=== PATIENT | female | born 1940 | race African-American/Black ===

== ENCOUNTER 2016-08-18 19:36 | Inpatient (IN) | payer OTHER ==
[2016-08-18 19:48] VITALS: BMI 20.2
[2016-08-18] MEDS ORDERED: ASPIRIN 81 MG CHEWABLE TABLETS PO ONE (19:55)
--- NOTE | 2016-08-18 19:57 | PDOC ---
History of Present Illness - General Chief Complaint: Chest Pain Stated Complaint: CHEST PAIN Time Seen by Provider: 08/18/16 19:55 - History of Present Illness Initial Comments: 08/18/16 20:15 CHIEF COMPLAINT: chest pain HISTORY OF PRESENT ILLNESS: 76 yo F with history of CAD (s/p 2 stents), [place] afib , HTN, HLD, presents to ED with left sided chest pain radiating to L shoulder and arm with accompanying shortness of breath. Patient states that is she is unsure of the timeframe but sometime this evening she was walking from her kitchen to her room when she started feeling the chest pain. She denies fever, chills, nausea, vomiting, diarrhea, headache. No recent travel or sick contacts. PAST MEDICAL HISTORY: Denies past medical history FAMILY HISTORY: Mother -Alzheimer's, Grandfather - diabetes SOCIAL HISTORY: Lives at home with boyfriend. 30 pack year smoking history. alcohol, illicit drug use. SURGICAL HISTORY: stent placement, last cath 2012 ALLERGIES: Penicillin REVIEW OF SYSTEMS General/Constitutional: Denies fever or chills. Denies weakness, weight change. HEENT: Denies change in vision. Denies ear pain or discharge. Denies sore throat. Cardiovascular: Chest pain, shortness of breath Respiratory: Denies cough, wheezing, or hemoptysis. Gastrointestinal: Denies nausea, vomiting, diarrhea or constipation. Denies rectal bleeding. Genitourinary: Denies dysuria, frequency, or change in urination. Musculoskeletal: Denies joint or muscle swelling or pain. Denies neck or back pain. Skin and breasts: Denies rash or easy bruising. Neurologic: Denies headache, vertigo, loss of consciousness, or loss of sensation. PHYSICAL EXAM General Appearance: Well-appearing, appropriately dressed. No apparent distress , no intoxication. HEENT: EOMI, PERRLA, normal ENT inspection, normal voice, TMs normal, pharynx normal. No conjunctival pallor. No photophobia, scleral icterus. Neck: Supple. Trachea midline. No tenderness, rigidity, carotid bruit, stridor , lymphadenopathy, or thyromegaly. Respiratory/Chest: Mild SOB, patient is able to speak in complete sentences. Lungs CTAB. No chest tenderness, respiratory distress, accessory muscle use. No crackles, rales, rhonchi, stridor, wheezing, dullness Cardiovascular: RRR. S1, S2. No JVD, murmur, bradycardia, tachycardia. Vascular Pulses: Dorsalis-Pedis (R): 2+, Dorsalis-Pedis (L): 2+ Gastrointestinal/Abdominal: Normal bowel sounds. Abdomen soft, non-distended. No tenderness or rebound tenderness. No organomegaly, pulsatile mass, guarding , hernia, hepatomegaly, splenomegaly. Lymphatic: No adenopathy, tenderness. Musculoskeletal/Extremities: Normal inspection. FROM of all extremities, normal capillary refill. Pelvis Stable. No CVA tenderness. No tenderness to extremities, pedal edema, swelling, erythema or deformity. Integumentary: Appropriate color, dry, warm. 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 Fully oriented, alert. Appropriate mood/affect. Motor strength 5/5. No appreciable EOM palsy, facial droop or sensory deficit. Beta Michelle given by EMS (Core Measure): No Beta Michelle taken at Home (Core Measure): No Past History - Past Medical History Allergies/Adverse Reactions: Allergies Allergy/AdvReac Type Severity Reaction Status Date / Time Penicillins Allergy Mild Swelling Verified 08/18/16 19:41 Home Medications: Ambulatory Orders Aspirin/Dipyridamole [Aggrenox -] 1 combo PO BID 06/23/16 Atorvastatin Calcium 40 mg PO DAILY 06/23/16 Trazodone HCl 100 mg PO DAILY 06/23/16 Enalapril Maleate [Vasotec -] 10 mg PO DAILY #30 tablet 06/28/16 Levofloxacin [Levaquin -] 250 mg PO DAILY@0600 #10 tablet 06/28/16 Metronidazole [Flagyl -] 250 mg PO TID #30 tablet 06/28/16 Mirtazapine [Remeron -] 7.5 mg PO HS tablet 06/28/16 Nicotine Patch [Nicoderm Patch -] 14 mg TD DAILY #40 patch 06/28/16 Nifedipine ER [Procardia XL -] 30 mg PO DAILY #30 tab.er.24 06/28/16 Anemia: No Asthma: No Cancer: No Cardiac Disorders: Yes (NV,AFIB,stents,angio) CVA: No COPD: Yes CHF: No Dementia: No Diabetes: No GI Disorders: Yes Disorders: No HTN: Yes Hypercholesterolemia: No Kidney Stones: Yes Liver Disease: No Suicide Attempt (Hx): No Seizures: No Thyroid Disease: No - Surgical History Abdominal Surgery: Yes (COLON) Appendectomy: Yes Cardiac Surgery: Yes (STENT, BALLOON) Cholecystectomy: Yes Lung Surgery: No Neurologic Surgery: No Orthopedic Surgery: No - Immunization History Td Vaccination: Yes Immunization Up to Date: Yes - Psycho/Social/Smoking Cessation Hx Anxiety: Yes Suicidal Ideation: No Smoking Status: No Smoking History: Current every day smoker Years of Tobacco Use: 40 Have you smoked in the past 12 months: Yes Number of Cigarettes Smoked Daily: 10 Cigars Per Day: 0 Information on smoking cessation initiated: Yes 'Breaking Loose' booklet given: 08/18/16 Hx Alcohol Use: No Drug/Substance Use Hx: No Substance Use Type: None Hx Substance Use Treatment: No Cardiac Specific PMH - Complaint Specific PMHX Cardiac Stent: Yes Pacemaker: No *Physical Exam - Vital Signs Last Vital Signs Temp Pulse Resp BP Pulse Ox 91 H 18 173/61 99 08/18/16 19:41 08/18/16 19:41 08/18/16 19:41 08/18/16 19:41 Heart Score/ECG Review - History History: Moderately suspicious - Electrocardiogram EKG: Non specific repolarization disturbance - Age Age: >/= 65 - Risk Factors Risk Factors Heart Score: Yes Hx Hypercholesterolemia, Yes Hx Hypertension, Yes Smoking History Based on the list above the patient has:: >/=3 risk factors or Hx atherosclerotic disease - Troponin Troponin: </= normal limit - Score Heart Score - Total: 6 - ECG Intrepretation Rhythm: PAC(s) - [place]: Normal - P and MS Atrial Enlargement: Left ED Treatment Course - LABORATORY CBC & Chemistry Diagram: 08/18/16 20:23 08/18/16 20:23 - ADDITIONAL ORDERS Additional order review: Laboratory Results 08/18/16 08/18/16 08/18/16 20:23 20:23 20:23 INR 1.07 Sodium 137 Potassium 4.5 Chloride 103 Carbon Dioxide 27 Anion Gap 7 L BUN 23 H D Creatinine 1.5 H D Creat Clearance w eGFR 33.67 Random Glucose 100 Calcium 9.1 Magnesium 2.4 Total Bilirubin 0.2 D AST 12 L ALT 17 Alkaline Phosphatase 84 Creatine Kinase 34 34 Troponin I < 0.02 < 0.02 Total Protein 7.6 Albumin 3.9 08/18/16 20:23 RBC 4.32 MCV 80.2 MCHC 33.0 RDW 15.1 MPV 8.6 Neutrophils % 65.9 Lymphocytes % 23.3 Monocytes % 7.5 Eosinophils % 2.5 Basophils % 0.8 - RADIOLOGY Radiology Studies Ordered: Category Date Time Status CHEST PA & LAT [RAD] Stat Radiology 08/18/16 19:56 Taken - Medications Given in the ED: ED Medications Discontinued Medications Generic Name Dose Route Start Last Admin Trade Name Blanca PRN Reason Stop Dose Admin Aspirin 162 mg 08/18/16 19:55 08/18/16 20:38 Asa - PO 08/18/16 19:56 162 mg ONCE ONE Administration Morphine Sulfate 4 mg 08/18/16 20:13 08/18/16 20:38 Morphine Injection - IVPUSH 08/18/16 20:14 4 mg ONCE ONE Administration Medical Decision Making - Medical Decision Making 08/18/16 20:31 76 yo F with significant PMH of NV (s/p stent placement), afib, HTN, HLD presents to ED with left sided chest pain radiating to left shoulder and arm. -CBC, CMP, Mg, PT/INR, troponin -CXR, EKG -4 mg morphine, 162 mg ASA -2 L O2 via NC BP: R side 173/61, L side 175/66 HR: 91 EKG: T-wave inversion in leads V1, V2, V3. Compared to EKG from 06/23/16, T- wave inversion in V2, V3 are new. Patient reassessed; is talking agitatedly on cell phone. On interview, states she is feeling a little better. Labs: 1st Troponin negative. Creatinine 1.5, elevated from baseline of 1.0- 1.2. Discussed case with ER attending Keerthi, given patient's history of CAD/NV, will admit to inpatient service for acute chest pain, possible NSTEMI. *DC/Admit/Observation/Transfer Diagnosis at time of Disposition: Chest pain, rule out acute myocardial infarction - Discharge Dispostion Admit: Yes Decision to Admit order Date/Time: Decision to Admit Order Category Date Time Status Decision to Admit to Hospital Routine Phy Order 08/18/16 22:26 Ordered - Referrals Referrals: Pedro Rose MD [Primary Care Provider] -
[2016-08-18] MEDS ORDERED: ASPIRIN 81 MG CHEWABLE TABLETS ONE (20:13)
[2016-08-18] MEDS ORDERED: morphine CARPU-JECT 4 MG/1 ML DISP.SYRIN IVPUSH ONE (20:13)
[2016-08-18] MEDS ORDERED: morphine CARPU-JECT 4 MG/1 ML DISP.SYRIN ONE (20:15)
[2016-08-18 20:45] LABS: BASOPHIL 0.8 % (0-2.0); EOSINOPHIL 2.5 % (0-4.5); MCH 26.5 pg (25.7-33.7); MEAN CELL VOLUME 80.2 fl (80-96); MEAN PLT VOLUME 8.6 fl (7.5-11.1); NEUTROPHILS 65.9 % (42.8-82.8); PLATELET COUNT 253 K/MM3 (134-434); RDW 15.1 % (11.6-15.6); WHITE BLOOD COUNT 9.7 K/mm3 (4.0-10.0)
[2016-08-18 21:21] LABS: ALBUMIN 3.9 g/dl (3.4-5.0); ANION GAP 7 (8-16); CALCIUM 9.1 mg/dL (8.5-10.1); CO2 27 mmol/L (21-32); CREATININE 1.5 mg/dL (0.55-1.02); GLUCOSE,RANDOM 100 mg/dL (74-106); MAGNESIUM 2.4 mg/dL (1.8-2.4); SGOT/AST 12 U/L (15-37); SGPT/ALT 17 U/L (12-78)
[2016-08-18 21:23] LABS: TROPONIN I < 0.02 ng/ml (0.00-0.05)
[2016-08-18 21:25] LABS: ALK PHOS 84 U/L (45-117); BILIRUBIN,TOTAL 0.2 mg/dL (0.2-1.0); TOT PROT 7.6 g/dl (6.4-8.2); TROPONIN I < 0.02 ng/ml (0.00-0.05)
[2016-08-18 21:57] LABS: INR 1.07 (0.82-1.09); PROTHROMBIN TIME (PATIENT) 11.8 SEC (9.98-11.88)
[2016-08-19] MEDS ORDERED: ZOLPIDEM TARTRATE 5 MG TABLET ONE (02:13)
[2016-08-19] MEDS: ZOLPIDEM TARTRATE 5 MG TABLET PO PRN ×2 (02:15→02:32)
[2016-08-19] MEDS ORDERED: ACETAMINOPHEN 325 MG TABLET (FP) PO PRN (02:38)
[2016-08-19 07:59] LABS: TROPONIN I < 0.02 ng/ml (0.00-0.05)
--- NOTE | 2016-08-19 09:40 | CONSULT ---
Consult Consult Specialty:: Cadiology Referred by:: Joellen Damon MD Reason for Consultation:: Chest pain - History of Present Illness Chief Complaint: Chest pain History of Present Illness: 74 y/o female with h/o CAD [place] s/p pci, tob abuse, htn, HLD, COPD, paroxysmal afib, diverticulitis 6 yo F with history of CAD (s/p 2 stents), [place] afib, HTN, HLD, presents to ED with left sided chest pain radiating to L shoulder and arm with accompanying shortness of breath. Patient states that is she is unsure of the timeframe but sometime this evening she was walking from her kitchen to her room when she started feeling the chest pain. She denies fever, chills, nausea, vomiting, diarrhea, headache. No recent travel or sick contacts. PAST MEDICAL HISTORY: Denies past medical history FAMILY HISTORY: Mother -Alzheimer's, Grandfather - diabetes SOCIAL HISTORY: Lives at home with boyfriend. 30 pack year smoking history. alcohol, illicit drug use. SURGICAL HISTORY: stent placement, last cath 2012 ALLERGIES: Penicillin - Past Medical History Cardio/Vascular: Yes: AFIB (paroxysmal), CAD, HTN, [place]. No: Aneurysm Pulmonary: Yes: COPD. No: Asthma - Past Surgical History Past Surgical History: Yes: Stent - Alcohol/Substance Use Hx Alcohol Use: No History of Substance Use: reports: None - Smoking History Smoking history: Current every day smoker Have you smoked in the past 12 months: Yes Aproximately how many cigarettes per day: 10 - Social History ADL: Independent History of Recent Travel: Yes (from [place] to [place] 2 days ago) Home Medications - Allergies Allergies/Adverse Reactions: Allergies Allergy/AdvReac Type Severity Reaction Status Date / Time Penicillins Allergy Mild Swelling Verified 08/18/16 19:41 - Home Medications Home Medications: Ambulatory Orders Trazodone HCl 50 mg PO HS 06/23/16 Aspirin [ASA -] 81 mg PO DAILY 08/19/16 Valsartan [Diovan] 320 mg PO DAILY 08/19/16 Zolpidem Tartrate [Ambien] 10 mg PO HS 08/19/16 Family Disease History - Family Disease History Family Disease History: Diabetes: Grandparent, Other: Mother (Alzheimer's disease) Vital Signs: Vital Signs Temperature 98.0 F 08/19/16 01:00 Pulse Rate 67 08/19/16 06:35 Respiratory Rate 20 08/19/16 06:35 Blood Pressure 123/49 08/19/16 06:35 O2 Sat by Pulse Oximetry (%) 92 L 08/19/16 01:00 - Other Data Labs, Other Data: INR, PTT INR 1.07 (0.82-1.09) 08/18/16 20:23 Troponin, BNP 08/19/16 08/19/16 00:36 05:35 Troponin I < 0.02 < 0.02 Troponin, BNP 08/19/16 08/19/16 00:36 05:35 Troponin I < 0.02 < 0.02 Assessment/Plan 74 y/o female with COPD, htn, hl, CAD s/p PCI presents with abdominal pain. Patient has a normal CT scan of the abd/pelvis with no fevers, WBC, or lactate. Will observe overnight. Will reorder a tranvaginal US as the pain is similar to her prior presentation. 1.) Abdominal Pain -no lactate -CT abd/pelv normal -no fevers -no leukocytosis -no organic evidence thus far of the patient to have bilateral abdominal tenderness -will repeat transvag US 2.) HTN -restart home meds 3.) COPD -Albuterol Q6 -restart home meds 4.) CAD -c/w plavix -consider statin 5.) DVT -lovenox 40U (1) Ischemic colitis Code(s): K55.9 - VASCULAR DISORDER OF INTESTINE, UNSPECIFIED (2) HTN (hypertension) Code(s): I10 - ESSENTIAL (PRIMARY) HYPERTENSION (3) CAD (coronary artery disease) Code(s): I25.10 - ATHSCL HEART DISEASE OF [place] CORONARY ARTERY W/O ANG PCTRS (4) Paroxysmal a-fib Code(s): I48.0 - PAROXYSMAL ATRIAL FIBRILLATION
[2016-08-19] MEDS ORDERED: ASPIRIN 81 MG CHEWABLE TABLETS PO SCH (10:00)
[2016-08-19] MEDS ORDERED: CARVEDILOL 3.125 MG TABLET (FP) PO SCH (10:00)
[2016-08-19] MEDS ORDERED: VALSARTAN 160 MG TABLET (UD) PO SCH (10:00)
--- NOTE | 2016-08-19 10:15 | HP ---
Admitting History and Physical - Primary Care Physician PCP: andres - Admission Chief Complaint: chest pain History of Present Illness: ER HISTORY CHIEF COMPLAINT: chest pain HISTORY OF PRESENT ILLNESS: 76 yo F with history of CAD (s/p 2 stents), [place] afib , HTN, HLD, presents to ED with left sided chest pain radiating to L shoulder and arm with accompanying shortness of breath. Patient states that is she is unsure of the timeframe but sometime this evening she was walking from her kitchen to her room when she started feeling the chest pain. She denies fever, chills, nausea, vomiting, diarrhea, headache. No recent travel or sick contacts. Pt seen by me on Telemetry Known to me from previous admissions- She currently has chest pain ,denies SOB . Chest pain x 2 days now Continuous, feels weak Has new changes in EKG as per Dr Dempsey and will be transferred to [facility] History Source: Patient Limitations to Obtaining History: No Limitations - Past Medical History Cardiovascular: Yes: AFIB (paroxysmal), CAD, HTN, [place]. No: Aneurysm Pulmonary: Yes: COPD. No: Asthma - Past Surgical History Past Surgical History: Yes: Stent - Smoking History Smoking history: Current every day smoker Have you smoked in the past 12 months: Yes Aproximately how many cigarettes per day: 10 - Alcohol/Substance Use Hx Alcohol Use: No History of Substance Use: reports: None - Social History ADL: Independent History of Recent Travel: Yes (from [place] to [place] 2 days ago) Home Medications - Allergies Allergies/Adverse Reactions: Allergies Allergy/AdvReac Type Severity Reaction Status Date / Time Penicillins Allergy Mild Swelling Verified 08/18/16 19:41 - Home Medications Home Medications: Ambulatory Orders Trazodone HCl 50 mg PO HS 06/23/16 Aspirin [ASA -] 81 mg PO DAILY 08/19/16 Valsartan [Diovan] 320 mg PO DAILY 08/19/16 Zolpidem Tartrate [Ambien] 10 mg PO HS 08/19/16 Family Disease History - Family Disease History Family Disease History: Diabetes: Grandparent, Other: Mother (Alzheimer's disease) Review of Systems - Review of Systems Constitutional: denies: Chills, Fever, Weakness Cardiovascular: reports: Chest Pain. denies: Edema, Palpitations, Shortness of Breath Physical Examination Vital Signs: Vital Signs Temperature 98.0 F 08/19/16 01:00 Pulse Rate 67 08/19/16 06:35 Respiratory Rate 20 08/19/16 06:35 Blood Pressure 123/49 08/19/16 06:35 O2 Sat by Pulse Oximetry (%) 92 L 08/19/16 01:00 Constitutional: Yes: No Distress, Calm Cardiovascular: Yes: Regular Rate and Rhythm Respiratory: Yes: Cough Gastrointestinal: Yes: Normal Bowel Sounds, Soft. No: Distention, Tenderness Edema: No Neurological: Yes: Alert, Oriented Psychiatric: Yes: Alert, Oriented Labs: Laboratory Results - last 24 hr 08/18/16 08/18/16 08/18/16 20:23 20:23 20:23 WBC 9.7 RBC 4.32 Hgb 11.4 D Hct 34.6 MCV 80.2 MCHC 33.0 RDW 15.1 Plt Count 253 MPV 8.6 Neutrophils % 65.9 Lymphocytes % 23.3 Monocytes % 7.5 Eosinophils % 2.5 Basophils % 0.8 INR 1.07 Sodium Potassium Chloride Carbon Dioxide Anion Gap BUN Creatinine Creat Clearance w eGFR Random Glucose Calcium Magnesium Total Bilirubin AST ALT Alkaline Phosphatase Creatine Kinase 34 Troponin I < 0.02 Total Protein Albumin 08/18/16 08/19/16 08/19/16 20:23 00:36 05:35 WBC RBC Hgb Hct MCV MCHC RDW Plt Count MPV Neutrophils % Lymphocytes % Monocytes % Eosinophils % Basophils % INR Sodium 137 Potassium 4.5 Chloride 103 Carbon Dioxide 27 Anion Gap 7 L BUN 23 H D Creatinine 1.5 H D Creat Clearance w eGFR 33.67 Random Glucose 100 Calcium 9.1 Magnesium 2.4 Total Bilirubin 0.2 D AST 12 L ALT 17 Alkaline Phosphatase 84 Creatine Kinase 34 29 Troponin I < 0.02 < 0.02 < 0.02 Total Protein 7.6 Albumin 3.9 Imaging - Results Chest X-ray: Image Reviewed (no infiltrate) EKG: Image Reviewed (EKG- Sinus, T wave inverted V 2 and V3) Problem List - Problems (1) Chest pain, rule out acute myocardial infarction Code(s): R07.9 - CHEST PAIN, UNSPECIFIED (2) CAD (coronary artery disease) Code(s): I25.10 - ATHSCL HEART DISEASE OF [place] CORONARY ARTERY W/O ANG PCTRS Qualifiers: Coronary Disease-Associated Artery/Lesion type: [place] artery Associated angina: with unstable angina (3) HTN (hypertension) Code(s): I10 - ESSENTIAL (PRIMARY) HYPERTENSION Qualifiers: Hypertension type: essential hypertension Qualified Code(s): I10 - Essential (primary) hypertension (4) Nonspecific ST-T wave electrocardiographic changes Code(s): R94.31 - ABNORMAL ELECTROCARDIOGRAM [ECG] [EKG] (5) Paroxysmal a-fib Code(s): I48.0 - PAROXYSMAL ATRIAL FIBRILLATION Assessment/Plan PLAN -- cardiac enzymes negative -- EKG shows new changes -- continue with meds -- On Heparin drip and Plavix -- being transferred to [facility] for cath -- spoke to Cardiology
[2016-08-19] MEDS ORDERED: HEPARIN NA (PORCINE) 5,000 UNITS/ML 1ML VIAL IVPUSH PRN ×2 (10:30)
[2016-08-19] MEDS ORDERED: HEPARIN - 25,000 UNIT in SODIUM CHLORIDE 495 ML IV SCH (10:30)
[2016-08-19] MEDS ORDERED: CLOPIDOGREL BISULFATE 300 MG TABLET PO ONE (10:35)
[2016-08-19] MEDS ORDERED: HEPARIN INFUSION - 500 ML IVPB ONE (10:43)
[2016-08-19] MEDS ORDERED: NITROGLYCERIN SUBLINGUAL 1/150 0.4 MG TAB ONE (10:43)
[2016-08-19] MEDS ORDERED: NITROGLYCERIN SUBLINGUAL 1/150 0.4 MG TAB SL PRN (10:45)
--- NOTE | 2016-08-19 10:45 | PN ---
Progress Note (short form) - Note Progress Note: Cardiology Consult Dictated 76F w/ CAD s/p PCI x 2 2008, and again in '13 after ID, CVAs (last 5 months ago ) COPD, HTN presents to ER with worsening substernal chest pressure reminding her of her previous anginal sx, relieved with SLNTG and found to have new anterior TWI compared to previous office echo 08/06/16. IMP: Unstable angina Known CAD s/p previous PCIs HTN Known moderate to severe AR REC: 1. Will start IV heparin gtts and give Plavix 300mg PO x1 2. Continue ASA 3. In light of established CAD with current sx and new ECG changes, will arrange for transfer for cath. Discussed with patient and who agree w plan.
--- NOTE | 2016-08-19 11:52 | EKG ---
Test Reason : Blood Pressure : / mmHG Vent. Rate : 067 BPM Atrial Rate : 067 BPM P-R Int : 136 ms QRS Dur : 080 ms QT Int : 450 ms P-R-T Axes : 072 059 060 degrees QTc Int : 475 ms SINUS RHYTHM WITH MARKED SINUS ARRHYTHMIA WITH REPOLARIZATION ABNORMALITY r/o anterior wall ischemia. OTHERWISE NORMAL ECG WHEN COMPARED WITH ECG OF 18-AUG-2016 19:44, PREMATURE ATRIAL COMPLEXES ARE NO LONGER PRESENT Confirmed by RUSLAN MAYORGA MD ([id number]) on 08/19/2016 11:52:23 AM Referred By: Jennie DALE Confirmed By:RUSLAN MAYORGA MD
--- NOTE | 2016-08-19 11:54 | EKG ---
Test Reason : Blood Pressure : / mmHG Vent. Rate : 086 BPM Atrial Rate : 086 BPM P-R Int : 134 ms QRS Dur : 080 ms QT Int : 390 ms P-R-T Axes : 067 055 055 degrees QTc Int : 466 ms SINUS RHYTHM WITH PREMATURE ATRIAL COMPLEXES POSSIBLE LEFT ATRIAL ENLARGEMENT T WAVE ABNORMALITY, CONSIDER ANTERIOR ISCHEMIA ABNORMAL ECG WHEN COMPARED WITH ECG OF 23-JUN-2016 21:23, PREMATURE ATRIAL COMPLEXES ARE NOW PRESENT T WAVE INVERSION NOW EVIDENT IN ANTERIOR LEADS Confirmed by MUKESH ALCAZAR, RUSLAN ([id number]) on 08/19/2016 11:53:52 AM Referred By: Confirmed By:RUSLAN MAYORGA MD
--- NOTE | 2016-08-19 13:02 | CONS ---
DATE OF CONSULTATION: DATE OF DICTATION: 08/19/2016 REQUESTING PHYSICIAN: Joellen Damon MD REASON FOR CONSULTATION: Chest pain. HISTORY OF PRESENT ILLNESS: The patient is a 76-year-old female who I had evaluated in the office in early August for dyspnea on exertion and substernal chest pressure. She has a past medical history of coronary artery disease status post PCI x2 in 2007 and again in 2012 after a myocardial infarction. She has a history of smoking and COPD, nephrolithiasis, history of CVAs with the last one approximately 5 months ago at [facility], non-hemorrhagic. She now presents to the ER with substernal chest pressure, worsening in nature, reminding her of her previous angina symptoms - relieved with sublingual nitroglycerin. On EKG, she has new T-wave inversions in the anterior precordial leads compared with EKG in my office on August 06. She denies nausea, vomiting, or diaphoresis. She does have shortness of breath associated with the chest pressure. The pain is not pleuritic in nature, non-positional in nature, and not related to food intake. PAST MEDICAL HISTORY: Is as above and includes coronary artery disease with PCI in 2007 and again in 2012, CVA non-hemorrhagic approximately 4-5 months ago treated at [facility], COPD, hypertension, nephrolithiasis, status post cholecystectomy, status post appendectomy, status post colon surgery for diverticulosis. ALLERGIES: She is allergic to PENICILLIN. HOME MEDICATIONS: Include Ambien 10 mg at bedtime, Diovan 320 daily, aspirin 81 daily, and trazadone 50 at bedtime. FAMILY HISTORY: Noncontributory. SOCIAL HISTORY: Patient is an active smoker. PHYSICAL EXAMINATION: Vital signs: Temperature of 98 Fahrenheit, pulse 67 and regular, blood pressure on presentation was 170/61, now 144/76, O2 saturation has vacillated between 93 and 99 on room air. Neck: 2+ pulses. No bruits. Heart: S1, 2. There is a 2/6 diastolic murmur at the right sternal border. Chest: Clear bilaterally with decreased breath sounds consistent with COPD. Abdomen: Soft, nontender. Extremities: No significant pitting edema. Negative Homans sign bilaterally. Pulses 2+ carotid and radial pulses bilaterally. DIAGNOSTIC DATA: EKG showed normal sinus rhythm at 86 beats per minute with T-wave inversions in V2 and V3, which were new compared to the previous EKG in August of 2016. Chest x-ray with no active cardiopulmonary disease. LABORATORIES: White count 9.7, hematocrit 34.6, platelets 253. INR 1.07. Sodium 137, potassium 4.5, BUN 23, creatinine 1.5. CK is negative x3. Sets troponin is negative x4 sets. ASSESSMENT: 1. This is a 76-year-old female with known coronary artery disease status post percutaneous coronary intervention 2007 and 2012. 2. History of cerebrovascular accident 5 months ago, non-hemorrhagic. 3. Hypertension. 4. Known smoker with chronic obstructive pulmonary disease. 5. Moderate to severe aortic regurgitation. She is now presenting with substernal chest pressure and new electrocardiogram changes, pressure with characteristics of her previous anginal symptoms. Concern for unstable angina. PLAN: 1. Continue aspirin. 2. Will give Plavix 300 mg p.o. x1. 3. Will begin IV heparin. 4. Given her established CAD, current symptoms, and new EKG changes, will arrange for transfer for urgent cardiac catheterization to rule out restenosis or progression of coronary artery disease. Case was discussed with patient and with her , who agreed with the plan. Patient has been accepted for transfer for catheterization at [facility] today. GALLO ESTRADA M.D. [id number]
[2016-08-19 14:34] VITALS: BP 135/48; PULSE 65; TEMP 98.2
[2016-08-19] MEDS ORDERED: traZODone HCL 50 MG TABLET (FP) PO SCH (22:00)
== END 2016-08-19 15:51 | disposition short-term general hospital (02) | DRG 303 ==
LOC: JER 19:36 → JERBED 22:45 → J4W 08-19 01:19
PROVIDERS: ADMIT Internal Medicine; ATTEND Internal Medicine
DX: I25.10 Atherosclerotic heart disease of native coronary artery without angina pectoris (principal); I20.0 Unstable angina; Z98.61 Coronary angioplasty status; I25.2 Old myocardial infarction; R07.9 Chest pain, unspecified; Z86.73 Personal history of transient ischemic attack (TIA), and cerebral infarction without residual deficits; I35.1 Nonrheumatic aortic (valve) insufficiency; I48.0 Paroxysmal atrial fibrillation; I10 Essential (primary) hypertension; F17.210 Nicotine dependence, cigarettes, uncomplicated
CPT/HCPCS: 36415; 71020-TC; 80053; 82550; 83735; 84484; 85025; 85610; 93005; 93010; 93306-TC; 99283-25; J1644

== ENCOUNTER 2016-09-09 16:49 | Inpatient (IN) | payer OTHER ==
[2016-09-09 17:16] VITALS: BMI 19.5
[2016-09-09] MEDS ORDERED: KETOROLAC TROMETHAMINE 30 MG/1 ML VIAL IVPUSH ONE (17:38)
--- NOTE | 2016-09-09 17:40 | PDOC ---
History of Present Illness - General Chief Complaint: Chest Pain Stated Complaint: CHEST PAIN Time Seen by Provider: 09/09/16 17:21 History Source: Patient Exam Limitations: No Limitations - History of Present Illness Initial Comments: 09/09/16 17:42 Patient is a 76 year old female with significant PMH of CAD (s/p PCIx3: 2008, 2012, August 2016), CVA, COPD, HTN, CKD IV who presents to ED with chest pain. Patient states she has felt mild chest pain over last week that became much more severe this afternoon. It is substernal, 8/10 (was worse before sublingual nitro given), constant, radiates to left arm and exacerbated by movement but not exertion. She states the pain is worse when palpated. She also reports chronic back pain that has been severe lately as well. Denies shortness of breath, abdominal pain, change in vision, diarrhea, constipation, nausea or vomiting. Given Aspirin and sublingual nitro in EMS. Timing/Duration: unsure Past History - Travel Traveled outside of the country in the last 30 days: No Close contact w/someone who was outside of country & ill: No - Past Medical History Allergies/Adverse Reactions: Allergies Allergy/AdvReac Type Severity Reaction Status Date / Time Penicillins Allergy Mild Swelling Verified 09/09/16 16:59 Home Medications: Ambulatory Orders Aspirin [ASA -] 81 mg PO DAILY 09/09/16 Atorvastatin Ca [Lipitor] 40 mg PO HS 09/09/16 Carvedilol 3.125 mg PO DAILY 09/09/16 Clopidogrel Bisulfate [Plavix -] 75 mg PO DAILY 09/09/16 Omeprazole 20 mg PO DAILY 09/09/16 Sertraline HCl [Zoloft] 25 mg PO DAILY 09/09/16 Trazodone HCl 100 mg PO DAILY 09/09/16 Valsartan 320 mg PO DAILY 09/09/16 Zolpidem Tartrate [Ambien] 5 mg PO HS 09/09/16 Anemia: No Asthma: No Cancer: No Cardiac Disorders: Yes (SD,AFIB,stents,angio) CVA: No COPD: Yes CHF: No Dementia: No Diabetes: No GI Disorders: Yes Disorders: No HTN: Yes Hypercholesterolemia: Yes Kidney Stones: Yes Liver Disease: No Suicide Attempt (Hx): No Seizures: No Thyroid Disease: No - Surgical History Abdominal Surgery: Yes (COLON) Appendectomy: Yes Cardiac Surgery: Yes (STENT, BALLOON) Cholecystectomy: Yes Lung Surgery: No Neurologic Surgery: No Orthopedic Surgery: No - Immunization History Td Vaccination: Yes Immunization Up to Date: Yes - Psycho/Social/Smoking Cessation Hx Anxiety: No Suicidal Ideation: No Smoking Status: No Smoking History: Current every day smoker Years of Tobacco Use: 40 Have you smoked in the past 12 months: Yes Number of Cigarettes Smoked Daily: 10 Cigars Per Day: 0 Information on smoking cessation initiated: No 'Breaking Loose' booklet given: 06/24/16 Hx Alcohol Use: No Drug/Substance Use Hx: No Substance Use Type: None Hx Substance Use Treatment: No Review of Systems - Review of Systems Able to Perform ROS?: Yes Is the patient limited Moroccan proficient: No Constitutional: No: Chills, Fever HEENTM: No: Eye Pain, Double Vision, Tinnitus, Throat Pain, Difficulty Swallowing Respiratory: Yes: SOB with Exertion. No: Cough, Shortness of Breath, Wheezing, Productive cough Cardiac (ROS): Yes: Chest Pain. No: Edema, Irregular Heart Rate, Lightheadedness ABD/GI: No: Constipated, Diarrhea, Nausea, Vomiting : No: Burning, Dysuria Musculoskeletal: Yes: Back Pain Integumentary: No: Bruising, Change in Color, Erythema Neurological: No: Headache, Numbness, Tingling, Tremors All Other Systems: Reviewed and Negative *Physical Exam - Vital Signs Last Vital Signs Temp Pulse Resp BP Pulse Ox 97.8 F 63 18 191/53 98 09/09/16 16:59 09/09/16 17:20 09/09/16 16:59 09/09/16 16:59 09/09/16 17:20 - Physical Exam General Appearance: Yes: Appropriately Dressed, Apparent Distress, Thin HEENT: positive: EOMI, ARLETTE, Pharynx Normal Neck: positive: Trachea midline, Normal Thyroid, Supple Respiratory/Chest: positive: Lungs Clear, Other (diminished breath sounds but no wheezing, rales or crackles noted) Cardiovascular: positive: Regular Rhythm, Regular Rate, S1, S2 Gastrointestinal/Abdominal: positive: Normal Bowel Sounds, Flat, Soft Musculoskeletal: positive: Normal Inspection, Other (lower back pain (chronic)) Extremity: positive: Normal Inspection, Normal Range of Motion Integumentary: positive: Normal Color, Dry, Warm Neurologic: positive: contemporary or modern dancer II-XII NML intact, Fully Oriented, Alert, Normal Mood/ Affect, Motor Strength 5/5 Heart Score/ECG Review - History History: Slightly suspicious - Electrocardiogram EKG: Normal - Age Age: >/= 65 - Risk Factors Risk Factors Heart Score: Yes Hx Hypercholesterolemia, Yes Hx Hypertension, Yes Smoking History Based on the list above the patient has:: >/=3 risk factors or Hx atherosclerotic disease - Troponin Troponin: </= normal limit - Score Heart Score - Total: 4 - ECG Impressions Comment:: 09/09/16 17:50 IMPRESSION: NORMAL SINUS RHYTHM 63BPM ED Treatment Course - LABORATORY CBC & Chemistry Diagram: 09/09/16 17:42 09/09/16 17:42 - RADIOLOGY Radiology Studies Ordered: Category Date Time Status CHEST X-RAY PORTABLE* [RAD] Stat Radiology 09/09/16 17:22 Ordered Medical Decision Making - Medical Decision Making 09/09/16 17:51 Unlikely cardiac pain due to musculoskeletal nature of physical exam and reproduction of pain with palpation to sternum, but need to r/o ACS given patient cardiac history. Ordered CBC, CMP, Troponins, CXR, Lipase, lactic, magnesium, UA. Given tramadol for pain management. 09/09/16 18:47 Troponin (-) x1. Patient states chest pain has resolved but given HEART score of 4, will keep overnight for observation in telemetry monitoring. Paged Dr Damon. 09/09/16 19:[address] Damon. Agrees to admit patient to observation telemetry. *DC/Admit/Observation/Transfer Diagnosis at time of Disposition: Chest pain, pleuritic - Discharge Dispostion Admit: Yes
[2016-09-09] MEDS ORDERED: KETOROLAC TROMETHAMINE 30 MG/1 ML VIAL ONE (17:44)
[2016-09-09 17:49] LABS: BASOPHIL 1.2 % (0-2.0); EOSINOPHIL 3.9 % (0-4.5); MCH 26.4 pg (25.7-33.7); MCHC 33.3 g/dl (32.0-36.0); MEAN CELL VOLUME 79.3 fl (80-96); MEAN PLT VOLUME 8.3 fl (7.5-11.1); NEUTROPHILS 53.8 % (42.8-82.8); PLATELET COUNT 278 K/MM3 (134-434); RDW 15.3 % (11.6-15.6); WHITE BLOOD COUNT 8.9 K/mm3 (4.0-10.0)
[2016-09-09 18:27] LABS: ALBUMIN 3.5 g/dl (3.4-5.0); ALK PHOS 88 U/L (45-117); ANION GAP 8 (8-16); BILIRUBIN,TOTAL 0.2 mg/dL (0.2-1.0); CALCIUM 9.1 mg/dL (8.5-10.1); CO2 27 mmol/L (21-32); GLUCOSE,RANDOM 81 mg/dL (74-106); MAGNESIUM 2.1 mg/dL (1.8-2.4); SGOT/AST 7 U/L (15-37); SGPT/ALT 15 U/L (12-78); TOT PROT 7.3 g/dl (6.4-8.2)
[2016-09-09 18:29] LABS: TROPONIN I < 0.02 ng/ml (0.00-0.05)
--- NOTE | 2016-09-09 21:52 | PN ---
Progress Note (short form) - Note Progress Note: CATH RESULTS FROM [facility] LAST ADMISSION IN AUGUST Left Main, mild disease LAD- large vessel, previous stent widely patent, mild disease distally LCX- large vessel, mild disease RCA- dominant, RPDA 90% lesion s/p Resolute CORONA. EDP > 30mmHg, c/w elevated filling pressure.
[2016-09-10 00:47] LABS: TROPONIN I < 0.02 ng/ml (0.00-0.05)
[2016-09-10] MEDS: ZOLPIDEM TARTRATE 5 MG TABLET PO PRN ×2 (01:22→21:52)
[2016-09-10] MEDS ORDERED: ENOXAPARIN NA (PORCINE) 40 MG/0.4 ML DISP.SYRIN SQ SCH (10:00)
--- NOTE | 2016-09-10 10:36 | EKG ---
Test Reason : Blood Pressure : / mmHG Vent. Rate : 063 BPM Atrial Rate : 063 BPM P-R Int : 142 ms QRS Dur : 078 ms QT Int : 450 ms P-R-T Axes : 068 055 057 degrees QTc Int : 460 ms NORMAL SINUS RHYTHM NORMAL ECG WHEN COMPARED WITH ECG OF 19-AUG-2016 10:57, NO SIGNIFICANT CHANGE WAS FOUND Confirmed by KEI WILBURN MD ([id number]) on 09/10/2016 10:36:16 AM Referred By: Confirmed By:KEI WILBURN MD
--- NOTE | 2016-09-10 10:44 | PN ---
Progress Note, Physician History of Present Illness: 76 year old woman with a history of HTN, CVAS last 2015, CAD h/o UT's with PCI' s 2008, 2012, and again 08/2016 at which time she underwent PCI RCA, moderate to severe AR now admitted with chest pain. Pt. seen and examined this am in nad. She states she is still having chest pain. she states the pain is stimulated by movements of her upper body or palpation of her chest. denies other symptoms. - Current Medication List Current Medications: Active Medications Aspirin (Asa -) 81 mg PO DAILY [facility] Atorvastatin Calcium (Lipitor -) 40 mg PO HS [facility] Clopidogrel Bisulfate (Plavix -) 75 mg PO DAILY [facility] Enoxaparin Sodium (Lovenox -) 40 mg SQ DAILY [facility] Pantoprazole Sodium (Protonix -) 20 mg PO DAILY [facility] Sertraline HCl (Zoloft -) 25 mg PO DAILY [facility] Trazodone HCl (Desyrel -) 100 mg PO DAILY [facility] Valsartan (Diovan -) 320 mg PO DAILY [facility] Zolpidem Tartrate (Ambien -) 5 mg PO HS PRN PRN Reason: INSOMNIA Last Admin: 09/10/16 01:22 Dose: 5 mg - Objective Vital Signs: Vital Signs Temperature 97 F L 09/10/16 06:13 Pulse Rate 54 L 09/10/16 09:30 Respiratory Rate 20 09/10/16 09:30 Blood Pressure 151/67 09/10/16 09:30 O2 Sat by Pulse Oximetry (%) 98 09/10/16 09:30 Constitutional: Yes: Well Nourished, No Distress, Calm Eyes: Yes: WNL, Conjunctiva Clear, EOM Intact, PERRL HENT: Yes: WNL, Atraumatic, Normocephalic Neck: Yes: WNL, Supple, Trachea Midline Cardiovascular: Yes: Regular Rate and Rhythm, Gallop, Murmur, S1, S2. No: Bradycardia, Tachycardia, Pulse Irregular, Bruit, JVD, S3, S4, Varicosities Respiratory: Yes: Regular, CTA Bilaterally. No: Rales, Rhonchi, Wheezes Gastrointestinal: Yes: WNL, Normal Bowel Sounds, Soft. No: Distention, Tenderness Musculoskeletal: Yes: Other (Chest pain completely reproducible on palpation and upper body movements) Extremities: Yes: WNL Edema: No Peripheral Pulses WNL: Yes Peripheral Pulses: Left Doralis Pedis: 2+, Right Dorsalis Pedis: 2+ Integumentary: Yes: WNL Neurological: Yes: Alert, Oriented Psychiatric: Yes: Alert, Oriented - ....Imaging Chest X-ray: Report Reviewed, Image Reviewed EKG: Report Reviewed, Image Reviewed Other: Report Reviewed, Image Reviewed (tele-nsr, apcs, pvcs, no sig arrhythmia) Assessment/Plan 76 year old woman with a history of HTN, CVAS last 2015, CAD h/o UT's with PCI' s 2008, 2012, and again 08/2016 at which time she underwent PCI RCA, moderate to severe AR now admitted with chest pain. Chest pain-does not appear cardiac in origin, not acs -cardiac enzymes wnl -echo showed normal LV systolic function, with known valvular abnormalities -would treat for musculoskeletal pain -if pain continues will consider anti-anginals such as imdur, ranexa this can be done as outpatient -ok to dc tele and ok to discharge home from a cardiac standpoint with close outpatient follow up -cont current cardiac meds for now CAD-prior stents as above including recent rca stent -current pain appears non-cardiac -cont home meds -outpatient follow up
[2016-09-10 10:46] LABS: TROPONIN I < 0.02 ng/ml (0.00-0.05)
[2016-09-10] MEDS: SERTRALINE HCL 25 MG TABLET (FP) PO SCH (10:56)
[2016-09-10] MEDS: traZODone HCL 50 MG TABLET (FP) PO SCH (10:56)
[2016-09-10] MEDS: PANTOPRAZOLE 20 MG TABLET (FP) PO SCH (10:56)
[2016-09-10] MEDS: VALSARTAN 160 MG TABLET (UD) PO SCH (10:56)
[2016-09-10] MEDS: CLOPIDOGREL BISULFATE 75 MG TABLET (FP) PO SCH (10:56)
[2016-09-10] MEDS: ASPIRIN 81 MG CHEWABLE TABLETS PO SCH (10:56)
--- NOTE | 2016-09-10 18:16 | HP ---
Admitting History and Physical - Primary Care Physician PCP: Pedro Rose - Admission Chief Complaint: chest pain History of Present Illness: ER HISTORY - History of Present Illness Initial Comments: 09/09/16 17:42 Patient is a 76 year old female with significant PMH of CAD (s/p PCIx3: 2008, 2012, August 2016), CVA, COPD, HTN, CKD IV who presents to ED with chest pain. Patient states she has felt mild chest pain over last week that became much more severe this afternoon. It is substernal, 8/10 (was worse before sublingual nitro given), constant, radiates to left arm and exacerbated by movement but not exertion. She states the pain is worse when palpated. She also reports chronic back pain that has been severe lately as well. Denies shortness of breath, abdominal pain, change in vision, diarrhea, constipation, nausea or vomiting. Given Aspirin and sublingual nitro in EMS. Pt seen by me in Telemetry Has some mild chest pain currently. No SOB, palpitations, diaphoresis She is sitting up in bed History Source: Patient Limitations to Obtaining History: No Limitations - Past Medical History Cardiovascular: Yes: AFIB (paroxysmal), CAD, HTN, [place]. No: Aneurysm Pulmonary: Yes: COPD. No: Asthma - Past Surgical History Past Surgical History: Yes: Stent - Smoking History Smoking history: Current every day smoker Have you smoked in the past 12 months: Yes Aproximately how many cigarettes per day: 10 - Alcohol/Substance Use Hx Alcohol Use: No History of Substance Use: reports: None - Social History ADL: Independent History of Recent Travel: Yes (from [place] to [place] 2 days ago) Home Medications - Allergies Allergies/Adverse Reactions: Allergies Allergy/AdvReac Type Severity Reaction Status Date / Time Penicillins Allergy Mild Swelling Verified 09/09/16 16:59 - Home Medications Home Medications: Ambulatory Orders Aspirin [ASA -] 81 mg PO DAILY 09/09/16 Atorvastatin Ca [Lipitor] 40 mg PO HS 09/09/16 Carvedilol 3.125 mg PO DAILY 09/09/16 Clopidogrel Bisulfate [Plavix -] 75 mg PO DAILY 09/09/16 Omeprazole 20 mg PO DAILY 09/09/16 Sertraline HCl [Zoloft] 25 mg PO DAILY 09/09/16 Trazodone HCl 100 mg PO DAILY 02/08/17 Valsartan 320 mg PO DAILY 09/09/16 Zolpidem Tartrate [Ambien] 5 mg PO HS 09/09/16 Family Disease History - Family Disease History Family Disease History: Diabetes: Grandparent, Other: Mother (Alzheimer's disease) Review of Systems - Review of Systems Constitutional: denies: Chills Cardiovascular: reports: Chest Pain. denies: Palpitations, Shortness of Breath Respiratory: denies: Cough, SOB Physical Examination Vital Signs: Vital Signs Temperature 97.7 F 09/10/16 15:25 Pulse Rate 64 09/10/16 15:25 Respiratory Rate 20 09/10/16 15:25 Blood Pressure 172/63 09/10/16 15:25 O2 Sat by Pulse Oximetry (%) 98 09/10/16 09:30 Constitutional: Yes: No Distress, Calm Cardiovascular: Yes: Regular Rate and Rhythm, Murmur Respiratory: Yes: CTA Bilaterally Gastrointestinal: Yes: Normal Bowel Sounds, Soft. No: Distention, Tenderness Edema: No Psychiatric: Yes: Alert, Oriented Labs: Laboratory Last Values WBC 8.9 K/mm3 (4.0-10.0) 09/09/16 17:42 RBC 4.30 M/mm3 (3.60-5.2) 09/09/16 17:42 Hgb 11.3 GM/dL (10.7-15.3) 09/09/16 17:42 Hct 34.1 % (32.4-45.2) 09/09/16 17:42 MCV 79.3 fl (80-96) L 09/09/16 17:42 MCHC 33.3 g/dl (32.0-36.0) 09/09/16 17:42 RDW 15.3 % (11.6-15.6) 09/09/16 17:42 Plt Count 278 K/MM3 (134-434) 09/09/16 17:42 MPV 8.3 fl (7.5-11.1) 09/09/16 17:42 Neutrophils % 53.8 % (42.8-82.8) 09/09/16 17:42 Lymphocytes % 32.8 % (8-40) D 09/09/16 17:42 Monocytes % 8.3 % (3.8-10.2) 09/09/16 17:42 Eosinophils % 3.9 % (0-4.5) 09/09/16 17:42 Basophils % 1.2 % (0-2.0) 09/09/16 17:42 Sodium 142 mmol/L (136-145) 09/09/16 17:42 Potassium 3.7 mmol/L (3.5-5.1) 09/09/16 17:42 Chloride 107 mmol/L (98-107) 09/09/16 17:42 Carbon Dioxide 27 mmol/L (21-32) 09/09/16 17:42 Anion Gap 8 (8-16) 09/09/16 17:42 BUN 13 mg/dL (7-18) D 09/09/16 17:42 Creatinine 1.0 mg/dL (0.55-1.02) D 09/09/16 17:42 Creat Clearance w eGFR 53.76 (>60) 09/09/16 17:42 Random Glucose 81 mg/dL (74-106) 09/09/16 17:42 Lactic Acid 0.688 mmol/L (0.4-2.0) 09/09/16 17:25 Calcium 9.1 mg/dL (8.5-10.1) 09/09/16 17:42 Magnesium 2.1 mg/dL (1.8-2.4) 09/09/16 17:42 Total Bilirubin 0.2 mg/dL (0.2-1.0) 09/09/16 17:42 AST 7 U/L (15-37) L D 09/09/16 17:42 ALT 15 U/L (12-78) 09/09/16 17:42 Alkaline Phosphatase 88 U/L (45-117) 09/09/16 17:42 Creatine Kinase 25 IU/L (26-192) L 09/10/16 09:44 Troponin I < 0.02 ng/ml (0.00-0.05) 09/10/16 09:44 Total Protein 7.3 g/dl (6.4-8.2) 09/09/16 17:42 Albumin 3.5 g/dl (3.4-5.0) 09/09/16 17:42 Lipase 88 U/L (73-393) 09/09/16 17:50 Imaging - Results Chest X-ray: Image Reviewed (no infiltrate) EKG: Image Reviewed (NSR) Problem List - Problems (1) Chest pain, pleuritic Code(s): R07.81 - PLEURODYNIA (2) CAD (coronary artery disease) Code(s): I25.10 - ATHSCL HEART DISEASE OF [place] CORONARY ARTERY W/O ANG PCTRS Qualifiers: Coronary Disease-Associated Artery/Lesion type: [place] artery Associated angina: with unstable angina (3) HTN (hypertension) Code(s): I10 - ESSENTIAL (PRIMARY) HYPERTENSION Qualifiers: Hypertension type: essential hypertension Qualified Code(s): I10 - Essential (primary) hypertension Assessment/Plan PLAN -- Noted echo results -- cardiac enzymes negative -- Cardiology eval appreciated -- cardiac cath results noted -- may dc in AM
[2016-09-10] MEDS: ATORVASTATIN CA 40 MG TABLET (FP) PO SCH (21:52)
[2016-09-11] MEDS: ASPIRIN 81 MG CHEWABLE TABLETS PO SCH (09:36)
[2016-09-11] MEDS: traZODone HCL 50 MG TABLET (FP) PO SCH (09:36)
[2016-09-11] MEDS: VALSARTAN 160 MG TABLET (UD) PO SCH (09:36)
[2016-09-11] MEDS: APIXABAN 5 MG TABLET PO SCH ×2 (09:37→21:25)
[2016-09-11] MEDS: SERTRALINE HCL 25 MG TABLET (FP) PO SCH (09:37)
[2016-09-11] MEDS: CLOPIDOGREL BISULFATE 75 MG TABLET (FP) PO SCH (09:37)
[2016-09-11] MEDS: PANTOPRAZOLE 20 MG TABLET (FP) PO SCH (09:37)
--- NOTE | 2016-09-11 09:45 | PN ---
Progress Note, Physician History of Present Illness: seen and examined today in [facility]. no overnight events. no new complaints. states her chest pain is improving. - Current Medication List Current Medications: Active Medications Apixaban (Eliquis -) 5 mg PO BID [facility] Last Admin: 09/11/16 09:37 Dose: 5 mg Aspirin (Asa -) 81 mg PO DAILY [facility] Last Admin: 09/11/16 09:36 Dose: 81 mg Atorvastatin Calcium (Lipitor -) 40 mg PO HS [facility] Last Admin: 09/10/16 21:52 Dose: Not Given Clopidogrel Bisulfate (Plavix -) 75 mg PO DAILY [facility] Last Admin: 09/11/16 09:37 Dose: 75 mg Pantoprazole Sodium (Protonix -) 20 mg PO DAILY [facility] Last Admin: 09/11/16 09:37 Dose: 20 mg Sertraline HCl (Zoloft -) 25 mg PO DAILY [facility] Last Admin: 09/11/16 09:37 Dose: 25 mg Trazodone HCl (Desyrel -) 100 mg PO DAILY [facility] Last Admin: 09/11/16 09:36 Dose: 100 mg Valsartan (Diovan -) 320 mg PO DAILY [facility] Last Admin: 09/11/16 09:36 Dose: 320 mg Zolpidem Tartrate (Ambien -) 5 mg PO HS PRN PRN Reason: INSOMNIA Last Admin: 09/10/16 21:52 Dose: 5 mg - Objective Vital Signs: Vital Signs Temperature 98.1 F 09/11/16 06:00 Pulse Rate 79 09/11/16 06:00 Respiratory Rate 18 09/11/16 06:00 Blood Pressure 132/59 09/11/16 06:00 O2 Sat by Pulse Oximetry (%) 99 09/10/16 21:00 Constitutional: Yes: Well Nourished, No Distress, Calm Eyes: Yes: WNL, Conjunctiva Clear, EOM Intact, PERRL HENT: Yes: WNL, Atraumatic, Normocephalic Neck: Yes: WNL, Supple, Trachea Midline Cardiovascular: Yes: Regular Rate and Rhythm, Murmur, S1, S2. No: Bradycardia, Tachycardia, Pulse Irregular, Bruit, JVD, Gallop, Rub, S3, S4, Varicosities Respiratory: Yes: WNL, Regular, CTA Bilaterally. No: Rales, Rhonchi, Wheezes Gastrointestinal: Yes: WNL, Normal Bowel Sounds, Soft. No: Distention, Tenderness Musculoskeletal: Yes: WNL Extremities: Yes: WNL Edema: No Peripheral Pulses WNL: Yes Peripheral Pulses: Left Doralis Pedis: 2+, Right Dorsalis Pedis: 2+ Integumentary: Yes: WNL Neurological: Yes: Alert, Oriented Psychiatric: Yes: Alert, Oriented - ....Imaging Chest X-ray: Report Reviewed, Image Reviewed EKG: Report Reviewed, Image Reviewed Other: Report Reviewed, Image Reviewed (tele-nsr, sinus maria elena, apcs, pvcs, appears to be brief episode of pafib on 09/09, 2 pauses 09/10 2.52s and 3.65s) Problem List - Problems (1) Chest pain, pleuritic Code(s): R07.81 - PLEURODYNIA (2) CAD (coronary artery disease) Code(s): I25.10 - ATHSCL HEART DISEASE OF [place] CORONARY ARTERY W/O ANG PCTRS Qualifiers: Coronary Disease-Associated Artery/Lesion type: [place] artery Associated angina: with unstable angina (3) HTN (hypertension) Code(s): I10 - ESSENTIAL (PRIMARY) HYPERTENSION Qualifiers: Hypertension type: essential hypertension Qualified Code(s): I10 - Essential (primary) hypertension (4) Nonspecific ST-T wave electrocardiographic changes Code(s): R94.31 - ABNORMAL ELECTROCARDIOGRAM [ECG] [EKG] (5) Paroxysmal a-fib Code(s): I48.0 - PAROXYSMAL ATRIAL FIBRILLATION Assessment/Plan 76 year old woman with a history of HTN, CVAS last 2015, CAD h/o NM's with PCI' s 2008, 2012, and again 08/2016 at which time she underwent PCI RCA, moderate to severe AR now admitted with chest pain. Paroxysmal afib-brief episode on tele here, on review of prior admissions this was mentioned in her problem list but i dont see documentation of it being addressed -will need to clarify history of pafib and the decisions made in regards to AC in the past, this information is not available to me currently -for now I discussed at length with her and her giovani in regards to pafib and in light of her multiple CVA's including within the past year. I discussed the benefit of full AC in regards to reducing the risk of recurrent CVA. we discussed the risks, benefits, alternatives particularly risk of bleeding given she will be on ASA, Plavix, and full AC. she has not had bleeding before but she does have an unsteady gait and has fallen twice before. Pt and her understand the risks and benefits and wish to proceed with full AC for now in addition to ASA and Plavix. -will start eliquis 5mg po bid -avoid AV donna blockers as her HR even while in AFib was controlled and she did have 2 pauses on telemetry 2.52s and 3.65s -she is acceptable for discharge from a cardiac standpoint -advised them of need for close outpatient follow up for further discussion of AC and review of prior work up and considerations, and also plan to do an extended outpatient event monitor to assess further for afib as well as pauses and bradycardia Chest pain-does not appear cardiac in origin, not acs, known CAD with recent stent RCA -cardiac enzymes wnl -echo showed normal LV systolic function, with known stable valvular abnormalities -cont current cardiac meds for now -ok for discharge from a cardiac standpoint
--- NOTE | 2016-09-11 11:47 | DS ---
Physical Examination Vital Signs: Vital Signs Temperature 98.1 F 09/11/16 06:00 Pulse Rate 79 09/11/16 06:00 Respiratory Rate 18 09/11/16 06:00 Blood Pressure 132/59 09/11/16 06:00 O2 Sat by Pulse Oximetry (%) 99 09/10/16 21:00 <Joellen Damon - Last Filed: 09/11/16 11:47> Vital Signs: Vital Signs Temperature 98.1 F 09/11/16 06:00 Pulse Rate 79 09/11/16 06:00 Respiratory Rate 18 09/11/16 06:00 Blood Pressure 132/59 09/11/16 06:00 O2 Sat by Pulse Oximetry (%) 99 09/10/16 21:00 <Beth Coon - Last Filed: 09/11/16 12:07> Discharge Summary Reason For Visit: CHEST PAIN Current Active Problems Chest pain, pleuritic (Acute) - Home Medications Comprehensive Discharge Medication List: Ambulatory Orders Aspirin [ASA -] 81 mg PO DAILY 09/09/16 Atorvastatin Ca [Lipitor] 40 mg PO HS 09/09/16 Carvedilol 3.125 mg PO DAILY 09/09/16 Clopidogrel Bisulfate [Plavix -] 75 mg PO DAILY 09/09/16 Omeprazole 20 mg PO DAILY 09/09/16 Sertraline HCl [Zoloft] 25 mg PO DAILY 09/09/16 Trazodone HCl 100 mg PO DAILY 09/09/16 Valsartan 320 mg PO DAILY 09/09/16 Zolpidem Tartrate [Ambien] 5 mg PO HS 09/09/16 Apixaban [Eliquis -] 5 mg PO BID tablet 09/11/16 <Joellen Damon - Last Filed: 09/11/16 11:47> Current Active Problems Chest pain, pleuritic (Acute) - Home Medications Comprehensive Discharge Medication List: Ambulatory Orders Aspirin [ASA -] 81 mg PO DAILY 09/09/16 Atorvastatin Ca [Lipitor] 40 mg PO HS 09/09/16 Carvedilol 3.125 mg PO DAILY 09/09/16 Clopidogrel Bisulfate [Plavix -] 75 mg PO DAILY 09/09/16 Omeprazole 20 mg PO DAILY 09/09/16 Sertraline HCl [Zoloft] 25 mg PO DAILY 09/09/16 Trazodone HCl 100 mg PO DAILY 09/09/16 Valsartan 320 mg PO DAILY 09/09/16 Zolpidem Tartrate [Ambien] 5 mg PO HS 09/09/16 Apixaban [Eliquis -] 5 mg PO BID tablet 09/11/16 <Beth Coon - Last Filed: 09/11/16 12:07> - Instructions Referrals: Fahad Smith MD [Primary Care Provider] -
--- NOTE | 2016-09-11 12:10 | PN ---
Progress Note (short form) - Note Progress Note: Subjective Patient seen and examined. Chart reviewed. Comfortable. Denies any chest pain or SOB. BP reported by nurse to be 190/96. Objective Last Vital Signs Temp Pulse Resp BP Pulse Ox 98.7 F 59 L 18 192/100 99 09/11/16 08:00 09/11/16 08:05 09/11/16 08:05 09/11/16 08:05 09/10/16 21:00 Labs: CBC, BMP 09/09/16 17:42 09/09/16 17:42 Problem List - Problems (1) Chest pain, pleuritic Code(s): R07.81 - PLEURODYNIA (2) CAD (coronary artery disease) Code(s): I25.10 - ATHSCL HEART DISEASE OF [place] CORONARY ARTERY W/O ANG PCTRS Qualifiers: Coronary Disease-Associated Artery/Lesion type: [place] artery Associated angina: with unstable angina (3) HTN (hypertension) Code(s): I10 - ESSENTIAL (PRIMARY) HYPERTENSION Qualifiers: Hypertension type: essential hypertension Qualified Code(s): I10 - Essential (primary) hypertension Physical Exam Constitutional: Yes: No Distress, Calm Cardiovascular: Yes: Regular Rate and Rhythm, Murmur Respiratory: Yes: CTA Bilaterally Gastrointestinal: Yes: Normal Bowel Sounds, Soft. No: Distention, Tenderness Edema: No Psychiatric: Yes: Alert, Oriented Assessment and Plan Clinically stable but BP very high Discussed with Dr. Nicole Will hold discharge today Will start on Nifladipine Will monitor Discussed with nursing staff as well as case specialistclinical admissions manager prepared by Beth Coon, acting as a medical records assistant for Joellen Damon MD.
[2016-09-11] MEDS ORDERED: dilTIAZem HCL 60 MG TABLET (FP) PO SCH (12:30)
[2016-09-11] MEDS: NIFEdipine E.R. 30 MG TABLET (FP) PO SCH (13:46)
[2016-09-11] MEDS: ZOLPIDEM TARTRATE 5 MG TABLET PO PRN (21:25)
[2016-09-11] MEDS: ATORVASTATIN CA 40 MG TABLET (FP) PO SCH (21:25)
[2016-09-12] MEDS: NIFEdipine E.R. 30 MG TABLET (FP) PO SCH (09:56)
[2016-09-12] MEDS: VALSARTAN 160 MG TABLET (UD) PO SCH (09:56)
[2016-09-12] MEDS: traZODone HCL 50 MG TABLET (FP) PO SCH (09:56)
[2016-09-12] MEDS: PANTOPRAZOLE 20 MG TABLET (FP) PO SCH (09:56)
[2016-09-12] MEDS: SERTRALINE HCL 25 MG TABLET (FP) PO SCH (09:58)
[2016-09-12] MEDS: CLOPIDOGREL BISULFATE 75 MG TABLET (FP) PO SCH (09:58)
[2016-09-12] MEDS: ASPIRIN 81 MG CHEWABLE TABLETS PO SCH (09:58)
[2016-09-12] MEDS: APIXABAN 5 MG TABLET PO SCH (09:58)
--- NOTE | 2016-09-12 10:17 | PN ---
Progress Note, Physician Chief Complaint: no complaints History of Present Illness: TELE: Sinus maria elena in 50s. - Current Medication List Current Medications: Active Medications Apixaban (Eliquis -) 5 mg PO BID [facility] Last Admin: 09/12/16 09:58 Dose: 5 mg Aspirin (Asa -) 81 mg PO DAILY [facility] Last Admin: 09/12/16 09:58 Dose: 81 mg Atorvastatin Calcium (Lipitor -) 40 mg PO HS [facility] Last Admin: 09/11/16 21:25 Dose: 40 mg Clopidogrel Bisulfate (Plavix -) 75 mg PO DAILY [facility] Last Admin: 09/12/16 09:58 Dose: 75 mg Nifedipine (Procardia Xl -) 30 mg PO DAILY [facility] Last Admin: 09/12/16 09:56 Dose: 30 mg Pantoprazole Sodium (Protonix -) 20 mg PO DAILY [facility] Last Admin: 09/12/16 09:56 Dose: 20 mg Sertraline HCl (Zoloft -) 25 mg PO DAILY [facility] Last Admin: 09/12/16 09:58 Dose: 25 mg Trazodone HCl (Desyrel -) 100 mg PO DAILY [facility] Last Admin: 09/12/16 09:56 Dose: 100 mg Valsartan (Diovan -) 320 mg PO DAILY [facility] Last Admin: 09/12/16 09:56 Dose: 320 mg Zolpidem Tartrate (Ambien -) 5 mg PO HS PRN PRN Reason: INSOMNIA Last Admin: 09/11/16 21:25 Dose: 5 mg - Objective Vital Signs: Vital Signs Temperature 98.4 F 09/12/16 05:43 Pulse Rate 67 09/12/16 05:43 Respiratory Rate 20 09/12/16 05:43 Blood Pressure 136/52 09/12/16 05:43 O2 Sat by Pulse Oximetry (%) 96 09/11/16 21:00 Constitutional: Yes: No Distress Cardiovascular: Yes: Regular Rate and Rhythm Respiratory: Yes: CTA Bilaterally Gastrointestinal: Yes: Soft Edema: No Neurological: Yes: Alert, Oriented - ....Imaging EKG: Image Reviewed Assessment/Plan PAF CAD s/p recent PCI HTN REC: BP now controlled with addition of Procardia. Started on AC for PAF and h/o CVA. To continue DAPT, although will discuss with Interventional Cardiology duration as she is now on triple therapy. We may be able to stop ASA in few weeks and maintain Eliquis + Plavix although this is to be determined as outpatient.
[2016-09-12 10:36] VITALS: BP 147/54; PULSE 61; TEMP 98.3
--- NOTE | 2016-09-12 13:04 | DS ---
Physical Examination Vital Signs: Vital Signs Temperature 98.3 F 09/12/16 10:00 Pulse Rate 61 09/12/16 10:00 Respiratory Rate 18 09/12/16 10:00 Blood Pressure 147/54 09/12/16 10:00 O2 Sat by Pulse Oximetry (%) 96 09/12/16 09:00 Findings/Remarks: doing well no complains feels ok. cardiology f/u noted bp better Constitutional: Yes: No Distress, Calm Eyes: Yes: Conjunctiva Clear Neck: Yes: Supple Cardiovascular: Yes: Regular Rate and Rhythm Respiratory: Yes: CTA Bilaterally Gastrointestinal: Yes: Soft Edema: No Neurological: Yes: Alert Discharge Summary Reason For Visit: CHEST PAIN Current Active Problems Chest pain, pleuritic (Acute) Hospital Course: 76 year old woman with a history of HTN, CVAS last 2015, CAD h/o [place]'s with PCI' s 2008, 2012, and again 08/2016 at which time she underwent PCI RCA, moderate to severe AR now admitted with chest pain. mi ruled out cardiology followed echo - ok started on a/c for par. afib stable for d/c meds reconciled e prescribed as needed f/u with pmd in one week advised Condition: Improved - Instructions Disposition: HOME - Home Medications Comprehensive Discharge Medication List: Ambulatory Orders Aspirin [ASA -] 81 mg PO DAILY 09/09/16 Atorvastatin Ca [Lipitor] 40 mg PO HS 09/09/16 Carvedilol 3.125 mg PO DAILY 09/09/16 Clopidogrel Bisulfate [Plavix -] 75 mg PO DAILY 09/09/16 Omeprazole 20 mg PO DAILY 09/09/16 Sertraline HCl [Zoloft] 25 mg PO DAILY 09/09/16 Trazodone HCl 100 mg PO DAILY 09/09/16 Valsartan 320 mg PO DAILY 09/09/16 Zolpidem Tartrate [Ambien] 5 mg PO HS 09/09/16 Apixaban [Eliquis -] 5 mg PO BID tablet 09/11/16 Nifedipine ER [Procardia XL -] 30 mg PO DAILY #30 tab.er.24 09/12/16
== END 2016-09-12 14:40 | disposition home or self-care (01) | DRG 204 ==
LOC: JER 16:49 → JERBED 19:16 → OBSVTOIN 22:22 → J4W 09-10 00:28
PROVIDERS: ADMIT Internal Medicine; ATTEND Internal Medicine
DX: R07.81 Pleurodynia (principal); N18.4 Chronic kidney disease, stage 4 (severe); I25.10 Atherosclerotic heart disease of native coronary artery without angina pectoris; Z98.61 Coronary angioplasty status; J44.9 Chronic obstructive pulmonary disease, unspecified; I12.9 Hypertensive chronic kidney disease with stage 1 through stage 4 chronic kidney disease, or unspecified chronic kidney disease; Z86.73 Personal history of transient ischemic attack (TIA), and cerebral infarction without residual deficits; I25.2 Old myocardial infarction; I48.0 Paroxysmal atrial fibrillation; F17.210 Nicotine dependence, cigarettes, uncomplicated
CPT/HCPCS: 36415; 71010-TC; 80053; 82550; 83605; 83690; 83735; 84484; 85025; 93005; 93010; 93306-TC; 99285-25; G0378

== ENCOUNTER 2016-12-31 17:50 | Emergency (ER) | payer OTHER ==
[2016-12-31 18:10] VITALS: BP 165/58; PULSE 66; TEMP 98.4; BMI 19.5
[2016-12-31] MEDS ORDERED: SODIUM CHLORIDE 1,000 ML IV STA (18:20)
--- NOTE | 2016-12-31 19:04 | PDOC ---
History of Present Illness - General Chief Complaint: Pain, Acute Stated Complaint: ABDOMINAL PAIN Time Seen by Provider: 12/31/16 18:16 History Source: Patient Exam Limitations: No Limitations - History of Present Illness Travel History: No Initial Comments: 12/31/16 18:36 76-year-old female with history of diverticulitis and colon resection presents the ED with complaints of lower abdominal pain associated with brown watery stool for the past 2 days. Patient states has been able to eat and drink without nausea, fever, upper abdominal pain, or distention. Patient has no complaints of dysuria, recent change in medications, recent travel, recent illness. Timing/Duration: reports: constant Quality: reports: moderate, cramping Abdominal Pain Onset Location: reports: RLQ, LLQ Pain Radiation: reports: no radiation Activities at Onset: reports: none Aggravating Factors: improves with: None Alleviating Factors: improves with: None Past History - Travel Traveled outside of the country in the last 30 days: No Close contact w/someone who was outside of country & ill: No - Past Medical History Allergies/Adverse Reactions: Allergies Allergy/AdvReac Type Severity Reaction Status Date / Time Penicillins Allergy Mild Swelling Verified 09/09/16 16:59 Home Medications: Ambulatory Orders Carvedilol 3.125 mg PO DAILY 09/09/16 Clopidogrel Bisulfate [Plavix -] 75 mg PO DAILY 09/09/16 Sertraline HCl [Zoloft] 25 mg PO DAILY 09/09/16 Valsartan 320 mg PO DAILY 09/09/16 Nifedipine ER [Procardia XL -] 30 mg PO DAILY #30 tab.er.24 09/12/16 Apixaban [Eliquis -] 5 mg PO DAILY 12/31/16 Anemia: No Asthma: No Cancer: No Cardiac Disorders: Yes (LA,AFIB,stents,angio) CVA: Yes (x3) COPD: Yes CHF: No Dementia: No Diabetes: No GI Disorders: Yes Disorders: No HTN: Yes Hypercholesterolemia: Yes Kidney Stones: Yes Liver Disease: No Suicide Attempt (Hx): No Seizures: No Thyroid Disease: No - Surgical History Abdominal Surgery: Yes (COLON) Appendectomy: Yes Cardiac Surgery: Yes (STENT, BALLOON) Cholecystectomy: Yes Lung Surgery: No Neurologic Surgery: No Orthopedic Surgery: No - Immunization History Td Vaccination: Yes Immunization Up to Date: Yes - Psycho/Social/Smoking Cessation Hx Anxiety: No Suicidal Ideation: No Smoking Status: No Smoking History: Current every day smoker Years of Tobacco Use: 40 Have you smoked in the past 12 months: Yes Number of Cigarettes Smoked Daily: 10 Cigars Per Day: 0 Information on smoking cessation initiated: No 'Breaking Loose' booklet given: 09/10/16 Hx Alcohol Use: No Drug/Substance Use Hx: No Substance Use Type: None Hx Substance Use Treatment: No Patient Lives Alone: No Lives with/in: spouse/SO Abd/GI Specific PMHX - Complaint Specific PMHX Diverticulitis: Yes Review of Systems - Review of Systems Able to Perform ROS?: Yes Constitutional: No: Symptoms Reported HEENTM: No: Symptoms Reported Respiratory: No: Symptoms reported Cardiac (ROS): No: Symptoms Reported ABD/GI: Yes: Diarrhea, Abdominal cramping. No: Nausea, Vomiting : No: Symptoms Reported Musculoskeletal: No: Symptoms Reported Integumentary: No: Symptoms Reported Neurological: No: Symptoms reported Endocrine: No: Symptoms Reported Hematologic/Lymphatic: No: Symptoms Reported *Physical Exam - Vital Signs Last Vital Signs Temp Pulse Resp BP Pulse Ox 98.4 F 66 18 165/58 99 12/31/16 18:07 12/31/16 18:07 12/31/16 18:07 12/31/16 18:07 12/31/16 18:07 - Physical Exam General Appearance: Yes: Nourished, Appropriately Dressed. No: Apparent Distress HEENT: negative: Pale Conjunctivae Neck: positive: Normal Thyroid, Supple Respiratory/Chest: positive: Lungs Clear, Normal Breath Sounds. negative: Respiratory Distress, Accessory Muscle Use Cardiovascular: positive: Regular Rhythm, Regular Rate. negative: Murmur Gastrointestinal/Abdominal: positive: Soft, Tenderness (lower abd quadrants) Musculoskeletal: negative: CVA Tenderness Extremity: positive: Normal Capillary Refill. negative: Pedal Edema Integumentary: positive: Normal Color, Warm, Moist Neurologic: positive: Motor Strength 5/5 (ambulatory) ED Treatment Course - RADIOLOGY Radiology Studies Ordered: Category Date Time Status ABDOMEN & PELVIS CT W/O CONTR [CT] Stat CT Scan 12/31/16 18:20 Ordered Medical Decision Making - Medical Decision Making 12/31/16 19:08 Patient with history of diverticulitis along with colon resection presenting with lower abdominal pain associated with diarrhea. Patient was tender to the right and left lower quadrant. Patient concerning for diverticulitis dehydration , UTI. Patient for labs, IV fluids, and abdominal CT with by mouth contrast.
--- NOTE | 2016-12-31 19:13 | PDOC ---
*Physical Exam - Vital Signs Last Vital Signs Temp Pulse Resp BP Pulse Ox 98.4 F 66 18 165/58 99 12/31/16 18:07 12/31/16 18:07 12/31/16 18:07 12/31/16 18:07 12/31/16 18:07 ED Treatment Course - LABORATORY CBC & Chemistry Diagram: 12/31/16 18:20 12/31/16 18:20 Medical Decision Making - Medical Decision Making 12/31/16 20:51 patient seen eating a sandwich. yelling " i want to go home now." pending CTAP. all risk factors reviewed with patient. patient signed out AMA *DC/Admit/Observation/Transfer Diagnosis at time of Disposition: Abdominal pain Qualifiers: Abdominal location: lower abdomen, unspecified Qualified Code(s): R10.30 - Lower abdominal pain, unspecified - Discharge Dispostion Disposition: AGAINST MEDICAL ADVICE
[2016-12-31 19:16] LABS: BASOPHIL 0.8 % (0-2.0); EOSINOPHIL 3.6 % (0-4.5); MCH 25.3 pg (25.7-33.7); MCHC 32.6 g/dl (32.0-36.0); MEAN CELL VOLUME 77.8 fl (80-96); MEAN PLT VOLUME 8.9 fl (7.5-11.1); NEUTROPHILS 57.2 % (42.8-82.8); PLATELET COUNT 224 K/MM3 (134-434); RDW 16.6 % (11.6-15.6); WHITE BLOOD COUNT 9.3 K/mm3 (4.0-10.0)
[2016-12-31 19:42] LABS: ALBUMIN 3.8 g/dl (3.4-5.0); BILIRUBIN,TOTAL 0.4 mg/dL (0.2-1.0); CALCIUM 8.9 mg/dL (8.5-10.1); COCKROFT - GAULT 38.42; TOT PROT 7.5 g/dl (6.4-8.2)
[2016-12-31 19:54] LABS: URINE APPEARANCE CLEAR; URINE BILIRUBIN NEGATIVE (NEGATIVE); URINE COLOR STRAW; URINE GLUCOSE (UA) NEGATIVE (NEGATIVE); URINE KETONE NEGATIVE (NEGATIVE); URINE LEUK ESTERASE NEGATIVE (NEGATIVE); URINE NITRITE NEGATIVE (NEGATIVE); URINE PROTEIN NEGATIVE (NEGATIVE); URINE UROBILINOGEN NEGATIVE E.U./dl (0.2-1.0)
[2016-12-31 19:57] LABS: URINE BLOOD 1+ (NEGATIVE)
[2016-12-31 20:16] LABS: URINE WBC <1 /hpf (3-5)
--- NOTE | 2016-12-31 20:27 | PDOC ---
*Physical Exam - Vital Signs Last Vital Signs Temp Pulse Resp BP Pulse Ox 98.4 F 66 18 165/58 99 12/31/16 18:07 12/31/16 18:07 12/31/16 18:07 12/31/16 18:07 12/31/16 18:07 ED Treatment Course - LABORATORY CBC & Chemistry Diagram: 12/31/16 18:20 12/31/16 18:20 - ADDITIONAL ORDERS Additional order review: Laboratory Results 12/31/16 12/31/16 18:55 18:20 Sodium 141 Potassium 3.7 Chloride 107 Carbon Dioxide 25 Anion Gap 9 BUN 15 D Creatinine 1.0 Creat Clearance w eGFR 53.76 Random Glucose 109 H Calcium 8.9 Total Bilirubin 0.4 AST 20 D ALT 18 Alkaline Phosphatase 114 D Total Protein 7.5 Albumin 3.8 Lipase 122 Urine Color Straw Urine Appearance Clear Urine pH 5.0 Urine Protein Negative Urine Glucose (UA) Negative Urine Ketones Negative Urine Blood 1+ H Urine Nitrite Negative Urine Bilirubin Negative Urine Urobilinogen Negative Ur Leukocyte Esterase Negative Urine RBC None Urine WBC <1 12/31/16 18:20 RBC 4.61 MCV 77.8 L MCHC 32.6 RDW 16.6 H MPV 8.9 Neutrophils % 57.2 Lymphocytes % 29.5 Monocytes % 8.9 Eosinophils % 3.6 Basophils % 0.8 Medical Decision Making - Medical Decision Making 12/31/16 20:26 agree with care from GURINDER Valentine *DC/Admit/Observation/Transfer Diagnosis at time of Disposition: Abdominal pain - Discharge Dispostion Disposition: AGAINST MEDICAL ADVICE - Referrals Referrals: Valentino Browne PA [Primary Care Provider] -
== END 2016-12-31 20:47 | disposition left against medical advice (07) ==
LOC: JER 17:50
DX: R10.30 Lower abdominal pain, unspecified (principal); I25.2 Old myocardial infarction; I25.10 Atherosclerotic heart disease of native coronary artery without angina pectoris; I10 Essential (primary) hypertension; Z95.5 Presence of coronary angioplasty implant and graft; E78.00 Pure hypercholesterolemia, unspecified; Z86.73 Personal history of transient ischemic attack (TIA), and cerebral infarction without residual deficits
CPT/HCPCS: 36415; 80053; 81003; 81015; 83690; 85025; 87086; 87186; 99283-25

== ENCOUNTER 2017-06-08 23:31 | Observation (INO) | payer OTHER ==
--- NOTE | 2017-06-08 23:40 | PDOC ---
History of Present Illness <Benjaimn Yap - Last Filed: 06/09/17 01:52> - General History Source: Patient Exam Limitations: No Limitations - History of Present Illness Initial Comments: 06/09/17 00:30 The patient is a 76 year old female, with a significant past medical history of COPD, diverticulitis and colon resection, CAD (s/p PCIx3: 2008, 2012, August 2016), CVA, COPD, HTN, CKD IV who presents to the emergency department with persistent SOB for the past day. Patient was admitted at [facility] for COPD exacerbation. Patient reports worsening SOB, productive cough since discharge and presents to the ED for further evaluation. She denies chest pain, headache or dizziness. She denies fever, chills, abdominal pain, nausea, vomit, diarrhea or constipation. She denies dysuria, frequency, urgency or hematuria. Patient denies recent travel. Allergies: Penicillins Past surgical history: Colon resection, Appendectomy, Cholecystectomy, Stent placement Social history: Tobacco use (half pack per day) PCP: Dr. Rose <Hoa Lay - Last Filed: 06/09/17 02:33> - General Stated Complaint: COPD Past History - Past Medical History Anemia: No Asthma: No Cancer: No Cardiac Disorders: Yes (ME,AFIB,stents,angio) CVA: Yes (x3) COPD: Yes CHF: No Dementia: No Diabetes: No GI Disorders: Yes Disorders: No HTN: Yes Hypercholesterolemia: Yes Kidney Stones: Yes Liver Disease: No Seizures: No Thyroid Disease: No - Surgical History Abdominal Surgery: Yes (COLON) Appendectomy: Yes Cardiac Surgery: Yes (STENT, BALLOON) Cholecystectomy: Yes Lung Surgery: No Neurologic Surgery: No Orthopedic Surgery: No - Immunization History Td Vaccination: Yes Immunization Up to Date: Yes - Suicide/Smoking/Psychosocial Hx Smoking Status: No Smoking History: Current every day smoker Years of Tobacco Use: 40 Have you smoked in the past 12 months: Yes Number of Cigarettes Smoked Daily: 10 Cigars Per Day: 0 'Breaking Loose' booklet given: 09/10/16 Hx Alcohol Use: No Drug/Substance Use Hx: No Substance Use Type: None Hx Substance Use Treatment: No <Benjamin Yap - Last Filed: 06/09/17 01:52> <Hoa Lay - Last Filed: 06/09/17 02:33> - Past Medical History Allergies/Adverse Reactions: Allergies Allergy/AdvReac Type Severity Reaction Status Date / Time Penicillins Allergy Mild Swelling Verified 06/09/17 02:29 Home Medications: Ambulatory Orders Carvedilol 3.125 mg PO DAILY 09/09/16 Clopidogrel Bisulfate [Plavix -] 75 mg PO DAILY 09/09/16 Sertraline HCl [Zoloft] 25 mg PO DAILY 09/09/16 Valsartan 320 mg PO DAILY 09/09/16 Nifedipine ER [Procardia XL -] 30 mg PO DAILY #30 tab.er.24 09/12/16 Apixaban [Eliquis -] 5 mg PO DAILY 12/31/16 Review of Systems - Review of Systems Able to Perform ROS?: Yes Comments:: 06/09/17 00:30 GENERAL/CONSTITUTIONAL: No fever or chills. No weakness. HEAD, EYES, EARS, NOSE AND THROAT: No change in vision. No ear pain or discharge. No sore throat. CARDIOVASCULAR: No chest pain. +shortness of breath. RESPIRATORY: + cough. No wheezing, or hemoptysis. GASTROINTESTINAL: No nausea, vomiting, diarrhea or constipation. GENITOURINARY: No dysuria, frequency, or change in urination. MUSCULOSKELETAL: No joint or muscle swelling or pain. No neck or back pain. SKIN: No rash NEUROLOGIC: No headache, vertigo, loss of consciousness, or change in strength/ sensation. ENDOCRINE: No increased thirst. No abnormal weight change. HEMATOLOGIC/LYMPHATIC: No anemia, easy bleeding, or history of blood clots. ALLERGIC/IMMUNOLOGIC: No hives or skin allergy. <Hoa Lay - Last Filed: 06/09/17 02:33> *Physical Exam - Physical Exam Comments: 06/09/17 00:31 GENERAL: Awake, alert, and fully oriented, in no acute distress HEAD: No signs of trauma EYES: PERRLA, EOMI, sclera anicteric, conjunctiva clear ENT: Auricles normal inspection, hearing grossly normal, nares patent, oropharynx clear without exudates. Moist mucosa NECK: Normal ROM, supple, no lymphadenopathy, JVD, or masses LUNGS: +Decreased air entry. Bilateral rhonchi. No wheezes, and no crackles HEART: Regular rate and rhythm, normal S1 and S2, no murmurs, rubs or gallops ABDOMEN: Soft, nontender, normoactive bowel sounds. No guarding, no rebound. No masses EXTREMITIES: Normal range of motion, no edema. No clubbing or cyanosis. No cords, erythema, or tenderness NEUROLOGICAL: Cranial nerves II through XII grossly intact. Normal speech, normal gait SKIN: Warm, Dry, normal turgor, no rashes or lesions noted. <Hoa Lay - Last Filed: 06/09/17 02:33> ED Treatment Course - LABORATORY CBC & Chemistry Diagram: 06/09/17 01:05 06/09/17 01:05 <Benjamin Yap - Last Filed: 06/09/17 01:52> - LABORATORY CBC & Chemistry Diagram: 06/09/17 01:05 06/09/17 01:05 <Hoa Lay - Last Filed: 06/09/17 02:33> Medical Decision Making - Medical Decision Making 06/09/17 02:31 ECG Reviewed by me 2:30 Vent rate 86 bpm Sinus rhythm with premature atrial complexes Moderate voltage criteria for LVH Prolonged QT Abnormal EKG <Hoa Lay - Last Filed: 06/09/17 02:33> *DC/Admit/Observation/Transfer - Discharge Dispostion Admit: Yes - Attestations Physician Attestion: 06/08/17 23:40 I, Dr. Benjamin Yap, attest that this document has been prepared under my direction and personally reviewed by me in its entirety. I further attest, that it accurately reflects all work, treatment, procedures and medical decision -making performed by me. <Benjamin Yap - Last Filed: 06/09/17 01:52> - Attestations Scribe Attestion: 06/09/17 00:31 Documentation prepared by Hoa Lay, acting as phlebotomist medical lab assistant for Benjamin Yap MD/. <Hoa Lay - Last Filed: 06/09/17 02:33> Diagnosis at time of Disposition: Acute exacerbation of COPD with asthma - Discharge Dispostion Condition at time of disposition: Improved
[2017-06-09] MEDS ORDERED: MAGNESIUM SULF 50% (8.12 MEQ/2 ML-1 GM VIAL) IVPB ONE (00:09)
[2017-06-09] MEDS ORDERED: SODIUM CHLORIDE 1,000 ML IV STA (00:09)
[2017-06-09] MEDS ORDERED: ALBUTEROL SO4 0.083% IH SOL 2.5 MG/3 ML VIAL.NEB. NEB ONE ×3 (00:09→01:31)
[2017-06-09] MEDS ORDERED: methylPREDNISolone NA SUCC 125 MG/2 ML VIAL IVPUSH ONE (00:09)
[2017-06-09] MEDS ORDERED: ALBUTEROL SO4 2.5/IPRATROPIUM 0.5 INH SOL 3 ML VIAL.NEB. NEB ONE ×2 (00:09→00:45)
[2017-06-09] MEDS ORDERED: MAGNESIUM SULF 50% (8.12 MEQ/2 ML-1 GM VIAL) ONE (00:45)
[2017-06-09] MEDS ORDERED: methylPREDNISolone NA SUCC 125 MG/2 ML VIAL ONE (00:45)
[2017-06-09 01:18] LABS: BASOPHIL 1.2 % (0-2.0); MCH 25.1 pg (25.7-33.7); MCHC 33.5 g/dl (32.0-36.0); PLATELET COUNT 221 K/MM3 (134-434); RDW 16.4 % (11.6-15.6); WHITE BLOOD COUNT 6.1 K/mm3 (4.0-10.0)
[2017-06-09 01:19] LABS: VENOUS BLOOD GAS HCO3 26.2 meq/L (19-25); VENOUS PH 7.38 (7.32-7.42)
[2017-06-09 01:33] LABS: INR 1.08 (0.82-1.09); PROTHROMBIN TIME (PATIENT) 12.2 SEC (9.98-11.88)
[2017-06-09 01:42] LABS: ALBUMIN 3.7 g/dl (3.4-5.0); ALK PHOS 96 U/L (45-117); ANION GAP 11 (8-16); BILIRUBIN,TOTAL 0.3 mg/dL (0.2-1.0); CO2 24 mmol/L (21-32); CREATININE 1.2 mg/dL (0.55-1.02); GLUCOSE,RANDOM 133 mg/dL (74-106); SGPT/ALT 20 U/L (12-78); TOT PROT 7.9 g/dl (6.4-8.2)
[2017-06-09 01:43] LABS: SGOT/AST 19 U/L (15-37)
[2017-06-09] MEDS ORDERED: LEVOFLOXACIN 750 MG IVPB 150 ML IVPB ONE (01:52)
[2017-06-09 02:12] VITALS: BMI 28.3
[2017-06-09] MEDS ORDERED: LEVOFLOXACIN 750 MG IVPB 750 MG/150 ML BAG IVPB ONE ×2 (02:22→02:27)
--- NOTE | 2017-06-09 02:56 | HP ---
CHIEF COMPLAINT: PCP: HISTORY OF PRESENT ILLNESS: ER course was notable for: (1) (2) (3) Recent Travel: PAST MEDICAL HISTORY: PAST SURGICAL HISTORY: Social History: Smoking: Alcohol: Drugs: Family History: Allergies Penicillins Allergy (Mild, Verified 06/09/17 02:29) Swelling HOME MEDICATIONS: Home Medications Medication Instructions Recorded Carvedilol 3.125 mg PO DAILY 09/09/16 Clopidogrel Bisulfate [Plavix -] 75 mg PO DAILY 09/09/16 Sertraline HCl [Zoloft] 25 mg PO DAILY 09/09/16 Valsartan 320 mg PO DAILY 09/09/16 Nifedipine ER [Procardia XL -] 30 mg PO DAILY #30 tab.er.24 09/12/16 Apixaban [Eliquis -] 5 mg PO DAILY 12/31/16 REVIEW OF SYSTEMS CONSTITUTIONAL: Absent: fever, chills, diaphoresis, generalized weakness, malaise, loss of appetite, weight change HEENT: Absent: rhinorrhea, nasal congestion, throat pain, throat swelling, difficulty swallowing, mouth swelling, ear pain, eye pain, visual changes CARDIOVASCULAR: Absent: chest pain, syncope, palpitations, irregular heart rate, lightheadedness , peripheral edema RESPIRATORY: Absent: cough, shortness of breath, dyspnea with exertion, orthopnea, wheezing, stridor, hemoptysis GASTROINTESTINAL: Absent: abdominal pain, abdominal distension, nausea, vomiting, diarrhea, constipation, melena, hematochezia GENITOURINARY: Absent: dysuria, frequency, urgency, hesitancy, hematuria, flank pain, genital pain MUSCULOSKELETAL: Absent: myalgia, arthralgia, joint swelling, back pain, neck pain SKIN: Absent: rash, itching, pallor HEMATOLOGIC/IMMUNOLOGIC: Absent: easy bleeding, easy bruising, lymphadenopathy, frequent infections ENDOCRINE: Absent: unexplained weight gain, unexplained weight loss, heat intolerance, cold intolerance NEUROLOGIC: Absent: headache, focal weakness or paresthesias, dizziness, unsteady gait, seizure, mental status changes, bladder or bowel incontinence PSYCHIATRIC: Absent: anxiety, depression, suicidal or homicidal ideation, hallucinations. PHYSICAL EXAMINATION Vital Signs - 24 hr 06/09/17 02:10 Temperature 98.6 F Pulse Rate 89 Respiratory 18 Rate Blood Pressure 117/86 O2 Sat by Pulse 97 Oximetry (%) GENERAL: Awake, alert, and fully oriented, in no acute distress. HEAD: Normal with no signs of trauma. EYES: Pupils equal, round and reactive to light, extraocular movements intact, sclera anicteric, conjunctiva clear. No lid lag. EARS, NOSE, THROAT: Ears normal, nares patent, oropharynx clear without exudates. Moist mucous membranes. NECK: Normal range of motion, supple without lymphadenopathy, JVD, or masses. LUNGS: Breath sounds equal, clear to auscultation bilaterally. No wheezes, and no crackles. No accessory muscle use. HEART: Regular rate and rhythm, normal S1 and S2 without murmur, rub or gallop. ABDOMEN: Soft, nontender, not distended, normoactive bowel sounds, no guarding, no rebound, no masses. No hepatomegaly or splenomegaly. MUSCULOSKELETAL: Normal range of motion at all joints. No bony deformities or tenderness. No CVA tenderness. UPPER EXTREMITIES: 2+ pulses, warm, well-perfused. No cyanosis. No clubbing. No peripheral edema. LOWER EXTREMITIES: 2+ pulses, warm, well-perfused. No calf tenderness. No peripheral edema. NEUROLOGICAL: Cranial nerves II-XII intact. Normal speech. Normal gait. PSYCHIATRIC: Cooperative. Good eye contact. Appropriate mood and affect. SKIN: Warm, dry, normal turgor, no rashes or lesions noted, normal capillary refill. ASSESSMENT/PLAN:
--- NOTE | 2017-06-09 03:28 | HP ---
CHIEF COMPLAINT: cough, SOB PCP: Milton HISTORY OF PRESENT ILLNESS: This is a 76 year old female with a past medical history of CAD, NV, afib, COPD who presented to the ED with c/o cough and SOB. Pt was recently discharged from [facility] on 05/28 where she was hospitalized for similar complaints. She states that since discharge she has been getting worse and not better. Her cough has increased with increased yellow sputum production. She also reports KELLER and orthopnea. Pt denies chest pain, palpitations, abdominal pain, nausea, vomiting. ER course was notable for: (1) CXR without infiltrates or effusions (2) WBC 6.1 (3) Recent Travel: pt denies PAST MEDICAL HISTORY: NV, CAD, HTN, HLD, Afib, CVA, CKD, COPD, diverticulitis PAST SURGICAL HISTORY: colon resection secondary to diverticulitis appendectomy cholecystectomy PCI x 3, 2008, 2012, 2016 Social History: Smokin/2 PPD Alcohol: pt denies Drugs: pt denies Family History: mother age 93, alzheimers brother , oral CA sister age 80s, alzheimers Allergies Penicillins Allergy (Mild, Verified 06/09/17 02:29) Swelling HOME MEDICATIONS: 3 Medication Instructions Recorded Clopidogrel Bisulfate [Plavix -] 75 mg PO DAILY 09/09/16 Valsartan 320 mg PO DAILY 09/09/16 Aspirin [ASA -] 81 mg PO DAILY 06/09/17 Oxycodone HCl/Acetaminophen 1 each PO TID PRN 06/09/17 [Endocet 5-325 Tablet] Trazodone HCl 50 mg PO HS PRN 06/09/17 Zolpidem Tartrate 10 mg PO HS PRN 06/09/17 REVIEW OF SYSTEMS CONSTITUTIONAL: Present: malaise Absent: fever, chills, diaphoresis, generalized weakness, loss of appetite, weight change HEENT: Absent: rhinorrhea, nasal congestion, throat pain, throat swelling, difficulty swallowing, mouth swelling, ear pain, eye pain, visual changes CARDIOVASCULAR: Absent: chest pain, syncope, palpitations, irregular heart rate, lightheadedness , peripheral edema RESPIRATORY: Present: cough, shortness of breath, dyspnea with exertion, orthopnea Absent: wheezing, stridor, hemoptysis GASTROINTESTINAL: Absent: abdominal pain, abdominal distension, nausea, vomiting, diarrhea, constipation, melena, hematochezia GENITOURINARY: Absent: dysuria, frequency, urgency, hesitancy, hematuria, flank pain, genital pain MUSCULOSKELETAL: Absent: myalgia, arthralgia, joint swelling, back pain, neck pain SKIN: Absent: rash, itching, pallor HEMATOLOGIC/IMMUNOLOGIC: Absent: easy bleeding, easy bruising, lymphadenopathy, frequent infections ENDOCRINE: Absent: unexplained weight gain, unexplained weight loss, heat intolerance, cold intolerance NEUROLOGIC: Absent: headache, focal weakness or paresthesias, dizziness, unsteady gait, seizure, mental status changes, bladder or bowel incontinence PSYCHIATRIC: Absent: anxiety, depression, suicidal or homicidal ideation, hallucinations. PHYSICAL EXAMINATION Vital Signs - 24 hr 3 06/09/17 06/09/17 01:53 02:10 Temperature 98.4 F 98.6 F Pulse Rate 81 89 Respiratory 23 18 Rate Blood Pressure 156/64 117/86 O2 Sat by Pulse 97 Oximetry (%) GENERAL: Awake, alert, and fully oriented, in no acute distress. HEAD: Normal with no signs of trauma. EYES: Pupils equal, round and reactive to light, extraocular movements intact, sclera anicteric, conjunctiva clear. No lid lag. EARS, NOSE, THROAT: Ears normal, nares patent, oropharynx clear without exudates. Moist mucous membranes. NECK: Normal range of motion, supple without lymphadenopathy, JVD, or masses. LUNGS: Breath sounds equal, clear to auscultation bilaterally. No wheezes, and no crackles. No accessory muscle use. HEART: Regular rate and rhythm, normal S1 and S2 without murmur, rub or gallop. ABDOMEN: Soft, nontender, not distended, normoactive bowel sounds, no guarding, no rebound, no masses. No hepatomegaly or splenomegaly. MUSCULOSKELETAL: Normal range of motion at all joints. No bony deformities or tenderness. No CVA tenderness. UPPER EXTREMITIES: 2+ pulses, warm, well-perfused. No cyanosis. No clubbing. No peripheral edema. LOWER EXTREMITIES: 2+ pulses, warm, well-perfused. No calf tenderness. No peripheral edema. NEUROLOGICAL: Cranial nerves II-XII intact. Normal speech. Normal gait. PSYCHIATRIC: Cooperative. Good eye contact. Appropriate mood and affect. SKIN: Warm, dry, normal turgor, no rashes or lesions noted, normal capillary refill. Laboratory Results - last 24 hr 3 06/09/17 06/09/17 06/09/17 01:05 01:05 01:05 WBC 6.1 D RBC 4.81 Hgb 12.1 Hct 36.1 MCV 75.0 L MCH 25.1 L MCHC 33.5 RDW 16.4 H Plt Count 221 MPV 9.0 Neutrophils % 72.0 D Lymphocytes % 22.1 D Monocytes % 4.7 Eosinophils % 0.0 D Basophils % 1.2 PT with INR 12.20 H INR 1.08 VBG pH 7.38 POC VBG pCO2 45.8 POC VBG pO2 44.6 Mixed VBG HCO3 26.2 H Sodium Potassium Chloride Carbon Dioxide Anion Gap BUN Creatinine Creat Clearance w eGFR Random Glucose Lactic Acid Calcium Total Bilirubin AST ALT Alkaline Phosphatase Total Protein Albumin 3 06/09/17 06/09/17 01:05 01:05 WBC RBC Hgb Hct MCV MCH MCHC RDW Plt Count MPV Neutrophils % Lymphocytes % Monocytes % Eosinophils % Basophils % PT with INR INR VBG pH POC VBG pCO2 POC VBG pO2 Mixed VBG HCO3 Sodium 138 Potassium 4.8 D Chloride 103 Carbon Dioxide 24 Anion Gap 11 BUN 26 H D Creatinine 1.2 H Creat Clearance w eGFR 43.56 Random Glucose 133 H D Lactic Acid 1.9 Calcium 9.0 Total Bilirubin 0.3 D AST 19 ALT 20 Alkaline Phosphatase 96 Total Protein 7.9 Albumin 3.7 CXR: no obvious infiltrates or effusions, right diaphramatic hernia noted ASSESSMENT/PLAN: 76yF with PMH NV, CAD s/p PCI x 3, HTN, HLD, Afib, CVA, CKD, COPD, diverticulitis presented to the ED with increasing SOB and productive cough. COPD exacerbation - given levaquin in ED, would change to azithromycin tomorrow - given solumedrol, but no wheezing or current indication for continued steroid, would defer for now - cont duoneb qid - consider pulmonary consult CAD/HTN - no troponin done in ED, given KELLER and orthopnea will order trop x 1 to r/o ACS - cont home plavix and ASA - pt old med list in computer states she was on coreg, procardia and valsartan, pt states she is only taking valsartan - she ran out of carvedilol and was unable to obtain an appointment for her chiropractic doctor, would restart coreg given cardiac history depression/ insomnia - cont trazodone, hold ambien prn unless absolutely necessary CKD - cr 1.2 near baseline, cont to monitor DVT PPX - no indication for chemoprophylaxis in LOS <48h, reassess if stay extends 48h FEN - pt tolerating po fluids - BMP in am wiht mag and phos - low sodium diet as tolerated Dispo: Pt currenty requires inpatient management of her emergent condition, but expected LOS is <2 midnights. 330PM Addendum: Computer system went down prior to finishing full assessment. ECG sinus rhythm with PAC vent rate 86 QTC 511 moderate voltage criteria for LVH no acute ST/T changes ECG with prolonged QT. Would not recommend continuing levaquin or azithromycin, would recommend doxycycline. DW Dr. Leary, will change to same. Visit type - Emergency Visit Emergency Visit: Yes ED Registration Date: 06/09/17 Care time: The patient presented to the Emergency Department on the above date and was hospitalized for further evaluation of their emergent condition. - New Patient This patient is new to me today: Yes Date on this admission: 06/09/17 - Critical Care Critical Care patient: No
[2017-06-09 03:46] LABS: CPK 77 IU/L (26-192); TROPONIN I < 0.02 ng/ml (0.00-0.05)
[2017-06-09] MEDS ORDERED: ALBUTEROL SO4 2.5/IPRATROPIUM 0.5 INH SOL 3 ML VIAL.NEB. NEB SCH (06:00)
[2017-06-09 09:08] LABS: BASOPHIL 0.3 % (0-2.0); MCH 24.8 pg (25.7-33.7); MCHC 32.5 g/dl (32.0-36.0); MEAN CELL VOLUME 76.4 fl (80-96); MEAN PLT VOLUME 9.1 fl (7.5-11.1); NEUTROPHILS 87.5 % (42.8-82.8); PLATELET COUNT 213 K/MM3 (134-434); RDW 16.5 % (11.6-15.6); WHITE BLOOD COUNT 5.9 K/mm3 (4.0-10.0)
[2017-06-09 09:30] LABS: ANION GAP 10 (8-16); CALCIUM 8.9 mg/dL (8.5-10.1); CO2 22 mmol/L (21-32); CREATININE 1.2 mg/dL (0.55-1.02); GLUCOSE,RANDOM 156 mg/dL (74-106); MAGNESIUM 2.7 mg/dL (1.8-2.4); PHOSPHOROUS 2.5 mg/dL (2.5-4.9)
[2017-06-09] MEDS: ASPIRIN 81 MG CHEWABLE TABLETS PO SCH (10:09)
[2017-06-09] MEDS: VALSARTAN 160 MG TABLET (UD) PO SCH (10:09)
[2017-06-09] MEDS: CLOPIDOGREL BISULFATE 75 MG TABLET (FP) PO SCH (10:09)
--- NOTE | 2017-06-09 10:30 | CONSULT ---
Consultation: REQUESTING PROVIDER:Dr. Irish Sood CONSULT REQUEST: We have been asked to medically evaluate this patient for worsening cough and shortness of breath. HISTORY OF PRESENT ILLNESS: This is a 76 year old female with a past medical history of CAD, VT, afib, COPD who presented to the ED with c/o cough and SOB. Pt was recently discharged from [facility] on 05/28 where she was hospitalized for similar complaints. She states that since discharge she has been getting worse and not better. Her cough has increased with increased yellow sputum production. She also reports KELLER and orthopnea. Pt denies chest pain, palpitations, abdominal pain, nausea, vomiting, D/C, She denies any urinary symptoms. Past surgical history: Colon resection, Appendectomy, Cholecystectomy, Stent placement Social history: Tobacco use (half pack per day) PCP: Dr. Rose Allergies: Penicillins Allergy (Mild, Verified 06/09/17 02:29) Swelling REVIEW OF SYSTEMS: CONSTITUTIONAL: Absent: fever, chills, diaphoresis, generalized weakness, malaise, loss of appetite, weight change HEENT: Absent: rhinorrhea, nasal congestion, throat pain, throat swelling, difficulty swallowing, mouth swelling, ear pain, eye pain, visual changes CARDIOVASCULAR: Absent: chest pain, syncope, palpitations, irregular heart rate, lightheadedness , peripheral edema RESPIRATORY: Absent: cough, shortness of breath, +dyspnea with exertion, +orthopnea, wheezing , stridor, hemoptysis GASTROINTESTINAL: Absent: abdominal pain, abdominal distension, nausea, vomiting, diarrhea, constipation, melena, hematochezia GENITOURINARY: Absent: dysuria, frequency, urgency, hesitancy, hematuria, flank pain, genital pain MUSCULOSKELETAL: Absent: myalgia, arthralgia, joint swelling, back pain, neck pain SKIN: Absent: rash, itching, pallor HEMATOLOGIC/IMMUNOLOGIC: Absent: easy bleeding, easy bruising, lymphadenopathy, frequent infections ENDOCRINE: Absent: unexplained weight gain, unexplained weight loss, heat intolerance, cold intolerance NEUROLOGIC: Absent: headache, focal weakness or paresthesias, dizziness, unsteady gait, seizure, mental status changes, bladder or bowel incontinence PSYCHIATRIC: Absent: anxiety, depression, suicidal or homicidal ideation, hallucinations. PHYSICAL EXAMINATION Vital Signs - 24 hr 06/09/17 06/09/17 06/09/17 01:53 02:10 02:11 Temperature 98.4 F 98.6 F Pulse Rate 81 89 Respiratory 23 18 Rate Blood Pressure 156/64 117/86 O2 Sat by Pulse 93 L 97 93 L Oximetry (%) 06/09/17 07:34 Temperature 98.1 F Pulse Rate 81 Respiratory 20 Rate Blood Pressure 164/73 O2 Sat by Pulse Oximetry (%) GENERAL: Awake, alert, and fully oriented, in no acute distress. HEAD: Normal with no signs of trauma. LUNGS: Breath sounds equal, clear to auscultation bilaterally. No wheezes, and no crackles. No accessory muscle use. HEART: Regular rate and rhythm, normal S1 and S2 without murmur, rub or gallop. ABDOMEN: Soft, nontender, not distended, normoactive bowel sounds, no guarding, no rebound, LOWER EXTREMITIES: warm, well-perfused. No calf tenderness. No peripheral edema. NEUROLOGICAL: No focal deficit , Normal speech. PSYCHIATRIC: Cooperative. Good eye contact. Appropriate mood and affect. SKIN: Warm, dry, no rashes or lesions noted. Laboratory Results - last 24 hr 06/09/17 06/09/17 06/09/17 01:05 01:05 01:05 WBC 6.1 D RBC 4.81 Hgb 12.1 Hct 36.1 MCV 75.0 L MCH 25.1 L MCHC 33.5 RDW 16.4 H Plt Count 221 MPV 9.0 Neutrophils % 72.0 D Lymphocytes % 22.1 D Monocytes % 4.7 Eosinophils % 0.0 D Basophils % 1.2 PT with INR 12.20 H INR 1.08 VBG pH 7.38 POC VBG pCO2 45.8 POC VBG pO2 44.6 Mixed VBG HCO3 26.2 H Sodium Potassium Chloride Carbon Dioxide Anion Gap BUN Creatinine Creat Clearance w eGFR Random Glucose Lactic Acid Calcium Phosphorus Magnesium Total Bilirubin AST ALT Alkaline Phosphatase Creatine Kinase Troponin I Total Protein Albumin 06/09/17 06/09/17 06/09/17 01:05 01:05 01:05 WBC RBC Hgb Hct MCV MCH MCHC RDW Plt Count MPV Neutrophils % Lymphocytes % Monocytes % Eosinophils % Basophils % PT with INR INR VBG pH POC VBG pCO2 POC VBG pO2 Mixed VBG HCO3 Sodium 138 Potassium 4.8 D Chloride 103 Carbon Dioxide 24 Anion Gap 11 BUN 26 H D Creatinine 1.2 H Creat Clearance w eGFR 43.56 Random Glucose 133 H D Lactic Acid 1.9 Calcium 9.0 Phosphorus Magnesium Total Bilirubin 0.3 D AST 19 ALT 20 Alkaline Phosphatase 96 Creatine Kinase 77 Troponin I < 0.02 Total Protein 7.9 Albumin 3.7 06/09/17 06/09/17 08:35 08:35 WBC 5.9 RBC 4.68 Hgb 11.6 Hct 35.7 MCV 76.4 L MCH 24.8 L MCHC 32.5 RDW 16.5 H Plt Count 213 MPV 9.1 Neutrophils % 87.5 H D Lymphocytes % 10.9 D Monocytes % 1.3 L Eosinophils % 0.0 Basophils % 0.3 PT with INR INR VBG pH POC VBG pCO2 POC VBG pO2 Mixed VBG HCO3 Sodium 139 Potassium 4.3 Chloride 107 Carbon Dioxide 22 Anion Gap 10 BUN 23 H Creatinine 1.2 H Creat Clearance w eGFR Random Glucose 156 H Lactic Acid Calcium 8.9 Phosphorus 2.5 D Magnesium 2.7 H D Total Bilirubin AST ALT Alkaline Phosphatase Creatine Kinase Troponin I Total Protein Albumin Active Medications Generic Name Dose Route Start Last Admin Trade Name Freq PRN Reason Stop Dose Admin Acetaminophen 325 mg 06/09/17 09:59 Tylenol - PO TID PRN PAIN Albuterol/Ipratropium 1 amp 06/09/17 06:00 Duoneb - NEB QIDR [facility] Aspirin 81 mg 06/09/17 10:00 06/09/17 10:09 Asa - PO 81 mg DAILY [facility] Administration Clopidogrel Bisulfate 75 mg 06/09/17 10:00 06/09/17 10:09 Plavix - PO 75 mg DAILY [facility] Administration Levofloxacin 500 mg in 100 mls @ 100 mls/hr 06/10/17 10:00 Levaquin 500 Mg Premixed Ivpb - IVPB DAILY [facility] Oxycodone HCl 5 mg 06/09/17 09:59 Roxicodone - PO TID PRN PAIN Trazodone HCl 50 mg 06/09/17 09:50 Desyrel - PO HS PRN ANXIETY Valsartan 320 mg 06/09/17 10:00 06/09/17 10:09 Diovan - PO 320 mg DAILY [facility] Administration Zolpidem Tartrate 5 mg 06/09/17 22:00 Ambien - PO HS PRN INSOMNIA CBC, BMP 06/09/17 08:35 06/09/17 08:35 ASSESSMENT/PLAN: 76yF with PMH VT, CAD s/p PCI x 3, HTN, HLD, Afib, CVA, CKD, COPD, diverticulitis presented to the ED with increasing SOB and productive cough. #COPD exacerbation stable , couph is better Dc duoneb start IB steroids Start inhaler steroids symbicort, spiriva O2 as needed abx Levaquin 750 mg ivbp was given in ED , continue with 500 mg ivbp daily sleep apnea screening PFts as out patient # R/o OSAP # Tobacco abuse #CAD/HTN #depression/ insomnia #CKD #DVT PPX Dispo: We will continue to follow the patient. Thank you for this consultative opportunity. Visit type - Emergency Visit Emergency Visit: Yes ED Registration Date: 06/09/17 Care time: The patient presented to the Emergency Department on the above date and was hospitalized for further evaluation of their emergent condition. - New Patient This patient is new to me today: Yes Date on this admission: 06/10/17 - Critical Care Critical Care patient: No
--- NOTE | 2017-06-09 10:48 | EKG ---
Test Reason : Blood Pressure : / mmHG Vent. Rate : 086 BPM Atrial Rate : 086 BPM P-R Int : 138 ms QRS Dur : 084 ms QT Int : 436 ms P-R-T Axes : 076 065 059 degrees QTc Int : 521 ms SINUS RHYTHM WITH PREMATURE ATRIAL COMPLEXES MODERATE VOLTAGE CRITERIA FOR LVH, MAY BE NORMAL VARIANT PROLONGED QT ABNORMAL ECG WHEN COMPARED WITH ECG OF 09-SEP-2016 17:00, PREMATURE ATRIAL COMPLEXES ARE NOW PRESENT QT HAS LENGTHENED Confirmed by MUKESH ALCAZAR, RUSLAN ([id number]) on 06/09/2017 10:48:21 AM Referred By: Confirmed By:RUSLAN MAYORGA MD
--- NOTE | 2017-06-09 14:35 | PN ---
Teaching Attending Note Name of Resident: Kurtis Salter ATTENDING PHYSICIAN STATEMENT I saw and evaluated the patient. I reviewed the resident's note and discussed the case with the resident. I agree with the resident's findings and plan as documented. PULMONARY IMP COPD EXACERBATION ASHD S/P STENTS PULMONARY HTN HTN R/O OSAS TOBACCO ABUSE PLAN IV STEROIDS INHALED BRONCHODILATORS INHALED STEROIDS O2 SLEEP SCREEN PFTS OUTPATIENT SMOKING CESSATION COUNSELED DR BOUCHER Problem List - Problems (1) Acute exacerbation of COPD with asthma Code(s): J44.1 - CHRONIC OBSTRUCTIVE PULMONARY DISEASE W (ACUTE) EXACERBATION; J45.901 - UNSPECIFIED ASTHMA WITH (ACUTE) EXACERBATION (2) CAD (coronary artery disease) Code(s): I25.10 - ATHSCL HEART DISEASE OF [place] CORONARY ARTERY W/O ANG PCTRS Qualifiers: Coronary Disease-Associated Artery/Lesion type: [place] artery Associated angina: with unstable angina (3) HTN (hypertension) Code(s): I10 - ESSENTIAL (PRIMARY) HYPERTENSION Qualifiers: Hypertension type: essential hypertension Qualified Code(s): I10 - Essential (primary) hypertension (4) Tobacco abuse Code(s): Z72.0 - TOBACCO USE (5) Tobacco abuse counseling Code(s): Z71.6 - TOBACCO ABUSE COUNSELING
[2017-06-09] MEDS ORDERED: ALBUTEROL SO4 0.083% IH SOL 2.5 MG/3 ML VIAL.NEB. NEB PRN (14:38)
[2017-06-09] MEDS: methylPREDNISolone NA SUCC 40 MG/1 ML VIAL IVPUSH SCH (14:49)
[2017-06-09] MEDS: NICOTINE 14 MG/24 HOURS TOPICAL PATCH TD SCH (14:49)
[2017-06-09] MEDS: ACETAMINOPHEN 325 MG TABLET (FP) PO PRN (14:52)
[2017-06-09] MEDS: oxyCODONE HCL 5 MG TABLET PO PRN (14:52)
[2017-06-09 16:29] LABS: URINE APPEARANCE CLEAR; URINE BILIRUBIN NEGATIVE (NEGATIVE); URINE BLOOD NEGATIVE (NEGATIVE); URINE COLOR LTYELLOW; URINE GLUCOSE (UA) NEGATIVE (NEGATIVE); URINE KETONE NEGATIVE (NEGATIVE); URINE NITRITE NEGATIVE (NEGATIVE); URINE UROBILINOGEN NEGATIVE mg/dL (0.2-1.0)
[2017-06-09 16:59] LABS: URINE PROTEIN 1+ (NEGATIVE)
[2017-06-09] MEDS: DOXYCYCLINE HYCLATE 100 MG CAPSULE PO SCH (17:15)
[2017-06-09 17:17] LABS: URINE HYALINE CAST 1 /lpf; URINE RBC <1 /hpf (0-3); URINE WBC 0-2 /hpf (3-5)
[2017-06-09] MEDS: ALBUTEROL SO4 2.5/IPRATROPIUM 0.5 INH SOL 3 ML VIAL.NEB. NEB SCH (17:17)
[2017-06-09] MEDS: TIOTROPIUM BROMIDE 18 MCG/INH (DEVICE W/ 5 CAPSULES) IH SCH (18:56)
[2017-06-09] MEDS ORDERED: PT OWN MED DRAWER 7, Y5N ONE (19:00)
[2017-06-09 20:50] LABS: URINE LEUK ESTERASE Negative (NEGATIVE)
--- NOTE | 2017-06-09 22:49 | HOSP ---
Subjective - Review of Symptoms Events since last encounter: Nurse called, pt with no IV access. Refuses further attempts at an IV. Physical Examination Vital Signs: Vital Signs Temperature 98.3 F 06/09/17 16:15 Pulse Rate 84 06/09/17 16:15 Respiratory Rate 20 06/09/17 16:15 Blood Pressure 153/58 06/09/17 16:15 O2 Sat by Pulse Oximetry (%) 95 06/09/17 11:34 Labs: CBC, BMP 06/09/17 08:35 06/09/17 08:35 Hospitalist Encounter Assessment: COPD exac - change solumedrol to IM as no IV access and pt refusing further attempts.
[2017-06-09] MEDS: ZOLPIDEM TARTRATE 5 MG TABLET PO PRN (23:00)
[2017-06-09] MEDS: traZODone HCL 50 MG TABLET (FP) PO PRN (23:00)
[2017-06-09] MEDS: methylPREDNISolone NA SUCC 40 MG/1 ML VIAL IM SCH (23:00)
[2017-06-10] MEDS: ALBUTEROL SO4 2.5/IPRATROPIUM 0.5 INH SOL 3 ML VIAL.NEB. NEB SCH ×3 (00:37→11:00)
[2017-06-10] MEDS: methylPREDNISolone NA SUCC 40 MG/1 ML VIAL IVPUSH SCH (01:34)
[2017-06-10] MEDS: methylPREDNISolone NA SUCC 40 MG/1 ML VIAL IM SCH ×2 (04:09→10:43)
[2017-06-10] MEDS ORDERED: LEVOFLOXACIN 500 MG IVPB 500 MG/100 ML BAG IVPB SCH (10:00)
[2017-06-10] MEDS ORDERED: PT OWN MED DRAWER 7, Y5N ONE (10:23)
[2017-06-10] MEDS: ACETAMINOPHEN 325 MG TABLET (FP) PO PRN ×2 (10:41→21:24)
[2017-06-10] MEDS: CLOPIDOGREL BISULFATE 75 MG TABLET (FP) PO SCH (10:42)
[2017-06-10] MEDS: DOXYCYCLINE HYCLATE 100 MG CAPSULE PO SCH ×2 (10:42→17:17)
[2017-06-10] MEDS: ASPIRIN 81 MG CHEWABLE TABLETS PO SCH (10:42)
[2017-06-10] MEDS: oxyCODONE HCL 5 MG TABLET PO PRN ×2 (10:42→21:24)
[2017-06-10] MEDS: TIOTROPIUM BROMIDE 18 MCG/INH (DEVICE W/ 5 CAPSULES) IH SCH (10:43)
[2017-06-10] MEDS: VALSARTAN 160 MG TABLET (UD) PO SCH (10:43)
[2017-06-10] MEDS: NICOTINE 14 MG/24 HOURS TOPICAL PATCH TD SCH (10:43)
--- NOTE | 2017-06-10 11:34 | PN ---
Progress Note (short form) - Note Progress Note: Ambulating in her room without O2. Congested cough with some anterior chest wall discomfort. No acute events overnight. Noted that she has no IV access and refused for a new access to be inserted. Intake & Output 06/07/17 06/08/17 06/09/17 06/10/17 23:59 23:59 23:59 23:59 Intake Total 11 200 Balance 11 200 Weight 150 lb Last Vital Signs Temp Pulse Resp BP Pulse Ox 97.6 F 79 18 158/74 93 L 06/10/17 10:49 06/10/17 10:49 06/10/17 10:49 06/10/17 10:49 06/10/17 03:00 Active Medications Acetaminophen (Tylenol -) 325 mg PO TID PRN PRN Reason: PAIN Last Admin: 06/10/17 10:41 Dose: 325 mg Albuterol Sulfate (Ventolin 0.083% Nebulizer Soln -) 1 amp NEB Q4H PRN PRN Reason: SHORT OF BREATH/WHEEZING Last Admin: 06/09/17 20:39 Dose: 1 amp Albuterol Sulfate (Ventolin 0.083% Nebulizer Soln -) 1 amp NEB QIDR REPLACED BY [facility] Aspirin (Asa -) 81 mg PO DAILY REPLACED BY [facility] Last Admin: 06/10/17 10:42 Dose: 81 mg Clopidogrel Bisulfate (Plavix -) 75 mg PO DAILY REPLACED BY [facility] Last Admin: 06/10/17 10:42 Dose: 75 mg Doxycycline Hyclate (Vibramycin -) 100 mg PO BID@0800,1800 REPLACED BY [facility] Last Admin: 06/10/17 10:42 Dose: 100 mg Nicotine (Nicoderm Patch -) 14 mg TD DAILY REPLACED BY [facility] Last Admin: 06/10/17 10:43 Dose: 14 mg Oxycodone HCl (Roxicodone -) 5 mg PO TID PRN PRN Reason: PAIN Last Admin: 06/10/17 10:42 Dose: 5 mg Prednisone (Deltasone -) 40 mg PO DAILY REPLACED BY [facility] Tiotropium [place] (Spiriva -) 1 puff IH DAILY REPLACED BY [facility] Last Admin: 06/10/17 10:43 Dose: 1 puff Trazodone HCl (Desyrel -) 50 mg PO HS PRN PRN Reason: ANXIETY Last Admin: 06/09/17 23:00 Dose: 50 mg Valsartan (Diovan -) 320 mg PO DAILY [facility] Last Admin: 06/10/17 10:43 Dose: 320 mg Zolpidem Tartrate (Ambien -) 5 mg PO HS PRN PRN Reason: INSOMNIA Last Admin: 06/09/17 23:00 Dose: 5 mg GENERAL: Awake, alert, no acute distress. HEAD: Normal with no signs of trauma. LUNGS: Bilateral scattered coarse Rhonchi, minimal expiratory wheeze HEART: Regular rate and rhythm, normal S1 and S2 without murmur, rub or gallop. ABDOMEN: Soft, nontender, not distended, normoactive bowel sounds, no guarding, no rebound, LOWER EXTREMITIES: warm, well-perfused. No calf tenderness. No peripheral edema. NEUROLOGICAL: No focal deficit , Normal speech. PSYCHIATRIC: Appropriate mood and affect. SKIN: Warm, dry, no rashes or lesions noted. Laboratory Results - last 24 hr 06/09/17 06/09/17 01:05 14:40 VBG pH 7.38 POC VBG pCO2 45.8 POC VBG pO2 44.6 Mixed VBG HCO3 26.2 H Urine Color Ltyellow Urine Appearance Clear Urine pH 5.0 Ur Specific [place] 1.015 Urine Protein 1+ H Urine Glucose (UA) Negative Urine Ketones Negative Urine Blood Negative Urine Nitrite Negative Urine Bilirubin Negative Urine Urobilinogen Negative Ur Leukocyte Esterase Negative Urine RBC <1 Urine WBC 0-2 Hyaline Casts 1 Problem List - Problems (1) Acute exacerbation of COPD with asthma Code(s): J44.1 - CHRONIC OBSTRUCTIVE PULMONARY DISEASE W (ACUTE) EXACERBATION; J45.901 - UNSPECIFIED ASTHMA WITH (ACUTE) EXACERBATION (2) CAD (coronary artery disease) Code(s): I25.10 - ATHSCL HEART DISEASE OF [place] CORONARY ARTERY W/O ANG PCTRS Qualifiers: Coronary Disease-Associated Artery/Lesion type: [place] artery Associated angina: with unstable angina (3) HTN (hypertension) Code(s): I10 - ESSENTIAL (PRIMARY) HYPERTENSION Qualifiers: Hypertension type: essential hypertension Qualified Code(s): I10 - Essential (primary) hypertension (4) Tobacco abuse Code(s): Z72.0 - TOBACCO USE (5) Tobacco abuse counseling Code(s): Z71.6 - TOBACCO ABUSE COUNSELING IMP COPD EXACERBATION ASHD S/P STENTS PULMONARY HTN HTN R/O OSAS TOBACCO ABUSE PLAN PREDNISONE 40MG OD INHALED BRONCHODILATORS INHALED STEROIDS O2 PFTS OUTPATIENT ONCE STABLE SMOKING CESSATION COUNSELED TRY TO AVOID [place] AND [place] NO PULMONARY CONTRAINDICATION FOR D/C PLANNING DR [place]
--- NOTE | 2017-06-10 12:19 | PN ---
Progress Note, Physician Chief Complaint: events noted has a productive cough wheezes more at night per pt She has sleep apnea screening here refusing IV placement - Current Medication List Current Medications: Active Medications Acetaminophen (Tylenol -) 325 mg PO TID PRN PRN Reason: PAIN Last Admin: 06/10/17 10:41 Dose: 325 mg Albuterol Sulfate (Ventolin 0.083% Nebulizer Soln -) 1 amp NEB Q4H PRN PRN Reason: SHORT OF BREATH/WHEEZING Last Admin: 06/09/17 20:39 Dose: 1 amp Albuterol Sulfate (Ventolin 0.083% Nebulizer Soln -) 1 amp NEB QIDR [facility] Aspirin (Asa -) 81 mg PO DAILY [facility] Last Admin: 06/10/17 10:42 Dose: 81 mg Clopidogrel Bisulfate (Plavix -) 75 mg PO DAILY [facility] Last Admin: 06/10/17 10:42 Dose: 75 mg Doxycycline Hyclate (Vibramycin -) 100 mg PO BID@0800,1800 [facility] Last Admin: 06/10/17 10:42 Dose: 100 mg Nicotine (Nicoderm Patch -) 14 mg TD DAILY [facility] Last Admin: 06/10/17 10:43 Dose: 14 mg Oxycodone HCl (Roxicodone -) 5 mg PO TID PRN PRN Reason: PAIN Last Admin: 06/10/17 10:42 Dose: 5 mg Prednisone (Deltasone -) 40 mg PO DAILY [facility] Tiotropium [place] (Spiriva -) 1 puff IH DAILY [facility] Last Admin: 06/10/17 10:43 Dose: 1 puff Trazodone HCl (Desyrel -) 50 mg PO HS PRN PRN Reason: ANXIETY Last Admin: 06/09/17 23:00 Dose: 50 mg Valsartan (Diovan -) 320 mg PO DAILY [facility] Last Admin: 06/10/17 10:43 Dose: 320 mg Zolpidem Tartrate (Ambien -) 5 mg PO HS PRN PRN Reason: INSOMNIA Last Admin: 06/09/17 23:00 Dose: 5 mg - Objective Vital Signs: Vital Signs Temperature 97.6 F 06/10/17 10:49 Pulse Rate 79 06/10/17 10:49 Respiratory Rate 18 06/10/17 10:49 Blood Pressure 158/74 06/10/17 10:49 O2 Sat by Pulse Oximetry (%) 93 L 06/10/17 03:00 Constitutional: Yes: No Distress Cardiovascular: Yes: Regular Rate and Rhythm Respiratory: Yes: Diminished, Rhonchi Gastrointestinal: Yes: Normal Bowel Sounds, Soft. No: Distention, Tenderness Edema: No Labs: CBC, BMP 06/09/17 08:35 06/09/17 08:35 INR, PTT INR 1.08 (0.82-1.09) 06/09/17 01:05 Problem List - Problems (1) Acute exacerbation of COPD with asthma Code(s): J44.1 - CHRONIC OBSTRUCTIVE PULMONARY DISEASE W (ACUTE) EXACERBATION; J45.901 - UNSPECIFIED ASTHMA WITH (ACUTE) EXACERBATION (2) Tobacco abuse Code(s): Z72.0 - TOBACCO USE (3) CAD (coronary artery disease) Code(s): I25.10 - ATHSCL HEART DISEASE OF [place] CORONARY ARTERY W/O ANG PCTRS Qualifiers: Coronary Disease-Associated Artery/Lesion type: [place] artery Associated angina: with unstable angina (4) HTN (hypertension) Code(s): I10 - ESSENTIAL (PRIMARY) HYPERTENSION Qualifiers: Hypertension type: essential hypertension Qualified Code(s): I10 - Essential (primary) hypertension (5) QT prolongation Code(s): R94.31 - ABNORMAL ELECTROCARDIOGRAM [ECG] [EKG] Assessment/Plan PLAN received IM solumedrol PO prednisone ordered ON PO Doxycycline Noted prolonged QT interval on EKG-- check EKG today nebs as needed add robitussin continue with meds will need more detailed sleep apnea study as outpt-- d/w Dr Waters-- sleep screening -- - 18.36 -- moderate sleep apnea. PFT as outpt possible dc tomorrow if better
[2017-06-10] MEDS ORDERED: INSULIN DETEMIR 100 UNITS/ML MDV SQ ONE (14:01)
--- NOTE | 2017-06-10 16:30 | EKG ---
Test Reason : Blood Pressure : / mmHG Vent. Rate : 068 BPM Atrial Rate : 068 BPM P-R Int : 120 ms QRS Dur : 084 ms QT Int : 432 ms P-R-T Axes : 067 054 056 degrees QTc Int : 459 ms NORMAL SINUS RHYTHM MODERATE VOLTAGE CRITERIA FOR LVH, MAY BE NORMAL VARIANT BORDERLINE ECG WHEN COMPARED WITH ECG OF 09-JUN-2017 02:30, PREMATURE ATRIAL COMPLEXES ARE NO LONGER PRESENT T WAVE INVERSION NO LONGER EVIDENT IN ANTERIOR LEADS QT HAS SHORTENED Confirmed by KEI WILBURN MD ([id number]) on 06/10/2017 4:30:16 PM Referred By: Confirmed By:KEI WILBURN MD
[2017-06-10] MEDS: predniSONE 20 MG TABLET (UD) PO SCH (17:17)
[2017-06-10] MEDS: ALBUTEROL SO4 0.083% IH SOL 2.5 MG/3 ML VIAL.NEB. NEB SCH ×2 (17:30→23:05)
[2017-06-10] MEDS: guaiFENesin 200 MG/10 ML 10 ML UNIT-DOSE CUPS PO PRN ×2 (18:02→23:58)
--- NOTE | 2017-06-10 18:43 | PN ---
Physical Exam: SUBJECTIVE: Patient seen and examined at bed side, still coughing but better than yesterday OBJECTIVE: Vital Signs Period Temp Pulse Resp BP Sys/Saucedo Pulse Ox Last 24 Hr 97.6 F-98.3 F 75-86 18-20 140-158/55-77 93-100 GENERAL: Awake, alert, and fully oriented, in no acute distress. HEAD: Normal with no signs of trauma. LUNGS: Breath sounds equal, clear to auscultation bilaterally. No wheezes, and no crackles. No accessory muscle use. HEART: Regular rate and rhythm, normal S1 and S2 without murmur, rub or gallop. ABDOMEN: Soft, nontender, not distended, normoactive bowel sounds, no guarding, no rebound, LOWER EXTREMITIES: warm, well-perfused. No calf tenderness. No peripheral edema. NEUROLOGICAL: No focal deficit , Normal speech. PSYCHIATRIC: Cooperative. Good eye contact. Appropriate mood and affect. SKIN: Warm, dry, no rashes or lesions noted. Laboratory Results - last 24 hr 06/09/17 14:40 Ur Leukocyte Esterase Negative Active Medications Generic Name Dose Route Start Last Admin Trade Name Freq PRN Reason Stop Dose Admin Acetaminophen 325 mg 06/09/17 09:59 06/10/17 10:41 Tylenol - PO 325 mg TID PRN Administration PAIN Albuterol Sulfate 1 amp 06/09/17 14:38 06/09/17 20:39 Ventolin 0.083% Nebulizer Soln - NEB 1 amp Q4H PRN Administration SHORT OF BREATH/WHEEZING Albuterol Sulfate 1 amp 06/10/17 11:30 06/10/17 17:30 Ventolin 0.083% Nebulizer Soln - NEB 1 amp QIDR GUSTABO Administration Aspirin 81 mg 06/09/17 10:00 06/10/17 10:42 Asa - PO 81 mg DAILY GUSTABO Administration Clopidogrel Bisulfate 75 mg 06/09/17 10:00 06/10/17 10:42 Plavix - PO 75 mg DAILY GUST[facility]O Administration Doxycycline Hyclate 100 mg 06/09/17 18:00 06/10/17 17:17 Vibramycin - PO 100 mg BID@0800,1800 G[facility]O Administration Guaifenesin 10 ml 06/10/17 12:45 06/10/17 18:02 Robitussin - PO 10 ml Q4H PRN Administration COUGH Nicotine 14 mg 06/09/17 14:45 06/10/17 10:43 Nicoderm Patch - TD 14 mg DAILY GUSTABO Administration Oxycodone HCl 5 mg 06/09/17 09:59 06/10/17 10:42 Roxicodone - PO 5 mg TID PRN Administration PAIN Prednisone 40 mg 06/10/17 11:45 06/10/17 17:17 Deltasone - PO 40 mg DAILY GUSTABO Administration Tiotropium [place] 1 puff 06/09/17 14:45 06/10/17 10:43 Spiriva - IH 1 puff DAILY GUSTABO Administration Trazodone HCl 50 mg 06/09/17 09:50 06/09/17 23:00 Desyrel - PO 50 mg HS PRN Administration ANXIETY Valsartan 320 mg 06/09/17 10:00 06/10/17 10:43 Diovan - PO 320 mg DAILY G[facility]O Administration Zolpidem Tartrate 5 mg 06/09/17 22:00 06/09/17 23:00 Ambien - PO 5 mg HS PRN Administration INSOMNIA CBC, BMP 06/09/17 08:35 06/09/17 08:35 ASSESSMENT/PLAN: 76yF with PMH [place], CAD s/p PCI x 3, HTN, HLD, Afib, CVA, CKD, COPD, diverticulitis presented to the ED with increasing SOB and productive cough. #COPD exacerbation stable , couph is better Dc duoneb start Iv steroids Start inhaler steroids symbicort, spiriva O2 as needed abx Levaquin 750 mg ivbp was given in ED , continue with 500 mg ivbp daily sleep screening PFTs as out patient # Tobacco abuse , educated about cessation #CAD/HTN #depression/ insomnia #CKD #DVT PPX Visit type - Emergency Visit Emergency Visit: No - New Patient This patient is new to me today: No - Critical Care Critical Care patient: No
[2017-06-10] MEDS: traZODone HCL 50 MG TABLET (FP) PO PRN (23:11)
[2017-06-10] MEDS: ZOLPIDEM TARTRATE 5 MG TABLET PO PRN (23:11)
[2017-06-11] MEDS: ALBUTEROL SO4 0.083% IH SOL 2.5 MG/3 ML VIAL.NEB. NEB SCH ×2 (06:11→10:40)
[2017-06-11 08:31] VITALS: BP 146/56; PULSE 72; TEMP 97.9
[2017-06-11] MEDS: oxyCODONE HCL 5 MG TABLET PO PRN (08:34)
[2017-06-11] MEDS: DOXYCYCLINE HYCLATE 100 MG CAPSULE PO SCH (08:35)
[2017-06-11] MEDS: ACETAMINOPHEN 325 MG TABLET (FP) PO PRN (08:35)
--- NOTE | 2017-06-11 09:03 | PN ---
Physical Exam: SUBJECTIVE: Patient seen and examined at bedside. She is feeling much better, less coughing, and clearing up pipe sputum. Denies any sob, cp, N/V/D/C, complains of chronic back pain. asking to go home. OBJECTIVE: Vital Signs Period Temp Pulse Resp BP Sys/Saucedo Pulse Ox Last 24 Hr 97.5 F-98.4 F 64-79 18-20 139-158/55-74 98-100 GENERAL: Awake, alert, and fully oriented, in no acute distress. HEAD: Normal with no signs of trauma. LUNGS: Breath sounds equal, clear to auscultation bilaterally. No wheezes, and no crackles. No accessory muscle use. HEART: Regular rate and rhythm, normal S1 and S2 without murmur, rub or gallop. ABDOMEN: Soft, nontender, not distended, normoactive bowel sounds, no guarding, no rebound, LOWER EXTREMITIES: warm, well-perfused. No calf tenderness. No peripheral edema. NEUROLOGICAL: No focal deficit , Normal speech. PSYCHIATRIC: Cooperative. Good eye contact. Appropriate mood and affect. SKIN: Warm, dry, no rashes or lesions noted. Active Medications Generic Name Dose Route Start Last Admin Trade Name Freq PRN Reason Stop Dose Admin Acetaminophen 325 mg 06/09/17 09:59 06/11/17 08:35 Tylenol - PO 325 mg TID PRN Administration PAIN Albuterol Sulfate 1 amp 06/09/17 14:38 06/09/17 20:39 Ventolin 0.083% Nebulizer Soln - NEB 1 amp Q4H PRN Administration SHORT OF BREATH/WHEEZING Albuterol Sulfate 1 amp 06/10/17 11:30 06/11/17 06:11 Ventolin 0.083% Nebulizer Soln - NEB 1 amp QIDR G[facility]O Administration Aspirin 81 mg 06/09/17 10:00 06/10/17 10:42 Asa - PO 81 mg DAILY [facility] Administration Clopidogrel Bisulfate 75 mg 06/09/17 10:00 06/10/17 10:42 Plavix - PO 75 mg DAILY [facility] Administration Doxycycline Hyclate 100 mg 06/09/17 18:00 06/11/17 08:35 Vibramycin - PO 100 mg BID@0800,1800 [facility] Administration Guaifenesin 10 ml 06/10/17 12:45 06/10/17 23:58 Robitussin - PO 10 ml Q4H PRN Administration COUGH Nicotine 14 mg 06/09/17 14:45 06/10/17 10:43 Nicoderm Patch - TD 14 mg DAILY [facility] Administration Oxycodone HCl 5 mg 06/09/17 09:59 06/11/17 08:34 Roxicodone - PO 5 mg TID PRN Administration PAIN Prednisone 40 mg 06/10/17 11:45 06/10/17 17:17 Deltasone - PO 40 mg DAILY [facility] Administration Tiotropium [place] 1 puff 06/09/17 14:45 06/10/17 10:43 Spiriva - IH 1 puff DAILY [facility] Administration Trazodone HCl 50 mg 06/09/17 09:50 06/10/17 23:11 Desyrel - PO 50 mg HS PRN Administration ANXIETY Valsartan 320 mg 06/09/17 10:00 06/10/17 10:43 Diovan - PO 320 mg DAILY [facility] Administration Zolpidem Tartrate 5 mg 06/09/17 22:00 06/10/17 23:11 Ambien - PO 5 mg HS PRN Administration INSOMNIA CT chest : chronic copd with no acute pathology ASSESSMENT/PLAN: 76yF with PMH [place], CAD s/p PCI x 3, HTN, HLD, Afib, CVA, CKD, COPD, diverticulitis presented to the ED with increasing SOB and productive cough. #COPD exacerbation stable , couph is better Dc duoneb start Iv steroids Start inhaler steroids symbicort, spiriva O2 as needed abx Levaquin 750 mg ivbp was given in ED , continue with 500 mg ivbp daily sleep screening PFTs as out patient # Tobacco abuse , educated about cessation #CAD/HTN #depression/ insomnia #CKD #DVT PPX
--- NOTE | 2017-06-11 10:13 | DS ---
Physical Examination Vital Signs: Vital Signs Temperature 97.9 F 06/11/17 08:30 Pulse Rate 72 06/11/17 08:30 Respiratory Rate 20 06/11/17 08:30 Blood Pressure 146/56 06/11/17 08:30 O2 Sat by Pulse Oximetry (%) 98 06/11/17 03:00 Findings/Remarks: feels better wants to go home ambulatory in room. decreased sob. denies cp. Constitutional: Yes: No Distress, Calm Eyes: Yes: Conjunctiva Clear Neck: Yes: Supple Cardiovascular: Yes: Regular Rate and Rhythm Respiratory: Yes: Rhonchi (few scattered) Gastrointestinal: Yes: Normal Bowel Sounds, Soft Edema: No Neurological: Yes: Alert Psychiatric: Yes: Alert Labs: CBC, BMP 06/09/17 08:35 06/09/17 08:35 Discharge Summary Reason For Visit: OBSTRUCTIVE CHRONIC BRONCHITIS WITH EXACERBATION Current Active Problems Acute exacerbation of COPD with asthma (Acute) QT prolongation (Acute) Tobacco abuse (Acute) Tobacco abuse counseling (Acute) Hospital Course: This is a 76 year old female with a past medical history of CAD, [place], afib, COPD who presented to the ED with c/o cough and SOB. Pt was recently discharged from [facility] on 05/28 where she was hospitalized for similar complaints. pt found in copd exac. treated with steroids pt is active smoker pt got better pulmonary followed stable for d/c on po steroids pt strongly counselled to quit smoking- not ready yet says will follow with her pmd. meds reconcilled. pt to follow with her pmd in one week. Pt in agreement. Condition: Improved - Instructions Referrals: Pedro Rose MD [Primary Care Provider] - Disposition: HOME - Home Medications Comprehensive Discharge Medication List: Ambulatory Orders Oxycodone HCl/Acetaminophen [Endocet 5-325 Tablet] 1 each PO TID PRN 06/09/17 Zolpidem Tartrate 10 mg PO HS PRN 06/09/17 Acetaminophen [Tylenol .Regular Strength -] 325 mg PO TID PRN tablet 06/11/17 Albuterol 0.083% Nebulizer [place] [Ventolin 0.083% Nebulizer Soln -] 1 amp NEB Q4H PRN amp 06/11/17 Aspirin [ASA -] 81 mg PO DAILY tab.chew 06/11/17 Clopidogrel Bisulfate [Plavix -] 75 mg PO DAILY tablet 06/11/17 Guaifenesin [Robitussin -] 10 ml PO Q4H PRN cup 06/11/17 Prednisone [Deltasone -] 10 mg PO ASDIR #30 tab 06/11/17 Tiotropium [place] [Spiriva] 1 puff IH DAILY inh 06/11/17 Valsartan [Diovan] 320 mg PO DAILY tablet 06/11/17
[2017-06-11] MEDS ORDERED: PT OWN MED DRAWER 7, Y5N ONE (10:22)
[2017-06-11] MEDS: predniSONE 20 MG TABLET (UD) PO SCH (10:23)
[2017-06-11] MEDS: NICOTINE 14 MG/24 HOURS TOPICAL PATCH TD SCH (10:23)
[2017-06-11] MEDS: ASPIRIN 81 MG CHEWABLE TABLETS PO SCH (10:23)
[2017-06-11] MEDS: CLOPIDOGREL BISULFATE 75 MG TABLET (FP) PO SCH (10:23)
[2017-06-11] MEDS: TIOTROPIUM BROMIDE 18 MCG/INH (DEVICE W/ 5 CAPSULES) IH SCH (10:24)
[2017-06-11] MEDS: VALSARTAN 160 MG TABLET (UD) PO SCH (10:29)
== END 2017-06-11 11:09 | disposition home or self-care (01) ==
LOC: JER 23:31 → INTOOBSV 06-09 01:53 → UNDOADMOB 06-09 01:53 → JERBED 06-09 01:53 → J7W 06-09 07:19
PROVIDERS: ADMIT Internal Medicine; ATTEND Internal Medicine
PROC: 3E03329 Introduction of Other Anti-infective into Peripheral Vein, Percutaneous Approach (ICD-10-PCS; principal; 2017-06-09)
PROC: 3E033GC Introduction of Other Therapeutic Substance into Peripheral Vein, Percutaneous Approach (ICD-10-PCS; 2017-06-09)
PROC: 3E0233Z Introduction of Anti-inflammatory into Muscle, Percutaneous Approach (ICD-10-PCS; 2017-06-09)
PROC: 3E0F7GC Introduction of Other Therapeutic Substance into Respiratory Tract, Via Natural or Artificial Opening (ICD-10-PCS; 2017-06-09)
DX: J44.1 Chronic obstructive pulmonary disease with (acute) exacerbation (principal); I12.9 Hypertensive chronic kidney disease with stage 1 through stage 4 chronic kidney disease, or unspecified chronic kidney disease; N18.4 Chronic kidney disease, stage 4 (severe); I25.10 Atherosclerotic heart disease of native coronary artery without angina pectoris; I48.91 Unspecified atrial fibrillation; I25.2 Old myocardial infarction; I45.81 Long QT syndrome; E78.5 Hyperlipidemia, unspecified; F17.210 Nicotine dependence, cigarettes, uncomplicated; Z86.73 Personal history of transient ischemic attack (TIA), and cerebral infarction without residual deficits; Z95.5 Presence of coronary angioplasty implant and graft; Z87.442 Personal history of urinary calculi; Z79.01 Long term (current) use of anticoagulants; Z71.6 Tobacco abuse counseling
CPT/HCPCS: 36415; 71010-TC; 71250-TC; 80048; 80053; 81003; 81015; 82550; 82803; 83605; 83735; 84100; 84484; 85025; 85610; 87040; 87086; 93005; 93010; 94640; 96365; 96372; 96375; 99284-25; G0378

== ENCOUNTER 2017-12-24 00:06 | Emergency (ER) | payer OTHER ==
[2017-12-24 00:34] VITALS: BMI 20.5
--- NOTE | 2017-12-24 01:03 | PDOC ---
History of Present Illness - General Chief Complaint: Edema Stated Complaint: SWELLING,FEET Time Seen by Provider: 12/24/17 00:23 History Source: Patient - History of Present Illness Initial Comments: 12/24/17 03:43 77 year old female with lower abdominal pain/ suprapubic pain nausea vomiting x1 day with b/l lower extremity edema. denies fever/ chills, chest pain, diaphoresis Past History - Past Medical History Allergies/Adverse Reactions: Allergies Allergy/AdvReac Type Severity Reaction Status Date / Time Penicillins Allergy Mild Swelling Verified 06/09/17 02:29 Home Medications: Ambulatory Orders Oxycodone HCl/Acetaminophen [Endocet 5-325 Tablet] 1 each PO TID PRN 06/09/17 Zolpidem Tartrate 10 mg PO HS PRN 06/09/17 Acetaminophen [Tylenol .Regular Strength -] 325 mg PO TID PRN tablet 06/11/17 Albuterol 0.083% Nebulizer [place] [Ventolin 0.083% Nebulizer Soln -] 1 amp NEB Q4H PRN amp 06/11/17 Aspirin [ASA -] 81 mg PO DAILY tab.chew 06/11/17 Clopidogrel Bisulfate [Plavix -] 75 mg PO DAILY tablet 06/11/17 Guaifenesin [Robitussin -] 10 ml PO Q4H PRN cup 06/11/17 Tiotropium [place] [Spiriva] 1 puff IH DAILY inh 06/11/17 Valsartan [Diovan] 320 mg PO DAILY tablet 06/11/17 predniSONE [Deltasone -] 10 mg PO ASDIR #30 tab 06/11/17 Anemia: No Asthma: No Cancer: No Cardiac Disorders: Yes ([place],AFIB,stents,angio) CVA: Yes (x3) COPD: Yes CHF: No DVT: No Dementia: No Diabetes: No Dialysis: No GI Disorders: Yes Disorders: No HTN: Yes Hypercholesterolemia: Yes Kidney Stones: Yes Liver Disease: No Psychiatric Problems: No Seizures: No Thyroid Disease: No Lung CA: No - Surgical History Abdominal Surgery: Yes (COLON) Appendectomy: Yes Cardiac Surgery: Yes (STENT, BALLOON) Cholecystectomy: Yes Lung Surgery: No Neurologic Surgery: No Orthopedic Surgery: No - Immunization History Td Vaccination: Yes Immunization Up to Date: Yes - Suicide/Smoking/Psychosocial Hx Smoking Status: No Smoking History: Never smoked Years of Tobacco Use: 40 Have you smoked in the past 12 months: No Number of Cigarettes Smoked Daily: 6 Cigars Per Day: 0 Information on smoking cessation initiated: No 'Breaking Loose' booklet given: 09/10/16 Hx Alcohol Use: No Drug/Substance Use Hx: No Substance Use Type: None Hx Substance Use Treatment: No *Physical Exam - Vital Signs Last Vital Signs Temp Pulse Resp BP Pulse Ox 97.8 F 82 18 147/57 98 12/24/17 00:28 12/24/17 00:28 12/24/17 00:28 12/24/17 00:28 12/24/17 00:28 - Physical Exam General Appearance: Yes: Appropriately Dressed Respiratory/Chest: positive: Lungs Clear, Normal Breath Sounds Cardiovascular: positive: Regular Rhythm, Regular Rate Gastrointestinal/Abdominal: positive: Normal Bowel Sounds, Tender, Soft Extremity: positive: Pedal Edema (mild b/l lower extremity pitting edema) Integumentary: positive: Normal Color, Dry, Warm Neurologic: positive: Fully Oriented, Alert, Normal Mood/Affect Heart Score/ECG Review - History History: Slightly suspicious - ECG Intrepretation Rhythm: Regular Rhythm Comment:: 12/24/17 03:28 82 bpm : NSR ED Treatment Course - LABORATORY CBC & Chemistry Diagram: 12/24/17 00:43 12/24/17 00:43 Medical Decision Making - Medical Decision Making 12/24/17 03:47 patient refuse to stay for CTAP . labs wnl . work not complete. patient signed out AMA all risk factors reviewed. *DC/Admit/Observation/Transfer Diagnosis at time of Disposition: Abdominal pain Qualifiers: Abdominal location: lower abdomen, unspecified Qualified Code(s): R10.30 - Lower abdominal pain, unspecified - Discharge Dispostion Disposition: AGAINST MEDICAL ADVICE - Referrals Referrals: Pedro Rose MD [Primary Care Provider] - Call tomorrow - Patient Instructions Printed Discharge Instructions: DI for Abdominal Pain-Adult - Post Discharge Activity
--- NOTE | 2017-12-24 01:28 | PDOC ---
*Physical Exam - Vital Signs Last Vital Signs Temp Pulse Resp BP Pulse Ox 97.8 F 82 18 147/57 98 12/24/17 00:28 12/24/17 00:28 12/24/17 00:28 12/24/17 00:28 12/24/17 00:28 ED Treatment Course - LABORATORY CBC & Chemistry Diagram: 12/24/17 00:43 12/24/17 00:43 Medical Decision Making - Medical Decision Making 12/24/17 01:28 agree with care from GURINDER Valentine *DC/Admit/Observation/Transfer Diagnosis at time of Disposition: Abdominal pain - Discharge Dispostion Disposition: AGAINST MEDICAL ADVICE - Referrals Referrals: Pedro Rose MD [Primary Care Provider] - Call tomorrow - Patient Instructions Printed Discharge Instructions: DI for Abdominal Pain-Adult - Post Discharge Activity
[2017-12-24] MEDS ORDERED: ONDANSETRON 4 MG/2 ML VIAL IVPUSH ONE (01:29)
[2017-12-24 01:47] LABS: BASO % 0.8 % (0-2.0); EOS % 4.9 % (0-4.5); HEMATOCRIT 36.2 % (32.4-45.2); HEMOGLOBIN 12.2 GM/dL (10.7-15.3); MCH 26.6 pg (25.7-33.7); MCHC 33.5 g/dl (32.0-36.0); MEAN CELL VOLUME 79.5 fl (80-96); MEAN PLT VOLUME 8.3 fl (7.5-11.1); MONO % 7.1 % (3.8-10.2); NEUT % 58.2 % (42.8-82.8); PLATELET COUNT 267 K/MM3 (134-434); RBC 4.56 M/mm3 (3.60-5.2); WHITE BLOOD COUNT 8.5 K/mm3 (4.0-10.0)
[2017-12-24 01:56] LABS: URINE APPEARANCE CLEAR; URINE BILIRUBIN NEGATIVE (<2.0 mg/dL); URINE COLOR STRAW; URINE GLUCOSE (UA) NEGATIVE (NEGATIVE); URINE KETONE NEGATIVE (NEGATIVE); URINE LEUK ESTERASE NEGATIVE (NEGATIVE); URINE NITRITE NEGATIVE (NEGATIVE); URINE PROTEIN NEGATIVE (NEGATIVE); URINE UROBILINOGEN NEGATIVE mg/dL (0.2-1.0)
[2017-12-24 02:09] LABS: ALK PHOS 116 U/L (45-117); ANION GAP 8 (8-16); BILIRUBIN,TOTAL 0.2 mg/dL (0.2-1.0); BLOOD UREA NITROGEN 26 mg/dL (7-18); CHLORIDE 107 mmol/L (98-107); CO2 27 mmol/L (21-32); CREATININE 1.5 mg/dL (0.55-1.02); GLUCOSE,RANDOM 93 mg/dL (74-106); LIPASE 123 U/L (73-393); POTASSIUM 4.1 mmol/L (3.5-5.1); SGOT/AST 12 U/L (15-37); SGPT/ALT 18 U/L (12-78); SODIUM 142 mmol/L (136-145)
[2017-12-24] MEDS ORDERED: ONDANSETRON 4 MG/2 ML VIAL ONE (02:12)
[2017-12-24 02:33] LABS: TOT PROT 7.9 g/dl (6.4-8.2)
[2017-12-24 03:26] VITALS: BP 116/44; PULSE 76; TEMP 97.6
--- NOTE | 2017-12-24 10:42 | EKG ---
Test Reason : Blood Pressure : / mmHG Vent. Rate : 084 BPM Atrial Rate : 084 BPM P-R Int : 154 ms QRS Dur : 084 ms QT Int : 392 ms P-R-T Axes : 071 066 066 degrees QTc Int : 463 ms NORMAL SINUS RHYTHM NORMAL ECG WHEN COMPARED WITH ECG OF 10-JUN-2017 13:11, T WAVE INVERSION NOW EVIDENT IN ANTERIOR LEADS Confirmed by GALLO ESTRADA MD ([id number]) on 12/24/2017 10:42:27 AM Referred By: Confirmed By:GALLO ESTRADA MD
== END 2017-12-24 03:50 | disposition left against medical advice (07) ==
LOC: JER 00:06
PROC: 3E033GC Introduction of Other Therapeutic Substance into Peripheral Vein, Percutaneous Approach (ICD-10-PCS; principal; 2017-12-24)
DX: R10.30 Lower abdominal pain, unspecified (principal); I10 Essential (primary) hypertension; E78.00 Pure hypercholesterolemia, unspecified; Z87.442 Personal history of urinary calculi; I25.2 Old myocardial infarction; I48.91 Unspecified atrial fibrillation; Z95.5 Presence of coronary angioplasty implant and graft; Z87.891 Personal history of nicotine dependence
CPT/HCPCS: 36415; 80053; 81003; 83690; 83880; 84484; 85025; 87086; 93005; 93010; 96374; 99282-25

== ENCOUNTER 2018-09-07 16:15 | Emergency (ER) | payer OTHER ==
[2018-09-07 16:43] VITALS: BP 138/54; PULSE 94; TEMP 98.2; BMI 21.6
--- NOTE | 2018-09-07 16:44 | PDOC ---
Rapid Medical Evaluation Chief Complaint: Weakness Time Seen by Provider: 09/07/18 16:41 Medical Evaluation: Allergies Allergy/AdvReac Type Severity Reaction Status Date / Time Penicillins Allergy Mild Swelling Verified 09/07/18 16:40 09/07/18 16:41 I have performed a brief in-person evaluation of this patient. The patient presents with a chief complaint of:Body aches x 3 days. Recurrent per pt and . States pain is from her osteoporosis. Unclear reason for ED visit today as pt on percocet which helps. H/o osteoporosis, COPD, HTN, CAD Pertinent physical exam findings:stable and in NAD I have ordered the following:nothing The patient will proceed to the ED for further evaluation. Discharge Disposition - Diagnosis Body aches - Referrals - Patient Instructions - Post Discharge Activity
== END 2018-09-07 17:31 | disposition left against medical advice (07) ==
LOC: JER 16:15
DX: Z53.21 Procedure and treatment not carried out due to patient leaving prior to being seen by health care provider (principal)
CPT/HCPCS: 99281-25

== ENCOUNTER 2018-10-05 12:41 | Emergency (ER) | payer OTHER ==
[2018-10-05 13:14] VITALS: BMI 22.3
--- NOTE | 2018-10-05 15:19 | PDOC ---
History of Present Illness - General Chief Complaint: Cold Symptoms Stated Complaint: BODY ACHES Time Seen by Provider: 10/05/18 14:37 - History of Present Illness Initial Comments: 10/05/18 15:20 78F with a past medical history of CAD, [place], afib, COPD, HTN, who presented to the ED with c/o severe headache for the past 4 days, radiating to her left arm, also complaining of total body pain chronically from osteoarthritis. Patient is a heavy smoker Denies any vision changes, dizziness, vertigo. Patient also have been complaining of itchiness recently. who lives with her has no complaints. Past History - Past Medical History Allergies/Adverse Reactions: Allergies Allergy/AdvReac Type Severity Reaction Status Date / Time Penicillins Allergy Mild Swelling Verified 09/07/18 16:40 Home Medications: Ambulatory Orders Oxycodone HCl/Acetaminophen [Endocet 5-325 Tablet] 1 each PO TID PRN 06/09/17 Zolpidem Tartrate 10 mg PO HS PRN 06/09/17 Acetaminophen [Tylenol .Regular Strength -] 325 mg PO TID PRN tablet 06/11/17 Albuterol 0.083% Nebulizer [place] [Ventolin 0.083% Nebulizer Soln -] 1 amp NEB Q4H PRN amp 06/11/17 Aspirin [ASA -] 81 mg PO DAILY tab.chew 06/11/17 Clopidogrel Bisulfate [Plavix -] 75 mg PO DAILY tablet 06/11/17 Guaifenesin [Robitussin -] 10 ml PO Q4H PRN cup 06/11/17 Tiotropium [place] [Spiriva] 1 puff IH DAILY inh 06/11/17 Valsartan [Diovan] 320 mg PO DAILY tablet 06/11/17 predniSONE [Deltasone -] 10 mg PO ASDIR #30 tab 06/11/17 Anemia: No Asthma: No Cancer: No Cardiac Disorders: Yes ([place],AFIB,stents,angio) CVA: Yes (x3) COPD: Yes CHF: No DVT: No Dementia: No Diabetes: No Dialysis: No GI Disorders: Yes Disorders: No HTN: Yes Hypercholesterolemia: Yes Kidney Stones: Yes Liver Disease: No Psychiatric Problems: No Seizures: No Thyroid Disease: No Lung CA: No - Surgical History Abdominal Surgery: Yes (COLON) Appendectomy: Yes Cardiac Surgery: Yes (STENT, BALLOON) Cholecystectomy: Yes Lung Surgery: No Neurologic Surgery: No Orthopedic Surgery: No - Immunization History Td Vaccination: Yes Immunization Up to Date: Yes - Suicide/Smoking/Psychosocial Hx Smoking Status: No Smoking History: Current every day smoker Years of Tobacco Use: 40 Have you smoked in the past 12 months: No Number of Cigarettes Smoked Daily: 10 Cigars Per Day: 0 Information on smoking cessation initiated: No 'Breaking Loose' booklet given: 09/10/16 Hx Alcohol Use: No Drug/Substance Use Hx: No Substance Use Type: None Hx Substance Use Treatment: No Review of Systems - Review of Systems Able to Perform ROS?: Yes Is the patient limited Upper Sor[place] proficient: No Constitutional: No: Symptoms Reported HEENTM: No: Symptoms Reported Respiratory: No: Symptoms reported Cardiac (ROS): No: Symptoms Reported ABD/GI: No: Symptoms Reported : No: Symptoms Reported Musculoskeletal: Yes: See HPI Integumentary: No: Symptoms Reported *Physical Exam - Vital Signs Last Vital Signs Temp Pulse Resp BP Pulse Ox 98.3 F 86 18 157/52 L 95 10/05/18 13:10 10/05/18 13:10 10/05/18 13:10 10/05/18 13:10 10/05/18 13:10 - Physical Exam General Appearance: Yes: Moderate Distress HEENT: positive: Other (pain upon range of motion of the eyes. ) Neck: negative: Other Respiratory/Chest: positive: Decreased Breath Sounds. negative: Chest Tender, Respiratory Distress Cardiovascular: positive: Regular Rhythm, Regular Rate, S1, S2 Gastrointestinal/Abdominal: positive: Normal Bowel Sounds, Flat, Soft. negative : Tender Musculoskeletal: positive: Other (tender over scalp, neck, shoulder and left arm. ) Neurologic: positive: Fully Oriented, Alert, Normal Mood/Affect Moderate Sedation - Procedure Monitoring Vital Signs: Procedure Monitoring Vital Signs Temperature 98.3 F 10/05/18 13:10 Pulse Rate 86 10/05/18 13:10 Respiratory Rate 18 10/05/18 13:10 Blood Pressure 157/52 L 10/05/18 13:10 O2 Sat by Pulse Oximetry (%) 95 10/05/18 13:10 ED Treatment Course - LABORATORY CBC & Chemistry Diagram: 10/05/18 15:55 10/05/18 15:55 - RADIOLOGY Radiology Studies Ordered: Category Date Time Status HEAD CT WITHOUT CONTRAST [CT] Stat CT Scan 10/05/18 14:46 Ordered CHEST X-RAY PORTABLE* [RAD] Stat Radiology 10/05/18 14:47 Ordered Medical Decision Making - Medical Decision Making 10/05/18 15:42 SAH, migrane, carotid artery vasculopathy. 10/05/18 19:[address]: normal. CXR unchanged with some addition mild infiltrates Some worsening of renal function. Starting patient on LR 1 L bolus. Patient refusing tylenol (I mneed something stronger) Gave patient tramadol ( this doesnt work) asking for IV opiates. Giving the patient low dose ketamine 0.3mg/kg slow push. Patient now pain free with some side effects: Tingling in the hands and dizziness. Ok to discharge upon back to baseline. *DC/Admit/Observation/Transfer Diagnosis at time of Disposition: Headache, Diffuse pain - Discharge Dispostion Disposition: HOME Condition at time of disposition: Improved Decision to Admit order: No - Referrals Referrals: Pedro Rose MD [Primary Care Provider] - Cy Weinberg MD [Staff Physician] - - Patient Instructions Printed Discharge Instructions: Non-Medication Pain Relief for Chronic Pain, Managing Chronic Low Back Pain Additional Instructions: Follow up with Dr. Weinberg for your chronic pain. Come back to the emergency department for any new, worsening or concerning symptoms. - Post Discharge Activity
[2018-10-05] MEDS ORDERED: ACETAMINOPHEN 500 MG TABLET (FP) PO ONE (15:57)
[2018-10-05] MEDS ORDERED: ACETAMINOPHEN 325 MG TABLET (FP) ONE (15:58)
[2018-10-05 16:03] LABS: BASO % 0.8 % (0-2.0); EOS % 3.1 % (0-4.5); HEMATOCRIT 38.7 % (32.4-45.2); HEMOGLOBIN 13.1 GM/dL (10.7-15.3); LYMPH % 30.6 % (8-40); MCH 27.4 pg (25.7-33.7); MCHC 33.8 g/dl (32.0-36.0); MEAN CELL VOLUME 81.1 fl (80-96); MEAN PLT VOLUME 8.4 fl (7.5-11.1); MONO % 6.4 % (3.8-10.2); NEUT % 59.1 % (42.8-82.8); PLATELET COUNT 280 K/MM3 (134-434); RBC 4.78 M/mm3 (3.60-5.2); RDW 15.7 % (11.6-15.6); WHITE BLOOD COUNT 10.1 K/mm3 (4.0-10.0)
--- NOTE | 2018-10-05 16:03 | PDOC ---
Attending Attestation - HPI HPI: 10/05/18 16:06 The patient is a 78 year old female with a past medical history of CAD, CT, afib , COPD, and HTN here today for evaluation of headache. The patient reports that her headache started 4 days ago, radiates to her left arm, and states that it is severe. She also reports total body pain which she attributes to her osteoarthritis. Patient denies headache, lightheadedness. Denies fever, chills. Denies chest pain, shortness of breath. Denies nausea, vomiting, diarrhea, abdominal pain. Allergies: penicillins Social history: Patient confirms tobacco use. PCP: Pedro Rose - Physicial Exam PE: 10/05/18 16:29 Limited exam GENERAL: The patient is in no acute distress. HEAD: Normal with no signs of trauma. LUNGS: Breath sounds equal, clear to auscultation bilaterally. No wheezes, and no crackles. HEART:Regular rate and rhythm, normal S1 and S2 without murmur, rub or gallop. SKIN: Warm, Dry, normal turgor, no rashes or lesions noted. - Medical Decision Making 10/05/18 16:32 Documentation prepared by ALANA Magana, acting as medical technologist clinical for Deidre Todd MD. <Alireza Stahl - Last Filed: 10/05/18 16:29> - Resident Resident Name: Simone Alvarez - ED Attending Attestation I have performed the following: I have examined & evaluated the patient, The case was reviewed & discussed with the resident, I agree w/resident's findings & plan, Exceptions are as noted - Medical Decision Making 10/05/18 16:03 EKG - NSR rate of 84 bpm, axis nml, no st elevation or depression, t wave inversion V2, v3 10/05/18 16:20 Laboratory Tests 10/05/18 15:55 WBC 10.1 H Hgb 13.1 Hct 38.7 Plt Count 280 10/05/18 17:09 Will give Tramadol Will re asess 10/05/18 17:10 Laboratory Tests 12/24/17 12/24/17 10/05/18 00:43 00:43 15:55 BUN 26 H 34 H Creatinine 1.5 H 1.8 H Troponin I < 0.02 < 0.02 Urine Nitrite Ur Leukocyte Esterase 10/05/18 16:16 BUN Creatinine Troponin I Urine Nitrite Negative Ur Leukocyte Esterase Negative Pt signed out pending re assessment Clinical impression: chronic pain, initial presentation <Deidre Tdod - Last Filed: 10/06/18 14:36>
[2018-10-05 16:32] LABS: ALBUMIN 4.1 g/dl (3.4-5.0); ALK PHOS 128 U/L (45-117); ANION GAP 7 MMOL/L (8-16); BILIRUBIN,TOTAL 0.5 mg/dL (0.2-1); BLOOD UREA NITROGEN 34 mg/dL (7-18); CALCIUM 9.9 mg/dL (8.5-10.1); CHLORIDE 106 mmol/L (98-107); CO2 25 mmol/L (21-32); CREATININE 1.8 mg/dL (0.55-1.3); GLUCOSE,RANDOM 89 mg/dL (74-106); POTASSIUM 5.1 mmol/L (3.5-5.1); SGOT/AST 8 U/L (15-37); SGPT/ALT 16 U/L (13-61); SODIUM 138 mmol/L (136-145); TOT PROT 8.6 g/dl (6.4-8.2)
[2018-10-05 16:32] LABS: URINE APPEARANCE CLEAR; URINE BILIRUBIN NEGATIVE (<2.0 mg/dL); URINE COLOR LTYELLOW; URINE GLUCOSE (UA) NEGATIVE (NEGATIVE); URINE KETONE NEGATIVE (NEGATIVE); URINE LEUK ESTERASE NEGATIVE (NEGATIVE); URINE NITRITE NEGATIVE (NEGATIVE); URINE PROTEIN NEGATIVE (NEGATIVE); URINE UROBILINOGEN NEGATIVE mg/dL (0.2-1.0)
[2018-10-05] MEDS ORDERED: LACTATED RINGERS SOLUTION 1,000 ML/1,000 ML INFUS.BAG IV STA (16:35)
[2018-10-05] MEDS ORDERED: traMADol HCL 50 MG TABLET PO ONE (16:48)
[2018-10-05] MEDS ORDERED: traMADol HCL 50 MG TABLET ONE (17:09)
[2018-10-05] MEDS ORDERED: KETAMINE HCL 500 MG/10 ML VIAL IV ONE (17:41)
[2018-10-05] MEDS ORDERED: KETAMINE HCL 200 MG/20 ML VIAL ONE (18:59)
[2018-10-05 19:37] VITALS: BP 138/60; PULSE 81; TEMP 98.1
--- NOTE | 2018-10-06 14:02 | EKG ---
Test Reason : Blood Pressure : / mmHG Vent. Rate : 084 BPM Atrial Rate : 084 BPM P-R Int : 150 ms QRS Dur : 074 ms QT Int : 370 ms P-R-T Axes : 063 048 049 degrees QTc Int : 437 ms NORMAL SINUS RHYTHM T WAVE ABNORMALITY, CONSIDER ANTERIOR ISCHEMIA ABNORMAL ECG WHEN COMPARED WITH ECG OF 24-DEC-2017 01:25, NO SIGNIFICANT CHANGE WAS FOUND Confirmed by AKILA ALCAZAR, KEI ([id number]) on 10/06/2018 2:02:23 PM Referred By: Confirmed By:EKI WILBURN MD
== END 2018-10-05 20:39 | disposition home or self-care (01) ==
LOC: JER 12:41
PROC: 3E033NZ Introduction of Analgesics, Hypnotics, Sedatives into Peripheral Vein, Percutaneous Approach (ICD-10-PCS; principal; 2018-10-05)
PROC: 3E0337Z Introduction of Electrolytic and Water Balance Substance into Peripheral Vein, Percutaneous Approach (ICD-10-PCS; 2018-10-05)
DX: R52 Pain, unspecified (principal); R51 Headache; I25.2 Old myocardial infarction; I48.91 Unspecified atrial fibrillation; J44.9 Chronic obstructive pulmonary disease, unspecified; I10 Essential (primary) hypertension; I25.10 Atherosclerotic heart disease of native coronary artery without angina pectoris; Z87.891 Personal history of nicotine dependence; Z95.5 Presence of coronary angioplasty implant and graft
CPT/HCPCS: 36415; 70450-TC; 71045-TC-FY; 80053; 81003; 84484; 85025; 87086; 93005; 93010; 96361; 96374; 99283-25

== ENCOUNTER 2018-12-05 18:24 | Observation (INO) | payer OTHER ==
--- NOTE | 2018-12-05 18:35 | PDOC ---
History of Present Illness - General Chief Complaint: Shortness of Breath Stated Complaint: SHORTNESS OF BREATH Time Seen by Provider: 12/05/18 18:34 - History of Present Illness Initial Comments: 12/05/18 19:48 The patient is a 78 year old female with a history of HTN, HLD, [place], CAD s/p stenting, afib, CVA who presents for evaluation of chest pain, nausea, shortness of breath. The patient reports a 1-2 day history of diffuse body aches with subjective fevers. She noted nausea with poorly described chest pain and shortness of breath with associated productive cough prompting her presentation to the ED for further evaluation. She notes on arrival to the ED that her shortness of breath has resolved. She otherwise denies chills, vomiting, abdominal pain, or changes with urination or bowel movements. Past History - Past Medical History Allergies/Adverse Reactions: Allergies Allergy/AdvReac Type Severity Reaction Status Date / Time Penicillins Allergy Mild Swelling Verified 09/07/18 16:40 Home Medications: Ambulatory Orders Oxycodone HCl/Acetaminophen [Endocet 5-325 Tablet] 1 each PO TID PRN 06/09/17 Zolpidem Tartrate 10 mg PO HS PRN 06/09/17 Acetaminophen [Tylenol .Regular Strength -] 325 mg PO TID PRN tablet 06/11/17 Albuterol 0.083% Nebulizer Mile [Ventolin 0.083% Nebulizer Soln -] 1 amp NEB Q4H PRN amp 06/11/17 Aspirin [ASA -] 81 mg PO DAILY tab.chew 06/11/17 Clopidogrel Bisulfate [Plavix -] 75 mg PO DAILY tablet 06/11/17 Guaifenesin [Robitussin -] 10 ml PO Q4H PRN cup 06/11/17 Tiotropium [place] [Spiriva] 1 puff IH DAILY inh 06/11/17 Valsartan [Diovan] 320 mg PO DAILY tablet 06/11/17 predniSONE [Deltasone -] 10 mg PO ASDIR #30 tab 06/11/17 Anemia: No Asthma: No Cancer: No Cardiac Disorders: Yes ([place],AFIB,stents,angio) CVA: Yes (x3) COPD: Yes CHF: No DVT: No Dementia: No Diabetes: No Dialysis: No GI Disorders: Yes Disorders: No HTN: Yes Hypercholesterolemia: Yes Kidney Stones: Yes Liver Disease: No Psychiatric Problems: No Seizures: No Thyroid Disease: No Lung CA: No - Surgical History Abdominal Surgery: Yes (COLON) Appendectomy: Yes Cardiac Surgery: Yes (STENT, BALLOON) Cholecystectomy: Yes Lung Surgery: No Neurologic Surgery: No Orthopedic Surgery: No - Immunization History Td Vaccination: Yes Immunization Up to Date: Yes - Suicide/Smoking/Psychosocial Hx Smoking Status: No Smoking History: Current every day smoker Years of Tobacco Use: 40 Have you smoked in the past 12 months: No Number of Cigarettes Smoked Daily: 10 Cigars Per Day: 0 'Breaking Loose' booklet given: 09/10/16 Hx Alcohol Use: No Drug/Substance Use Hx: No Substance Use Type: None Hx Substance Use Treatment: No Review of Systems - Review of Systems Comments:: 12/05/18 19:50 Constitutional: Subjective fevers, malaise. No chills, fatigue, HEENT: No Rhinorrhea, nasal congestion, visual changes Cardiovascular: Chest pain. No syncope, palpitations, lightheadedness Respiratory: Cough, SOB, No Hemoptysis, Gastrointestinal: Nausea. No Abdominal pain, Vomiting, Constipation, Diarrhea, Melena Genitourinary: No Dysuria, Frequency, Urgency, Hesitancy, Hematuria, Flank pain Musculoskeletal: No Myalgia, arthralgia Skin: No rashes, itching, bruising, pallor Neurologic: No Headache, Dizziness, Numbness, Weakness, or Tingling Psychiatric: No Hallucinations. No SI or HI *Physical Exam - Physical Exam Comments: 12/05/18 19:51 General Appearance: Nourished. No Apparent Distress HEENT: No Pharyngeal Erythema, Tonsillar Exudate, Tonsillar Erythema Neck: No Cervical Lymphadenopathy Respiratory/Chest: Lungs Clear, Normal Breath Sounds. No Crackles, Rales, Rhonchi, Wheezing Cardiovascular: Regular Rhythm, Regular Rate. No Murmur, Gallops, Rubs Gastrointestinal/Abdominal: Normal Bowel Sounds, Soft. No Guarding, Rebound, Tenderness Musculoskeletal: No CVA Tenderness Extremity: Normal Capillary Refill Integumentary: Normal Color, Dry, Warm Neurologic: Fully Oriented, Alert, Normal Mood/Affect, Normal Response, Heart Score/ECG Review - History History: Slightly suspicious - Electrocardiogram EKG: Non specific repolarization disturbance - Age Age: >/= 65 - Risk Factors Risk Factors Heart Score: Yes Hx Hypercholesterolemia, Yes Hx Hypertension, Yes Positive family hx of cardiac disease Based on the list above the patient has:: >/=3 risk factors or Hx atherosclerotic disease - Troponin Troponin: </= normal limit - Score Heart Score - Total: 5 #1 ECG reviewed & interpreted by me at: 19:52 12/05/18 19:52 Normal sinus rhythm No Acute ST changes HR 90 QRS 80 QTc 433 ED Treatment Course - LABORATORY CBC & Chemistry Diagram: 12/05/18 19:00 12/05/18 19:00 Medical Decision Making - Medical Decision Making 12/05/18 19:53 The patient is a 78 year old female with a history of HTN, HLD, [place], CAD s/p stenting, afib, CVA who presents for evaluation of chest pain, nausea, shortness of breath. Given the patient's history and physical exam, we will obtain a cbc, cmp, troponin, bnp, ekg, chest plain film to evaluate further. Given the patient's significant cardiac co-morbidities, she will likely require observation admission. We will continue to monitor and reassess while here in the ED. 12/05/18 20:00 CBC is unremarkable. CMP demonstrates an elevated creatinine to 2.0. Troponin , bnp are unremarkable. Chest plain film is unremarkable. Given her cardiac co -morbidities we are recommending admission for further management. The patient is agreeable with the plan. We discussed the case with the admitting team who accepted the patient for admission. 12/05/18 20:39 The patient is now voicing that she wishes to leave AMA and is refusing admission. I believe this patient is of sound mind and competent to refuse medical care. The patient is responding and asking questions appropriately. The patient is oriented to person, place and time. The patient is not psychotic, delusional, suicidal, homicidal or hallucinating. The patient demonstrates a normal mental capacity to make decisions regarding their healthcare. The patient is clinically sober and does not appear to be under the influence of any illicit drugs at this time. The patient has been advised of the risks, in layman terms, of leaving AMA which include, but are not limited to cardiac arrest, severe infection, dehydration, myocardial infarction, arrhythmia, stroke , respiratory failure, , coma, permanent disability, loss of current lifestyle, delay in diagnosis. Alternatives have been offered - the patient remains steadfast in their wish to leave. The patient has been advised that should they change their mind they are welcome to return to this hospital, or any other, at any time. The patient understands that in no way does an AMA discharge mean that I do not want them to have the best medical care available. To this end, I have provided appropriate prescriptions, referrals, and discharge instructions. Pt will follow up with primary care doctor with reevaluation. Return precautions advised, call 911 immediately if severe life threatening symptoms or concerns.. Pt has verbalized understanding of information provided, questions answered. The patient did sign AMA paperwork. *DC/Admit/Observation/Transfer Diagnosis at time of Disposition: Chest pain Qualifiers: Chest pain type: unspecified Qualified Code(s): R07.9 - Chest pain, unspecified - Discharge Dispostion Disposition: AGAINST MEDICAL ADVICE Condition at time of disposition: Stable - Referrals - Patient Instructions - Post Discharge Activity
[2018-12-05 18:47] VITALS: BP 111/68; PULSE 88; TEMP 98.5; BMI 22.6
[2018-12-05 19:15] LABS: BASO % 1.2 % (0-2.0); EOS % 3.7 % (0-4.5); HEMATOCRIT 36.4 % (32.4-45.2); HEMOGLOBIN 12.1 GM/dL (10.7-15.3); LYMPH % 35.6 % (8-40); MCH 27.2 pg (25.7-33.7); MCHC 33.2 g/dl (32.0-36.0); MEAN PLT VOLUME 8.4 fl (7.5-11.1); MONO % 7.7 % (3.8-10.2); NEUT % 51.8 % (42.8-82.8); PLATELET COUNT 305 K/MM3 (134-434); RBC 4.44 M/mm3 (3.60-5.2); RDW 15.1 % (11.6-15.6); WHITE BLOOD COUNT 7.4 K/mm3 (4.0-10.0)
[2018-12-05 19:28] LABS: INR 1.08 (0.83-1.09); PROTHROMBIN TIME (PATIENT) 12.8 SEC (9.7-13.0)
[2018-12-05 19:31] LABS: ACTIVATED PTT 36.3 SECONDS (25.2-36.5)
[2018-12-05 19:35] LABS: ALBUMIN 3.6 g/dl (3.4-5.0); ALK PHOS 120 U/L (45-117); ANION GAP 9 MMOL/L (8-16); BILIRUBIN,TOTAL 0.3 mg/dL (0.2-1); BLOOD UREA NITROGEN 21 mg/dL (7-18); CALCIUM 8.8 mg/dL (8.5-10.1); CHLORIDE 104 mmol/L (98-107); CO2 25 mmol/L (21-32); GLUCOSE,RANDOM 124 mg/dL (74-106); N-TERMINAL BNP 184.6 pg/ml (5-450); POTASSIUM 4.2 mmol/L (3.5-5.1); SGOT/AST 11 U/L (15-37); SGPT/ALT 15 U/L (13-61); SODIUM 138 mmol/L (136-145); TOT PROT 7.8 g/dl (6.4-8.2)
[2018-12-05] MEDS ORDERED: ACETAMINOPHEN 1000 MG/100 ML VIAL (NON FORMULARY) IVPB ONE (20:07)
--- NOTE | 2018-12-05 20:14 | PDOC ---
Documentation entered by Gene Tom SCRIBE, acting as scribe for Ashley Valentine MD. Aslhey Valentine MD: This documentation has been prepared by the Negro plata Xhesika, SCRIBE, under my direction and personally reviewed by me in its entirety. I confirm that the documentation accurately reflects all work, treatment, procedures, and medical decision making performed by me. Attending Attestation - Resident Resident Name: Alireza Palmer - HPI HPI: 12/05/18 20:05 The patient is a 78 year old female, with a significant past medical history of HTN, HLD, [place], CAD s/p stenting, afib, CVA who presents to the emergency department with a couple days of chest pain. The patient states she is experiencing body aches, subjective fever, and nausea secondary to her chest pain. The patient states when she has episodes of coughing it is accompanied with yellow/green phlegm. The patient is a poor historian The patient denies headache or dizziness. The patient denies chills, vomit, diarrhea or constipation. The patient denies dysuria, frequency, urgency or hematuria. Allergies: Penicillins Past surgical history:Appendectomy, STENT, BALLOON, Cholecystectomy Social history: None reported PCP: Dr. Pedro Rose - Physicial Exam PE: 12/05/18 20:05 GENERAL: Awake, alert, and fully oriented, in no acute distress HEAD: No signs of trauma EYES: PERRLA, EOMI, sclera anicteric, conjunctiva clear ENT: Auricles normal inspection, hearing grossly normal, nares patent, oropharynx clear without exudates. Moist mucosa NECK: Normal ROM, supple, no lymphadenopathy, JVD, or masses LUNGS: Breath sounds equal, clear to auscultation bilaterally. No wheezes, and no crackles HEART: Regular rate and rhythm, normal S1 and S2, no murmurs, rubs or gallops ABDOMEN: Soft, nontender, normoactive bowel sounds. No guarding, no rebound. No masses EXTREMITIES: Normal range of motion, no edema. No clubbing or cyanosis. No cords, erythema, or tenderness NEUROLOGICAL: Cranial nerves II through XII grossly intact. Normal speech, normal gait - Medical Decision Making 12/05/18 20:09 labs chronic renal insuffuency first troponin is negaitve 78 yo female has c/o midsternal chest pain x 3 days ekg nsr@ 90 bpm, normal QTc 12/05/18 20:12 12/05/18 20:13 pt is admitted to telemetry
[2018-12-06] MEDS ORDERED: ACETAMINOPHEN 325 MG TABLET (FP) PO PRN (10:20)
[2018-12-06] MEDS ORDERED: ZOLPIDEM TARTRATE 5 MG TABLET PO PRN (10:20)
[2018-12-06] MEDS ORDERED: ALBUTEROL SO4 0.083% IH SOL 2.5 MG/3 ML VIAL.NEB. NEB PRN (10:20)
--- NOTE | 2018-12-06 11:38 | EKG ---
Test Reason : Blood Pressure : / mmHG Vent. Rate : 090 BPM Atrial Rate : 090 BPM P-R Int : 144 ms QRS Dur : 080 ms QT Int : 354 ms P-R-T Axes : 059 057 055 degrees QTc Int : 433 ms NORMAL SINUS RHYTHM NONSPECIFIC T WAVE ABNORMALITY ABNORMAL ECG WHEN COMPARED WITH ECG OF 05-OCT-2018 14:58, NO SIGNIFICANT CHANGE WAS FOUND Confirmed by Iker Benjamin MD ([id number]) on 12/06/2018 11:38:26 AM Referred By: Confirmed By:Iker Benjamin MD
--- NOTE | 2018-12-06 12:31 | DS ---
Physical Examination Vital Signs: Vital Signs Temperature 98.5 F 12/05/18 18:25 Pulse Rate 88 12/05/18 18:25 Respiratory Rate 16 12/05/18 18:25 Blood Pressure 111/68 12/05/18 18:25 O2 Sat by Pulse Oximetry (%) 100 12/05/18 18:25 Labs: CBC, BMP 12/05/18 19:00 12/05/18 19:00 Discharge Summary Reason For Visit: CHEST PAIN Current Active Problems Chest pain (Acute) Condition: Stable - Instructions Disposition: LEFT BEFORE EUGENE CONN[facility] - Home Medications Comprehensive Discharge Medication List: Ambulatory Orders Oxycodone HCl/Acetaminophen [Endocet 5-325 Tablet] 1 each PO TID PRN 06/09/17 Zolpidem Tartrate 10 mg PO HS PRN 06/09/17 Acetaminophen [Tylenol .Regular Strength -] 325 mg PO TID PRN tablet 06/11/17 Albuterol 0.083% Nebulizer [place] [Ventolin 0.083% Nebulizer Soln -] 1 amp NEB Q4H PRN amp 06/11/17 Aspirin [ASA -] 81 mg PO DAILY tab.chew 06/11/17 Clopidogrel Bisulfate [Plavix -] 75 mg PO DAILY tablet 06/11/17 Guaifenesin [Robitussin -] 10 ml PO Q4H PRN cup 06/11/17 Tiotropium [place] [Spiriva] 1 puff IH DAILY inh 06/11/17 Valsartan [Diovan] 320 mg PO DAILY tablet 06/11/17 predniSONE [Deltasone -] 10 mg PO ASDIR #30 tab 06/11/17
[2018-12-07] MEDS ORDERED: VALSARTAN 160 MG TABLET (UD) PO SCH (10:00)
[2018-12-07] MEDS ORDERED: ASPIRIN 81 MG CHEWABLE TABLETS PO SCH (10:00)
[2018-12-07] MEDS ORDERED: TIOTROPIUM BROMIDE 2.5 MCG (SPIRIVA) RESPIMAT INHALER IH SCH (10:00)
[2018-12-07] MEDS ORDERED: CLOPIDOGREL BISULFATE 75 MG TABLET (FP) PO SCH (10:00)
== END 2018-12-05 20:30 | disposition left against medical advice (07) ==
LOC: JER 18:24 → JERBED 20:09
PROVIDERS: ADMIT Internal Medicine; ATTEND Internal Medicine
DX: R07.9 Chest pain, unspecified (principal); I10 Essential (primary) hypertension; I25.10 Atherosclerotic heart disease of native coronary artery without angina pectoris; I25.2 Old myocardial infarction; E78.5 Hyperlipidemia, unspecified; I48.91 Unspecified atrial fibrillation; F17.210 Nicotine dependence, cigarettes, uncomplicated; Z86.73 Personal history of transient ischemic attack (TIA), and cerebral infarction without residual deficits; Z95.5 Presence of coronary angioplasty implant and graft; Z79.82 Long term (current) use of aspirin
CPT/HCPCS: 36415; 71045-TC-FY; 80053; 82550; 83880; 84484; 85025; 85610; 85730; 93005; 93010; 99284-25; G0378

== ENCOUNTER 2019-02-18 15:21 | Emergency (ER) | payer OTHER ==
[2019-02-18 16:08] VITALS: BP 160/58; PULSE 87; TEMP 98.2; BMI 22.4
[2019-02-18] MEDS ORDERED: ASPIRIN 81 MG CHEWABLE TABLETS PO ONE (16:16)
[2019-02-18] MEDS ORDERED: ASPIRIN 81 MG CHEWABLE TABLETS ONE (16:30)
--- NOTE | 2019-02-18 16:40 | PDOC ---
History of Present Illness - General Chief Complaint: Pain Stated Complaint: ABDOMINAL PAIN Time Seen by Provider: 02/18/19 16:13 - History of Present Illness Initial Comments: 02/18/19 16:34 CHIEF COMPLAINT: abdominal pain, nausea, weakness, headache, dizziness HISTORY OF PRESENT ILLNESS: 78 year old female, with a significant past medical history of HTN, HLD, [place], CAD s/p 2 stents, CVA. and afib, presents to ED with abdominal pain and nausea x 2 days. She complains that the pain is epigastric and feels like a "shooting" pain. Patient states she has been feeling weak and dizzy for the past week, started feeling nauseous yesterday, and threw up twice today. She denies any diarrhea, constipation, or rectal bleeding. Patient's PCP is Dr. Mcclendon. No recent travel or sick contacts. PAST MEDICAL HISTORY: [place], CAD s/p 2 stents, afib, CVA, HTN, HLD FAMILY HISTORY: Denies SOCIAL HISTORY: Denies tobacco, alcohol, illicit drug use. SURGICAL HISTORY: stent placement, cholecystectomy, , "kidney surgery" ALLERGIES: PCN REVIEW OF SYSTEMS General/Constitutional: Weakness. Denies fever or chills. Denies weight change. HEENT: Denies change in vision. Denies ear pain or discharge. Denies sore throat. Cardiovascular: Denies chest pain or shortness of breath. Respiratory: Denies cough, wheezing, or hemoptysis. Gastrointestinal: Nausea and vomiting. Denies diarrhea or constipation. Denies rectal bleeding. Genitourinary: Denies dysuria, frequency, or change in urination. Musculoskeletal: Denies joint or muscle swelling or pain. Denies neck or back pain. Skin and breasts: Denies rash or easy bruising. Neurologic: Headache and dizziness x 1 week. PHYSICAL EXAM General Appearance: Well-appearing, appropriately dressed. No apparent distress. HEENT: EOMI, PERRLA, normal ENT inspection, normal voice, TMs normal, pharynx normal. No conjunctival pallor. No photophobia, scleral icterus. Neck: Supple. Trachea midline. No tenderness, rigidity, carotid bruit, stridor , lymphadenopathy, or thyromegaly. Respiratory/Chest: Lungs CTAB. No shortness of breath, chest tenderness, respiratory distress, accessory muscle use. No crackles, rales, rhonchi, stridor , wheezing, dullness Cardiovascular: RRR. S1, S2. No JVD, murmur, bradycardia, tachycardia. Vascular Pulses: R radial pulse: 1+, L radial pulse: 2+, Dorsalis-Pedis (R): 1+, Dorsalis-Pedis (L): 2+ Gastrointestinal/Abdominal: Epigastric tenderness on palpation, moderate abdominal distention. Abdomen soft. Normal bowel sounds. No organomegaly, pulsatile mass, guarding, hernia, hepatomegaly, splenomegaly. Lymphatic: No adenopathy, tenderness. Musculoskeletal/Extremities: Normal inspection. FROM of all extremities, normal capillary refill. Pelvis Stable. No CVA tenderness. No tenderness to extremities, pedal edema, swelling, erythema or deformity. Integumentary: Appropriate color, dry, warm. No cyanosis, erythema, jaundice or rash Neurologic: caustic strength inspector II-XII intact. Fully oriented, alert. Appropriate mood/affect. Motor strength 5/5. No appreciable EOM palsy, facial droop or sensory deficit. 02/18/19 16:42 02/18/19 16:44 Past History - Past Medical History Allergies/Adverse Reactions: Allergies Allergy/AdvReac Type Severity Reaction Status Date / Time Penicillins Allergy Mild Swelling Verified 09/07/18 16:40 Home Medications: Ambulatory Orders Oxycodone HCl/Acetaminophen [Endocet 5-325 Tablet] 1 each PO TID PRN 06/09/17 Zolpidem Tartrate 10 mg PO HS PRN 06/09/17 Acetaminophen [Tylenol .Regular Strength -] 325 mg PO TID PRN tablet 06/11/17 Albuterol 0.083% Nebulizer [place] [Ventolin 0.083% Nebulizer Soln -] 1 amp NEB Q4H PRN amp 06/11/17 Aspirin [ASA -] 81 mg PO DAILY tab.chew 06/11/17 Clopidogrel Bisulfate [Plavix -] 75 mg PO DAILY tablet 06/11/17 Guaifenesin [Robitussin -] 10 ml PO Q4H PRN cup 06/11/17 Tiotropium [place] [Spiriva] 1 puff IH DAILY inh 06/11/17 Valsartan [Diovan] 320 mg PO DAILY tablet 06/11/17 predniSONE [Deltasone -] 10 mg PO ASDIR #30 tab 06/11/17 Anemia: No Asthma: No Cancer: No Cardiac Disorders: Yes (AK,AFIB,stents,angio) CVA: Yes (x3) COPD: Yes CHF: No DVT: No Dementia: No Diabetes: No Dialysis: No GI Disorders: Yes Disorders: No HTN: Yes Hypercholesterolemia: Yes Kidney Stones: Yes Liver Disease: No Psychiatric Problems: No Seizures: No Thyroid Disease: No Lung CA: No - Surgical History Abdominal Surgery: Yes (COLON) Appendectomy: Yes Cardiac Surgery: Yes (STENT, BALLOON) Cholecystectomy: Yes Lung Surgery: No Neurologic Surgery: No Orthopedic Surgery: No - Immunization History Td Vaccination: Yes Immunization Up to Date: Yes - Suicide/Smoking/Psychosocial Hx Smoking Status: No Smoking History: Unknown if ever smoked Years of Tobacco Use: 40 Have you smoked in the past 12 months: No Number of Cigarettes Smoked Daily: 10 Cigars Per Day: 0 Information on smoking cessation initiated: No 'Breaking Loose' booklet given: 09/10/16 Hx Alcohol Use: No Drug/Substance Use Hx: No Substance Use Type: None Hx Substance Use Treatment: No Abd/GI Specific PMHX - Complaint Specific PMHX Diverticulitis: Yes *Physical Exam - Vital Signs Last Vital Signs Temp Pulse Resp BP Pulse Ox 98.2 F 87 16 160/58 L 95 02/18/19 15:36 02/18/19 15:36 02/18/19 15:36 02/18/19 15:36 02/18/19 15:36 ED Treatment Course - LABORATORY CBC & Chemistry Diagram: 02/18/19 16:40 02/18/19 16:40 - RADIOLOGY Radiology Studies Ordered: Category Date Time Status CHEST PA & LAT [RAD] Stat Radiology 02/18/19 16:16 Ordered Medical Decision Making - Medical Decision Making 02/18/19 16:40 78 year old female, with a significant past medical history of HTN, HLD, [place], CAD s/p 2 stents, CVA. and afib, presents to ED with abdominal pain and nausea x 2 days. DDx: AK, dissection, SBO, pancreatitis, choledocholithiasis, gastroenteritis, dehydration -ekg -labs -urine 02/18/19 17:30 EKG - no significant change from prior 12/05/18 02/18/19 17:54 Patient became agitated and was witnessed verbally abusing RN, stating that she has been waiting too long and wants to leave. RN and myself both advised patient of risks of leaving prior to results of workup, patient continued to yell agitatedly saying she wants to leave. Discussed in depth with patient again risks of leaving, patient requests to sign out AMA. *DC/Admit/Observation/Transfer Diagnosis at time of Disposition: AMA - Signed out against medical advice - Referrals - Patient Instructions - Post Discharge Activity
[2019-02-18 16:52] LABS: BASO % 1.3 % (0-2.0); EOS % 1.9 % (0-4.5); HEMATOCRIT 37.6 % (32.4-45.2); HEMOGLOBIN 12.6 GM/dL (10.7-15.3); LYMPH % 23.7 % (8-40); MCH 27.1 pg (25.7-33.7); MCHC 33.4 g/dl (32.0-36.0); MEAN PLT VOLUME 8.8 fl (7.5-11.1); MONO % 7.8 % (3.8-10.2); NEUT % 65.3 % (42.8-82.8); PLATELET COUNT 358 K/MM3 (134-434); RBC 4.64 M/mm3 (3.60-5.2); RDW 14.1 % (11.6-15.6)
[2019-02-18 18:29] LABS: INR 1.08 (0.83-1.09); PROTHROMBIN TIME (PATIENT) 12.8 SEC (9.7-13.0)
--- NOTE | 2019-02-19 17:44 | EKG ---
Test Reason : Blood Pressure : / mmHG Vent. Rate : 074 BPM Atrial Rate : 074 BPM P-R Int : 144 ms QRS Dur : 080 ms QT Int : 418 ms P-R-T Axes : 069 060 063 degrees QTc Int : 463 ms SINUS RHYTHM WITH PREMATURE ATRIAL COMPLEXES OTHERWISE NORMAL ECG WHEN COMPARED WITH ECG OF 05-DEC-2018 18:41, PREMATURE ATRIAL COMPLEXES ARE NOW PRESENT Confirmed by JAYCEE ALCAZAR, EILEEN ([id number]) on 02/19/2019 5:44:12 PM Referred By: Confirmed By:EILEEN CHAMPION MD
== END 2019-02-18 18:01 | disposition left against medical advice (07) ==
LOC: JER 15:21
DX: R10.9 Unspecified abdominal pain (principal); I10 Essential (primary) hypertension; E78.5 Hyperlipidemia, unspecified; I25.2 Old myocardial infarction; I25.10 Atherosclerotic heart disease of native coronary artery without angina pectoris
CPT/HCPCS: 36415; 71046-TC-FY; 85025; 85610; 93005; 93010; 99282-25

== ENCOUNTER 2019-03-20 15:44 | Inpatient (IN) | payer OTHER ==
--- NOTE | 2019-03-20 17:09 | PDOC ---
History of Present Illness - General Chief Complaint: Eye Problem Stated Complaint: DIZZINESS,WEAKNESS,SPINAL PAIN Time Seen by Provider: 03/20/19 16:37 History Source: Patient, Family Exam Limitations: No Limitations - History of Present Illness Initial Comments: 03/20/19 17:10 78yo F with PMH of CAD s/p stent x2, CVA with R sided weakness, Afib, HTN, HLD presenting to ED with complaints of neck pain x1w and 3minutes of bilateral painless vision loss at 1400. She has not had symptoms like this before. She says she was watching TV when this happened. She says she had painless bilateral vision loss and after 3 minutes her vision was blurry. She has also been having neck pain for 1week. She is seeing a PM&R doctor who she is supposed to follow up with tomorrow. She denies headache, numbness/tingling, abdominal pain, n/v/d, chest pain, sob, weakness, back pain, dizziness, ataxia. PMD: [place] PMR: Javier Weinberg PMH: see hpi Meds: see med rec Allergies: PCN NIH Stroke Scale - Initial Evaluation Level of consciousness: Alert Ask patient the month and their age: Answers both correctly Ask patient to open & close eyes; make fist and let go: Obeys both correctly Best gaze (horizontal eye movement): Normal Visual field testing: No visual field loss Facial paresis (Show teeth/raise eyebrows/close eyes tight): Normal symmetrical movement Motor Function: Left Arm: Normal Motor Function: Right Arm: Normal (extends arm 90 (or 45) degrees for 10 seconds without drift Motor Function: Left Leg: Normal (extends leg 30 degrees for 5 seconds without drift) Motor Function: Right Leg: Drift Limb Ataxia: Present in one limb (due to R leg weakness) Sensory(Use pinprick test arms,legs,trunk,face/side to side): Normal Best language (Describe picture, name items, read sentences): No Aphasia Dysarthria (read several words): Normal articulation Extinction and Inattention: No abnormality - Total Score NIH Stroke Scale Score: 2 Past History - Past Medical History Allergies/Adverse Reactions: Allergies Allergy/AdvReac Type Severity Reaction Status Date / Time Penicillins Allergy Mild Swelling Verified 09/07/18 16:40 Home Medications: Ambulatory Orders Oxycodone HCl/Acetaminophen [Endocet 5-325 Tablet] 1 each PO TID PRN 06/09/17 Zolpidem Tartrate 10 mg PO HS PRN 06/09/17 Acetaminophen [Tylenol .Regular Strength -] 325 mg PO TID PRN tablet 06/11/17 Albuterol 0.083% Nebulizer Mile [Ventolin 0.083% Nebulizer Soln -] 1 amp NEB Q4H PRN amp 06/11/17 Aspirin [ASA -] 81 mg PO DAILY tab.chew 06/11/17 Clopidogrel Bisulfate [Plavix -] 75 mg PO DAILY tablet 06/11/17 Guaifenesin [Robitussin -] 10 ml PO Q4H PRN cup 06/11/17 Tiotropium [place] [Spiriva] 1 puff IH DAILY inh 06/11/17 Valsartan [Diovan] 320 mg PO DAILY tablet 06/11/17 predniSONE [Deltasone -] 10 mg PO ASDIR #30 tab 06/11/17 Anemia: No Asthma: No Cancer: No Cardiac Disorders: Yes (ID,AFIB,stents,angio) CVA: Yes (x3) COPD: Yes CHF: No DVT: No Dementia: No Diabetes: No Dialysis: No GI Disorders: Yes Disorders: No HTN: Yes Hypercholesterolemia: Yes Kidney Stones: Yes Liver Disease: No Psychiatric Problems: No Seizures: No Thyroid Disease: No Lung CA: No - Surgical History Abdominal Surgery: Yes (COLON) Appendectomy: Yes Cardiac Surgery: Yes (STENT, BALLOON) Cholecystectomy: Yes Lung Surgery: No Neurologic Surgery: No Orthopedic Surgery: No - Immunization History Td Vaccination: Yes Immunization Up to Date: Yes - Suicide/Smoking/Psychosocial Hx Smoking Status: No Smoking History: Current every day smoker Years of Tobacco Use: 40 Have you smoked in the past 12 months: Yes Number of Cigarettes Smoked Daily: 10 Cigars Per Day: 0 Information on smoking cessation initiated: Yes 'Breaking Loose' booklet given: 09/10/16 Hx Alcohol Use: No Drug/Substance Use Hx: No Substance Use Type: None Hx Substance Use Treatment: No Review of Systems - Review of Systems Constitutional: No: Symptoms Reported HEENTM: Yes: See HPI Respiratory: No: Symptoms reported Cardiac (ROS): No: Symptoms Reported ABD/GI: No: Symptoms Reported : No: Symptoms Reported Musculoskeletal: Yes: See HPI Integumentary: No: Symptoms Reported Neurological: Yes: See HPI *Physical Exam - Vital Signs Last Vital Signs Temp Pulse Resp BP Pulse Ox 98.5 F 100 H 20 120/62 03/20/19 16:00 03/20/19 16:00 03/20/19 16:00 03/20/19 16:00 - Physical Exam General Appearance: Yes: Nourished, Appropriately Dressed. No: Apparent Distress HEENT: positive: EOMI, ARLETTE, Normal ENT Inspection, Other (OD 20/50, OS 20/63.) Neck: positive: Trachea midline, Supple Respiratory/Chest: positive: Lungs Clear, Normal Breath Sounds. negative: Crackles, Rales, Rhonchi, Stridor Cardiovascular: positive: Regular Rhythm, Regular Rate, S1, S2. negative: Edema , JVD, Murmur Vascular Pulses: Dorsalis-Pedis (R): 2+, Doralis-Pedis (L): 2+ Gastrointestinal/Abdominal: positive: Normal Bowel Sounds, Soft. negative: Tender Musculoskeletal: positive: CVA Tenderness Extremity: positive: Normal Capillary Refill Integumentary: positive: Normal Color, Dry, Warm Neurologic: positive: varnisher apprentice II-XII NML intact, Fully Oriented, Alert, Normal Mood/ Affect, Normal Response. negative: Motor Strength 5/5 (R 4/5 upper and lower extremities), Facial Droop, Confused, Disoriented ED Treatment Course - LABORATORY CBC & Chemistry Diagram: 03/20/19 17:36 03/20/19 17:36 - RADIOLOGY Radiology Studies Ordered: Category Date Time Status HEAD CT WITHOUT CONTRAST [CT] Stat CT Scan 03/20/19 17:07 Ordered Medical Decision Making - Medical Decision Making 03/21/19 01:16 78yo F with PMH of CAD s/p stent x2, CVA with R sided weakness, Afib, HTN, HLD presenting to ED with complaints of neck pain x1w and 3minutes of bilateral painless vision loss at 1400. She has not had symptoms like this before. She says she was watching TV when this happened. She says she had painless bilateral vision loss and after 3 minutes her vision was blurry. She has also been having neck pain for 1week. She is seeing a PM&R doctor who she is supposed to follow up with tomorrow. She denies headache, numbness/tingling, abdominal pain, n/v/d, chest pain, sob, weakness, back pain, dizziness, ataxia. Vitals: hr 100 ddx includes but not limited to tia, amarosis fugax, tentorial infract, hemorrhage, ocular pathology, retinal detachement, CRAO will order labs, ct head, ekg ekg: sinus with pac. at 84bpm. pr 152, qtc 463. twi in v1-v3. no emelia or depressions. similar to ekg 02/18/19. labs wnl. trop negative. ct head: no acute pathology Consulted neurolgoy, recommended mri. will follow patient throughout admission. admitted to hospitalist. *DC/Admit/Observation/Transfer Diagnosis at time of Disposition: Vision loss, Neck pain, TIA (transient ischemic attack) - Discharge Dispostion Condition at time of disposition: Stable Decision to Admit order: Yes - Referrals Referrals: Pedro Rose MD [Primary Care Provider] - - Patient Instructions - Post Discharge Activity
[2019-03-20 17:50] LABS: EOS % 3.4 % (0-4.5); HEMATOCRIT 34.3 % (32.4-45.2); HEMOGLOBIN 11.5 GM/dL (10.7-15.3); LYMPH % 32.8 % (8-40); MCHC 33.6 g/dl (32.0-36.0); MEAN CELL VOLUME 80.5 fl (80-96); MEAN PLT VOLUME 8.4 fl (7.5-11.1); MONO % 7.4 % (3.8-10.2); NEUT % 55.4 % (42.8-82.8); PLATELET COUNT 300 K/MM3 (134-434); RBC 4.27 M/mm3 (3.60-5.2); RDW 14.4 % (11.6-15.6); WHITE BLOOD COUNT 7.7 K/mm3 (4.0-10.0)
[2019-03-20 18:08] LABS: ALBUMIN 3.8 g/dl (3.4-5.0); BILIRUBIN,TOTAL 0.2 mg/dL (0.2-1); BLOOD UREA NITROGEN 26.6 mg/dL (7-18); CALCIUM 9.5 mg/dL (8.5-10.1); CREATININE 1.8 mg/dL (0.55-1.3); POTASSIUM 4.6 mmol/L (3.5-5.1); TOT PROT 7.9 g/dl (6.4-8.2)
[2019-03-20 18:17] LABS: INR 1.05 (0.83-1.09); PROTHROMBIN TIME (PATIENT) 12.4 SEC (9.7-13.0)
[2019-03-20] MEDS ORDERED: SODIUM CHLORIDE 1,000 ML IV STA (18:17)
--- NOTE | 2019-03-20 19:30 | PDOC ---
Documentation entered by Rupal Kiser SCRIBE, acting as scribe for Kaylee Altamirano MD. Kaylee Altamirano MD: This documentation has been prepared by the Rashel plata Brenda, SCRIBE, under my direction and personally reviewed by me in its entirety. I confirm that the documentation accurately reflects all work, treatment, procedures, and medical decision making performed by me. Attending Attestation - Resident Resident Name: MaineKarena - ED Attending Attestation I have performed the following: I have examined & evaluated the patient, The case was reviewed & discussed with the resident, I agree w/resident's findings & plan, Exceptions are as noted - HPI HPI: 03/20/19 17:47 The patient is a 78 year old female, with a significant PMH of CAD s/p stent x2 , CVA with R sided weakness, Afib, HTN and HLD, who presents to the emergency department with complaints of vision loss, lasting 3 minutes in both eyes around 2:00pm. The patient reports that episode of vision loss was painless however she does endorse chronic 1 week hind neck pain, which particularly occurred prior to the episode. The patient denies no previous episodes. Denies chest pain, shortness of breath. Denies fever, chills, nausea, vomiting, diarrhea and constipation. Denies any urinary symptoms. Allergies: Penicillins Past surgical history: stent placement, cholecystectomy, , "kidney surgery" Social history: Denies tobacco, alcohol, illicit drug use. PCP: Dr. Jackson Garay - Physicial Exam PE: 03/20/19 17:48 GENERAL: Awake, alert, and fully oriented, in no acute distress HEAD: No signs of trauma EYES: PERRLA, EOMI, sclera anicteric, conjunctiva clear ENT: Auricles normal inspection, hearing grossly normal, nares patent, oropharynx clear without exudates. Moist mucosa NECK: Normal ROM, supple, no lymphadenopathy, JVD, or masses LUNGS: Breath sounds equal, clear to auscultation bilaterally. No wheezes, and no crackles HEART: Regular rate and rhythm, normal S1 and S2, no murmurs, rubs or gallops ABDOMEN: Soft, nontender, normoactive bowel sounds. No guarding, no rebound. No masses EXTREMITIES: Normal range of motion, no edema. No clubbing or cyanosis. No cords, erythema, or tenderness NEUROLOGICAL: Cranial nerves II through XII grossly intact. Normal speech, normal gait SKIN: Warm, Dry, normal turgor, no rashes or lesions noted. - Medical Decision Making 03/20/19 19:27 Pt presents to the ED complaining of acute decrease in her vision that lasted for three minutes and then resolved. Denies other complaints. Vision is now apparently at the baseline. Symptoms are not suggestive of amaneurosis fugax, given that they are bilateral. However, given her extensive CVA risk factors, will admit to medicine to r/o CVA.
[2019-03-20] MEDS ORDERED: ALBUTEROL SO4 0.083% IH SOL 2.5 MG/3 ML VIAL.NEB. NEB PRN (19:59)
[2019-03-20] MEDS ORDERED: predniSONE 10 MG TABLET (UD) PO SCH (20:00)
--- NOTE | 2019-03-20 20:08 | HP ---
CHIEF COMPLAINT: vision loss lasting about 6 minutes, numbness to left side of face and neck pain for 1 week PCP:Dr. Rose Ski Molder: Dr. Roy HISTORY OF PRESENT ILLNESS: 78 year old female, with a significant past medical history of CAD s/p stent x2 4 years ago (on plavix), CVA with R sided upper and lower extremity weakness 4- 5 years ago (ambulates with a cane/walker), atrial fibrillation (not on anticoagulation,?unclear reason, no history of bleeding or falls), hypertension , chronic renal insufficiency (baseline creatinine between 0.7-2.0) and hyperlipidemia who presents with complaints of vision loss, lasting about 6 minutes in both eyes which started around 2:00pm today. Vision loss has resolved but patient continues to report numbness to her left side of face and reports neck pain that has been going on for one week. Patient denies any headaches, chest pain, shortness of breath, fever, chills, nausea, vomiting, diarrhea or constipation. Upon workup in the ER EKG revealing a normal sinus rhythm, no acute ischemia. CT scan of head with no evidence of acute CVA or hemorrhage. Dr. Ugarte of Neurology was consulted and he recommended a MRA of brain. Labs notable for creatinine of 1.8(within baseline). Recent Travel: denies PAST MEDICAL HISTORY: CAD s/p stent x2 done 4 years ago (on plavix) CVA with R sided weakness 4-5years ago atrial fibrillation(not on anticoagulation) hypertension hyperlipidemia chronic renal insufficiency (baseline 0.7-2.0) PAST SURGICAL HISTORY: cardiac stent placementX2 cholecystectomy kidney surgery Social History: Smoking:no Alcohol:no Drugs: no Family History: noncontributory Allergies Penicillins Allergy (Mild, Verified 09/07/18 16:40) Swelling HOME MEDICATIONS: Home Medications Medication Instructions Recorded Oxycodone HCl/Acetaminophen 1 each PO TID PRN 06/09/17 [Endocet 5-325 Tablet] Zolpidem Tartrate 10 mg PO HS PRN 06/09/17 Acetaminophen [Tylenol .Regular 325 mg PO TID PRN tablet 06/11/17 Strength -] Albuterol 0.083% Nebulizer [place] 1 amp NEB Q4H PRN amp 06/11/17 [Ventolin 0.083% Nebulizer Soln -] Aspirin [ASA -] 81 mg PO DAILY tab.chew 06/11/17 Clopidogrel Bisulfate [Plavix -] 75 mg PO DAILY tablet 06/11/17 Guaifenesin [Robitussin -] 10 ml PO Q4H PRN cup 06/11/17 Tiotropium [place] [Spiriva] 1 puff IH DAILY inh 06/11/17 Valsartan [Diovan] 320 mg PO DAILY tablet 06/11/17 predniSONE [Deltasone -] 10 mg PO ASDIR #30 tab 06/11/17 REVIEW OF SYSTEMS CONSTITUTIONAL: Absent: fever, chills, diaphoresis, generalized weakness, malaise, loss of appetite, weight change HEENT: Absent: rhinorrhea, nasal congestion, throat pain, throat swelling, difficulty swallowing, mouth swelling, ear pain, eye pain, visual changes CARDIOVASCULAR: Absent: chest pain, syncope, palpitations, irregular heart rate, lightheadedness , peripheral edema RESPIRATORY: Absent: cough, shortness of breath, dyspnea with exertion, orthopnea, wheezing, stridor, hemoptysis GASTROINTESTINAL: Absent: abdominal pain, abdominal distension, nausea, vomiting, diarrhea, constipation, melena, hematochezia GENITOURINARY: Absent: dysuria, frequency, urgency, hesitancy, hematuria, flank pain, genital pain MUSCULOSKELETAL: Absent: myalgia, arthralgia, joint swelling, back pain, neck pain SKIN: Absent: rash, itching, pallor HEMATOLOGIC/IMMUNOLOGIC: Absent: easy bleeding, easy bruising, lymphadenopathy, frequent infections ENDOCRINE: Absent: unexplained weight gain, unexplained weight loss, heat intolerance, cold intolerance NEUROLOGIC: Absent: headache, numbness to left side of face, vision loss(now resolved) , neck pain, chronic right sided weakness, speech clear, no facial droop, tongue midline, dizziness, unsteady gait, seizure, mental status changes, bladder or bowel incontinence PSYCHIATRIC: Absent: anxiety, depression, suicidal or homicidal ideation, hallucinations. PHYSICAL EXAMINATION Vital Signs - 24 hr 03/20/19 03/20/19 16:00 19:12 Temperature 98.5 F 98.5 F Pulse Rate 100 H Pulse Rate [ 84 Radial] Respiratory 20 18 Rate Blood Pressure 120/62 Blood Pressure 157/81 [Left Arm] GENERAL: awake alert and fully oriented to person place and time ,no acute distress HEAD: normal EYES: pupils equal, round and reactive to light, extraocular movements intact EARS, NOSE, THROAT: ears normal, nares patent, oropharynx clear without exudates moist mucous membrane NECK: + neck pain LUNGS: breath sounds equal and clear to auscultation bilaterally no wheezes, and no crackles no accessory muscle use HEART: regular rate and rhythm normal S1 and S2 without murmur ABDOMEN: soft nontender not distended normoactive bowel sounds MUSCULOSKELETAL: limited range of motion due to right sided weakness UPPER EXTREMITIES: 2+ pulses warm well-perfused no cyanosis no peripheral edema LOWER EXTREMITIES: 2+ pulses warm well-perfused no calf tendernes no peripheral edema NEUROLOGICAL: speech clear, no facial grimace, tongue midline moving upper and lower extremities with right sided upper and lower weakness, decreased sensation to left side of face with numbness PSYCHIATRIC: cooperative good eye contact appropriate mood and affect SKIN: warm dry normal turgor no rashes or lesions noted Laboratory Results - last 24 hr 03/20/19 03/20/19 03/20/19 17:36 17:36 17:36 WBC 7.7 RBC 4.27 Hgb 11.5 Hct 34.3 MCV 80.5 MCH 27.0 MCHC 33.6 RDW 14.4 Plt Count 300 MPV 8.4 Absolute Neuts (auto) 4.3 Neutrophils % 55.4 Lymphocytes % 32.8 D Monocytes % 7.4 Eosinophils % 3.4 Basophils % 1.0 Nucleated RBC % 0 PT with INR INR Sodium 138 Potassium 4.6 Chloride 105 Carbon Dioxide 25 Anion Gap 7 L BUN 26.6 H Creatinine 1.8 H Est GFR (CKD-EPI)AfAm 30.49 Est GFR (CKD-EPI)NonAf 26.31 Random Glucose 93 Calcium 9.5 Total Bilirubin 0.2 AST 11 L ALT 15 Alkaline Phosphatase 135 H Troponin I < 0.02 Total Protein 7.9 Albumin 3.8 03/20/19 17:36 WBC RBC Hgb Hct MCV MCH MCHC RDW Plt Count MPV Absolute Neuts (auto) Neutrophils % Lymphocytes % Monocytes % Eosinophils % Basophils % Nucleated RBC % PT with INR 12.40 INR 1.05 Sodium Potassium Chloride Carbon Dioxide Anion Gap BUN Creatinine Est GFR (CKD-EPI)AfAm Est GFR (CKD-EPI)NonAf Random Glucose Calcium Total Bilirubin AST ALT Alkaline Phosphatase Troponin I Total Protein Albumin ASSESSMENT/PLAN: 78 year old female with past medical history of CAD s/p stent x2 4 years ago ( on plavix), CVA with R sided weakness 4-5years ago(ambulates with a cane/walker) , atrial fibrillation(not on anticoagulation,?unclear reason, no history of bleeding or falls), hypertension, chronic renal insufficiency (baseline creatinine between 0.7-2.0) and hyperlipidemia who presents with complaints of vision loss that has now resolved and neck pain symptoms ongoing for one week and left sided numbness. She denies any fever,headache, chest pain or shortness of breath. #1 R/O TIA versus Acute CVA Patient with prior history of CVA with right sided weakness. CT scan with no acute intracranial findings and no hemorrhage as per Radiology report. Pending MRA of brain to exclude acute CVA Check carotid doppler Neuro checks every 6 hours, monitor for fever, stiffness or rigidity of neck Neurology -Dr. Ugarte consulted Continue with aspirin and plavix Added atorvastatin 20 mg once daily therapy #2 Atrial Fibrillation EKG with a normal sinus rhythm, rate is controlled Not on oral anticoagulation for some unclear reason, no history of bleeding of multiple falls. MARGY VASc score is 6 Recommend adding therapeutic lovenox for stroke prophlaxsis once cleared by Neurology Continue to monitor on telemetry Echocardiogram ordered Cardiology- Dr. Roy consulted about recommendations for termite helper anticoagulation #3 Coronary Artery Disease Troponin normal, EKG with no acute ischemia Continue with plavix and aspirin Added statin therapy #4 Hypertension Controlled Continue with losartan #5 Hyperlipidemia Check fasting lipid in am add statin therapy #6 Chronic Renal Insufficiency Creatinine 1.8(baseline creatinine ranges between 0.7-2.0) Continue to monitor closely as patient is on arb for bp control DVT TEDS and SCDs FEN low sodium, low cholesterol diet Visit type - Emergency Visit Emergency Visit: Yes Care time: The patient presented to the Emergency Department on the above date and was hospitalized for further evaluation of their emergent condition. - New Patient This patient is new to me today: Yes Date on this admission: 03/20/19 - Critical Care Critical Care patient: No
[2019-03-20] MEDS ORDERED: predniSONE 20 MG TABLET (UD) PO SCH (20:30)
[2019-03-20] MEDS ORDERED: ATORVASTATIN CA 20 MG TABLET (FP) PO ONE (20:53)
[2019-03-20] MEDS ORDERED: ATORVASTATIN CA 20 MG TABLET (FP) ONE (22:14)
[2019-03-20] MEDS ORDERED: ACETAMINOPHEN 1000 MG/100 ML VIAL (NON FORMULARY) IVPB ONE (22:59)
[2019-03-20] MEDS ORDERED: ACETAMINOPHEN INJECTION 100 ML IVPB ONE (23:16)
[2019-03-20] MEDS ORDERED: MELATONIN 5 MG TABLETS PO ONE (23:41)
[2019-03-21] MEDS ORDERED: ASPIRIN 81 MG CHEWABLE TABLETS ONE (10:02)
[2019-03-21] MEDS ORDERED: VALSARTAN 80 MG TABLET (UD) ONE (10:02)
[2019-03-21] MEDS ORDERED: CLOPIDOGREL BISULFATE 75 MG TABLET (FP) ONE (10:02)
[2019-03-21] MEDS: ASPIRIN 81 MG CHEWABLE TABLETS PO SCH (10:12)
[2019-03-21] MEDS: CLOPIDOGREL BISULFATE 75 MG TABLET (FP) PO SCH (10:12)
[2019-03-21] MEDS: VALSARTAN 160 MG TABLET (UD) PO SCH (10:12)
[2019-03-21] MEDS: TIOTROPIUM BROMIDE 2.5 MCG (SPIRIVA) RESPIMAT INHALER IH SCH (11:45)
--- NOTE | 2019-03-21 16:09 | CON.CARD ---
Consult Consult Specialty:: cardio - History of Present Illness Chief Complaint: numbness to face History of Present Illness: 78 F with vision loss, lasting about 6 minutes in both eyes--resolved. also longer-lasting numbness to her left side of face and reports neck pain that has been going on for one week. CT head unrevealing. neuro (sheila) consulted--planning MRA seen by dr garvey and rita during 2017 admit here. at that time brief episodes AF on tele, similar to a prior admit. she had recently had stent. she was started on AC (eliquis 5 bid) and aspirin/plavix were continued pending discussion with interventional cardio pt states she has not seen any outpatient cardio since then and eliquis eventually lapsed. she has only seen dr obrien and has not been on any AC, just aspirin and plavix she says (offers these med names correctly). denies any h/o PUD or GIB. says she has dizziness and uses cane since her stroke but denies falls/injuries. currently says L face still waxing and waning numbness. has had R pectoral pain off and on for 5 yrs, nonexertional--stable pattern. not severe. sometimes sob with activity--poor historian in this regard. denies palpitations. 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 No: Aneurysm Pulmonary: Yes: COPD. No: Asthma - Past Surgical History Past Surgical History: Yes: Stent - Alcohol/Substance Use Hx Alcohol Use: No History of Substance Use: reports: None - Smoking History Smoking history: Current every day smoker Have you smoked in the past 12 months: Yes Aproximately how many cigarettes per day: 10 - Social History ADL: Independent History of Recent Travel: Yes (from [place] to [place] 2 days ago) Home Medications - Allergies Allergies/Adverse Reactions: Allergies Allergy/AdvReac Type Severity Reaction Status Date / Time Penicillins Allergy Mild Swelling Verified 09/07/18 16:40 - Home Medications Home Medications: Ambulatory Orders Oxycodone HCl/Acetaminophen [Endocet 5-325 Tablet] 1 each PO TID PRN 06/09/17 Zolpidem Tartrate 10 mg PO HS PRN 06/09/17 Acetaminophen [Tylenol .Regular Strength -] 325 mg PO TID PRN tablet 06/11/17 Albuterol 0.083% Nebulizer Mile [Ventolin 0.083% Nebulizer Soln -] 1 amp NEB Q4H PRN amp 06/11/17 Aspirin [ASA -] 81 mg PO DAILY tab.chew 06/11/17 Clopidogrel Bisulfate [Plavix -] 75 mg PO DAILY tablet 06/11/17 Guaifenesin [Robitussin -] 10 ml PO Q4H PRN cup 06/11/17 Tiotropium [place] [Spiriva] 1 puff IH DAILY inh 06/11/17 Valsartan [Diovan] 320 mg PO DAILY tablet 06/11/17 predniSONE [Deltasone -] 10 mg PO ASDIR #30 tab 06/11/17 Family Disease History - Family Disease History Family Disease History: Diabetes: Grandparent, Other: Mother (Alzheimer's disease) Review of Systems - Review of Systems Constitutional: denies: Chills, Fever Eyes: denies: Eye Pain HENT: denies: Nasal Congestion Neck: denies: Stiffness Cardiovascular: denies: Palpitations Respiratory: denies: Orthopnea, PND Gastrointestinal: denies: Diarrhea, Rectal Bleeding Genitourinary: denies: Burning, Hematuria Musculoskeletal: denies: Muscle Pain Integumentary: denies: Rash Neurological: reports: Numbness. denies: Confusion, Seizure, Syncope Endocrine: denies: Excessive Sweating Hematology/Lymphatic: denies: Excessive Bleeding Vital Signs: Vital Signs Temperature 98.2 F 03/21/19 08:43 Pulse Rate 79 03/21/19 08:43 Respiratory Rate 18 03/21/19 08:43 Blood Pressure 151/57 L 03/21/19 08:43 O2 Sat by Pulse Oximetry (%) 94 L 03/21/19 08:43 Constitutional: Yes: Well Nourished, No Distress Eyes: No: Sclera Icterus HENT: No: Nasal Congestion Neck: No: Decreased ROM Respiratory: Yes: CTA Bilaterally. No: Accessory Muscle Use, Rales, Wheezes Gastrointestinal: Yes: Normal Bowel Sounds. No: Distention, Hepatomegaly, Palpable Mass, Tenderness Cardiovascular: Yes: Regular Rate and Rhythm JVD: No Carotid Bruit: No PMI: Non-Displaced Heart Sounds: Yes: S1, S2. No: Gallop Murmur: Yes: Systolic Murmur (2/6 early JEFF rusb (no diast murmur)). No: Diastolic Murmur Musculoskeletal: Yes: Other (No kyphosis) Extremities: No: Cool, Cyanosis Edema: No Peripheral Pulses: 2+ Left Carotid, 2+ Right Carotid, 2+ Left Doralis Pedis, 2+ Right Dorsalis Pedis Integumentary: No: Jaundice Neurological: Yes: Alert, Oriented (x3) Psychiatric: No: Agitated - Other Data Labs, Other Data: CBC, BMP 03/20/19 17:36 03/20/19 17:36 INR, PTT INR 1.05 (0.83-1.09) 03/20/19 17:36 Troponin, BNP 03/20/19 17:36 Troponin I < 0.02 Troponin, BNP 03/20/19 17:36 Troponin I < 0.02 Assessment/Plan [facility] 2013: Xience CORONA to OM1 (for ISR). remainder nonobstructive. nl EF Echo 2017: nl LV. nl RV. mod-sevee AI mod TR. RVSP 30-40. ECG: NSR, normal axis. NSTWAs septal leads--no change vs prior CXR: clear lungs/pleura vision loss, L face numbness, h/o L b.g. CVA: -w/u per neuro -bp targets per neuro -given known h/o brief PAF on tele for which AC was felt indicated in 2017, and lack of intercurrent bleeding/falls risk (med simply lapsed, pt did not f/u with cardio), would be reasonable to resume this. will confer with dr sosa regarding timing of initiation of AC, and UFH (for reversibility) vs NOAC ( which will also achieve therapeutic levels of AC quickly). CT head no bleed. -carotids non-obstructive plaque -hi intensity statin Afib: -noted on tele during prior admits (2017)--started eliquis then -med lapsed, no cardio f/u since -in sinus here -AC as above -monitor tele CAD: -last stent 2016 (RCA), details of residual anatomy not available -remains on aspirin and plavix--will d/c plavix once AC is started (very hi bleeding risk in 78 yo on triple therapy, outweighs ischemia benefits if any over dual therapy) -statin hi intensity Ao insufficiency: -mod-severe on echo here 2017 -no diast murmur, soft/brief syst flow murmur. pulse pressure wide in ER. -rpt echo HTN: -on valsartan 320 at home per 02/17 ER note and 12/18 discharge summary -K, creat stable--continue same -bp targets per neuro CKD: -baseline reat 1.8-2.0 -renal fxn stable here
--- NOTE | 2019-03-21 16:13 | EKG ---
Test Reason : Blood Pressure : / mmHG Vent. Rate : 084 BPM Atrial Rate : 084 BPM P-R Int : 152 ms QRS Dur : 076 ms QT Int : 392 ms P-R-T Axes : 060 056 054 degrees QTc Int : 463 ms SINUS RHYTHM WITH PREMATURE ATRIAL COMPLEXES T WAVE ABNORMALITY, CONSIDER ANTERIOR ISCHEMIA ABNORMAL ECG WHEN COMPARED WITH ECG OF 18-FEB-2019 16:58, NO SIGNIFICANT CHANGE WAS FOUND Confirmed by MD NAI, BARRIE ([id number]) on 03/21/2019 4:12:57 PM Referred By: Confirmed By:BARRIE TRIMBLE MD
--- NOTE | 2019-03-21 17:48 | PN ---
Progress Note (short form) - Note Progress Note: Contacted by plan examiner regarding starting AC. Patient did not come up as admitted and not on my list and therefore not seen today. Recommended MRI brain to ER, ordered study just now. Will leave official consult in AM. No objection to AC, discussed that reversable agent such as heparin may be preferred in the event of bleed.
[2019-03-21] MEDS ORDERED: HEPARIN NA (PORCINE) 5,000 UNITS/ML 1ML VIAL IVPUSH PRN (17:51)
[2019-03-21] MEDS ORDERED: HEPARIN INFUSION - 25,000 UNITS/500 ML INFUS.BAG IVPB ONE (18:39)
[2019-03-21] MEDS: HEPARIN - 25,000 UNIT in SODIUM CHLORIDE 495 ML IV SCH (19:10)
[2019-03-21 22:47] VITALS: BMI 22.5
[2019-03-21] MEDS ORDERED: ZOLPIDEM TARTRATE 5 MG TABLET PO ONE (22:54)
[2019-03-22] MEDS ORDERED: PT OWN MED DRAWER 7, Y5N ONE (09:10)
[2019-03-22] MEDS: CLOPIDOGREL BISULFATE 75 MG TABLET (FP) PO SCH (09:19)
[2019-03-22] MEDS: ASPIRIN 81 MG CHEWABLE TABLETS PO SCH (09:19)
[2019-03-22] MEDS: VALSARTAN 160 MG TABLET (UD) PO SCH (09:19)
[2019-03-22] MEDS: TIOTROPIUM BROMIDE 2.5 MCG (SPIRIVA) RESPIMAT INHALER IH SCH (09:20)
--- NOTE | 2019-03-22 09:21 | CONSULT ---
Consult - text type - Consultation Consultation Note: Neurology CHIEF COMPLAINT: vision loss lasting about 6 minutes, numbness to left side of face and neck pain for 1 week HISTORY OF PRESENT ILLNESS: 78 year old female, with a significant past medical history of CAD s/p stent x2 4 years ago (on plavix), 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 Vision loss resolved but patient reported numbness to her left side of face and reports neck pain that had been going on for one week. Patient denies any headaches, chest pain, shortness of breath, fever, chills, nausea, vomiting, diarrhea or constipation. I was contacted by the information technology auditor due to concern for paroxysmal A. fib. CT scan of head with no evidence of acute CVA or hemorrhage. MRI of brain was completed and did not show any new infarcts, chronic left putamen and rightcorpus callosum infarcts noted. No objection to anticoagulation but suggested reversible anticoagulation for now. As outpatient can be on oral agents. Discussed MRI and carotid Doppler results with patient today which showed moderate plaques but no hemodynamically significant stenosis. Recent Travel: denies PAST MEDICAL HISTORY: CAD s/p stent x2 done 4 years ago (on plavix) CVA with R sided weakness 4-5years ago atrial fibrillation(not on anticoagulation) hypertension hyperlipidemia chronic renal insufficiency (baseline 0.7-2.0) PAST SURGICAL HISTORY: cardiac stent placementX2 cholecystectomy kidney surgery Social History: Smoking:no Alcohol:no Drugs: no Family History: noncontributory Allergies Penicillins Allergy (Mild, Verified 09/07/18 16:40) Swelling HOME MEDICATIONS: Home Medications Medication Instructions Recorded Oxycodone HCl/Acetaminophen 1 each PO TID PRN 06/09/17 [Endocet 5-325 Tablet] Zolpidem Tartrate 10 mg PO HS PRN 06/09/17 Acetaminophen [Tylenol .Regular 325 mg PO TID PRN tablet 06/11/17 Strength -] Albuterol 0.083% Nebulizer Mile 1 amp NEB Q4H PRN amp 06/11/17 [Ventolin 0.083% Nebulizer Soln -] Aspirin [ASA -] 81 mg PO DAILY tab.chew 06/11/17 Clopidogrel Bisulfate [Plavix -] 75 mg PO DAILY tablet 06/11/17 Guaifenesin [Robitussin -] 10 ml PO Q4H PRN cup 06/11/17 Tiotropium [place] [Spiriva] 1 puff IH DAILY inh 06/11/17 Valsartan [Diovan] 320 mg PO DAILY tablet 06/11/17 predniSONE [Deltasone -] 10 mg PO ASDIR #30 tab 06/11/17 REVIEW OF SYSTEMS CONSTITUTIONAL: Absent: fever, chills, diaphoresis, generalized weakness, malaise, loss of appetite, weight change HEENT: Absent: rhinorrhea, nasal congestion, throat pain, throat swelling, difficulty swallowing, mouth swelling, ear pain, eye pain, visual changes CARDIOVASCULAR: Absent: chest pain, syncope, palpitations, irregular heart rate, lightheadedness , peripheral edema RESPIRATORY: Absent: cough, shortness of breath, dyspnea with exertion, orthopnea, wheezing, stridor, hemoptysis GASTROINTESTINAL: Absent: abdominal pain, abdominal distension, nausea, vomiting, diarrhea, constipation, melena, hematochezia GENITOURINARY: Absent: dysuria, frequency, urgency, hesitancy, hematuria, flank pain, genital pain MUSCULOSKELETAL: Absent: myalgia, arthralgia, joint swelling, back pain, neck pain SKIN: Absent: rash, itching, pallor HEMATOLOGIC/IMMUNOLOGIC: Absent: easy bleeding, easy bruising, lymphadenopathy, frequent infections ENDOCRINE: Absent: unexplained weight gain, unexplained weight loss, heat intolerance, cold intolerance NEUROLOGIC: Absent: headache, numbness to left side of face, vision loss(now resolved) , neck pain, chronic right sided weakness, speech clear, no facial droop, tongue midline, dizziness, unsteady gait, seizure, mental status changes, bladder or bowel incontinence PSYCHIATRIC: Absent: anxiety, depression, suicidal or homicidal ideation, hallucinations. PHYSICAL EXAMINATION Vital Signs Period Temp Pulse Resp BP Sys/Saucedo Pulse Ox Last 24 Hr 97.9 F-98 F 64-82 15-19 145-168/57-85 97-97 GENERAL: awake alert and fully oriented to person place and time ,no acute distress HEAD: normal EYES: pupils equal, round and reactive to light, extraocular movements intact EARS, NOSE, THROAT: ears normal, nares patent, oropharynx clear without exudates moist mucous membrane NECK: + neck pain LUNGS: breath sounds equal and clear to auscultation bilaterally no wheezes, and no crackles no accessory muscle use HEART: regular rate and rhythm normal S1 and S2 without murmur ABDOMEN: soft nontender not distended normoactive bowel sounds MUSCULOSKELETAL: limited range of motion due to right sided weakness UPPER EXTREMITIES: 2+ pulses warm well-perfused no cyanosis no peripheral edema LOWER EXTREMITIES: 2+ pulses warm well-perfused no calf tendernes no peripheral edema NEUROLOGICAL: speech clear, no facial grimace, tongue midline moving upper and lower extremities with right sided upper and lower weakness, decreased sensation to left side of face with numbness PSYCHIATRIC: cooperative good eye contact appropriate mood and affect SKIN: warm dry normal turgor no rashes or lesions noted CBCD WBC 7.7 K/mm3 (4.0-10.0) 03/20/19 17:36 RBC 4.27 M/mm3 (3.60-5.2) 03/20/19 17:36 Hgb 11.5 GM/dL (10.7-15.3) 03/20/19 17:36 Hct 34.3 % (32.4-45.2) 03/20/19 17:36 MCV 80.5 fl (80-96) 03/20/19 17:36 MCHC 33.6 g/dl (32.0-36.0) 03/20/19 17:36 RDW 14.4 % (11.6-15.6) 03/20/19 17:36 Plt Count 300 K/MM3 (134-434) 03/20/19 17:36 MPV 8.4 fl (7.5-11.1) 03/20/19 17:36 CMP Sodium 138 mmol/L (136-145) 03/20/19 17:36 Potassium 4.6 mmol/L (3.5-5.1) 03/20/19 17:36 Chloride 105 mmol/L (98-107) 03/20/19 17:36 Carbon Dioxide 25 mmol/L (21-32) 03/20/19 17:36 Anion Gap 7 MMOL/L (8-16) L 03/20/19 17:36 BUN 26.6 mg/dL (7-18) H 03/20/19 17:36 Creatinine 1.8 mg/dL (0.55-1.3) H 03/20/19 17:36 Random Glucose 93 mg/dL (74-106) 03/20/19 17:36 Calcium 9.5 mg/dL (8.5-10.1) 03/20/19 17:36 Total Bilirubin 0.2 mg/dL (0.2-1) 03/20/19 17:36 AST 11 U/L (15-37) L 03/20/19 17:36 ALT 15 U/L (13-61) 03/20/19 17:36 Alkaline Phosphatase 135 U/L (45-117) H 03/20/19 17:36 Total Protein 7.9 g/dl (6.4-8.2) 03/20/19 17:36 Albumin 3.8 g/dl (3.4-5.0) 03/20/19 17:36 CARDIAC ENZYMES Troponin I < 0.02 ng/ml (0.00-0.05) 03/20/19 17:36 ASSESSMENT/PLAN: 78 year old female, with a significant past medical history of CAD s/p stent x2 4 years ago (on plavix), 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 Vision loss resolved but patient reported numbness to her left side of face and reports neck pain that had been going on for one week. Patient denies any headaches, chest pain, shortness of breath, fever, chills, nausea, vomiting, diarrhea or constipation. I was contacted by the information technology auditor due to concern for paroxysmal A. fib. CT scan of head with no evidence of acute CVA or hemorrhage. MRI of brain was completed and did not show any new infarcts, chronic left putamen and rightcorpus callosum infarcts noted. No objection to anticoagulation but suggested reversible anticoagulation for now. As outpatient can be on oral agents. Discussed MRI and carotid Doppler results with patient today which showed moderate plaques but no hemodynamically significant stenosis. No new CVA noted. Defer to cardiology regarding specific anticoagulation agent, mmaintain blood pressure less than 140/90. Monitor telemetry, continue statin therapy.
--- NOTE | 2019-03-22 10:57 | PN ---
Progress Note (short form) - Note Progress Note: events noted no distress vision is back feels tired no chest pain sometimes has palpitations Vital Signs - 24 hr 03/21/19 03/21/19 03/21/19 13:10 19:14 21:30 Temperature 98 F 97.9 F 97.9 F Pulse Rate 68 Pulse Rate [ 75 68 Radial] Respiratory 18 18 18 Rate Blood Pressure 168/62 Blood Pressure 147/57 L 161/64 [Left Arm] O2 Sat by Pulse 97 97 97 Oximetry (%) 03/22/19 03/22/19 03/22/19 01:30 05:00 08:00 Temperature 97.9 F 98 F Pulse Rate 82 77 64 Pulse Rate [ Radial] Respiratory 19 15 16 Rate Blood Pressure 145/75 166/59 L 162/85 Blood Pressure [Left Arm] O2 Sat by Pulse Oximetry (%) Current Medications Generic Name Dose Route Start Last Admin Trade Name Freq PRN Reason Stop Dose Admin Albuterol Sulfate 1 amp 03/20/19 19:59 Ventolin 0.083% Nebulizer Soln - NEB Q4H PRN SHORT OF BREATH/WHEEZING Aspirin 81 mg 03/21/19 10:00 03/22/19 09:19 Asa - PO 81 mg DAILY GUSTABO Administration Atorvastatin Calcium 80 mg 03/22/19 17:22 Lipitor - PO 03/22/19 17:23 DAILY ONE Heparin Sodium (Porcine) 1,000 unit 03/21/19 17:51 Heparin - IVPUSH PRN PRN Heparin Heparin Sodium (Porcine) 5,000 unit 03/21/19 17:51 Heparin - IVPUSH PRN PRN Heparin Heparin Sodium (Porcine) 25, 500 mls @ 16 mls/hr 03/21/19 18:00 03/22/19 03: 30 000 unit/ Sodium Chloride IV 500 unit/hr TITR GUSTABO 10 mls/hr Titration Protocol 800 UNIT/HR Tiotropium [place] 2 puff 03/21/19 10:00 03/22/19 09:20 Spiriva Respimat IH 2 puff DAILY GUSTABO Administration Valsartan 320 mg 03/21/19 10:00 03/22/19 09:19 Diovan - PO 320 mg DAILY GUSTABO Administration Laboratory Results - last 24 hr 03/21/19 03/22/19 18:52 01:00 PTT (Actin FS) 34.8 > 400.0 H S1 S2 RRR Lungs clear Abd- soft, NT No edema Moves all extremities PLAN meds noted Neurology and Cardiology eval noted On heparin gtt Will dc PLavix due to high bleeding risk MRI brain noted-- chronic lacunar infarcts carotid doppler-- no stenosis continue ASA check labs PT eval Problem List - Problems (1) TIA (transient ischemic attack) Code(s): G45.9 - TRANSIENT CEREBRAL ISCHEMIC ATTACK, UNSPECIFIED (2) Vision loss Code(s): H54.7 - UNSPECIFIED VISUAL LOSS (3) CAD (coronary artery disease) Code(s): I25.10 - ATHSCL HEART DISEASE OF [place] CORONARY ARTERY W/O ANG PCTRS Qualifiers: Coronary Disease-Associated Artery/Lesion type: [place] artery Associated angina: with unstable angina (4) Paroxysmal a-fib Code(s): I48.0 - PAROXYSMAL ATRIAL FIBRILLATION
--- NOTE | 2019-03-22 11:27 | PN ---
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 No: Aneurysm Pulmonary: Yes: COPD. No: Asthma - Past Surgical History Past Surgical History: Yes: Stent - Alcohol/Substance Use Hx Alcohol Use: No History of Substance Use: reports: None - Smoking History Smoking history: Current every day smoker Have you smoked in the past 12 months: Yes Aproximately how many cigarettes per day: 10 - Social History ADL: Independent History of Recent Travel: Yes (from [place] to [place] 2 days ago) Home Medications Allergies Allergy/AdvReac Type Severity Reaction Status Date / Time Penicillins Allergy Mild Swelling Verified 09/07/18 16:40 Home Medications Medication Instructions Recorded Oxycodone HCl/Acetaminophen 1 each PO TID PRN 06/09/17 [Endocet 5-325 Tablet] Zolpidem Tartrate 10 mg PO HS PRN 06/09/17 Acetaminophen [Tylenol .Regular 325 mg PO TID PRN tablet 06/11/17 Strength -] Albuterol 0.083% Nebulizer [place] 1 amp NEB Q4H PRN amp 06/11/17 [Ventolin 0.083% Nebulizer Soln -] Aspirin [ASA -] 81 mg PO DAILY tab.chew 06/11/17 Clopidogrel Bisulfate [Plavix -] 75 mg PO DAILY tablet 06/11/17 Guaifenesin [Robitussin -] 10 ml PO Q4H PRN cup 06/11/17 Tiotropium [place] [Spiriva] 1 puff IH DAILY inh 06/11/17 Valsartan [Diovan] 320 mg PO DAILY tablet 06/11/17 predniSONE [Deltasone -] 10 mg PO ASDIR #30 tab 06/11/17 Family Disease History - Family Disease History Family Disease History: Diabetes: Grandparent, Other: Mother (Alzheimer's disease) Review of Systems - Review of Systems Constitutional: denies: Chills, Fever Eyes: denies: Eye Pain HENT: denies: Nasal Congestion Neck: denies: Stiffness Cardiovascular: denies: Palpitations Respiratory: denies: Orthopnea, PND Gastrointestinal: denies: Diarrhea, Rectal Bleeding Genitourinary: denies: Burning, Hematuria Musculoskeletal: denies: Muscle Pain Integumentary: denies: Rash Neurological: reports: Numbness. denies: Confusion, Seizure, Syncope Endocrine: denies: Excessive Sweating Hematology/Lymphatic: denies: Excessive Bleeding Vital Signs Period Temp Pulse Resp BP Sys/Saucedo Pulse Ox Last 24 Hr 97.9 F-98 F 64-82 15-19 145-168/57-85 97-97 Constitutional: Yes: Well Nourished, No Distress Eyes: No: Sclera Icterus HENT: No: Nasal Congestion Neck: No: Decreased ROM Respiratory: Yes: CTA Bilaterally. No: Accessory Muscle Use, Rales, Wheezes Gastrointestinal: Yes: Normal Bowel Sounds. No: Distention, Hepatomegaly, Palpable Mass, Tenderness Cardiovascular: Yes: Regular Rate and Rhythm JVD: No Carotid Bruit: No PMI: Non-Displaced Heart Sounds: Yes: S1, S2. No: Gallop Murmur: Yes: Systolic Murmur (2/6 early JEFF rusb (no diast murmur)). No: Diastolic Murmur Musculoskeletal: Yes: Other (No kyphosis) Extremities: No: Cool, Cyanosis Edema: No Peripheral Pulses: 2+ Left Carotid, 2+ Right Carotid, 2+ Left Doralis Pedis, 2+ Right Dorsalis Pedis Integumentary: No: Jaundice Neurological: Yes: Alert, Oriented (x3) Psychiatric: No: Agitated Assessment/Plan [facility] 2013: Xience CORONA to OM1 (for ISR). remainder nonobstructive. nl EF Echo 2017: nl LV. nl RV. mod-sevee AI mod TR. RVSP 30-40. ECG: NSR, normal axis. NSTWAs septal leads--no change vs prior CXR: clear lungs/pleura vision loss, L face numbness, h/o L b.g. CVA: -w/u per neuro -bp targets per neuro - CT head no bleed -carotids non-obstructive plaque -hi intensity statin - h/o afib on prior admits - started on UFH given reversibility in case of unanticipated hemorrhagic transformation per neuro, continue Afib: -noted on tele during prior admits (2017)--started eliquis then -med lapsed, no cardio f/u since -in sinus here -AC as above, transition to NOAC when able per neuro -monitor tele CAD: -last stent 2016 (RCA), details of residual anatomy not available -was on aspirin and plavix-plavix dc'ed after starting AC -cont statin Ao insufficiency: -mod-severe on echo here 2017 -no diast murmur, soft/brief syst flow murmur. pulse pressure wide in ER. -rpt echo pending HTN: -on valsartan 320 at home per 02/17 ER note and 12/18 discharge summary -K, creat stable--continue same -bp targets per neuro CKD: -baseline reat 1.8-2.0 -renal fxn stable here
[2019-03-22 11:35] LABS: EOS % 4.7 % (0-4.5); HEMATOCRIT 34.5 % (32.4-45.2); HEMOGLOBIN 11.4 GM/dL (10.7-15.3); LYMPH % 32.6 % (8-40); MCH 26.5 pg (25.7-33.7); MCHC 33.2 g/dl (32.0-36.0); MEAN PLT VOLUME 8.6 fl (7.5-11.1); MONO % 6.8 % (3.8-10.2); NEUT % 54.9 % (42.8-82.8); PLATELET COUNT 277 K/MM3 (134-434); RBC 4.31 M/mm3 (3.60-5.2); RDW 14.4 % (11.6-15.6); WHITE BLOOD COUNT 6.3 K/mm3 (4.0-10.0)
[2019-03-22] MEDS: HEPARIN - 25,000 UNIT in SODIUM CHLORIDE 495 ML IV SCH ×2 (12:15→18:31)
[2019-03-22] MEDS: HEPARIN NA (PORCINE) 5,000 UNITS/ML 1ML VIAL IVPUSH PRN ×2 (12:15→21:18)
--- NOTE | 2019-03-22 13:31 | ECHO ---
Name: LUIS MANUEL CELESTE Exam:Adult Echocardiogram Study Date: 03/22/2019 10:31 AM Age: 78 yrs Reason For Study: AI Height: 64 in Weight: 130 lb BSA: 1.6 m2 MMode/2D Measurements & Calculations IVSd: 1.3 cm Ao root diam: 2.7 cm LVIDd: 3.7 cm LA dimension: 3.1 cm LVIDs: 2.7 cm LVPWd: 1.1 cm EDV(Teich): 57.2 ml LVOT diam: 2.0 cm ESV(Teich): 27.9 ml LAV (MOD-bp): 57.0 ml Doppler Measurements & Calculations MV E max fernando: 88.1 cm/sec Ao V2 max: 286.7 cm/sec MV A max fernando: 116.9 cm/sec Ao max P.9 mmHg MV E/A: 0.75 Ao V2 mean: 196.7 cm/sec MV dec time: 0.19 sec Ao mean P.8 mmHg Ao V2 VTI: 64.3 cm JULIAN(I,D): 1.6 cm2 AI P1/2t: 309.4 msec JULIAN(V,D): 1.8 cm2 AI max fernando: 498.2 cm/sec LV V1 max P.7 mmHg AI max P.3 mmHg LV V1 mean P.2 mmHg AI dec slope: 471.7 cm/sec2 LV V1 max: 155.5 cm/sec LV V1 mean: 93.2 cm/sec LV V1 VTI: 30.5 cm MR max fernando: 510.9 cm/sec SV(LVOT): 100.2 ml MR max P.7 mmHg TR max fernando: 259.1 cm/sec PA V2 max: 84.2 cm/sec TR max P.0 mmHg PA max P.8 mmHg Med Peak E' Fernando: 4.8 cm/sec Med E/e': 18.4 Lat Peak E' Fernando: 6.5 cm/sec Lat E/e': 13.5 Procedure A two-dimensional transthoracic echocardiogram with color flow and Doppler was performed. The study w as technically difficult with many images being suboptimal in quality. Left Ventricle The left ventricular size, thickness and function are normal. The left ventricular ejection fraction is normal. E/A reversal consistent with but not diagnostic of poor LV compliance. Regional wall motion abnormalities cannot be excluded due to limited visualization. Right Ventricle The right ventricle is not well visualized. Atria Normal left and right atrial size and function. Mitral Valve There is mild mitral valve thickening. There is no mitral valve stenosis. There is mild mitral regurg itation. Tricuspid Valve The tricuspid valve is not well visualized. There is no tricuspid stenosis. There is mild tricuspid regurgitation. Right ventricular systolic pressure is normal. Aortic Valve The aortic valve is not well visualized. No hemodynamically significant valvular aortic stenosis. Mod erate to severe aortic regurgitation. Pulmonic Valve The pulmonic valve is not well visualized. Great Vessels The aortic root is normal size. Pericardium/Pleura There is no pericardial effusion. Interpretation Summary The left ventricular size, thickness and function are normal The left ventricular ejection fraction is normal. Moderate to severe aortic regurgitation. Right ventricular systolic pressure is normal. There is mild tricuspid regurgitation. The study was technically difficult with many images being suboptimal in quality. Regional wall motion abnormalities cannot be excluded due to limited visualization. E/A reversal consistent with but not diagnostic of poor LV compliance There is mild mitral regurgitation. MD Saleem Araiza 03/22/2019 01:30 PM
[2019-03-22] MEDS ORDERED: ATORVASTATIN CA 80 MG TABLET (FP) PO ONE (17:22)
[2019-03-22] MEDS ORDERED: oxyCODONE HCL 5 MG TABLET PO PRN (18:36)
[2019-03-22] MEDS: ALPRAZolam 0.25 MG TABLET PO SCH (21:18)
[2019-03-23 06:34] LABS: HEMATOCRIT 34.9 % (32.4-45.2); HEMOGLOBIN 11.7 GM/dL (10.7-15.3); MCH 26.9 pg (25.7-33.7); MCHC 33.6 g/dl (32.0-36.0); MEAN PLT VOLUME 8.8 fl (7.5-11.1); PLATELET COUNT 264 K/MM3 (134-434); RBC 4.37 M/mm3 (3.60-5.2); RDW 14.6 % (11.6-15.6); WHITE BLOOD COUNT 6.8 K/mm3 (4.0-10.0)
[2019-03-23 07:36] LABS: ALBUMIN 3.6 g/dl (3.4-5.0); BILIRUBIN,TOTAL 0.4 mg/dL (0.2-1); BLOOD UREA NITROGEN 22.9 mg/dL (7-18); CALCIUM 9.2 mg/dL (8.5-10.1); CREATININE 1.3 mg/dL (0.55-1.3); POTASSIUM 4.5 mmol/L (3.5-5.1); TOT PROT 7.6 g/dl (6.4-8.2)
--- NOTE | 2019-03-23 07:52 | PN ---
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 Vision loss resolved but patient reported numbness to her left side of face and reports neck pain that had been going on for one week. Patient denied any headaches, chest pain, shortness of breath, fever, chills, nausea, vomiting, diarrhea or constipation. I was contacted by the wine consultant due to concern for paroxysmal A. fib. CT scan of head with no evidence of acute CVA or hemorrhage. MRI of brain was completed and did not show any new infarcts, chronic left putamen and rightcorpus callosum infarcts noted. No objection to anticoagulation but suggested reversible anticoagulation for now. As outpatient can be on oral agents. Discussed MRI and carotid Doppler results with patient which showed moderate plaques but no hemodynamically significant stenosis. Of note, LDL was 155 and patient is on atorvastatin 80 mg. No new events overnight and neurologically remained stable. Active Medications Albuterol Sulfate (Ventolin 0.083% Nebulizer Soln -) 1 amp NEB Q4H PRN PRN Reason: SHORT OF BREATH/WHEEZING Alprazolam (Xanax -) 0.25 mg PO BID [facility] Last Admin: 03/22/19 21:18 Dose: 0.25 mg Aspirin (Asa -) 81 mg PO DAILY GUSTABO Last Admin: 03/22/19 09:19 Dose: 81 mg Atorvastatin Calcium (Lipitor -) 80 mg PO HS [facility] Heparin Sodium (Porcine) (Heparin -) 1,000 unit IVPUSH PRN PRN PRN Reason: Heparin Last Admin: 03/22/19 21:18 Dose: 1,000 unit Heparin Sodium (Porcine) (Heparin -) 5,000 unit IVPUSH PRN PRN PRN Reason: Heparin Heparin Sodium (Porcine) 25, (000 unit/ Sodium Chloride) 500 mls @ 16 mls/hr IV TITR GUSTABO; Protocol Last Titration: 03/23/19 06:34 Dose: 700 unit/hr, 14 mls/hr Oxycodone HCl (Roxicodone -) 5 mg PO Q6H PRN PRN Reason: PAIN LEVEL 7 - 10 Last Admin: 03/22/19 18:47 Dose: 5 mg Tiotropium [place] (Spiriva Respimat) 2 puff IH DAILY [facility] Last Admin: 03/22/19 09:20 Dose: 2 puff Valsartan (Diovan -) 320 mg PO DAILY [facility] Last Admin: 03/22/19 09:19 Dose: 320 mg PHYSICAL EXAMINATION Vital Signs Period Temp Pulse Resp BP Sys/Saucedo Pulse Ox Last 24 Hr 97.5 F-98.6 F 64-79 12-18 104-162/52-85 97-97 GENERAL: awake alert and fully oriented to person place and time ,no acute distress HEAD: normal EYES: pupils equal, round and reactive to light, extraocular movements intact EARS, NOSE, THROAT: ears normal, nares patent, oropharynx clear without exudates moist mucous membrane NECK: + neck pain LUNGS: breath sounds equal and clear to auscultation bilaterally no wheezes, and no crackles no accessory muscle use HEART: regular rate and rhythm normal S1 and S2 without murmur ABDOMEN: soft nontender not distended normoactive bowel sounds MUSCULOSKELETAL: limited range of motion due to right sided weakness UPPER EXTREMITIES: 2+ pulses warm well-perfused no cyanosis no peripheral edema LOWER EXTREMITIES: 2+ pulses warm well-perfused no calf tendernes no peripheral edema NEUROLOGICAL: speech clear, no facial grimace, tongue midline moving upper and lower extremities with right sided upper and lower weakness, decreased sensation to left side of face with numbness PSYCHIATRIC: cooperative good eye contact appropriate mood and affect SKIN: warm dry normal turgor no rashes or lesions noted CBCD WBC 6.8 K/mm3 (4.0-10.0) 03/23/19 05:55 RBC 4.37 M/mm3 (3.60-5.2) 03/23/19 05:55 Hgb 11.7 GM/dL (10.7-15.3) 03/23/19 05:55 Hct 34.9 % (32.4-45.2) 03/23/19 05:55 MCV 80.0 fl (80-96) 03/23/19 05:55 MCHC 33.6 g/dl (32.0-36.0) 03/23/19 05:55 RDW 14.6 % (11.6-15.6) 03/23/19 05:55 Plt Count 264 K/MM3 (134-434) 03/23/19 05:55 MPV 8.8 fl (7.5-11.1) 03/23/19 05:55 CMP Sodium 138 mmol/L (136-145) 03/23/19 05:55 Potassium 4.5 mmol/L (3.5-5.1) 03/23/19 05:55 Chloride 105 mmol/L (98-107) 03/23/19 05:55 Carbon Dioxide 24 mmol/L (21-32) 03/23/19 05:55 Anion Gap 9 MMOL/L (8-16) 03/23/19 05:55 BUN 22.9 mg/dL (7-18) H 03/23/19 05:55 Creatinine 1.3 mg/dL (0.55-1.3) 03/23/19 05:55 Random Glucose 97 mg/dL (74-106) 03/23/19 05:55 Calcium 9.2 mg/dL (8.5-10.1) 03/23/19 05:55 Total Bilirubin 0.4 mg/dL (0.2-1) 03/23/19 05:55 AST 23 U/L (15-37) 03/23/19 05:55 ALT 16 U/L (13-61) 03/23/19 05:55 Alkaline Phosphatase 130 U/L (45-117) H 03/23/19 05:55 Total Protein 7.6 g/dl (6.4-8.2) 03/23/19 05:55 Albumin 3.6 g/dl (3.4-5.0) 03/23/19 05:55 CARDIAC ENZYMES Troponin I < 0.02 ng/ml (0.00-0.05) 03/20/19 17:36 ASSESSMENT/PLAN: 78 year old female, with a significant past medical history of CAD s/p stent x2 4 years ago (on plavix), 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 Vision loss resolved but patient reported numbness to her left side of face and reports neck pain that had been going on for one week. Patient denied any headaches, chest pain, shortness of breath, fever, chills, nausea, vomiting, diarrhea or constipation. I was contacted by the wine consultant due to concern for paroxysmal A. fib. CT scan of head with no evidence of acute CVA or hemorrhage. MRI of brain was completed and did not show any new infarcts, chronic left putamen and rightcorpus callosum infarcts noted. No objection to anticoagulation but suggested reversible anticoagulation for now. As outpatient can be on oral agents. Discussed MRI and carotid Doppler results with patient which showed moderate plaques but no hemodynamically significant stenosis. No new CVA noted. LDL 155, atorvastatin 80 mg, medication compliance recommended. Defer to cardiology regarding specific anticoagulation agent, maintain blood pressure less than 140/90. neurologically stable at this time.
[2019-03-23] MEDS: TIOTROPIUM BROMIDE 2.5 MCG (SPIRIVA) RESPIMAT INHALER IH SCH (09:32)
[2019-03-23] MEDS: ASPIRIN 81 MG CHEWABLE TABLETS PO SCH (09:33)
[2019-03-23] MEDS: VALSARTAN 160 MG TABLET (UD) PO SCH (09:33)
[2019-03-23] MEDS: ALPRAZolam 0.25 MG TABLET PO SCH (09:33)
[2019-03-23] MEDS ORDERED: predniSONE 20 MG, predniSONE 10 MG PO SCH (10:00)
--- NOTE | 2019-03-23 10:45 | PN ---
Progress Note (short form) - Note Progress Note: s: no chest pain, palps, dizziness, dyspnea o: Vital Signs Period Temp Pulse Resp BP Sys/Saucedo Pulse Ox Last 24 Hr 97.5 F-98.6 F 65-79 12-18 104-162/52-82 97 Constitutional: Yes: Well Nourished, No Distress Eyes: No: Sclera Icterus HENT: No: Nasal Congestion Neck: No: Decreased ROM Respiratory: Yes: CTA Bilaterally. No: Accessory Muscle Use, Rales, Wheezes Gastrointestinal: Yes: Normal Bowel Sounds. No: Distention, Hepatomegaly, Palpable Mass, Tenderness Cardiovascular: Yes: Regular Rate and Rhythm JVD: No Carotid Bruit: No PMI: Non-Displaced Heart Sounds: Yes: S1, S2. No: Gallop Murmur: Yes: Systolic Murmur (2/6 early JEFF rusb (no diast murmur)). No: Diastolic Murmur Musculoskeletal: Yes: Other (No kyphosis) Extremities: No: Cool, Cyanosis Edema: No Peripheral Pulses: 2+ Left Carotid, 2+ Right Carotid, 2+ Left Doralis Pedis, 2+ Right Dorsalis Pedis Integumentary: No: Jaundice Neurological: Yes: Alert, Oriented (x3) Psychiatric: No: Agitated Current Medications Generic Name Dose Route Start Last Admin Trade Name Freq PRN Reason Stop Dose Admin Albuterol Sulfate 1 amp 03/20/19 19:59 Ventolin 0.083% Nebulizer Soln - NEB Q4H PRN SHORT OF BREATH/WHEEZING Alprazolam 0.25 mg 03/22/19 22:00 03/23/19 09:33 Xanax - PO 0.25 mg BID GUSTABO Administration Aspirin 81 mg 03/21/19 10:00 03/23/19 09:33 Asa - PO 81 mg DAILY GUSTABO Administration Atorvastatin Calcium 80 mg 03/23/19 22:00 Lipitor - PO HS GUST[facility]O Heparin Sodium (Porcine) 1,000 unit 03/21/19 17:51 03/22/19 21:18 Heparin - IVPUSH 1,000 unit PRN PRN Administration Heparin Heparin Sodium (Porcine) 5,000 unit 03/21/19 17:51 Heparin - IVPUSH PRN PRN Heparin Heparin Sodium (Porcine) 25, 500 mls @ 16 mls/hr 03/21/19 18:00 08/22/19 06: 34 000 unit/ Sodium Chloride IV 700 unit/hr TITR GUSTABO 14 mls/hr Titration Protocol 800 UNIT/HR Oxycodone HCl 5 mg 03/22/19 18:36 03/22/19 18:47 Roxicodone - PO 5 mg Q6H PRN Administration PAIN LEVEL 7 - 10 Tiotropium [place] 2 puff 03/21/19 10:00 03/23/19 09:32 Spiriva Respimat IH 2 puff DAILY GUSTABO Administration Valsartan 320 mg 03/21/19 10:00 03/23/19 09:33 Diovan - PO 320 mg DAILY GUSTABO Administration CBC, BMP 03/23/19 05:55 03/23/19 05:55 Assessment/Plan [facility] 2012: Xience CORONA to OM1 (for ISR). remainder nonobstructive. nl EF Echo 2017: nl LV. nl RV. mod-severe AI mod TR. RVSP 30-40. echo 03/2019: nl lv, rv tds, mod-sev ar, mild tr, mild mr, nl rvsp ECG: NSR, normal axis. NSTWAs septal leads--no change vs prior tele: sr CXR: clear lungs/pleura vision loss, L face numbness, h/o L b.g. CVA: -w/u per neuro -bp targets per neuro - CT head no bleed -carotids non-obstructive plaque -hi intensity statin - h/o afib on prior admits - started on UFH given reversibility in case of unanticipated hemorrhagic transformation per neuro, continue Afib: -noted on tele during prior admits (2016)--started eliquis then -med lapsed, no cardio f/u since -in sinus here -AC as above, transition to NOAC when able per neuro -tele showing sr here CAD: -last stent 2016 (RCA), details of residual anatomy not available -was on aspirin and plavix-plavix dc'ed after starting AC -cont statin Ao insufficiency: -mod-severe on echo here 2017 -no diast murmur, soft/brief syst flow murmur. pulse pressure wide in ER. -repeat echo here with stable findings HTN: -on valsartan 320 at home per 02/17 ER note and 12/18 discharge summary -K, creat stable--continue same -bp targets per neuro CKD: -baseline reat 1.8-2.0 -renal fxn stable here dc tele
--- NOTE | 2019-03-23 11:16 | DS ---
Physical Examination Vital Signs: Vital Signs Temperature 98.2 F 03/23/19 06:00 Pulse Rate 75 03/23/19 06:00 Respiratory Rate 14 03/23/19 06:00 Blood Pressure 104/82 03/23/19 06:00 O2 Sat by Pulse Oximetry (%) 97 03/22/19 21:00 Constitutional: Yes: No Distress Cardiovascular: Yes: Regular Rate and Rhythm Respiratory: Yes: Diminished Gastrointestinal: Yes: Normal Bowel Sounds, Soft. No: Tenderness Edema: No Labs: CBC, BMP 03/23/19 05:55 03/23/19 05:55 Discharge Summary Reason For Visit: TRANSIENT ISCHEMIC ATTACK,NECK PAIN,SUDDEN VISUAL Current Active Problems Neck pain (Acute) TIA (transient ischemic attack) (Acute) Vision loss (Acute) Hospital Course: Admitted for sudden vision loss-- recovered within [address] head negative Seen by Cardiology and Neurology CT scan of head with no evidence of acute CVA or hemorrhage. MRI of brain was completed and did not show any new infarcts, chronic left putamen and rightcorpus callosum infarcts noted. carotid Doppler - showed moderate plaques but no hemodynamically significant stenosis. No new CVA noted. LDL 155, atorvastatin 80 mg, medication compliance recommended. maintain blood pressure less than 140/90. DC plavix Keep on ASA 81, Lipitor 80mg and Xarelto Follow up with PMD, Neurology and Cardiology stable for dc home Smoking cessation strongly advised Condition: Stable - Instructions Referrals: Ancelmo Ugarte MD [Staff Physician] - Josie Bolanos MD [Staff Physician] - Pedro Rose MD [Primary Care Provider] - Disposition: HOME - Home Medications Comprehensive Discharge Medication List: Ambulatory Orders Oxycodone HCl/Acetaminophen [Endocet 5-325 Tablet] 1 each PO TID PRN 06/09/17 Zolpidem Tartrate 10 mg PO HS PRN 06/09/17 Acetaminophen [Tylenol .Regular Strength -] 325 mg PO TID PRN tablet 06/11/17 Albuterol 0.083% Nebulizer [place] [Ventolin 0.083% Nebulizer Soln -] 1 amp NEB Q4H PRN amp 06/11/17 Aspirin [ASA -] 81 mg PO DAILY tab.chew 06/11/17 Guaifenesin [Robitussin -] 10 ml PO Q4H PRN cup 06/11/17 Tiotropium [place] [Spiriva] 1 puff IH DAILY inh 06/11/17 Valsartan [Diovan] 320 mg PO DAILY tablet 06/11/17 predniSONE [Deltasone -] 10 mg PO ASDIR #30 tab 06/11/17 Rivaroxaban [Xarelto] 15 mg PO DAILY@1800 #90 tablet 03/23/19
[2019-03-23 12:37] VITALS: BP 141/36; PULSE 66; TEMP 98
[2019-03-23] MEDS ORDERED: RIVAROXABAN 15 MG TABLET PO SCH (18:00)
[2019-03-23] MEDS ORDERED: ATORVASTATIN CA 80 MG TABLET (FP) PO SCH (22:00)
[2019-03-26] MEDS ORDERED: predniSONE 20 MG TABLET (UD) PO SCH (10:00)
[2019-03-29] MEDS ORDERED: predniSONE 10 MG TABLET (UD) PO SCH (10:00)
== END 2019-03-23 14:00 | disposition home or self-care (01) | DRG 69 ==
LOC: JER 15:44 → J2W 03-21 21:30
PROVIDERS: ADMIT Internal Medicine; ATTEND Internal Medicine
DX: G45.9 Transient cerebral ischemic attack, unspecified (principal); I69.351 Hemiplegia and hemiparesis following cerebral infarction affecting right dominant side; H54.3 Unqualified visual loss, both eyes; I48.0 Paroxysmal atrial fibrillation; I12.9 Hypertensive chronic kidney disease with stage 1 through stage 4 chronic kidney disease, or unspecified chronic kidney disease; N18.9 Chronic kidney disease, unspecified; I25.10 Atherosclerotic heart disease of native coronary artery without angina pectoris; Z95.5 Presence of coronary angioplasty implant and graft; F17.210 Nicotine dependence, cigarettes, uncomplicated; E78.5 Hyperlipidemia, unspecified; Z88.0 Allergy status to penicillin; I35.1 Nonrheumatic aortic (valve) insufficiency; I25.2 Old myocardial infarction; G30.9 Alzheimer's disease, unspecified; F02.80 Dementia in other diseases classified elsewhere, unspecified severity, without behavioral disturbance, psychotic disturbance, mood disturbance, and anxiety
CPT/HCPCS: 36415; 70450-TC; 70551-TC; 71045-TC-FY; 80053; 80061; 83721; 84443; 84484; 85025; 85027; 85610; 85730; 93005; 93010; 93306-TC; 93880-TC; 99285-25; J0131; J1644; J7030

== ENCOUNTER 2019-06-18 15:21 | Emergency (ER) | payer OTHER ==
--- NOTE | 2019-06-18 15:38 | PDOC ---
History of Present Illness - General Stated Complaint: CHEST PAIN Time Seen by Provider: 06/18/19 15:38 History Source: Patient, Spouse Exam Limitations: No Limitations - History of Present Illness Initial Comments: 06/18/19 16:19 Jade Suazo is a 78F with PMH CAD s/p 2x stents, CVA w/ residual R-side deficits, COPD, Afib, HTN, HLD, CKD, OA, and osteoporosis presenting with chest pain, abdominal pain, weakness, and nausea. Patient has been suffering from severe OA for the last week, has been taking Percocets for pain, says it hurts across her whole body below her neck and is reluctant to move or walk. Also having several days of nausea and dizziness. Today patient was lying in bed all day, tried to stand up to go to restroom and had a syncopal episode. Per /HCP at bedside, able to catch her, no head injury, out for <5 seconds and back to normal mental status immediately. 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 Denies worsening SOB, has COPD and inhalers at home but no home oxygen. Says pain is unlike prior AR, denies exercise or prior injury. Also with mild abdominal pain unrelated to meals, poor PO intake, last bowel movement today and was normal. Urinary frequency but no burning or blood. Denies fever/chills, vomiting, C/D. called EMS and patient brought to [facility] ED. Last admission in March 2019 for momentary vision loss, saw Dr. Melendrez, had ECHO done, two trops <0.02. Past History - Past Medical History Allergies/Adverse Reactions: Allergies Allergy/AdvReac Type Severity Reaction Status Date / Time Penicillins Allergy Mild Swelling Verified 06/18/19 15:49 Home Medications: Ambulatory Orders Oxycodone HCl/Acetaminophen [Endocet 5-325 Tablet] 1 each PO TID PRN 06/09/17 Zolpidem Tartrate 10 mg PO HS PRN 06/09/17 Albuterol 0.083% Nebulizer [place] [Ventolin 0.083% Nebulizer Soln -] 1 amp NEB Q4H PRN amp 06/11/17 Aspirin [ASA -] 81 mg PO DAILY tab.chew 06/11/17 Rivaroxaban [Xarelto] 15 mg PO DAILY@1800 #90 tablet 03/23/19 Irbesartan 0 mg PO DAILY 06/18/19 Nifedipine 0 mg PO DAILY 06/18/19 Tiotropium Br/Olodaterol HCl [Stiolto Respimat Inhal [place]] 1 puff IH ASDIR Anemia: No Asthma: No Cancer: No Cardiac Disorders: Yes (AR,AFIB,stents,angio) CVA: Yes (x3) COPD: Yes CHF: No DVT: No Dementia: No Diabetes: No Dialysis: No GI Disorders: Yes Disorders: No HTN: Yes Hypercholesterolemia: Yes Kidney Stones: Yes Liver Disease: No Psychiatric Problems: No Seizures: No Thyroid Disease: No Lung CA: No - Surgical History Abdominal Surgery: Yes (COLON) Appendectomy: Yes Cardiac Surgery: Yes (STENT, BALLOON) Cholecystectomy: Yes Lung Surgery: No Neurologic Surgery: No Orthopedic Surgery: No - Immunization History Td Vaccination: Yes Immunization Up to Date: Yes - Psycho Social/Smoking Cessation Hx Smoking Status: No Smoking History: Current every day smoker Years of Tobacco Use: 40 Have you smoked in the past 12 months: Yes Number of Cigarettes Smoked Daily: 10 Cigars Per Day: 0 'Breaking Loose' booklet given: 03/21/19 Hx Alcohol Use: No Drug/Substance Use Hx: No Substance Use Type: None Hx Substance Use Treatment: No Review of Systems - Review of Systems Able to Perform ROS?: Yes Constitutional: Yes: Night Sweats, Weakness. No: Chills, Fever HEENTM: No: Symptoms Reported Respiratory: Yes: Cough, Shortness of Breath. No: Wheezing, Productive cough Cardiac (ROS): Yes: Chest Pain, Lightheadedness, Syncope. No: Chest Tightness ABD/GI: Yes: Poor Appetite, Poor Fluid Intake. No: Constipated, Diarrhea, Difficulty Swallowing, Nausea, Vomiting : Yes: Frequency. No: Burning, Hematuria Musculoskeletal: Yes: Back Pain, Joint Pain, Muscle Pain Integumentary: No: Symptoms Reported Neurological: Yes: Unsteady Gait, Dizziness. No: Headache, Numbness, Paresthesia, Ataxia Endocrine: No: Symptoms Reported Hematologic/Lymphatic: No: Symptoms Reported All Other Systems: Reviewed and Negative *Physical Exam - Physical Exam General Appearance: Yes: Nourished, Appropriately Dressed, Mild Distress HEENT: positive: EOMI, ARLETTE, Normal Voice, Pharynx Normal. negative: Scleral Icterus (R), Scleral Icterus (L), Pharyngeal Erythema, Tonsillar Exudate, Tonsillar Erythema, Sinus Tenderness Neck: positive: Supple. negative: Tender, Rigid, Decreased range of motion, Lymphadenopathy (R), Lymphadenopathy (L) Respiratory/Chest: positive: Chest Tender (tender to palpation of ribs), Lungs Clear, Normal Breath Sounds. negative: Respiratory Distress, Accessory Muscle Use, Crackles, Rales, Rhonchi, Stridor, Wheezing Cardiovascular: positive: Regular Rhythm, Regular Rate. negative: Murmur Gastrointestinal/Abdominal: positive: Normal Bowel Sounds, Tender (all haider especially suprapubic, negative Doyle), Flat, Soft. negative: Distended, Guarding, Rebound, Hernia Musculoskeletal: positive: Normal Inspection. negative: CVA Tenderness, Decreased Range of Motion, Vertebral Tenderness Extremity: positive: Normal Capillary Refill, Normal Inspection, Normal Range of Motion, Pelvis Stable. negative: Tender Integumentary: positive: Normal Color, Dry, Warm Neurologic: positive: harbor pilot II-XII NML intact, Fully Oriented, Alert, Normal Mood/ Affect, Normal Response ED Treatment Course - LABORATORY CBC & Chemistry Diagram: 06/18/19 16:30 06/18/19 16:30 Medical Decision Making - Medical Decision Making 06/18/19 16:19 Jade Suazo is a 78F with PMH CAD s/p 2x stents, CVA w/ residual R-side deficits, COPD, Afib, HTN, HLD, CKD, OA, and osteoporosis presenting with chest pain, abdominal pain, weakness, and nausea. Presentation is concerning for cardiac chest pain given chest pain, syncope, and significant cardiac history including AFIB, HTN, HLD, CAD, CVA history, ddx includes AR vs. PE vs. aortic dissection vs. AFIB w/ RVR vs. COPD exacerbation vs. costochondritis. Abdominal pain is new onset with nausea, unrelated to PO intake, having BM, ddx includes biliary disease vs. pancreatitis vs. AAA vs. gastritis/gastroenteritis. CMP CBC CP UA/UC ECG CXR Mag/Phos Coags Rapid influenza Giving 1g Ofirmev and 10mg Zofran for pain/nausea ECG notable for NSR with TWI in V3, V3, III consistent with prior ECG in March , no ischemic changes, HR 90, QRS 70, QTc 467 06/18/19 16:58 Labs notable for: - influenza negative - Cr 1.8: up from 1.6 three months ago - trop <0.02 - CBC unremarkable - no notable electrolyte abnormalities 06/18/19 18:14 Patient refusing further testing, refuses CT scan, refuses to stay in hospital. Patient IV removed and is leaving AMA. Says she will take a taxi home. Initial labs generally unremarkable for further cardiac pathology. Ambulating with cane without ataxia, alert and oriented x 4, no evidence of dementia, AMS, or intoxication. Patient understands that she is at risk for or debilitating injury from cardiac or abdominal disease, but still wishes to return home. Patient left ED without signing AMA form. Discharge - Discharge Information Problems reviewed: Yes Clinical Impression/Diagnosis: Chest pain Qualifiers: Chest pain type: unspecified Qualified Code(s): R07.9 - Chest pain, unspecified Condition: Stable Disposition: AGAINST MEDICAL ADVICE - Follow up/Referral Referrals: Pedro Rose MD [Primary Care Provider] - - Patient Discharge Instructions - Post Discharge Activity
[2019-06-18 16:05] VITALS: TEMP 98; BMI 22.6
[2019-06-18] MEDS ORDERED: ACETAMINOPHEN 1000 MG/100 ML VIAL (NON FORMULARY) IVPB ONE (16:13)
[2019-06-18] MEDS ORDERED: ONDANSETRON 4 MG/2 ML VIAL IVPUSH ONE (16:39)
--- NOTE | 2019-06-18 16:40 | PDOC ---
Documentation entered by Joy Nash SCRIBE, acting as scribe for Thee Yen MD. Thee Yen MD: This documentation has been prepared by the Charity plata Joy, SCRIBE, under my direction and personally reviewed by me in its entirety. I confirm that the documentation accurately reflects all work, treatment, procedures, and medical decision making performed by me. Attending Attestation - Resident Resident Name: Joe Shanks - ED Attending Attestation I have performed the following: I have examined & evaluated the patient, The case was reviewed & discussed with the resident, I agree w/resident's findings & plan, Exceptions are as noted - HPI HPI: 06/18/19 16:31 The patient is a 78 year old female with significant past medical history of Afib, CAD (s/p stent x2), CVA (with right sided weakness), COPD, osteoarthritis , osteoporosis, HTN and HLD who presents to the ED with s/p episode of loss of consciousness and chest pain. She describes her chest pain as a constant, pleuritic, 8/10, midsternal, pinching. She notes her symptoms are different from prior MIs. As per patients at bedside she experienced an episode of loss of consciousness lasting a few seconds when walking to the bathroom. was able to catch her prior to her falling. Her chest pain onset immediately after at approximately 11am, prompting her arrival to the ED. As per patient, she has been experiencing weakness, nausea and lightheadedness for 3 days. She also endorses diffuse abdominal pain with associated nausea. She denies any head/neck trauma. She denies any focal changes in strength or sensation. She denies recent fevers, chills, or headache. She denies recent diarrhea or constipation. She denies recent dysuria or hematuria. She denies recent palpitations, diaphoresis, or shortness of breath. Allergies: Penicillin PCP: Dr. Rose - Physicial Exam PE: 06/18/19 16:25 GENERAL: Awake, alert, and fully oriented, in no acute distress HEAD: No signs of trauma EYES: PERRLA, EOMI, sclera anicteric, conjunctiva clear ENT: Auricles normal inspection, hearing grossly normal, nares patent, oropharynx clear without exudates. Moist mucosa NECK: Normal ROM, supple, no lymphadenopathy, JVD, or masses LUNGS: Breath sounds equal, clear to auscultation bilaterally. No wheezes, and no crackles HEART: Regular rate and rhythm, normal S1 and S2, no murmurs, rubs or gallops ABDOMEN: Soft, nontender, normoactive bowel sounds. No guarding, no rebound. No masses EXTREMITIES: Normal range of motion, no edema. No clubbing or cyanosis. No cords, erythema, or tenderness NEUROLOGICAL: Normal speech, cranial nerves intact, negative pronator drift, 5/ 5 strength in all 4 extremities, normal sensation to light touch in all 4 extremities, normal cerebellar exam, normal gait, normal reflexes and tone SKIN: Warm, Dry, normal turgor, no rashes or lesions noted. - Medical Decision Making 06/18/19 16:12 78-year-old female with multiple medical problems including CAD status post 2 stents, CVA presents emergency department with syncopal episode followed by chest pain as well as diffuse abdominal pain. Vitals within normal limits. Exam with diffuse abdominal tenderness to palpation, more so over the suprapubic area. With regards to syncope with lightheadedness preceding it, followed by chest pain, concern for cardiac syncope or cardiac arrhythmia. Will initiate cardiac work-up and place patient on telemetry. No concerns for traumatic injury as patient was caught by her prior to falling. With regards to diffuse abdominal pain, given age,m will obtain labs, a CT scan of her abdomen pelvis and urinalysis for further evaluation. Given elevated heart score, anticipate admission for JANE.
[2019-06-18] MEDS ORDERED: ONDANSETRON 4 MG/2 ML VIAL ONE (16:42)
[2019-06-18] MEDS ORDERED: ACETAMINOPHEN INJECTION 100 ML IVPB ONE (16:42)
[2019-06-18 16:44] LABS: BASO % 1.1 % (0-2.0); EOS % 2.6 % (0-4.5); HEMATOCRIT 36.3 % (32.4-45.2); HEMOGLOBIN 11.9 GM/dL (10.7-15.3); LYMPH % 30.7 % (8-40); MCH 26.2 pg (25.7-33.7); MCHC 32.9 g/dl (32.0-36.0); MEAN CELL VOLUME 79.7 fl (80-96); MEAN PLT VOLUME 8.8 fl (7.5-11.1); MONO % 7.4 % (3.8-10.2); NEUT % 58.2 % (42.8-82.8); PLATELET COUNT 317 K/MM3 (134-434); RBC 4.55 M/mm3 (3.60-5.2); RDW 15.1 % (11.6-15.6); WHITE BLOOD COUNT 9.3 K/mm3 (4.0-10.0)
--- NOTE | 2019-06-18 16:51 | EKG ---
Test Reason : Blood Pressure : / mmHG Vent. Rate : 090 BPM Atrial Rate : 090 BPM P-R Int : 140 ms QRS Dur : 070 ms QT Int : 382 ms P-R-T Axes : -02 008 003 degrees QTc Int : 467 ms NORMAL SINUS RHYTHM NONSPECIFIC T WAVE ABNORMALITY ABNORMAL ECG Confirmed by GALLO ESTRADA MD ([id number]) on 06/18/2019 4:50:56 PM Referred By: Confirmed By:GALLO ESTRADA MD
[2019-06-18 16:56] LABS: INR 1.06 (0.83-1.09); PROTHROMBIN TIME (PATIENT) 12.5 SEC (9.7-13.0)
[2019-06-18 16:59] LABS: ACTIVATED PTT 32.7 SECONDS (25.2-36.5)
[2019-06-18 17:28] LABS: BILIRUBIN,TOTAL 0.3 mg/dL (0.2-1); BLOOD UREA NITROGEN 26.8 mg/dL (7-18); CALCIUM 9.8 mg/dL (8.5-10.1); CREATININE 1.8 mg/dL (0.55-1.3); MAGNESIUM 2.6 mg/dL (1.8-2.4); PHOSPHOROUS 3.9 mg/dL (2.5-4.9); TOT PROT 8.1 g/dl (6.4-8.2)
[2019-06-18 18:09] VITALS: BP 117/89; PULSE 72
== END 2019-06-18 18:25 | disposition left against medical advice (07) ==
LOC: JER 15:21
PROC: 3E033GC Introduction of Other Therapeutic Substance into Peripheral Vein, Percutaneous Approach (ICD-10-PCS; principal; 2019-06-18)
PROC: 3E033NZ Introduction of Analgesics, Hypnotics, Sedatives into Peripheral Vein, Percutaneous Approach (ICD-10-PCS; 2019-06-18)
DX: R07.9 Chest pain, unspecified (principal); I25.10 Atherosclerotic heart disease of native coronary artery without angina pectoris; I13.10 Hypertensive heart and chronic kidney disease without heart failure, with stage 1 through stage 4 chronic kidney disease, or unspecified chronic kidney disease; N18.9 Chronic kidney disease, unspecified; F17.210 Nicotine dependence, cigarettes, uncomplicated; Z95.5 Presence of coronary angioplasty implant and graft; I48.91 Unspecified atrial fibrillation; Z79.01 Long term (current) use of anticoagulants; I25.2 Old myocardial infarction; J44.9 Chronic obstructive pulmonary disease, unspecified; E78.5 Hyperlipidemia, unspecified; M19.90 Unspecified osteoarthritis, unspecified site; M81.8 Other osteoporosis without current pathological fracture; I69.851 Hemiplegia and hemiparesis following other cerebrovascular disease affecting right dominant side; Z79.82 Long term (current) use of aspirin; Z88.0 Allergy status to penicillin
CPT/HCPCS: 36415; 71045-TC-FY; 80053; 82550; 83690; 83735; 84100; 84484; 85025; 85610; 85730; 87804; 93005; 93010; 96374; 96375; 99285-25; J0131

== ENCOUNTER 2020-02-04 20:08 | Inpatient (IN) | payer OTHER ==
--- NOTE | 2020-02-04 20:39 | PDOC ---
History of Present Illness - General Chief Complaint: Chest Pain Stated Complaint: CHEST PAIN/FEVER Time Seen by Provider: 02/04/20 20:11 - History of Present Illness Initial Comments: Jade is an 79 y/o female with PMH significant for CAD s/p stents x2, CVA w/ residual R-side deficits and slurred speech, COPD, a-fib, HTN, HLD, CKD, OA, osteoporosis, presenting today with left sided chest pain that started earlier today. Reports left sided chest pain without any radiation. No pleuritic chest pain. Pain is reproducible. Mildly febrile. Reports mild intermittent cough. No trauma or recent fall. No abd pain. No leg swelling. No shortness of breath. No headache/dizziness. No diarrhea/dysuria. Recently returned from [place] 3 days ago and living with in an apartment at this time. Beta Michelle given by EMS (Core Measure): No Beta Michelle taken at Home (Core Measure): No Past History - Medical History Allergies/Adverse Reactions: Allergies Allergy/AdvReac Type Severity Reaction Status Date / Time Penicillins Allergy Mild Swelling Verified 02/04/20 20:37 Home Medications: Ambulatory Orders Oxycodone HCl/Acetaminophen [Endocet 5-325 Tablet] 1 each PO TID PRN 06/09/17 Zolpidem Tartrate 10 mg PO HS PRN 06/09/17 Albuterol 0.083% Nebulizer Mile [Ventolin 0.083% Nebulizer Soln -] 1 amp NEB Q4H PRN amp 06/11/17 Aspirin [ASA -] 81 mg PO DAILY tab.chew 06/11/17 Rivaroxaban [Xarelto] 15 mg PO DAILY@1800 #90 tablet 03/23/19 Irbesartan 75 mg PO DAILY 06/18/19 Nifedipine 10 mg PO DAILY 06/18/19 Tiotropium Br/Olodaterol HCl [Stiolto Respimat Inhal [place]] 1 puff IH ASDIR 06/18/19 Anemia: No Asthma: No Cancer: No Cardiac Disorders: Yes (SD,AFIB,stents,angio) CVA: Yes (x3) COPD: Yes CHF: No DVT: No Dementia: No Diabetes: No Dialysis: No GI Disorders: Yes Disorders: No HTN: Yes Hypercholesterolemia: Yes Kidney Stones: Yes Liver Disease: No Psychiatric Problems: No Seizures: No Thyroid Disease: No Lung CA: No - Surgical History Abdominal Surgery: Yes (COLON) Appendectomy: Yes Cardiac Surgery: Yes (STENT, BALLOON) Cholecystectomy: Yes Lung Surgery: No Neurologic Surgery: No Orthopedic Surgery: No - Immunization History Td Vaccination: Yes Immunization Up to Date: Yes - Psycho-Social/Smoking History Smoking Status: No Smoking History: Current every day smoker Years of Tobacco Use: 40 Have you smoked in the past 12 months: Yes Number of Cigarettes Smoked Daily: 10 Cigars Per Day: 0 Information on smoking cessation initiated: No 'Breaking Loose' booklet given: 03/21/19 - Substance Abuse Hx (Audit-C & DAST Scrn) How often the patient has a drink containing alcohol: Never Score: In Men: 4 or > Positive; In Women: 3 or > Positive: 0 Screen Result (Pos requires Nsg. Audit-10AR): Negative In the last yr the pt used illegal drug/Rx for NonMed reason: No Score: Yes response is considered Positive: 0 Screen Result (Positive result requires Nsg. DAST-10): Negative Cardiac Specific PMH - Complaint Specific PMHX Cardiac Stent: Yes Pacemaker: No Review of Systems - Review of Systems Comments:: GENERAL/CONSTITUTIONAL: No fever or chills. HEAD, EYES, EARS, NOSE AND THROAT: No change in vision. No change in hearing. No sore throat._ CARDIOVASCULAR: Reports chest pain. No shortness of breath_ RESPIRATORY: Reports mild cough. GASTROINTESTINAL: No nausea, vomiting, diarrhea or constipation._ GENITOURINARY: No dysuria, frequency, or change in urination._ MUSCULOSKELETAL: No joint or muscle swelling or pain. No neck or back pain._ SKIN: No rash_ NEUROLOGIC: No headache, vertigo, loss of consciousness. ENDOCRINE: No increased thirst. No abnormal weight change_ ALLERGIC/IMMUNOLOGIC: No hives or skin allergy._ *Physical Exam - Vital Signs Last Vital Signs Temp Pulse Resp BP Pulse Ox 98.0 F 87 17 137/46 L 95 02/05/20 19:25 02/05/20 19:25 02/05/20 19:25 02/05/20 19:25 02/05/20 19:25 - Physical Exam GENERAL: Awake, lethargic, and oriented to person/place/time, in no acute distress_ HEAD: No signs of trauma, normocephalic, atraumatic _ EYES: PERRLA, EOMI, sclera anicteric, conjunctiva clear_ ENT: Hearing grossly normal, nares patent, oropharynx clear without exudates. No uvular deviation. Moist mucosa_ NECK: Normal ROM, supple, no lymphadenopathy, JVD, or masses_ CHEST: Left anterior chest wall TTP with no obvious bruising or trauma. LUNGS: No distress, speaks in full sentences, clear to auscultation bilaterally _ HEART: Regular rate and rhythm, normal S1 and S2, no murmurs appreciated, peripheral pulses normal and equal bilaterally._ ABDOMEN: Soft, nontender, normoactive bowel sounds. No guarding, no rebound. 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 Lower extremities have equal pulses bilaterally and are warm to touch. No obvious lesions. NEUROLOGICAL: Cranial nerves II through XII grossly intact. Reports decreased sensation over the left side of her face. Not able to assess gait 2/2 weakness. SKIN: Warm, Dry, normal turgor, no rashes or lesions noted_ ED Treatment Course - LABORATORY CBC & Chemistry Diagram: 02/04/20 21:00 02/04/20 21:00 - ADDITIONAL ORDERS Additional order review: 02/04/20 21:00 RBC 4.73 MCV 76.4 L MCHC 32.7 RDW 16.3 H MPV 8.5 Neutrophils % 56.3 Lymphocytes % 32.6 Monocytes % 5.6 Eosinophils % 4.5 Basophils % 1.0 - RADIOLOGY Radiology Studies Ordered: Category Date Time Status CERVICAL SPINE CT W/O CONTR [CT] Stat CT Scan 02/04/20 21:[address] (STROKE) [CT] Stat CT Scan 02/04/20 21:27 Completed CHEST X-RAY PORTABLE* [RAD] Stat Radiology 02/04/20 20:43 Completed - Medications Given in the ED: ED Medications Discontinued Medications Generic Name Dose Route Start Last Admin Trade Name Freq PRN Reason Stop Dose Admin Aspirin 244 mg 02/05/20 03:17 02/05/20 04:55 Ecotrin - PO Not Given DAILY [facility] Aspirin 244 mg 02/05/20 03:37 02/05/20 04:54 Ecotrin - PO 02/05/20 03:38 244 mg ONCE ONE Administration Aspirin 81 mg 02/05/20 10:00 02/05/20 11:37 Asa - PO 81 mg DAILY GUSTABO Administration Medical Decision Making - Medical Decision Making 79F multiple comorbidities presenting today with chest pain that started earlier today. Reproducible chest pain. No pleuritic chest pain. HEART score 4. -cbc, cmp -ekg, trop, cxr -coags 02/04/20 20:41 EKG shows 88 bpm, NSR, nml axis, no ST elevation, QTc 459. 02/04/20 21:30 Pt's and health care proxy: [phone] (Janes Tyson) D/w the patient's , who reports that the patient appears increasingly lethargic since returning from [place]. Reports that her speech appears more slurred than prior. Has had difficulty walking and he has to catch her to prevent her falls. No known falls. Unable to assess ataxia and gait 2/2 patient weakness. Will order CT scan of the head and neck and urine. Pt is out of the tPA window. 02/04/20 21:58 CXR shows mild bibasilar infiltrates without any obvious change from prior CXR. No fracture. No PTX. No cardiomegaly. Labs reviewed. Laboratory Last Values WBC 8.0 K/mm3 (4.0-10.0) 02/04/20 21:00 RBC 4.73 M/mm3 (3.60-5.2) 02/04/20 21:00 Hgb 11.8 GM/dL (10.7-15.3) 02/04/20 21:00 Hct 36.2 % (32.4-45.2) 02/04/20 21:00 MCV 76.4 fl (80-96) L 02/04/20 21:00 MCH 25.0 pg (25.7-33.7) L 02/04/20 21:00 MCHC 32.7 g/dl (32.0-36.0) 02/04/20 21:00 RDW 16.3 % (11.6-15.6) H 02/04/20 21:00 Plt Count 356 K/MM3 (134-434) 02/04/20 21:00 MPV 8.5 fl (7.5-11.1) 02/04/20 21:00 Absolute Neuts (auto) 4.5 K/mm3 (1.5-8.0) 02/04/20 21:00 Neutrophils % 56.3 % (42.8-82.8) 02/04/20 21:00 Lymphocytes % 32.6 % (8-40) 02/04/20 21:00 Monocytes % 5.6 % (3.8-10.2) 02/04/20 21:00 Eosinophils % 4.5 % (0-4.5) 02/04/20 21:00 Basophils % 1.0 % (0-2.0) 02/04/20 21:00 Nucleated RBC % 0 % (0-0) 02/04/20 21:00 PT with INR 11.80 SEC (9.7-13.0) 02/04/20 21:00 INR 1.00 (0.83-1.09) 02/04/20 21:00 PTT (Actin FS) 26.4 SECONDS (25.2-36.5) 02/04/20 21:00 Sodium 139 mmol/L (136-145) 02/04/20 21:00 Potassium 5.1 mmol/L (3.5-5.1) 02/04/20 21:00 Chloride 106 mmol/L (98-107) 02/04/20 21:00 Carbon Dioxide 26 mmol/L (21-32) 02/04/20 21:00 Anion Gap 7 MMOL/L (8-16) L 02/04/20 21:00 BUN 20.0 mg/dL (7-18) H 02/04/20 21:00 Creatinine 1.8 mg/dL (0.55-1.3) H 02/04/20 21:00 Est GFR (CKD-EPI)AfAm 30.28 02/04/20 21:00 Est GFR (CKD-EPI)NonAf 26.12 02/04/20 21:00 Random Glucose 123 mg/dL (74-106) H 02/04/20 21:00 Calcium 9.1 mg/dL (8.5-10.1) 02/04/20 21:00 Total Bilirubin 0.3 mg/dL (0.2-1) 02/04/20 21:00 AST 23 U/L (15-37) 02/04/20 21:00 ALT 14 U/L (13-61) 02/04/20 21:00 Alkaline Phosphatase 135 U/L (45-117) H 02/04/20 21:00 Creatine Kinase 71 U/L (26-192) 02/04/20 21:00 Troponin I < 0.02 ng/ml (0.00-0.05) 02/04/20 21:00 Total Protein 8.1 g/dl (6.4-8.2) 02/04/20 21:00 Albumin 3.5 g/dl (3.4-5.0) 02/04/20 21:00 Urine Color Yellow 02/04/20 23:22 Urine Appearance Clear 02/04/20 23:22 Urine pH 6.0 (5.0-8.0) 02/04/20 23:22 Ur Specific [place] 1.009 (1.010-1.035) L 02/04/20 23:22 Urine Protein Negative (NEGATIVE) 02/04/20 23:22 Urine Glucose (UA) Negative (NEGATIVE) 02/04/20 23:22 Urine Ketones Negative (NEGATIVE) 02/04/20 23:22 Urine Blood Negative (NEGATIVE) 02/04/20 23:22 Urine Nitrite Negative (NEGATIVE) 02/04/20 23:22 Urine Bilirubin Negative (NEGATIVE) 02/04/20 23:22 Urine Urobilinogen 0.2 mg/dL (0.2-1.0) 02/04/20 23:22 Ur Leukocyte Esterase Trace (NEGATIVE) 02/04/20 23:22 Urine WBC (Auto) 30 /uL (0-25.8) 02/04/20 23:22 Urine RBC (Auto) 2 /uL (0-23.9) 02/04/20 23:22 Urine Casts (Auto) 1 /uL (0-3.1) 02/04/20 23:22 U Epithel Cells (Auto) 7 /uL (0-25.1) 02/04/20 23:22 Urine Bacteria (Auto) 4 /uL (0-1359) 02/04/20 23:22 02/04/20 23:41 CT neck negative for acute fracture or subluxation. 02/05/20 00:29 D/w Dr. Ugarte who recommends Brain MRI w/o contrast and stroke work up. 02/05/20 01:36 D/w Dr. Guevara who accepts the patient for admission. Discharge - Discharge Information Problems reviewed: Yes Clinical Impression/Diagnosis: Slurred speech, Weakness, Lethargy Condition: Guarded - Admission Yes - Follow up/Referral - Patient Discharge Instructions - Post Discharge Activity tPA Exclusion checklist 3-4.5h - Time Elapsed Date last known well: 01/31/20 Time last known well: 09:00 Elaspsed time: 5 Day(s) and 11 Hour(s) and 41 Minutes - Thrombolytic Therapy Candidate Is patient eligible for thrombolytic therapy: No - Exclusion Criteria 3-4.5 hr SBP greater than 185 or DBP greater than 110mmHg despite tx: No Recent IC/spinal surgery,head trauma or stroke<3mos.: No Hx IC hemorrhage, IC neoplasm, AV malformation or aneurysm: No Active internal bleeding: No Blding diathesis(low plt ct, inc PTT,INR>1.7 or use of NOAC): Yes Symptoms suggest subarachnoid hemorrhage: No CT demonstrates multilobar infarct(>1/3 cerebral hemiphere): No Arterial puncture at noncompressible site in previous 7 days: No Blood glucose concentration less than 50mg/dL (2.7mmol/L): No - Relative Exclusion Criteria 3-4.5 hr Care team unable to determine eligibility: No IV/IA thrombolysis/thrombectomy @ another hosp prior arrival: No Life expectancy <1 yr or severe co-morbid illness: No : No Patient/family refused: No Stroke severity too mild (non-disabling): No Recent acute SD (w/in previous 3 months): No Seizure at onset with postictal residual neuro impairments: No Major surgery or serious trauma w/in previous 14 days: No Recent GI or hemorrhage (w/in previous 21 days): No - Add'l Relative Exclusion 3-4.5 hr Age > 80: No Hx of both diabetes AND prior ischemic stroke: Yes Taking an oral anticoagulant regardless of INR: Yes Severe Stroke (NIHSS >25): No - Ineligibility reason(s) Reasons No tPA given: Outside of window - delayed arrival NIH Stroke Scale - Last Known Well Date/Time & Onset Date Last Known Well: 01/31/20 Time Last Known Well: 09:00 - Initial Evaluation Level of consciousness: Alert Ask patient the month and their age: Answers both correctly Ask patient to open & close eyes; make fist and let go: Obeys both correctly Best gaze (horizontal eye movement): Normal Visual field testing: No visual field loss Facial paresis (Show teeth/raise eyebrows/close eyes tight): Normal symmetrical movement Motor Function: Left Arm: Drift Motor Function: Right Arm: Drift Motor Function: Left Leg: Some effort against gravity Motor Function: Right Leg: Some effort against gravity Limb Ataxia: Untestable (Joint fused or limb amputated), explain: (pt states too weak to move lower extremities) Sensory(Use pinprick test arms,legs,trunk,face/side to side): Mild to moderate decrease in sensation Best language (Describe picture, name items, read sentences): No Aphasia Dysarthria (read several words): Mild to moderate slurring of words Extinction and Inattention: No abnormality - Total Score NIH Stroke Scale Score: 8
[2020-02-04 20:51] VITALS: BMI 21.6
[2020-02-04 21:16] LABS: EOS % 4.5 % (0-4.5); HEMATOCRIT 36.2 % (32.4-45.2); HEMOGLOBIN 11.8 GM/dL (10.7-15.3); LYMPH % 32.6 % (8-40); MCHC 32.7 g/dl (32.0-36.0); MEAN CELL VOLUME 76.4 fl (80-96); MEAN PLT VOLUME 8.5 fl (7.5-11.1); MONO % 5.6 % (3.8-10.2); NEUT % 56.3 % (42.8-82.8); PLATELET COUNT 356 K/MM3 (134-434); RBC 4.73 M/mm3 (3.60-5.2); RDW 16.3 % (11.6-15.6)
[2020-02-04 21:22] LABS: PROTHROMBIN TIME (PATIENT) 11.8 SEC (9.7-13.0)
[2020-02-04 21:25] LABS: ACTIVATED PTT 26.4 SECONDS (25.2-36.5)
[2020-02-04 22:00] LABS: ALBUMIN 3.5 g/dl (3.4-5.0); ALK PHOS 135 U/L (45-117); ANION GAP 7 MMOL/L (8-16); BILIRUBIN,TOTAL 0.3 mg/dL (0.2-1); CALCIUM 9.1 mg/dL (8.5-10.1); CHLORIDE 106 mmol/L (98-107); CO2 26 mmol/L (21-32); CREATININE 1.8 mg/dL (0.55-1.3); GLUCOSE,RANDOM 123 mg/dL (74-106); POTASSIUM 5.1 mmol/L (3.5-5.1); SGOT/AST 23 U/L (15-37); SGPT/ALT 14 U/L (13-61); SODIUM 139 mmol/L (136-145); TOT PROT 8.1 g/dl (6.4-8.2)
[2020-02-04 23:33] LABS: EPI CELLS 7 /uL (0-25.1); HYALINE CASTS 1 /uL (0-3.1); URINE APPEARANCE CLEAR; URINE BACTERIA 4 /uL (0-1359); URINE BILIRUBIN NEGATIVE (NEGATIVE); URINE COLOR YELLOW; URINE GLUCOSE (UA) NEGATIVE (NEGATIVE); URINE KETONE NEGATIVE (NEGATIVE); URINE LEUK ESTERASE TRACE (NEGATIVE); URINE NITRITE NEGATIVE (NEGATIVE); URINE PROTEIN NEGATIVE (NEGATIVE); URINE RBC 2 /uL (0-23.9); URINE UROBILINOGEN 0.2 mg/dL (0.2-1.0); URINE WBC 30 /uL (0-25.8)
--- NOTE | 2020-02-05 00:29 | PDOC ---
Documentation entered by Rowena Stockton SCRIBE, acting as scribe for Ashley Valentine MD. Ashley Valentine MD: This documentation has been prepared by the Mahin plata Nirvannie, SCRIBE, under my direction and personally reviewed by me in its entirety. I confirm that the documentation accurately reflects all work, treatment, procedures, and medical decision making performed by me. Attending Attestation - Resident Resident Name: Iker Alba - ED Attending Attestation I have performed the following: I have examined & evaluated the patient, The case was reviewed & discussed with the resident, I agree w/resident's findings & plan, Exceptions are as noted - HPI HPI: 02/04/20 20:52 The patient is a 79 year old female with a significant past medical history of CAD (s/p cardiac stenting x2), CVA (residual right sided deficits), COPD, Afib, HTN, HLD, CKD, OA, and osteoporosis who presents to the ED with one day of left sided chest pain which she describes as reproducible in nature. Allergies: PCN - Physicial Exam PE: 02/05/20 00:[address] Iker Alba's physical exam - Medical Decision Making 02/05/20 00:29 ct scan head : no acute hemorrhage or collection there is chronic left basilar lacunar ganglia infarct no mass lesion or midline shift mild cortical atrophy calvarium is intact troponin is negative UA trace leuk,bact 4,wbc 30 cxr no infiltrates case discussed with Dr Ugarte /pt admitted 02/05/20 00:40 Discharge - Discharge Information Problems reviewed: Yes Clinical Impression/Diagnosis: Slurred speech, Weakness, Lethargy Condition: Guarded - Follow up/Referral - Patient Discharge Instructions - Post Discharge Activity
--- NOTE | 2020-02-05 01:30 | PN ---
Teaching Attending Note Name of Resident: Dilcia Guevara ATTENDING PHYSICIAN STATEMENT I saw and evaluated the patient. I reviewed the resident's note and discussed the case with the resident. I agree with the resident's findings and plan as documented. SUBJECTIVE: Patient is an 79 year old woman with a PMH of Tobacco use, CAD (s/p stents x2), Penicillin allergy, CVA with residual right-side deficits and slurred speech, COPD, Afib, HTN, HLD, CKD, RACHEAL positive, Osteoarthritis and Osteoporosis presenting today with left sided chest pain that started earlier today. Reports left sided chest pain is reproducible without radiation and not pleuritic. Patient reports fever with mild intermittent cough. Patient uses a walker and cane. notes that she has been more dysarthric, weak and can barely walk. Patient denies trauma, recent fall, abdominal pain, leg swelling, shortness of breath, headache, dizziness, diarrhea or dysuria. Patient recently returned from [place] 3 days ago. Lives with in an apartment. Denies alcohol, tobacco or illicit drug use. No sick contacts. Patient has a family history of Alzheimer's dementia in mother and sister; oral cancer in brother and DM in multiple family members. OBJECTIVE: Alert Vital Signs Period Temp Pulse Resp BP Sys/Saucedo Pulse Ox Last 24 Hr 98.1 F-99.7 F 83-86 16-20 103-109/52-56 95-96 HEENT: No Jaundice, eye redness or discharge, PERRLA, EOMI. Normocephalic, atraumatic. Wears dentures; External ears are normal and hearing is grossly intact. No nasal discharge. Neck: Supple, nontender. No palpable adenopathy or thyromegaly. No JVD Chest: Good effort. Left side chest wall tenderness. Clear to auscultation. Heart: Regular. No S3, rub or murmur Abdomen: Not distended, soft, nontender and no HSM. No rebound or guarding. Normal bowel sounds. Ext: Peripheral pulses intact. No leg edema. Skin: Warm and dry. No petechiae, rash or ecchymosis. Neuro: Alert. Oriented x3. Dysarthria; CN 2-12 grossly intact. Right hemiparesis. Limited ROM of LLE likely due to arthritic pain. Gait not tested for safety reasons. Psych: Appropriate mood and affect. Good insight. Home Medications Medication Instructions Recorded Oxycodone HCl/Acetaminophen 1 each PO TID PRN 06/09/17 [Endocet 5-325 Tablet] Zolpidem Tartrate 10 mg PO HS PRN 06/09/17 Albuterol 0.083% Nebulizer Mile 1 amp NEB Q4H PRN amp 06/11/17 [Ventolin 0.083% Nebulizer Soln -] Aspirin [ASA -] 81 mg PO DAILY tab.chew 06/11/17 Rivaroxaban [Xarelto] 15 mg PO DAILY@1800 #90 tablet 03/23/19 Irbesartan 0 mg PO DAILY 06/18/19 Nifedipine 0 mg PO DAILY 06/18/19 Tiotropium Br/Olodaterol HCl 1 puff IH ASDIR 06/18/19 [Stiolto Respimat Inhal [place]] Azithromycin [Zithromax Tri-Sergey (3 500 mg PO DAILY #3 tablet 01/01/20 DAYS) -] Abnormal Lab Results 02/04/20 02/04/20 02/04/20 21:00 21:00 23:22 MCV 76.4 L MCH 25.0 L RDW 16.3 H Anion Gap 7 L BUN 20.0 H Creatinine 1.8 H Random Glucose 123 H Alkaline Phosphatase 135 H Ur Specific [place] 1.009 L Current Medications Generic Name Dose Route Start Last Admin Trade Name Freq PRN Reason Stop Dose Admin Acetaminophen 650 mg 02/05/20 03:11 Tylenol - PO Q6H PRN PAIN LEVEL 6-10 Albuterol Sulfate 1 amp 02/05/20 03:31 Ventolin 0.083% Nebulizer Soln - NEB Q4H PRN SHORT OF BREATH/WHEEZING Aspirin 81 mg 02/05/20 10:00 Asa - PO DAILY GUSTABO Atorvastatin Calcium 80 mg 02/05/20 03:18 02/05/20 04:10 Lipitor - PO 80 mg HS GUSTABO Administration Cefuroxime Axetil 250 mg 02/05/20 10:00 Ceftin - PO DAILY GUSTABO Oxycodone/Acetaminophen 1 combo 02/05/20 03:31 Percocet 5/325 - PO TID PRN PAIN Rivaroxaban 15 mg 02/05/20 18:00 Xarelto PO DAILY@1800 GUSTABO Tiotropium [place]/Olodaterol 1 puff 02/05/20 03:45 02/05/20 04:10 Stiolto Respimat Inhal [place] IH 1 puff ASDIR GUSTABO Administration Zolpidem Tartrate 5 mg 02/05/20 03:56 Ambien - PO HS PRN INSOMNIA ASSESSMENT AND PLAN: 1. Chest pain/Rule out CVA - EKG shows NSR at 88/minute and QTc [address]-T wave changes. Initial troponin is negative. Report of head CT scan - "No acute hemorrhage or collection. There is chronic left basilar lacunar ganglia infarct; no mass lesion or midline shift; mild cortical atrophy. Calvarium is intact". CT of C-spine negative for acute fracture or subluxation. CXR shows bibasilar atelectasis, wide mediastinum, elevated right hemidiaphragm, deviation of trachea to the right. On 01/01/2020 when she came to the ER for abdomial pain, chest CT showed bilateral ground glass opacities, but she was not tested for COVID-19. Pleurisy may be due to autoimmune disorder - her RACHEAL is strongly positive or ?COVID-19 infection. Will test her for COVID-19 antibodies in addition to viral testing for COVID-19. Patient placed on airborne, droplet and contact isolation. ER staff discussed case with Neurologist Dr. Ugarte who recommends Brain MRI without contrast and stroke work up. Patient outside the window for tPA. Will admit to telemetry, do speech and swallow evaluation, carotid doppler, brain MRI, trend troponin, get ECHO, fasting lipids, carotid doppler, treat with Lipitor, Aspirin and consult PT. Has pyuria with trace leukocyte esterase. Will treat UTI with Macrobid 100 mg po bid pending culture result. Will continue comprehensive care for all of patients comorbid conditions including Xarelto for Afib. Her [id number] score is 7. 2. Tobacco Use Counseled on risks associated with tobacco use. We will provide patient all the necessary assistance to facilitate smoking cessation and prescribe Nicotine patch. 3. CKD Cause unclear. Will get kidney sonogram, hydrate gently, monitor urine output and consult Nephrology. Avoid nephrotoxic agents such as NSAIDS, aminoglycosides, contrast dyes and certain Alternative medicine products. 4. Hypertension Will practice permissive hypertension for 24 to 48 hours. Restart suitable outpatient antihypertensive drugs when clinically appropriate. Subsequently, will revise regimen to ensure [id number] excellent BP control. Patient counseled on the injurious effects of uncontrolled hypertension. Nonpharmacologic measures to control hypertension like weight loss, salt restriction and exercise stressed. Importance of adherence to treatment regimen and attainment of normotension emphasized. 5. DVT prophylaxis - On Xarelto for Afib. 6. Advance directives - Full code
[2020-02-05] MEDS ORDERED: ACETAMINOPHEN 325 MG TABLET (FP) PO PRN (03:11)
[2020-02-05] MEDS ORDERED: ASPIRIN COATED 81 MG TABLET.EC PO SCH (03:17)
[2020-02-05] MEDS ORDERED: PATIENT'S OWN MEDICATION (NON-FORMULARY) (Zolpidem Tartrate [Zolpidem Tartrate] 10 MG) PO PRN (03:31)
[2020-02-05] MEDS ORDERED: ALBUTEROL SO4 0.083% IH SOL 2.5 MG/3 ML VIAL.NEB. NEB PRN (03:31)
[2020-02-05] MEDS ORDERED: ASPIRIN 325 MG ENTERIC COATED TABLET (FP) PO ONE (03:37)
[2020-02-05] MEDS ORDERED: ATORVASTATIN CA 80 MG TABLET (FP) ONE (03:37)
[2020-02-05] MEDS: TIOTROPIUM/OLODATEROL HCL (STIOLTO) 4 GM INHALER IH SCH (04:10)
[2020-02-05] MEDS: ATORVASTATIN CA 80 MG TABLET (FP) PO SCH ×2 (04:10→22:44)
--- NOTE | 2020-02-05 04:29 | HP ---
CHIEF COMPLAINT: Chest pain PCP: HISTORY OF PRESENT ILLNESS: 79 y.o. F PMHx CAD (s/p 2 stents), CVA (residual right sided weakness), A-fib (xarelto), HTN, COPD, HLD, CKD, OA. Presents to ED due to L sided chest pain over the 2nd and 3rd intercostal spaces. Patient stated she was lying in bed when she began to have the feeling of something "heavy sitting on her chest" and a "racing heartbeat". The pain was rated at an 8/10 intensity, non-radiating and has not improved since onset. Patient stated she has been experiencing dizziness, headache, and the L sided chest pain that was reproducible upon palpation. Patient denies blurred vision, chills, SOB, N/V/D. At baseline Patient has R sided weakness of both upper & lower extremities although she stated the decreased sensation to touch along her L side is new. As per family member patient is normally able to walk with a cane. When trying to stand today she became unstable and the family has noticed she has dysarthric when compared to baseline. Patient had recently came back from a trip to [place], has significant family Hx of diabetes and is retired from work. ER course was notable for: (1) Head CT (2) EKG (3) Urine Culture Recent Travel: Return from [place] on january 18 PAST MEDICAL HISTORY: CAD (X2 stents), CVA, A-Fib, HTN, COPD, HLD, CKD, OA. PAST SURGICAL HISTORY: s/p 2 stent placements Social History: Smokin pack year Alcohol: None Drugs: None Allergies Penicillins Allergy (Mild, Verified 02/04/20 20:37) Swelling HOME MEDICATIONS: Home Medications Medication Instructions Recorded Oxycodone HCl/Acetaminophen 1 each PO TID PRN 06/09/17 [Endocet 5-325 Tablet] Zolpidem Tartrate 10 mg PO HS PRN 06/09/17 Albuterol 0.083% Nebulizer [place] 1 amp NEB Q4H PRN amp 06/11/17 [Ventolin 0.083% Nebulizer Soln -] Aspirin [ASA -] 81 mg PO DAILY tab.chew 06/11/17 Rivaroxaban [Xarelto] 15 mg PO DAILY@1800 #90 tablet 03/23/19 Irbesartan 0 mg PO DAILY 06/18/19 Nifedipine 0 mg PO DAILY 06/18/19 Tiotropium Br/Olodaterol HCl 1 puff IH ASDIR 06/18/19 [Stiolto Respimat Inhal [place]] REVIEW OF SYSTEMS CONSTITUTIONAL: generalized weakness Absent: fever, chills, diaphoresis, malaise, loss of appetite, weight change HEENT: Absent: rhinorrhea, nasal congestion, throat pain, throat swelling, difficulty swallowing, mouth swelling, ear pain, eye pain, visual changes CARDIOVASCULAR: chest pain Absent: syncope, palpitations, irregular heart rate, lightheadedness, peripheral edema RESPIRATORY: Absent: cough, shortness of breath, dyspnea with exertion, orthopnea, wheezing, stridor, hemoptysis GASTROINTESTINAL: Absent: abdominal pain, abdominal distension, nausea, vomiting, diarrhea, constipation, melena, hematochezia GENITOURINARY: Absent: dysuria, frequency, urgency, hesitancy, hematuria, flank pain, genital pain MUSCULOSKELETAL: Absent: myalgia, arthralgia, joint swelling, back pain, neck pain SKIN: Absent: rash, itching, pallor HEMATOLOGIC/IMMUNOLOGIC: Absent: easy bleeding, easy bruising, lymphadenopathy, frequent infections ENDOCRINE: Absent: unexplained weight gain, unexplained weight loss, heat intolerance, cold intolerance NEUROLOGIC: headache, dizziness Absent: focal weakness or paresthesias, unsteady gait, seizure, mental status changes, bladder or bowel incontinence PSYCHIATRIC: Absent: anxiety, depression, suicidal or homicidal ideation, hallucinations. PHYSICAL EXAMINATION Vital Signs - 24 hr 02/04/20 02/05/20 20:27 01:19 Temperature 99.7 F H 98.1 F Pulse Rate 86 Pulse Rate [ 83 Right Radial] Respiratory 20 16 Rate Blood Pressure 103/56 L Blood Pressure 109/52 L [Left Arm] O2 Sat by Pulse 96 95 Oximetry (%) GENERAL: Awake, alert, and fully oriented, in no acute distress. HEAD: Normal with no signs of trauma. EYES: Pupils equal, round and reactive to light, extraocular movements intact, sclera anicteric, conjunctiva clear. EARS, NOSE, THROAT: Ears normal, nares patent, oropharynx clear without exudates. Moist mucous membranes. NECK: JVD, or masses. LUNGS: Coarse breath sounds bilaterally. No wheezes, and no crackles. No accessory muscle use. HEART: 3/6 Holosystolic blowing murmur. ABDOMEN: Soft, nontender, not distended, normoactive bowel sounds, no guarding, no rebound, no masses. MUSCULOSKELETAL: Limited ROM in the R LE, moderate ROM in the L LE , UE ROM normal. UPPER EXTREMITIES: 2+ pulses, warm, well-perfused. No cyanosis. No clubbing. No peripheral edema. LOWER EXTREMITIES: 2+ pulses, warm, well-perfused. No calf tenderness. No peripheral edema. NEUROLOGICAL: Cranial nerves II-XII intact. Normal speech. Normal gait. PSYCHIATRIC: Cooperative. Good eye contact. Appropriate mood and affect. SKIN: Warm, dry, normal turgor, no rashes or lesions noted, normal capillary refill. Laboratory Results - last 24 hr 02/04/20 02/04/20 02/04/20 21:00 21:00 21:00 WBC 8.0 RBC 4.73 Hgb 11.8 Hct 36.2 MCV 76.4 L MCH 25.0 L MCHC 32.7 RDW 16.3 H Plt Count 356 MPV 8.5 Absolute Neuts (auto) 4.5 Neutrophils % 56.3 Lymphocytes % 32.6 Monocytes % 5.6 Eosinophils % 4.5 Basophils % 1.0 Nucleated RBC % 0 PT with INR 11.80 INR 1.00 PTT (Actin FS) 26.4 Sodium 139 Potassium 5.1 Chloride 106 Carbon Dioxide 26 Anion Gap 7 L BUN 20.0 H Creatinine 1.8 H Est GFR (CKD-EPI)AfAm 30.28 Est GFR (CKD-EPI)NonAf 26.12 Random Glucose 123 H Calcium 9.1 Total Bilirubin 0.3 AST 23 ALT 14 Alkaline Phosphatase 135 H Creatine Kinase 71 Troponin I < 0.02 Total Protein 8.1 Albumin 3.5 Urine Color Urine Appearance Urine pH Ur Specific [place] Urine Protein Urine Glucose (UA) Urine Ketones Urine Blood Urine Nitrite Urine Bilirubin Urine Urobilinogen Ur Leukocyte Esterase Urine WBC (Auto) Urine RBC (Auto) Urine Casts (Auto) U Epithel Cells (Auto) Urine Bacteria (Auto) 02/04/20 23:22 WBC RBC Hgb Hct MCV MCH MCHC RDW Plt Count MPV Absolute Neuts (auto) Neutrophils % Lymphocytes % Monocytes % Eosinophils % Basophils % Nucleated RBC % PT with INR INR PTT (Actin FS) Sodium Potassium Chloride Carbon Dioxide Anion Gap BUN Creatinine Est GFR (CKD-EPI)AfAm Est GFR (CKD-EPI)NonAf Random Glucose Calcium Total Bilirubin AST ALT Alkaline Phosphatase Creatine Kinase Troponin I Total Protein Albumin Urine Color Yellow Urine Appearance Clear Urine pH 6.0 Ur Specific [place] 1.009 L Urine Protein Negative Urine Glucose (UA) Negative Urine Ketones Negative Urine Blood Negative Urine Nitrite Negative Urine Bilirubin Negative Urine Urobilinogen 0.2 Ur Leukocyte Esterase Trace Urine WBC (Auto) 30 Urine RBC (Auto) 2 Urine Casts (Auto) 1 U Epithel Cells (Auto) 7 Urine Bacteria (Auto) 4 ASSESSMENT/PLAN: 79 y.o. F PMHx CAD (s/p 2 stents), CVA (residual right sided weakness), A-fib (xarelto), HTN, COPD, HLD, CKD, OA. # Chest Pain - r/o ACS - Initial troponin < 0.02, will continue to trend - EKG show no new signs of ischemic changes, will repeat - Patient admitted to telemetry for optimal cardiac monitoring # CVA - NIHSS score of 11 - Carotid doppler ordered - Echo ordered - Lipid panel ordered - Boring Machine Set Up Operator on smoking cessation - Neuro consulted - Speech and swallow consulted #Asymptomatic Bacteriuria - UA shows trace leuk esterase & 30 WBC - Cefuroxime 250mg PO Daily # DONNA - Cr of 1.8, baseline is typically 1.1-1.2 - Bun elevated 20 - Will continue to follow labs and monitor changes #Covid - Covid antibody test ordered - Patient prior CXR shows ground glass opacity - Covid hot spot based on hospital geographic location - Patient place don isolation # FEN - NPO # DVT - Xarelto 15mg PO Daily (home dose) Visit type - Emergency Visit Emergency Visit: Yes ED Registration Date: 02/05/20 Care time: The patient presented to the Emergency Department on the above date and was hospitalized for further evaluation of their emergent condition. - New Patient This patient is new to me today: Yes Date on this admission: 02/05/20 - Critical Care Critical Care patient: No ATTENDING PHYSICIAN STATEMENT I saw and evaluated the patient. I reviewed the resident's note and discussed the case with the resident. I agree with the resident's findings and plan as documented. SUBJECTIVE: OBJECTIVE: ASSESSMENT AND PLAN:
[2020-02-05] MEDS ORDERED: ASPIRIN COATED 81 MG TABLET.EC ONE (04:48)
--- NOTE | 2020-02-05 08:59 | CONSULT ---
Consult - text type - Consultation Consultation Note: Neurology HISTORY OF PRESENT ILLNESS: 79 y.o. F PMHx CAD (s/p 2 stents), CVA (residual right sided weakness), A-fib (xarelto), HTN, COPD, HLD, CKD, OA. Presented to ED due to L sided chest pain over the 2nd and 3rd intercostal spaces. Patient stated she was lying in bed when she began to have the feeling of something "heavy sitting on her chest" and a "racing heartbeat". The pain was rated at an 8/10 intensity, non-radiating and has not improved since onset. Patient stated she has been experiencing dizziness, headache, and the L sided chest pain that was reproducible upon palpation. Patient denied blurred vision, chills, SOB, N/V/D. At baseline patient has R sided weakness of both upper & lower extremities although she stated the decreased sensation to touch along her L side is new. As per family member patient is normally able to walk with a cane. When trying to stand on day of admission she became unstable and the family has noticed she has dysarthric when compared to baseline. Patient had recently came back from a trip to [place], has significant family Hx of diabetes and is retired from work. Contacted by ER overnight regarding presention and eval for possible new CVA. Head CT and Cervical spine CT ordered and awaiting official report. Recommended further admission as well as stroke workup including MRI brain, carotid Dopplers, echo. The patient's speech although hesitant was not dysarthric, and she was able to maintain attention with me. Recent Travel: Return from [place] on january 18 PAST MEDICAL HISTORY: CAD (X2 stents), CVA, A-Fib, HTN, COPD, HLD, CKD, OA. PAST SURGICAL HISTORY: s/p 2 stent placements Social History: Smokin pack year Alcohol: None Drugs: None REVIEW OF SYSTEMS CONSTITUTIONAL: generalized weakness Absent: fever, chills, diaphoresis, malaise, loss of appetite, weight change HEENT: Absent: rhinorrhea, nasal congestion, throat pain, throat swelling, difficulty swallowing, mouth swelling, ear pain, eye pain, visual changes CARDIOVASCULAR: chest pain Absent: syncope, palpitations, irregular heart rate, lightheadedness, peripheral edema RESPIRATORY: Absent: cough, shortness of breath, dyspnea with exertion, orthopnea, wheezing, stridor, hemoptysis GASTROINTESTINAL: Absent: abdominal pain, abdominal distension, nausea, vomiting, diarrhea, constipation, melena, hematochezia GENITOURINARY: Absent: dysuria, frequency, urgency, hesitancy, hematuria, flank pain, genital pain MUSCULOSKELETAL: Absent: myalgia, arthralgia, joint swelling, back pain, neck pain SKIN: Absent: rash, itching, pallor HEMATOLOGIC/IMMUNOLOGIC: Absent: easy bleeding, easy bruising, lymphadenopathy, frequent infections ENDOCRINE: Absent: unexplained weight gain, unexplained weight loss, heat intolerance, cold intolerance NEUROLOGIC: headache, dizziness Absent: focal weakness or paresthesias, unsteady gait, seizure, mental status changes, bladder or bowel incontinence PSYCHIATRIC: Absent: anxiety, depression, suicidal or homicidal ideation, hallucinations. Allergies Penicillins Allergy (Mild, Verified 02/04/20 20:37) Swelling HOME MEDICATIONS: Home Medications Medication Instructions Recorded Oxycodone HCl/Acetaminophen 1 each PO TID PRN 06/09/17 [Endocet 5-325 Tablet] Zolpidem Tartrate 10 mg PO HS PRN 06/09/17 Albuterol 0.083% Nebulizer [place] 1 amp NEB Q4H PRN amp 06/11/17 [Ventolin 0.083% Nebulizer Soln -] Aspirin [ASA -] 81 mg PO DAILY tab.chew 06/11/17 Rivaroxaban [Xarelto] 15 mg PO DAILY@1800 #90 tablet 03/23/19 Irbesartan 0 mg PO DAILY 06/18/19 Nifedipine 0 mg PO DAILY 06/18/19 Tiotropium Br/Olodaterol HCl 1 puff IH ASDIR 06/18/19 [Stiolto Respimat Inhal [place]] Active Medications Acetaminophen (Tylenol -) 650 mg PO Q6H PRN PRN Reason: PAIN LEVEL 6-10 Albuterol Sulfate (Ventolin 0.083% Nebulizer Soln -) 1 amp NEB Q4H PRN PRN Reason: SHORT OF BREATH/WHEEZING Aspirin (Asa -) 81 mg PO DAILY GUSTABO Atorvastatin Calcium (Lipitor -) 80 mg PO HS [facility] Last Admin: 02/05/20 04:10 Dose: 80 mg Documented by: Cefuroxime Axetil (Ceftin -) 250 mg PO DAILY [facility] Oxycodone/Acetaminophen (Percocet 5/325 -) 1 combo PO TID PRN PRN Reason: PAIN Rivaroxaban (Xarelto) 15 mg PO DAILY@1800 GUSTABO Tiotropium [place]/Olodaterol (Stiolto Respimat Inhal [place]) 1 puff IH ASDIR [facility] Last Admin: 02/05/20 04:10 Dose: 1 puff Documented by: Zolpidem Tartrate (Ambien -) 5 mg PO HS PRN PRN Reason: INSOMNIA PHYSICAL EXAMINATION Vital Signs Period Temp Pulse Resp BP Sys/Saucedo Pulse Ox Last 24 Hr 97.9 F-99.7 F 76-86 16-20 103-121/49-56 93-96 GENERAL: Awake, alert, and fully oriented, in no acute distress. HEAD: Normal with no signs of trauma. EYES: Pupils equal, round and reactive to light, extraocular movements intact, sclera anicteric, conjunctiva clear. EARS, NOSE, THROAT: Ears normal, nares patent, oropharynx clear without exudates. Moist mucous membranes. NECK: JVD, or masses. LUNGS: Coarse breath sounds bilaterally. No wheezes, and no crackles. No accessory muscle use. HEART: 3/6 Holosystolic blowing murmur. ABDOMEN: Soft, nontender, not distended, normoactive bowel sounds, no guarding, no rebound, no masses. MUSCULOSKELETAL: Limited ROM in the R LE, moderate ROM in the L LE , UE ROM normal. UPPER EXTREMITIES: 2+ pulses, warm, well-perfused. No cyanosis. No clubbing. No peripheral edema. LOWER EXTREMITIES: 2+ pulses, warm, well-perfused. No calf tenderness. No peripheral edema. NEUROLOGICAL: Awake, alert, hesitation in speech, RUE 4-/5. RLE 4-/5, left 5- /5, sensory intact on L PSYCHIATRIC: Cooperative. Good eye contact. Appropriate mood and affect. SKIN: Warm, dry, normal turgor, no rashes or lesions noted, normal capillary refill. CBCD WBC 8.0 K/mm3 (4.0-10.0) 02/04/20 21:00 RBC 4.73 M/mm3 (3.60-5.2) 02/04/20 21:00 Hgb 11.8 GM/dL (10.7-15.3) 02/04/20 21:00 Hct 36.2 % (32.4-45.2) 02/04/20 21:00 MCV 76.4 fl (80-96) L 02/04/20 21:00 MCHC 32.7 g/dl (32.0-36.0) 02/04/20 21:00 RDW 16.3 % (11.6-15.6) H 02/04/20 21:00 Plt Count 356 K/MM3 (134-434) 02/04/20 21:00 MPV 8.5 fl (7.5-11.1) 02/04/20 21:00 CMP Sodium 139 mmol/L (136-145) 02/04/20 21:00 Potassium 5.1 mmol/L (3.5-5.1) 02/04/20 21:00 Chloride 106 mmol/L (98-107) 02/04/20 21:00 Carbon Dioxide 26 mmol/L (21-32) 02/04/20 21:00 Anion Gap 7 MMOL/L (8-16) L 02/04/20 21:00 BUN 20.0 mg/dL (7-18) H 02/04/20 21:00 Creatinine 1.8 mg/dL (0.55-1.3) H 02/04/20 21:00 Random Glucose 123 mg/dL (74-106) H 02/04/20 21:00 Calcium 9.1 mg/dL (8.5-10.1) 02/04/20 21:00 Total Bilirubin 0.3 mg/dL (0.2-1) 02/04/20 21:00 AST 23 U/L (15-37) 02/04/20 21:00 ALT 14 U/L (13-61) 02/04/20 21:00 Alkaline Phosphatase 135 U/L (45-117) H 02/04/20 21:00 Total Protein 8.1 g/dl (6.4-8.2) 02/04/20 21:00 Albumin 3.5 g/dl (3.4-5.0) 02/04/20 21:00 CARDIAC ENZYMES Creatine Kinase 71 U/L (26-192) 02/04/20 21:00 Troponin I < 0.02 ng/ml (0.00-0.05) 02/04/20 21:00 ASSESSMENT/PLAN: 79 y.o. F PMHx CAD (s/p 2 stents), CVA (residual right sided weakness), A-fib (xarelto), HTN, COPD, HLD, CKD, OA. Presented to ED due to L sided chest pain over the 2nd and 3rd intercostal spaces. Patient stated she was lying in bed when she began to have the feeling of something "heavy sitting on her chest" and a "racing heartbeat". The pain was rated at an 8/10 intensity, non-radiating and has not improved since onset. Patient stated she has been experiencing dizziness, headache, and the L sided chest pain that was reproducible upon palpation. Patient denied blurred vision, chills, SOB, N/V/D. At baseline patient has R sided weakness of both upper & lower extremities although she stated the decreased sensation to touch along her L side is new. As per family member patient is normally able to walk with a cane. When trying to stand on day of admission she became unstable and the family has noticed she has dysarthric when compared to baseline. Patient had recently came back from a trip to [place], has significant family Hx of diabetes and is retired from work. Contacted by ER overnight regarding presention and eval for possible new CVA. Head CT and Cervical spine CT ordered and awaiting official report. Recommended further admission as well as stroke workup including MRI brain, carotid Dopplers, echo. The patient's speech although hesitant was not dysarthric, and she was able to maintain attention with me. Is on ASA 81mg along with statin. Physical therapy recommended, fall precautions. Monitor blood pressure, maintain < 160/90. Cardiology follow up. DVT ppx.
[2020-02-05] MEDS ORDERED: ASPIRIN 81 MG CHEWABLE TABLETS PO SCH (10:00)
[2020-02-05] MEDS ORDERED: NITROFURANTOIN MACROCRYSTAL 50 MG CAPSULE (FP) PO SCH (10:00)
--- NOTE | 2020-02-05 10:22 | EKG ---
Test Reason : Blood Pressure : / mmHG Vent. Rate : 088 BPM Atrial Rate : 088 BPM P-R Int : 154 ms QRS Dur : 072 ms QT Int : 380 ms P-R-T Axes : 064 055 055 degrees QTc Int : 459 ms NORMAL SINUS RHYTHM NORMAL ECG WHEN COMPARED WITH ECG OF 01-JAN-2020 19:04, NO SIGNIFICANT CHANGE WAS FOUND Confirmed by aPtricia Miranda ([id number]) on 02/05/2020 10:22:29 AM Referred By: Confirmed By:Patricia Miranda
--- NOTE | 2020-02-05 11:16 | CONSULT ---
Admitting History and Physical - Primary Care Physician PCP: Joellen Damon - Admission History of Present Illness: Per EMR- 79 year old female with a significant past medical history of CAD (s/p cardiac stenting x2), CVA (residual right sided deficits), COPD, Afib, HTN, HLD, CKD, OA, and osteoporosis who presents to the ED with one day of left sided chest pain Head CT - No acute hemorrhage or collection. There is chronic left basilar lacunar ganglia infarct; no mass lesion or midline shift; mild cortical atrophy. Calvarium is intact Neuro on case-Recommended further admission as well as stroke workup including MRI brain, carotid Dopplers, echo. The patient's speech although hesitant was not dysarthric NPO. Pending Dysphagia screen. Laboratory Tests 02/05/20 02/05/20 02:40 04:00 COVID-19 ([facility]) Pending SARS-CoV-2 Ab Interp Non-reactive Selected Entries 02/04/20 02/05/20 02/05/20 20:27 01:19 07:15 Temperature 99.7 F H 98.1 F 97.9 F Pulse Rate 86 Pulse Rate [ 83 76 Right Radial] Blood Pressure 103/56 L Blood Pressure 109/52 L 121/49 L [Left Arm] Laboratory Tests 02/04/20 21:[address] chest 12/31- Ground glass Seen in ED, reg diet ordered. MRI (-) History Source: Patient, Medical Record - Past Medical History Cardiovascular: Yes: AFIB (paroxysmal), CAD, HTN, GA. No: Aneurysm Pulmonary: Yes: COPD. No: Asthma - Past Surgical History Past Surgical History: Yes: Stent - Smoking History Smoking history: Current every day smoker Have you smoked in the past 12 months: Yes Aproximately how many cigarettes per day: 10 - Alcohol/Substance Use Hx Alcohol Use: No History of Substance Use: reports: None - Social History ADL: Independent History of Recent Travel: Yes (from [place] to [place] 2 days ago) History - Admission Reason For Visit: LETHARGY, SLURRED SPEECH, WEAKNESS - Diagnostics X-ray: Report Reviewed (CXR shows mild bibasilar infiltrates without any obvious change from prior CXR) CT Scan: Report Reviewed (Head CT - No acute hemorrhage or collection. There is chronic left basilar lacunar ganglia infarct; no mass lesion or midline shift; mild cortical atrophy. Calvarium is intac) - General Mental Status: Alert and Oriented, Awake and Alert, Able to Follow Commands Attention: Intact Ability to Follow Directions: Good Head/Neck Control: Good - Hearing Hearing: Functional Speech Evaluation - Communication Primary Language: TURKMEN Secondary Language: LAO (functional) Communication: Yes: Within Normal Limits - Speech Production Able to Make Needs Known: Yes: WNL Intelligibility: Yes: WNL - Speech Characteristics Voice Loudness: Normal Voice Pitch: Yes: Normal Voice Phonatory-based Quality: Yes: Normal Speech Pattern: Normal Speech Clarity: < 100% Nasal Resonance: Normal Articulation: Yes: Precise Rate of Speech: Intact - Language/Auditory Comprehension Follows: Yes: 1 Stage Simple Commands Observation: Able to respond to yes/no queries: Yes, Yes/No Confusion: No, Comprehends Conversational Speech: Yes - Language/Verbal Expression Able to Respond to Simple Queries: Yes: WNL Able to Communicate Wants and Needs: Yes: WNL Functional Communication Status: Yes: WNL - Swallow Evaluation/Bedside Assessment Current Nutritional Intake: Regular, Thin Liquids Oral Secretions: Yes: WFL Dentition: Yes: Missing Teeth (limited dentition) Facial Symmetry at Rest: Symmetrical Against Resistance Opening: Normal Against Resistance Closing: Normal Pucker Lips: Normal Smile: Normal Lingual Movement: Normal, Symmetric Lingual Speed of Movement: Normal Lingual Movement Strgth Against Opposition: Normal Lingual Movement Characteristics: Normal Velopharyngeal Movement: Normal Laryngeal Elevation: WFL Laryngeal Movement: Able to Palpate Rate of Intake: WFL Bolus Size: WFL Labial Seal: WFL Chewing: Impaired (limited dentition) Oral Prep Time: WFL A-P Transit: WFL Pocketing: None Timing of Swallow: WFL Coughing/Throat Clear: No Change in Voice: No Recommendations - Speech Evaluation, Impression/Plan Impression: Limited dentition.verbal. swallowing intact - Dysphagia Impressions/Plan Swallowing Skills: WFL Dysphagia Impressions: No Impairment *Silent aspiration: cannot be R/O at bedside Dysphagia Treatment Plan: Elevate HOB during feed, OOB for meals, OOB for 1 h. after meals - Recommendations Diet Consistency: Regular (soft, easy to chew, chopped meat) Medication Administration: Whole with water Liquids: Thin Liquids
[2020-02-05] MEDS: CEFUROXIME AXETIL 250 MG TABLET PO SCH (11:37)
--- NOTE | 2020-02-05 12:20 | PN ---
Progress Note, Physician History of Present Illness: Pt seen in Er Chart is reviewed Awake. no distress chronic ill appearance generalized body aches afebrile - Current Medication List Current Medications: Active Medications Acetaminophen (Tylenol -) 650 mg PO Q6H PRN PRN Reason: PAIN LEVEL 6-10 Albuterol Sulfate (Ventolin 0.083% Nebulizer Soln -) 1 amp NEB Q4H PRN PRN Reason: SHORT OF BREATH/WHEEZING Aspirin (Asa -) 81 mg PO DAILY [facility] Last Admin: 02/05/20 11:37 Dose: 81 mg Documented by: Atorvastatin Calcium (Lipitor -) 80 mg PO HS [facility] Last Admin: 02/05/20 04:10 Dose: 80 mg Documented by: Cefuroxime Axetil (Ceftin -) 250 mg PO DAILY [facility] Last Admin: 02/05/20 11:37 Dose: 250 mg Documented by: Oxycodone/Acetaminophen (Percocet 5/325 -) 1 combo PO TID PRN PRN Reason: PAIN Rivaroxaban (Xarelto) 15 mg PO DAILY@1800 [facility] Tiotropium [place]/Olodaterol (Stiolto Respimat Inhal [place]) 1 puff IH ASDIR [facility] Last Admin: 02/05/20 04:10 Dose: 1 puff Documented by: Zolpidem Tartrate (Ambien -) 5 mg PO HS PRN PRN Reason: INSOMNIA - Objective Vital Signs: Vital Signs Temperature 97.9 F 02/05/20 07:15 Pulse Rate 76 02/05/20 07:15 Respiratory Rate 17 02/05/20 07:15 Blood Pressure 121/49 L 02/05/20 07:15 O2 Sat by Pulse Oximetry (%) 93 L 02/05/20 07:15 Constitutional: Yes: No Distress Neck: Yes: WNL, Supple Cardiovascular: Yes: Regular Rate and Rhythm Respiratory: Yes: CTA Bilaterally Gastrointestinal: Yes: Soft Edema: No Neurological: Yes: Pre-Existing Deficit (right side weakness) Labs: CBC, BMP 02/04/20 21:00 02/04/20 21:00 INR, PTT INR 1.00 (0.83-1.09) 02/04/20 21:00 Problem List - Problems (1) Weakness Code(s): R53.1 - WEAKNESS (2) CAD (coronary artery disease) Code(s): I25.10 - ATHSCL HEART DISEASE OF [place] CORONARY ARTERY W/O ANG PCTRS Qualifiers: Coronary Disease-Associated Artery/Lesion type: [place] artery [place] vs. transplanted heart: [place] heart Associated angina: with unstable angina Qualified Code(s): I25.110 - Atherosclerotic heart disease of [place] coronary artery with unstable angina pectoris (3) Chest pain Code(s): R07.9 - CHEST PAIN, UNSPECIFIED Qualifiers: Chest pain type: unspecified Qualified Code(s): R07.9 - Chest pain, unspecified Assessment/Plan Monitor on tele Neuro consult noted mri -ok Will consult Cardiology Will follow
--- NOTE | 2020-02-05 12:23 | CON.CARD ---
Consult Consult Specialty:: Cardiology Referred by:: Joellen Damon MD Reason for Consultation:: Paroxysmal afib - History of Present Illness Chief Complaint: Palpitations and chest tightness History of Present Illness: HISTORY OF PRESENT ILLNESS: 79 y.o. F PMHx CAD (s/p 2 stents), CVA (residual right sided weakness), A-fib (xarelto), HTN, COPD, HLD, CKD, OA. presented to ED due to reproducible chest pressure and palpitations while lying in bed, she reported feeling of something "heavy sitting on her chest" and a "racing heartbeat". Patient denied blurred vision, chills, SOB, N/V/D. At baseline patient has R sided weakness of both upper & lower extremities although she stated the decreased sensation to touch along her L side is new. As per family member patient is normally able to walk with a cane. When trying to stand on day of admission she became unstable and the family has noticed she has dysarthric when compared to baseline. Patient had recently came back from a trip to [place], has significant family Hx of diabetes and is retired from work. Being evaluated for possible new CVA undergoing stroke workup including MRI brain, carotid Dopplers, echo. Head CT and Cervical spine CT ordered and awaiting official report. Noncompliant with meds and outpatient f/u in past, seen by other cardiology teams during previous admissions w/o consistent f/u. Recent Travel: Return from [place] on january 18 PAST MEDICAL HISTORY: CAD (X2 stents), CVA, A-Fib, HTN, COPD, HLD, CKD, OA. PAST SURGICAL HISTORY: s/p 2 stent placements Social History: Smokin pack year Alcohol: None Drugs: None - History Source History Provided By: Patient Limitations to Obtaining History: No Limitations - Past Medical History Cardio/Vascular: Yes: AFIB (paroxysmal), CAD, HTN, NV. No: Aneurysm Pulmonary: Yes: COPD. No: Asthma - Past Surgical History Past Surgical History: Yes: Stent - Alcohol/Substance Use Hx Alcohol Use: No History of Substance Use: reports: None - Smoking History Smoking history: Current every day smoker Have you smoked in the past 12 months: Yes Aproximately how many cigarettes per day: 10 - Social History ADL: Independent History of Recent Travel: Yes (from [place] to [place] 2 days ago) Home Medications - Allergies Allergies/Adverse Reactions: Allergies Allergy/AdvReac Type Severity Reaction Status Date / Time Penicillins Allergy Mild Swelling Verified 02/04/20 20:37 - Home Medications Home Medications: Ambulatory Orders Oxycodone HCl/Acetaminophen [Endocet 5-325 Tablet] 1 each PO TID PRN 06/09/17 Zolpidem Tartrate 10 mg PO HS PRN 06/09/17 Albuterol 0.083% Nebulizer [place] [Ventolin 0.083% Nebulizer Soln -] 1 amp NEB Q4H PRN amp 06/11/17 Aspirin [ASA -] 81 mg PO DAILY tab.chew 06/11/17 Rivaroxaban [Xarelto] 15 mg PO DAILY@1800 #90 tablet 03/23/19 Irbesartan 75 mg PO DAILY 06/18/19 Nifedipine 10 mg PO DAILY 06/18/19 Tiotropium [place]/Olodaterol HCl [Stiolto Respimat Inhal [place]] 1 puff IH ASDIR 06/18/19 Review of Systems - Review of Systems Cardiovascular: reports: Chest Pain, Palpitations Vital Signs: Vital Signs Temperature 97.9 F 02/05/20 07:15 Pulse Rate 76 02/05/20 07:15 Respiratory Rate 17 02/05/20 07:15 Blood Pressure 121/49 L 02/05/20 07:15 O2 Sat by Pulse Oximetry (%) 93 L 02/05/20 07:15 Constitutional: Yes: No Distress, Calm, Thin Neck: Yes: Supple Respiratory: Yes: Regular, CTA Bilaterally Gastrointestinal: Yes: Soft, Hypoactive Bowel Sounds Cardiovascular: Yes: Regular Rate and Rhythm JVD: No Carotid Bruit: No Heart Sounds: Yes: S1, S2 Murmur: Yes: Systolic Murmur, Grade 1 Edema: No - Other Data Labs, Other Data: CBC, BMP 02/04/20 21:00 02/04/20 21:00 INR, PTT INR 1.00 (0.83-1.09) 02/04/20 21:00 Troponin, BNP 02/04/20 21:00 Troponin I < 0.02 Troponin, BNP 02/04/20 21:00 Troponin I < 0.02 NSR @ 88 Ejection Fraction %: LVEF > or = 40 % Imaging - Results Chest X-ray: Report Reviewed (Right base changes) Problem List - Problems (1) CAD (coronary artery disease) Code(s): I25.10 - ATHSCL HEART DISEASE OF [place] CORONARY ARTERY W/O ANG PCTRS Qualifiers: Coronary Disease-Associated Artery/Lesion type: [place] artery [place] vs. transplanted heart: [place] heart Associated angina: with unstable angina Qualified Code(s): I25.110 - Atherosclerotic heart disease of [place] coronary artery with unstable angina pectoris (2) Chest pain, rule out acute myocardial infarction Code(s): R07.9 - CHEST PAIN, UNSPECIFIED (3) HTN (hypertension) Code(s): I10 - ESSENTIAL (PRIMARY) HYPERTENSION Qualifiers: Hypertension type: essential hypertension Qualified Code(s): I10 - Essential (primary) hypertension (4) Paroxysmal a-fib Code(s): I48.0 - PAROXYSMAL ATRIAL FIBRILLATION (5) TIA (transient ischemic attack) Code(s): G45.9 - TRANSIENT CEREBRAL ISCHEMIC ATTACK, UNSPECIFIED Assessment/Plan [facility] 2013: Xience CORONA to OM1 (for ISR). remainder nonobstructive. nl EF Echo 2016: nl LV. nl RV. mod-severe AI mod TR. RVSP 30-40. Echo 03/2019: nl lv, rv tds, mod-sev ar, mild tr, mild mr, nl rvsp 1. Palpitations, chest pain likely referable to recurrent paroxysmal afib now in SR on Xarelto 2. H/o CVA with residual right sided weakness, r/o recurrence 3. CAD h/o NV's with PCI's 2008, 2012, and again 08/2016 at which time she underwent PCI RCA 4. HTN 5. COPD 6. Hyperlipidemia 7. CKD 8. Diastolic dysfunction with mod-severe AI P:1. Ruling out for NV, f/u TSH, echocardiogram, lipid panel, carotid US and brain MRI, Covid abx 2. Change Procardia to Cardizem CD 120 qd, resume Avapro equivalent as hemodynamics tolerate once renal fxn at baseline, Xarelto 15 qd (renal-dosed), d/c concomitant ASA on DOAC as CAD stable 3. Thank you for consultative oppportunity, outpatient MPI to evaluate for severity of CAD once stable
[2020-02-05] MEDS: RIVAROXABAN 15 MG TABLET PO SCH (18:49)
--- NOTE | 2020-02-05 23:59 | PN.NIHSS ---
NIH Stroke Scale - Initial Evaluation Level of consciousness: Alert Ask patient the month and their age: Answers both correctly Ask patient to open & close eyes; make fist and let go: Obeys both correctly Best gaze (horizontal eye movement): Partial gaze palsy Visual field testing: Partial hemianopia Facial paresis (Show teeth/raise eyebrows/close eyes tight): Minor paralysis (flattened nasolabial fold, asymmetry on smiling) Motor Function: Left Arm: Normal Motor Function: Right Arm: Drift Motor Function: Left Leg: Some effort against gravity Motor Function: Right Leg: No effort against gravity Limb Ataxia: No ataxia Sensory(Use pinprick test arms,legs,trunk,face/side to side): Mild to moderate decrease in sensation Best language (Describe picture, name items, read sentences): No Aphasia Dysarthria (read several words): Mild to moderate slurring of words Extinction and Inattention: No abnormality - Total Score NIH Stroke Scale Score: 11
[2020-02-06] MEDS: TIOTROPIUM/OLODATEROL HCL (STIOLTO) 4 GM INHALER IH SCH (03:51)
[2020-02-06] MEDS ORDERED: PT OWN MED DRAWER 7, Y5N ONE (09:34)
[2020-02-06] MEDS: CEFUROXIME AXETIL 250 MG TABLET PO SCH (09:37)
--- NOTE | 2020-02-06 10:12 | PN ---
Progress Note (short form) - Note Progress Note: Chief Complaint: Events noted, notes reviewed, resting in bed, denies any chest discomfort, denies dyspnea, orthopnea or paroxysmal nocturnal dyspnea History of Present Illness: Seen and examined on telemetry. Events noted, notes reviewed, resting in bed, denies any chest discomfort, denies dyspnea, orthopnea or paroxysmal nocturnal dyspnea Medications: Current Medications Generic Name Dose Route Start Last Admin Trade Name Freq PRN Reason Stop Dose Admin Acetaminophen 650 mg 02/05/20 03:11 Tylenol - PO Q6H PRN PAIN LEVEL 6-10 Albuterol Sulfate 1 amp 02/05/20 03:31 Ventolin 0.083% Nebulizer Soln - NEB Q4H PRN SHORT OF BREATH/WHEEZING Atorvastatin Calcium 80 mg 02/05/20 03:18 02/05/20 22:44 Lipitor - PO 80 mg HS [facility] Administration Cefuroxime Axetil 250 mg 02/05/20 10:00 02/06/20 09:37 Ceftin - PO 250 mg DAILY [facility] Administration Diltiazem HCl 120 mg 02/06/20 10:00 02/06/20 09:38 Cardizem Cd - PO 120 mg DAILY [facility] Administration Oxycodone/Acetaminophen 1 combo 02/05/20 03:31 Percocet 5/325 - PO TID PRN PAIN Rivaroxaban 15 mg 02/05/20 18:00 02/05/20 18:49 Xarelto PO 15 mg DAILY@1800 [facility] Administration Tiotropium [place]/Olodaterol 1 puff 02/05/20 03:45 02/06/20 03:51 Stiolto Respimat Inhal [place] [facility] Not Given [facility] Zolpidem Tartrate 5 mg 02/05/20 03:56 Ambien - PO HS PRN INSOMNIA Review of Systems - Review of Systems Constitutional: denies: Fever or Chills Cardiovascular: As noted above Respiratory: denies: Cough or Sputum Production Gastrointestinal: denies: Nausea, Vomiting, Diarrhea, Constipation, Abdominal Pain Neurological: denies: Headaches Vital Signs: Last Vital Signs Temp Pulse Resp BP Pulse Ox 98.3 F 75 20 153/59 L 96 02/06/20 09:03 02/06/20 09:03 02/06/20 09:03 02/06/20 09:03 02/05/20 22:08 Intake & Output 02/03/20 02/04/20 02/05/20 02/06/20 23:59 23:59 23:59 23:59 Intake Total 120 Balance 120 Weight 126 lb 126 lb Neck: Supple Negative JVD No Bruit Respiratory: Diminished breath sounds at the bases bilaterally Cardiovascular: S1 S2 Regular Rate and Rhythm Gastrointestinal: Soft Benign Normal Bowel Sounds Ext: Negative Edema Labs: CBC, BMP 02/04/20 21:00 02/04/20 21:00 Hepatic Panel Total Bilirubin 0.3 mg/dL (0.2-1) 02/04/20 21:00 AST 23 U/L (15-37) 02/04/20 21:00 ALT 14 U/L (13-61) 02/04/20 21:00 Alkaline Phosphatase 135 U/L (45-117) H 02/04/20 21:00 Albumin 3.5 g/dl (3.4-5.0) 02/04/20 21:00 INR, PTT INR 1.00 (0.83-1.09) 02/04/20 21:00 Assessment/Plan ASSESSMENT: 1. Palpitations referable to recurrent paroxysmal atrial fibrillation currently in sinus rhythm [id number] score of 7 on DOAC's/Xarelto 2. 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 Diastolic left ventricular dysfunction with clinical class 0-I [place] [employer] classification left ventricular failure, clinically compensate d/euvolemic 4. Aortic valve regurgitation, moderate to severe in severity 5. History of cerebrovascular disease with residual deficit 6. Hypertensive cardiovascular disease 7. Hypercholesterolemia 8. Chronic obstructive pulmonary disease 9. Chronic kidney disease PLAN: 1. Continue Cardizem CD therapy pending LVEF evaluation 2. Recommend the addition of beta-reymundo therapy unless it is absolutely contraindicated 3. Recommend resumption of angiotensin receptor reymundo therapy unless it is absolutely contraindicated 4. Recommend continuation of DOAC's/Xarelto- appropriate dosage therapy, currently off of Ecotrin therapy- stable coronary artery disease 5. Continue Lipitor therapy 6. Echocardiography study for evaluation of left ventricular systolic function and valvular function Concha Sepulveda M.D.
--- NOTE | 2020-02-06 10:38 | PN ---
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 Progress Note: MRI (-)\ Selected Entries 02/05/20 02/05/20 02/05/20 01:19 07:15 18:00 Temperature 98.1 F 97.9 F 98.1 F Pulse Rate Pulse Rate [ 83 76 85 Right Radial] Blood Pressure Blood Pressure 109/52 L 121/49 L 114/51 L [Left Arm] 02/05/20 02/05/20 02/06/20 19:25 22:08 02:00 Temperature 98.0 F 97.9 F 98 F Pulse Rate 89 88 Pulse Rate [ 87 Right Radial] Blood Pressure 146/66 128/61 Blood Pressure 137/46 L [Left Arm] 02/06/20 02/06/20 06:00 09:03 Temperature 98.2 F 98.3 F Pulse Rate 82 75 Pulse Rate [ Right Radial] Blood Pressure 133/59 L 153/59 L Blood Pressure [Left Arm] Laboratory Tests 02/04/20 02/05/20 21:00 02:40 WBC 8.0 COVID-19 ([facility]) Pending On reg diet/thin liquids Limited PO intake, dislikes the food. Encourage supplements eg Ensure, magic cup, soup,pudding, RD re pt prefernces?
--- NOTE | 2020-02-06 13:08 | PN ---
Progress Note (short form) - Note Progress Note: Events noted Pt does not want to eat had PT today Vital Signs - 24 hr 02/05/20 02/05/20 02/05/20 18:00 19:25 22:08 Temperature 98.1 F 98.0 F 97.9 F Pulse Rate 89 Pulse Rate [ 85 87 Right Radial] Respiratory 20 17 18 Rate Blood Pressure 146/66 Blood Pressure 114/51 L 137/46 L [Left Arm] O2 Sat by Pulse 95 95 96 Oximetry (%) 02/06/20 02/06/20 02/06/20 02:00 06:00 09:00 Temperature 98 F 98.2 F Pulse Rate 88 82 Pulse Rate [ Right Radial] Respiratory 18 18 Rate Blood Pressure 128/61 133/59 L Blood Pressure [Left Arm] O2 Sat by Pulse 97 Oximetry (%) 02/06/20 09:03 Temperature 98.3 F Pulse Rate 75 Pulse Rate [ Right Radial] Respiratory 20 Rate Blood Pressure 153/59 L Blood Pressure [Left Arm] O2 Sat by Pulse Oximetry (%) Current Medications Generic Name Dose Route Start Last Admin Trade Name Freq PRN Reason Stop Dose Admin Acetaminophen 650 mg 02/05/20 03:11 Tylenol - PO Q6H PRN PAIN LEVEL 6-10 Albuterol Sulfate 1 amp 02/05/20 03:31 Ventolin 0.083% Nebulizer Soln - NEB Q4H PRN SHORT OF BREATH/WHEEZING Atorvastatin Calcium 80 mg 02/05/20 03:18 02/05/20 22:44 Lipitor - PO 80 mg HS GUST[facility]O Administration Cefuroxime Axetil 250 mg 02/05/20 10:00 02/06/20 09:37 Ceftin - PO 250 mg DAILY [facility] Administration Diltiazem HCl 120 mg 02/06/20 10:00 02/06/20 09:38 Cardizem Cd - PO 120 mg DAILY [facility] Administration Oxycodone/Acetaminophen 1 combo 02/05/20 03:31 Percocet 5/325 - PO TID PRN PAIN Rivaroxaban 15 mg 02/05/20 18:00 02/05/20 18:49 Xarelto PO 15 mg DAILY@1800 [facility] Administration Tiotropium [place]/Olodaterol 1 puff 02/05/20 03:45 02/06/20 03:51 Stiolto Respimat Inhal [place] IH Not Given ASDIR [facility] Zolpidem Tartrate 5 mg 02/05/20 03:56 Ambien - PO HS PRN INSOMNIA S1 S2 RRR Lungs clear Abd- soft, NT NO edema right sided weakness A/P Weakness - possible TIA-- negative MRI brain HTN UTI h/o CVA- rt sided weakness CKD-- baseline creatinine- 1.8 -- PT eval -- add supplements -- ordered Echo -- Cardiology eval noted-- will start ARB- monitor renal function -- continue with meds -- dc planning Problem List - Problems (1) Slurred speech Code(s): R47.81 - SLURRED SPEECH (2) Weakness Code(s): R53.1 - WEAKNESS (3) CAD (coronary artery disease) Code(s): I25.10 - ATHSCL HEART DISEASE OF [place] CORONARY ARTERY W/O ANG PCTRS Qualifiers: Coronary Disease-Associated Artery/Lesion type: [place] artery [place] vs. transplanted heart: [place] heart Associated angina: with unstable angina Qualified Code(s): I25.110 - Atherosclerotic heart disease of [place] coronary artery with unstable angina pectoris (4) HTN (hypertension) Code(s): I10 - ESSENTIAL (PRIMARY) HYPERTENSION Qualifiers: Hypertension type: essential hypertension Qualified Code(s): I10 - Essential (primary) hypertension (5) Paroxysmal a-fib Code(s): I48.0 - PAROXYSMAL ATRIAL FIBRILLATION (6) TIA (transient ischemic attack) Code(s): G45.9 - TRANSIENT CEREBRAL ISCHEMIC ATTACK, UNSPECIFIED
--- NOTE | 2020-02-06 14:21 | PN ---
Progress Note (short form) - Note Progress Note: Neurology HISTORY OF PRESENT ILLNESS: 79 y.o. F PMHx CAD (s/p 2 stents), CVA (residual right sided weakness), A-fib (xarelto), HTN, COPD, HLD, CKD, OA. Presented to ED due to L sided chest pain over the 2nd and 3rd intercostal spaces. Patient stated she was lying in bed when she began to have the feeling of something "heavy sitting on her chest" and a "racing heartbeat". The pain was rated at an 8/10 intensity, non-radiating and has not improved since onset. Patient stated she has been experiencing dizziness, headache, and the L sided chest pain that was reproducible upon palpation. Patient denied blurred vision, chills, SOB, N/V/D. At baseline patient has R sided weakness of both upper & lower extremities although she stated the decreased sensation to touch along her L side is new. As per family member patient is normally able to walk with a cane. When trying to stand on day of admission she became unstable and the family has noticed she has dysarthric when compared to baseline. Patient had recently came back from a trip to [place], has significant family Hx of diabetes and is retired from work. Contacted by ER overnight regarding presention and eval for possible new CVA. Head CT head without acute changes. MRI brain compelted and reviewed, no acute infarct noted. Carotid dopplers without hemodynamically significant stenosis, Echo ordered. Ordered Lipid profile, no LDL on file for visit. Reduced statin to 40 since no CVA on MRI. Statin can be adjusted with goal LDL of <100. Active Medications Acetaminophen (Tylenol -) 650 mg PO Q6H PRN PRN Reason: PAIN LEVEL 6-10 Albuterol Sulfate (Ventolin 0.083% Nebulizer Soln -) 1 amp NEB Q4H PRN PRN Reason: SHORT OF BREATH/WHEEZING Atorvastatin Calcium (Lipitor -) 80 mg PO HS [facility] Last Admin: 02/05/20 22:44 Dose: 80 mg Documented by: Cefuroxime Axetil (Ceftin -) 250 mg PO DAILY [facility] Last Admin: 02/06/20 09:37 Dose: 250 mg Documented by: Diltiazem HCl (Cardizem Cd -) 120 mg PO DAILY [facility] Last Admin: 02/06/20 09:38 Dose: 120 mg Documented by: Oxycodone/Acetaminophen (Percocet 5/325 -) 1 combo PO TID PRN PRN Reason: PAIN Rivaroxaban (Xarelto) 15 mg PO DAILY@1800 [facility] Last Admin: 02/05/20 18:49 Dose: 15 mg Documented by: Tiotropium [place]/Olodaterol (Stiolto Respimat Inhal [place]) 1 puff IH ASDIR [facility] Last Admin: 02/06/20 03:51 Dose: Not Given Documented by: Valsartan (Diovan -) 40 mg PO DAILY [facility] Zolpidem Tartrate (Ambien -) 5 mg PO HS PRN PRN Reason: INSOMNIA PHYSICAL EXAMINATION Vital Signs Period Temp Pulse Resp BP Sys/Saucedo Pulse Ox Last 24 Hr 97.9 F-98.3 F 75-89 17-20 114-153/46-66 95-97 GENERAL: Awake, alert, and fully oriented, in no acute distress. HEAD: Normal with no signs of trauma. EYES: Pupils equal, round and reactive to light, extraocular movements intact, sclera anicteric, conjunctiva clear. EARS, NOSE, THROAT: Ears normal, nares patent, oropharynx clear without exudates. Moist mucous membranes. NECK: JVD, or masses. LUNGS: Coarse breath sounds bilaterally. No wheezes, and no crackles. No accessory muscle use. HEART: 3/6 Holosystolic blowing murmur. ABDOMEN: Soft, nontender, not distended, normoactive bowel sounds, no guarding, no rebound, no masses. MUSCULOSKELETAL: Limited ROM in the R LE, moderate ROM in the L LE , UE ROM normal. UPPER EXTREMITIES: 2+ pulses, warm, well-perfused. No cyanosis. No clubbing. No peripheral edema. LOWER EXTREMITIES: 2+ pulses, warm, well-perfused. No calf tenderness. No peripheral edema. NEUROLOGICAL: Awake, alert, hesitation in speech, RUE 4-/5. RLE 4-/5, left 5- /5, sensory intact on L PSYCHIATRIC: Cooperative. Good eye contact. Appropriate mood and affect. SKIN: Warm, dry, normal turgor, no rashes or lesions noted, normal capillary refill. CBCD WBC 8.0 K/mm3 (4.0-10.0) 02/04/20 21:00 RBC 4.73 M/mm3 (3.60-5.2) 02/04/20 21:00 Hgb 11.8 GM/dL (10.7-15.3) 02/04/20 21:00 Hct 36.2 % (32.4-45.2) 02/04/20 21:00 MCV 76.4 fl (80-96) L 02/04/20 21:00 MCHC 32.7 g/dl (32.0-36.0) 02/04/20 21:00 RDW 16.3 % (11.6-15.6) H 02/04/20 21:00 Plt Count 356 K/MM3 (134-434) 02/04/20 21:00 MPV 8.5 fl (7.5-11.1) 02/04/20 21:00 CMP Sodium 139 mmol/L (136-145) 02/04/20 21:00 Potassium 5.1 mmol/L (3.5-5.1) 02/04/20 21:00 Chloride 106 mmol/L (98-107) 02/04/20 21:00 Carbon Dioxide 26 mmol/L (21-32) 02/04/20 21:00 Anion Gap 7 MMOL/L (8-16) L 02/04/20 21:00 BUN 20.0 mg/dL (7-18) H 02/04/20 21:00 Creatinine 1.8 mg/dL (0.55-1.3) H 02/04/20 21:00 Calcium 9.1 mg/dL (8.5-10.1) 02/04/20 21:00 Total Bilirubin 0.3 mg/dL (0.2-1) 02/04/20 21:00 AST 23 U/L (15-37) 02/04/20 21:00 ALT 14 U/L (13-61) 02/04/20 21:00 Alkaline Phosphatase 135 U/L (45-117) H 02/04/20 21:00 Total Protein 8.1 g/dl (6.4-8.2) 02/04/20 21:00 Albumin 3.5 g/dl (3.4-5.0) 02/04/20 21:00 ASSESSMENT/PLAN: 79 y.o. F PMHx CAD (s/p 2 stents), CVA (residual right sided weakness), A-fib (xarelto), HTN, COPD, HLD, CKD, OA. Presented to ED due to L sided chest pain over the 2nd and 3rd intercostal spaces. Patient stated she was lying in bed when she began to have the feeling of something "heavy sitting on her chest" and a "racing heartbeat". The pain was rated at an 8/10 intensity, non-radiating and has not improved since onset. Patient stated she has been experiencing dizziness, headache, and the L sided chest pain that was reproducible upon palpation. Patient denied blurred vision, chills, SOB, N/V/D. At baseline patient has R sided weakness of both upper & lower extremities although she stated the decreased sensation to touch along her L side is new. As per family member patient is normally able to walk with a cane. When trying to stand on day of admission she became unstable and the family has noticed she has dysarthric when compared to baseline. Patient had recently came back from a trip to [place], has significant family Hx of diabetes and is retired from work. Contacted by ER overnight regarding presention and eval for possible new CVA. Head CT head without acute changes. MRI brain compelted and reviewed, no acute infarct noted. Carotid dopplers without hemodynamically significant stenosis, Echo ordered. Ordered Lipid profile, no LDL on file for visit. Reduced statin to 40 since no CVA on MRI. Statin can be adjusted with goal LDL of <100. Physical therapy recommended, fall precautions. Monitor blood pressure, maintain < 140/90. Cardiology follow up. DVT ppx.
[2020-02-06] MEDS: VALSARTAN 40 MG TABLET (FP) PO SCH (15:38)
[2020-02-06] MEDS: RIVAROXABAN 15 MG TABLET PO SCH (18:47)
[2020-02-06] MEDS: ZOLPIDEM TARTRATE 5 MG TABLET PO PRN (21:18)
[2020-02-06] MEDS: ATORVASTATIN CA 40 MG TABLET (FP) PO SCH (21:18)
[2020-02-07] MEDS: TIOTROPIUM/OLODATEROL HCL (STIOLTO) 4 GM INHALER IH SCH ×2 (06:17→10:48)
[2020-02-07 07:52] LABS: BLOOD UREA NITROGEN 18.9 mg/dL (7-18); CALCIUM 9.2 mg/dL (8.5-10.1); CREATININE 1.5 mg/dL (0.55-1.3)
--- NOTE | 2020-02-07 08:38 | PN ---
Progress Note (short form) - Note Progress Note: Neurology HISTORY OF PRESENT ILLNESS: 79 y.o. F PMHx CAD (s/p 2 stents), CVA (residual right sided weakness), A-fib (xarelto), HTN, COPD, HLD, CKD, OA. Presented to ED due to L sided chest pain over the 2nd and 3rd intercostal spaces. Patient stated she was lying in bed when she began to have the feeling of something "heavy sitting on her chest" and a "racing heartbeat". The pain was rated at an 8/10 intensity, non-radiating and has not improved since onset. Patient stated she has been experiencing dizziness, headache, and the L sided chest pain that was reproducible upon palpation. Patient denied blurred vision, chills, SOB, N/V/D. At baseline patient has R sided weakness of both upper & lower extremities although she stated the decreased sensation to touch along her L side is new. As per family member patient is normally able to walk with a cane. When trying to stand on day of admission she became unstable and the family has noticed she has dysarthric when compared to baseline. Patient had recently came back from a trip to [place], has significant family Hx of diabetes and is retired from work. Contacted by ER overnight regarding presention and eval for possible new CVA. Head CT head without acute changes. MRI brain compelted and reviewed, no acute infarct noted. Carotid dopplers without hemodynamically significant stenosis, Echo ordered. Ordered Lipid profile, LDL 137. Reduced statin to 40 since no CVA on MRI. Statin can be adjusted with goal LDL of <100 as outpatient. Patient inquiring about discharge,, neurologically stable at this time Active Medications Acetaminophen (Tylenol -) 650 mg PO Q6H PRN PRN Reason: PAIN LEVEL 6-10 Albuterol Sulfate (Ventolin 0.083% Nebulizer Soln -) 1 amp NEB Q4H PRN PRN Reason: SHORT OF BREATH/WHEEZING Atorvastatin Calcium (Lipitor -) 40 mg PO [facility] Last Admin: 02/06/20 21:18 Dose: 40 mg Documented by: Cefuroxime Axetil (Ceftin -) 250 mg PO DAILY [facility] Last Admin: 02/06/20 09:37 Dose: 250 mg Documented by: Diltiazem HCl (Cardizem Cd -) 120 mg PO DAILY [facility] Last Admin: 02/06/20 09:38 Dose: 120 mg Documented by: Oxycodone/Acetaminophen (Percocet 5/325 -) 1 combo PO TID PRN PRN Reason: PAIN Rivaroxaban (Xarelto) 15 mg PO DAILY@1800 [facility] Last Admin: 02/06/20 18:47 Dose: 15 mg Documented by: Tiotropium [place]/Olodaterol (Stiolto Respimat Inhal [place]) 2 puff IH DAILY [facility] Valsartan (Diovan -) 40 mg PO DAILY [facility] Last Admin: 02/06/20 15:38 Dose: 40 mg Documented by: Zolpidem Tartrate (Ambien -) 5 mg PO HS PRN PRN Reason: INSOMNIA Last Admin: 02/06/20 21:18 Dose: 5 mg Documented by: PHYSICAL EXAMINATION Vital Signs Period Temp Pulse Resp BP Sys/Saucedo Pulse Ox Last 24 Hr 97.7 F-98.5 F 62-80 19-20 110-153/53-76 96-97 GENERAL: Awake, alert, and fully oriented, in no acute distress. HEAD: Normal with no signs of trauma. EYES: Pupils equal, round and reactive to light, extraocular movements intact, sclera anicteric, conjunctiva clear. EARS, NOSE, THROAT: Ears normal, nares patent, oropharynx clear without exudates. Moist mucous membranes. NECK: JVD, or masses. LUNGS: Coarse breath sounds bilaterally. No wheezes, and no crackles. No accessory muscle use. HEART: 3/6 Holosystolic blowing murmur. ABDOMEN: Soft, nontender, not distended, normoactive bowel sounds, no guarding, no rebound, no masses. MUSCULOSKELETAL: Limited ROM in the R LE, moderate ROM in the L LE , UE ROM normal. UPPER EXTREMITIES: 2+ pulses, warm, well-perfused. No cyanosis. No clubbing. No peripheral edema. LOWER EXTREMITIES: 2+ pulses, warm, well-perfused. No calf tenderness. No peripheral edema. NEUROLOGICAL: Awake, alert, hesitation in speech, RUE 4-/5. RLE 4-/5, left 5- /5, sensory intact on L PSYCHIATRIC: Cooperative. Good eye contact. Appropriate mood and affect. SKIN: Warm, dry, normal turgor, no rashes or lesions noted, normal capillary refill. CBCD WBC 8.0 K/mm3 (4.0-10.0) 02/04/20 21:00 RBC 4.73 M/mm3 (3.60-5.2) 02/04/20 21:00 Hgb 11.8 GM/dL (10.7-15.3) 02/04/20 21:00 Hct 36.2 % (32.4-45.2) 02/04/20 21:00 MCV 76.4 fl (80-96) L 02/04/20 21:00 MCHC 32.7 g/dl (32.0-36.0) 02/04/20 21:00 RDW 16.3 % (11.6-15.6) H 02/04/20 21:00 Plt Count 356 K/MM3 (134-434) 02/04/20 21:00 MPV 8.5 fl (7.5-11.1) 02/04/20 21:00 CMP Sodium 141 mmol/L (136-145) 02/07/20 06:33 Potassium 4.0 mmol/L (3.5-5.1) 02/07/20 06:33 Chloride 107 mmol/L (98-107) 02/07/20 06:33 Carbon Dioxide 26 mmol/L (21-32) 02/07/20 06:33 Anion Gap 9 MMOL/L (8-16) 02/07/20 06:33 BUN 18.9 mg/dL (7-18) H 02/07/20 06:33 Creatinine 1.5 mg/dL (0.55-1.3) H 02/07/20 06:33 Random Glucose 89 mg/dL (74-106) 02/07/20 06:33 Calcium 9.2 mg/dL (8.5-10.1) 02/07/20 06:33 Total Bilirubin 0.3 mg/dL (0.2-1) 02/04/20 21:00 AST 23 U/L (15-37) 02/04/20 21:00 ALT 14 U/L (13-61) 02/04/20 21:00 Alkaline Phosphatase 135 U/L (45-117) H 02/04/20 21:00 Total Protein 8.1 g/dl (6.4-8.2) 02/04/20 21:00 Albumin 3.5 g/dl (3.4-5.0) 02/04/20 21:00 CARDIAC ENZYMES Creatine Kinase 71 U/L (26-192) 02/04/20 21:00 Troponin I < 0.02 ng/ml (0.00-0.05) 02/04/20 21:00 ASSESSMENT/PLAN: 79 y.o. F PMHx CAD (s/p 2 stents), CVA (residual right sided weakness), A-fib (xarelto), HTN, COPD, HLD, CKD, OA. Presented to ED due to L sided chest pain over the 2nd and 3rd intercostal spaces. Patient stated she was lying in bed when she began to have the feeling of something "heavy sitting on her chest" and a "racing heartbeat". The pain was rated at an 8/10 intensity, non-radiating and has not improved since onset. Patient stated she has been experiencing dizziness, headache, and the L sided chest pain that was reproducible upon p alpation. Patient denied blurred vision, chills, SOB, N/V/D. At baseline patient has R sided weakness of both upper & lower extremities although she stated the decreased sensation to touch along her L side is new. As per family member patient is normally able to walk with a cane. When trying to stand on day of admission she became unstable and the family has noticed she has dysarthric when compared to baseline. Patient had recently came back from a trip to [place], has significant family Hx of diabetes and is retired from work. Contacted by ER overnight regarding presention and eval for possible new CVA. Head CT head without acute changes. MRI brain compelted and reviewed, no acute infarct noted. Carotid dopplers without hemodynamically significant stenosis, Echo ordered. Ordered Lipid profile, LDL 137. Reduced statin to 40 since no CVA on MRI. Statin can be adjusted with goal LDL of <100 as outpatient. Patient inquiring about discharge,, neurologically stable at this time. Physical therapy recommended, fall precautions. Monitor blood pressure, maintain < 140/90. Cardiology follow up. DVT ppx.
--- NOTE | 2020-02-07 09:20 | PN ---
Progress Note, Physician History of Present Illness: Denies recurrence in chest discomfort or palpitations, denies dyspnea, orthopnea or paroxysmal nocturnal dyspnea, remains in NSR. - Current Medication List Current Medications: Active Medications Acetaminophen (Tylenol -) 650 mg PO Q6H PRN PRN Reason: PAIN LEVEL 6-10 Albuterol Sulfate (Ventolin 0.083% Nebulizer Soln -) 1 amp NEB Q4H PRN PRN Reason: SHORT OF BREATH/WHEEZING Atorvastatin Calcium (Lipitor -) 40 mg PO HS [facility] Last Admin: 02/06/20 21:18 Dose: 40 mg Documented by: Cefuroxime Axetil (Ceftin -) 250 mg PO DAILY [facility] Last Admin: 02/06/20 09:37 Dose: 250 mg Documented by: Diltiazem HCl (Cardizem Cd -) 120 mg PO DAILY [facility] Last Admin: 02/06/20 09:38 Dose: 120 mg Documented by: Oxycodone/Acetaminophen (Percocet 5/325 -) 1 combo PO TID PRN PRN Reason: PAIN Rivaroxaban (Xarelto) 15 mg PO DAILY@1800 [facility] Last Admin: 02/06/20 18:47 Dose: 15 mg Documented by: Tiotropium [place]/Olodaterol (Stiolto Respimat Inhal [place]) 2 puff IH DAILY [facility] Valsartan (Diovan -) 40 mg PO DAILY [facility] Last Admin: 02/06/20 15:38 Dose: 40 mg Documented by: Zolpidem Tartrate (Ambien -) 5 mg PO HS PRN PRN Reason: INSOMNIA Last Admin: 02/06/20 21:18 Dose: 5 mg Documented by: - Objective Vital Signs: Vital Signs Temperature 98.1 F 02/07/20 06:00 Pulse Rate 75 02/07/20 06:00 Respiratory Rate 20 02/07/20 06:00 Blood Pressure 110/53 L 02/07/20 06:00 O2 Sat by Pulse Oximetry (%) 96 02/06/20 21:00 Constitutional: Yes: No Distress, Calm Neck: Yes: Supple Cardiovascular: Yes: Regular Rate and Rhythm, Murmur (2/6 DM) Respiratory: Yes: Regular, CTA Bilaterally Gastrointestinal: Yes: Normal Bowel Sounds, Soft Edema: No Labs: CBC, BMP 02/04/20 21:00 02/07/20 06:33 INR, PTT INR 1.00 (0.83-1.09) 02/04/20 21:00 - ....Imaging EKG: Report Reviewed (Tele: NSR w/o PAF) Problem List - Problems (1) CAD (coronary artery disease) Code(s): I25.10 - ATHSCL HEART DISEASE OF [place] CORONARY ARTERY W/O ANG PCTRS Qualifiers: Coronary Disease-Associated Artery/Lesion type: [place] artery [place] vs. transplanted heart: [place] heart Associated angina: with unstable angina Qualified Code(s): I25.110 - Atherosclerotic heart disease of [place] coronary artery with unstable angina pectoris (2) Chest pain, rule out acute myocardial infarction Code(s): R07.9 - CHEST PAIN, UNSPECIFIED (3) HTN (hypertension) Code(s): I10 - ESSENTIAL (PRIMARY) HYPERTENSION Qualifiers: Hypertension type: essential hypertension Qualified Code(s): I10 - Essential (primary) hypertension (4) Paroxysmal a-fib Code(s): I48.0 - PAROXYSMAL ATRIAL FIBRILLATION (5) TIA (transient ischemic attack) Code(s): G45.9 - TRANSIENT CEREBRAL ISCHEMIC ATTACK, UNSPECIFIED Assessment/Plan [facility] 2013: Xience CORONA to OM1 (for ISR). remainder nonobstructive. nl EF Echo 2016: nl LV. nl RV. mod-severe AI mod TR. RVSP 30-40. Echo 03/2019: nl lv, rv tds, mod-sev ar, mild tr, mild mr, nl rvsp 1. Palpitations referable to recurrent paroxysmal atrial fibrillation currently in sinus rhythm [id number] score of 7 on DOAC's/Xarelto 2. 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 Diastolic left ventricular dysfunction with clinical class 0-I [place] [employer] classification left ventricular failure, clinically compensated/euvolemic 4. Aortic valve regurgitation, moderate to severe in severity 5. History of cerebrovascular disease with residual deficit 6. Hypertensive cardiovascular disease 7. Hypercholesterolemia 8. Chronic obstructive pulmonary disease 9. Chronic kidney disease PLAN: 1. Continue Cardizem CD 120 qd pending LVEF evaluation 2. Continue Diovan 40 qd 3. Recommend continuation of DOAC's/Xarelto 15 qd (renal-dosing), currently off of Ecotrin therapy- stable coronary artery disease 4. Continue Lipitor 40 qhs 5. Echocardiography study for evaluation of left ventricular systolic function and valvular function 6. BD, O2, complete empiric oral abx course, d/c planning with f/u in cardiology office
[2020-02-07] MEDS: CEFUROXIME AXETIL 250 MG TABLET PO SCH (10:47)
[2020-02-07] MEDS: VALSARTAN 40 MG TABLET (FP) PO SCH (10:48)
--- NOTE | 2020-02-07 13:25 | PN ---
Progress Note (short form) - Note Progress Note: Events noted no complaints wants to go home Vital Signs - 24 hr 02/06/20 02/06/20 02/06/20 14:00 18:00 21:00 Temperature 98.2 F 97.7 F 98.5 F Pulse Rate 80 71 74 Respiratory 20 19 20 Rate Blood Pressure 140/76 140/63 138/62 O2 Sat by Pulse 96 Oximetry (%) 02/07/20 02/07/20 02/07/20 02:00 06:00 10:00 Temperature 97.8 F 98.1 F 98.2 F Pulse Rate 62 75 70 Respiratory 20 20 19 Rate Blood Pressure 137/61 110/53 L 132/59 L O2 Sat by Pulse Oximetry (%) Current Medications Generic Name Dose Route Start Last Admin Trade Name Freq PRN Reason Stop Dose Admin Acetaminophen 650 mg 02/05/20 03:11 Tylenol - PO Q6H PRN PAIN LEVEL 6-10 Albuterol Sulfate 1 amp 02/05/20 03:31 Ventolin 0.083% Nebulizer Soln - NEB Q4H PRN SHORT OF BREATH/WHEEZING Atorvastatin Calcium 40 mg 02/06/20 22:00 02/06/20 21:18 Lipitor - PO 40 mg HS [facility] Administration Cefuroxime Axetil 250 mg 02/05/20 10:00 02/07/20 10:47 Ceftin - PO 250 mg DAILY [facility] Administration Diltiazem HCl 120 mg 02/06/20 10:00 02/07/20 10:48 Cardizem Cd - PO 120 mg DAILY [facility] Administration Oxycodone/Acetaminophen 1 combo 02/05/20 03:31 Percocet 5/325 - PO TID PRN PAIN Rivaroxaban 15 mg 02/05/20 18:00 02/06/20 18:47 Xarelto PO 15 mg DAILY@1800 [facility] Administration Tiotropium [place]/Olodaterol 2 puff 02/07/20 10:00 02/07/20 10:48 Stiolto Respimat Inhal [place] IH 2 puff DAILY [facility] Administration Valsartan 40 mg 02/06/20 13:15 02/07/20 10:48 Diovan - PO 40 mg DAILY [facility] Administration Zolpidem Tartrate 5 mg 02/05/20 03:56 02/06/20 21:18 Ambien - PO 5 mg HS PRN Administration INSOMNIA Laboratory Results - last 24 hr 02/07/20 06:33 Sodium 141 Potassium 4.0 Chloride 107 Carbon Dioxide 26 Anion Gap 9 BUN 18.9 H Creatinine 1.5 H Est GFR (CKD-EPI)AfAm 37.74 Est GFR (CKD-EPI)NonAf 32.56 Random Glucose 89 Calcium 9.2 Triglycerides 213 H Cholesterol 219 H Total LDL Cholesterol 137 H HDL Cholesterol 38 L S1 S2 RRR Lungs clear Abd- soft, NT NO edema right sided weakness A/P Weakness - possible TIA-- negative MRI brain HTN UTI h/o CVA- rt sided weakness CKD-- baseline creatinine- 1.8 -- PT eval -- add supplements -- ordered Echo -->pending -- Cardiology eval noted-- will start ARB- renal function better -- on statins -- continue with meds -- dc planning Problem List - Problems (1) Slurred speech Code(s): R47.81 - SLURRED SPEECH (2) Weakness Code(s): R53.1 - WEAKNESS (3) CAD (coronary artery disease) Code(s): I25.10 - ATHSCL HEART DISEASE OF [place] CORONARY ARTERY W/O ANG PCTRS Qualifiers: Coronary Disease-Associated Artery/Lesion type: [place] artery [place] vs. transplanted heart: [place] heart Associated angina: with unstable angina Qualified Code(s): I25.110 - Atherosclerotic heart disease of [place] coronary artery with unstable angina pectoris (4) HTN (hypertension) Code(s): I10 - ESSENTIAL (PRIMARY) HYPERTENSION Qualifiers: Hypertension type: essential hypertension Qualified Code(s): I10 - Essential (primary) hypertension (5) Paroxysmal a-fib Code(s): I48.0 - PAROXYSMAL ATRIAL FIBRILLATION (6) TIA (transient ischemic attack) Code(s): G45.9 - TRANSIENT CEREBRAL ISCHEMIC ATTACK, UNSPECIFIED
[2020-02-07] MEDS: RIVAROXABAN 15 MG TABLET PO SCH (17:21)
--- NOTE | 2020-02-07 17:49 | ECHO ---
Version: 1 Name: CELESTE ISSA Exam: Adult Echocardiogram Study Date: 02/07/2020, 1:35 PM Age: 79 Years MMode/2D Measurements & Calculations IVSd: 1.05 cm LVIDs: 2.8 cm LVIDd: 4.0 cm LVPWd: 1.27 cm LAV (MOD-bp): 57.0 ml LVOT diam: 1.82 cm Ao root diam: 2.7 cm LA dimension: 3.1 cm Doppler Measurements & Calculations MV E max fernando: 59.2 cm/sec Med E/e': 10.0 MV A max fernando: 103.7 cm/sec Med Peak E' Fernando: 5.9 cm/sec MV E/A: 0.57 Lat E/e': 10.8 Lat Peak E' Fernando: 5.5 cm/sec Ao max P.6 mmHg JULIAN(I,D): 1.40 cm Ao mean P.4 mmHg LV V1 mean: 93.9 cm/sec Ao V2 max: 285.3 cm/sec LV V1 mean P.0 mmHg AI P1/2t: 381.9 msec TR max fernando: 227.4 cm/sec TR max P.8 mmHg Left Ventricle The left ventricular size, thickness and function are normal. Ejection Fraction = 56%. Abnormal cuevas tolic relaxation. Right Ventricle The right ventricle is normal in size and function. Atria Normal left and right atrial size and function. Mitral Valve The mitral valve is normal in structure and function. There is mild mitral annular calcification. Tricuspid Valve The tricuspid valve is normal in structure and function. There is mild tricuspid regurgitation. PASP 29. Aortic Valve Fibrocalcific changes of the aortic valve with mild aortic stenosis. the JULIAN is 1.33cm. Pulmonic Valve The pulmonic valve is normal in structure and function. Great Vessels The aortic root is normal size. Pericardium/Pleura There is no pericardial effusion. Summary Statements The left ventricular size, thickness and function are normal Abnormal diastolic relaxation The right ventricle is normal in size and function. Normal left and right atrial size and function. The mitral valve is normal in structure and function. There is mild mitral annular calcification. The tricuspid valve is normal in structure and function. There is mild tricuspid regurgitation. PASP 29 Fibrocalcific changes of the aortic valve with mild aortic stenosis. the JULIAN is 1.33cm The pulmonic valve is normal in structure and function. MD Alireza Tapia 02/07/2020, 5:48 PM Ordering Physician: Santos Morin Referring Physician: PIOTR Performed By: Dulce Maria Rogers
--- NOTE | 2020-02-07 18:22 | DS ---
Physical Examination Vital Signs: Vital Signs Temperature 98.2 F 02/07/20 14:00 Pulse Rate 75 02/07/20 14:00 Respiratory Rate 19 02/07/20 14:00 Blood Pressure 134/65 02/07/20 14:00 O2 Sat by Pulse Oximetry (%) 95 02/07/20 09:00 Constitutional: Yes: No Distress, Calm Cardiovascular: Yes: Regular Rate and Rhythm Respiratory: Yes: CTA Bilaterally Gastrointestinal: Yes: Normal Bowel Sounds, Soft. No: Tenderness Edema: No Labs: CBC, BMP 02/04/20 21:00 02/07/20 06:33 Discharge Summary Problems reviewed: Yes Reason For Visit: LETHARGY, SLURRED SPEECH, WEAKNESS Current Active Problems Lethargy (Acute) Slurred speech (Acute) Weakness (Acute) Hospital Course: HISTORY OF PRESENT ILLNESS: 79 y.o. F PMHx CAD (s/p 2 stents), CVA (residual right sided weakness), A-fib (xarelto), HTN, COPD, HLD, CKD, OA. Presents to ED due to L sided chest pain over the 2nd and 3rd intercostal spaces. Patient stated she was lying in bed when she began to have the feeling of something "heavy sitting on her chest" and a "racing heartbeat". The pain was rated at an 8/10 intensity, non-radiating and has not improved since onset. Patient stated she has been experiencing dizziness, headache, and the L sided chest pain that was reproducible upon palpation. Patient denies blurred vision, chills, SOB, N/V/D. At baseline Patient has R sided weakness of both upper & lower extremities although she stated the decreased sensation to touch along her L side is new. As per family member patient is normally able to walk with a cane. When trying to stand today she became unstable and the family has noticed she has dysarthric when compared to baseline. Patient had recently came back from a trip to [place], has s ignificant family Hx of diabetes and is retired from work. ER course was notable for: (1) Head CT (2) EKG (3) Urine Culture HOSPITAL COURSE seen by Neurology and Cardiology MRI brain negative CT head negative Echo-- normal EF, mild per cardiology-- Assessment/Plan [facility] 2013: Xience CORONA to OM1 (for ISR). remainder nonobstructive. nl EF Echo 2017: nl LV. nl RV. mod-severe AI mod TR. RVSP 30-40. Echo 03/2019: nl lv, rv tds, mod-sev ar, mild tr, mild mr, nl rvsp 1. Palpitations referable to recurrent paroxysmal atrial fibrillation currently in sinus rhythm [id number] score of 7 on DOAC's/Xarelto 2. 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 Diastolic left ventricular dysfunction with clinical class 0-I [place] [employer] classification left ventricular failure, clinically compensated/euvolemic 4. Aortic valve regurgitation, moderate to severe in severity 5. History of cerebrovascular disease with residual deficit 6. Hypertensive cardiovascular disease 7. Hypercholesterolemia 8. Chronic obstructive pulmonary disease 9. Chronic kidney disease PLAN: 1. Continue Cardizem CD 120 qd pending LVEF evaluation 2. Continue Diovan 40 qd 3. Recommend continuation of DOAC's/Xarelto 15 qd (renal-dosing), currently off of Ecotrin therapy- stable coronary artery disease 4. Continue Lipitor 40 qhs 5. Echocardiography study for evaluation of left ventricular systolic function and valvular function 6. BD, O2, complete empiric oral abx course, d/c planning with f/u in cardiology office stable for dc home Condition: Improved - Instructions Referrals: Pedro Rose MD [Primary Care Provider] - Disposition: HOME - Home Medications Comprehensive Discharge Medication List: Ambulatory Orders Oxycodone HCl/Acetaminophen [Endocet 5-325 Tablet] 1 each PO TID PRN 06/09/17 Zolpidem Tartrate 10 mg PO HS PRN 06/09/17 Albuterol 0.083% Nebulizer Mile [Ventolin 0.083% Nebulizer Soln -] 1 amp NEB Q4H PRN amp 06/11/17 Rivaroxaban [Xarelto] 15 mg PO DAILY@1800 #90 tablet 03/23/19 Tiotropium Br/Olodaterol HCl [Stiolto Respimat Inhal [place]] 1 puff IH ASDIR 06/18/19 Atorvastatin Ca [Lipitor] 40 mg PO HS #30 tablet 02/07/20 Cefuroxime Axetil [Ceftin -] 250 mg PO DAILY #4 tablet 02/07/20 Diltiazem Cd [Cardizem Cd -] 120 mg PO DAILY #30 cap.cd.24h 02/07/20 Valsartan [Diovan] 40 mg PO DAILY #30 tablet 02/07/20
[2020-02-07] MEDS: ZOLPIDEM TARTRATE 5 MG TABLET PO PRN (22:08)
[2020-02-07] MEDS: ATORVASTATIN CA 40 MG TABLET (FP) PO SCH (22:08)
[2020-02-08 09:03] VITALS: BP 117/65; PULSE 75; TEMP 98.3
[2020-02-08] MEDS: VALSARTAN 40 MG TABLET (FP) PO SCH (09:04)
[2020-02-08] MEDS: TIOTROPIUM/OLODATEROL HCL (STIOLTO) 4 GM INHALER IH SCH (09:04)
== END 2020-02-08 09:28 | disposition home or self-care (01) | DRG 309 ==
LOC: JER 20:08 → JERBED 02-05 01:34 → J4S 02-05 22:35
PROVIDERS: ADMIT Internal Medicine; ATTEND Internal Medicine
DX: I48.0 Paroxysmal atrial fibrillation (principal); I69.351 Hemiplegia and hemiparesis following cerebral infarction affecting right dominant side; G45.9 Transient cerebral ischemic attack, unspecified; I13.0 Hypertensive heart and chronic kidney disease with heart failure and stage 1 through stage 4 chronic kidney disease, or unspecified chronic kidney disease; I50.30 Unspecified diastolic (congestive) heart failure; J98.11 Atelectasis; I25.10 Atherosclerotic heart disease of native coronary artery without angina pectoris; J44.9 Chronic obstructive pulmonary disease, unspecified; R53.1 Weakness; I35.1 Nonrheumatic aortic (valve) insufficiency; R47.81 Slurred speech; F17.210 Nicotine dependence, cigarettes, uncomplicated; M81.0 Age-related osteoporosis without current pathological fracture; R82.71 Bacteriuria; E78.5 Hyperlipidemia, unspecified; I12.9 Hypertensive chronic kidney disease with stage 1 through stage 4 chronic kidney disease, or unspecified chronic kidney disease; N18.9 Chronic kidney disease, unspecified; Z95.5 Presence of coronary angioplasty implant and graft; I25.2 Old myocardial infarction; Z88.0 Allergy status to penicillin
CPT/HCPCS: 36415; 70450-TC; 70551-TC; 71045-TC-FY; 72125-TC; 80048; 80053; 80061; 81003; 82550; 83721; 84484; 85025; 85610; 85730; 86769; 87086; 93005; 93010; 93306-TC; 93880-TC; 97116-GP; 97161-GP; 99285-25; J3535; U0003

== ENCOUNTER 2020-10-02 16:09 | Emergency (ER) | payer OTHER ==
[2020-10-02 16:16] VITALS: BP 140/58; PULSE 92; TEMP 98.5; BMI 27.1
[2020-10-02] MEDS ORDERED: KETOROLAC TROMETHAMINE 30 MG/1 ML VIAL IVPUSH ONE (17:04)
[2020-10-02] MEDS ORDERED: SODIUM CHLORIDE 500 ML IV STA (17:04)
== END 2020-10-02 17:22 | disposition left against medical advice (07) ==
LOC: JERFT 16:09
PROC: 3E0333Z Introduction of Anti-inflammatory into Peripheral Vein, Percutaneous Approach (ICD-10-PCS; principal; 2020-10-02)
PROC: 3E0337Z Introduction of Electrolytic and Water Balance Substance into Peripheral Vein, Percutaneous Approach (ICD-10-PCS; 2020-10-02)
DX: T78.40XA Allergy, unspecified, initial encounter (principal)
CPT/HCPCS: 96361; 96372; 99285-25

== ENCOUNTER 2020-12-18 16:36 | Emergency (ER) | payer OTHER ==
[2020-12-18 17:01] VITALS: BP 142/55; PULSE 80; TEMP 98; BMI 29.2
[2020-12-18] MEDS ORDERED: SODIUM CHLORIDE 0.9% 1000 ML INFUS.BAG IV ONE (17:25)
[2020-12-18 18:59] LABS: BASO % 0.8 % (0-2.0); EOS % 2.3 % (0-4.5); HEMATOCRIT 35.7 % (32.4-45.2); HEMOGLOBIN 11.6 GM/dL (10.7-15.3); LYMPH % 24.8 % (8-40); MCH 25.6 pg (25.7-33.7); MCHC 32.6 g/dl (32.0-36.0); MEAN CELL VOLUME 78.4 fl (80-96); MEAN PLT VOLUME 8.8 fl (7.5-11.1); MONO % 5.3 % (3.8-10.2); NEUT % 66.8 % (42.8-82.8); PLATELET COUNT 203 K/MM3 (134-434); RBC 4.55 M/mm3 (3.60-5.2); RDW 15.8 % (11.6-15.6); WHITE BLOOD COUNT 8.7 K/mm3 (4.0-10.0)
[2020-12-18 19:42] LABS: CHLORIDE 106 mmol/L (98-107); SODIUM 137 mmol/L (136-145)
[2020-12-18 19:45] LABS: ALBUMIN 3.8 g/dl (3.4-5.0); ANION GAP 9 MMOL/L (8-16); BLOOD UREA NITROGEN 24.6 mg/dL (7-18); CALCIUM 9.2 mg/dL (8.5-10.1); CO2 23 mmol/L (21-32); GLUCOSE,RANDOM 114 mg/dL (74-106)
[2020-12-18 19:47] LABS: CREATININE 1.6 mg/dL (0.55-1.3); SGOT/AST 17 U/L (15-37); SGPT/ALT 13 U/L (13-61)
[2020-12-18 19:50] LABS: ALK PHOS 112 U/L (45-117); BILIRUBIN,TOTAL 0.4 mg/dL (0.2-1)
== END 2020-12-18 19:14 | disposition left against medical advice (07) ==
LOC: JER 16:36
DX: R07.9 Chest pain, unspecified (principal); R42 Dizziness and giddiness
CPT/HCPCS: 36415; 71045-TC-FY; 80053; 84484; 85025; 93005; 93010; 99285-25

== ENCOUNTER 2021-10-19 13:57 | Observation (INO) | payer OTHER ==
[2021-10-19] MEDS ORDERED: ACETAMINOPHEN 1000 MG/100 ML BAG IVPB ONE ×2 (14:31→22:47)
[2021-10-19] MEDS ORDERED: LIDOCAINE 5% TOPICAL PATCH TP ONE (14:31)
[2021-10-19] MEDS ORDERED: ACETAMINOPHEN INJECTION 100 ML IVPB ONE ×2 (14:39→23:43)
[2021-10-19] MEDS ORDERED: LIDOCAINE 5% TOPICAL PATCH ONE (14:40)
[2021-10-19] MEDS ORDERED: MECLIZINE HCL 25 MG TABLET (FP) PO ONE (14:44)
[2021-10-19] MEDS ORDERED: MECLIZINE HCL 25 MG TABLET (FP) ONE (15:01)
[2021-10-19 15:41] LABS: PH,URINE 7.5 (5.0-8.0); URINE APPEARANCE CLEAR; URINE BILIRUBIN NEGATIVE (NEGATIVE); URINE COLOR YELLOW; URINE GLUCOSE (UA) NEGATIVE (NEGATIVE); URINE KETONE NEGATIVE (NEGATIVE); URINE LEUK ESTERASE NEGATIVE (NEGATIVE); URINE NITRITE NEGATIVE (NEGATIVE); URINE PROTEIN NEGATIVE (NEGATIVE); URINE UROBILINOGEN 0.2 mg/dL (0.2-1.0)
[2021-10-19 16:50] LABS: BASO % 1.8 % (0-2.0); EOS % 6.1 % (0-4.5); HEMATOCRIT 37.2 % (32.4-45.2); LYMPH % 26.8 % (8-40); MCH 24.9 pg (25.7-33.7); MCHC 32.3 g/dl (32.0-36.0); MEAN PLT VOLUME 7.6 fl (7.5-11.1); MONO % 6.5 % (3.8-10.2); NEUT % 58.8 % (42.8-82.8); PLATELET COUNT 400 10^3/uL (134-434); RBC 4.83 M/mm3 (3.60-5.2); RDW 23.2 % (11.6-15.6); WHITE BLOOD COUNT 9.4 K/mm3 (4.0-10.0)
[2021-10-19 16:59] LABS: CHLORIDE 97 mmol/L (98-107)
[2021-10-19 17:01] LABS: ALBUMIN 3.4 g/dl (3.4-5.0); BLOOD UREA NITROGEN 28.1 mg/dL (7-18); CALCIUM 8.2 mg/dL (8.5-10.1); CO2 26 mmol/L (21-32); GLUCOSE,RANDOM 87 mg/dL (74-106)
[2021-10-19 17:06] LABS: TOT PROT 10.6 g/dl (6.4-8.2)
[2021-10-19 17:07] LABS: ALK PHOS 123 U/L (45-117)
[2021-10-19 18:56] LABS: CALCIUM 9.1 mg/dL (8.5-10.1)
[2021-10-19 18:58] LABS: BLOOD UREA NITROGEN 28.3 mg/dL (7-18)
[2021-10-19] MEDS ORDERED: oxyCODONE HCL 5 MG TABLET PO ONE (18:58)
[2021-10-19 19:00] LABS: CREATININE 1.9 mg/dL (0.55-1.3)
[2021-10-19] MEDS ORDERED: oxyCODONE HCL 5 MG TABLET ONE ×2 (19:08→23:47)
[2021-10-19 19:17] LABS: ANISOCYTOSIS 3+; MACROCYTOSIS 0; OVALOCYTE 2+; TEAR DROP CELLS 2+
[2021-10-19] MEDS ORDERED: POLYETHYLENE GLYCOL (HEALTHYLAX) 3350 17 GM PACKET PO PRN (20:41)
[2021-10-19] MEDS ORDERED: ACETAMINOPHEN 325 MG TABLET (FP) PO PRN (20:41)
[2021-10-19] MEDS ORDERED: DEXTROSE 5%-NORMAL SALINE 1,000 ML IV SCH (20:45)
[2021-10-19] MEDS ORDERED: DOCUSATE SODIUM 100 MG CAPSULE (FP) PO PRN (22:47)
[2021-10-19] MEDS ORDERED: ZOLPIDEM TARTRATE 5 MG TABLET ONE (23:47)
[2021-10-19] MEDS: oxyCODONE HCL 5 MG TABLET PO PRN (23:54)
[2021-10-19] MEDS: ZOLPIDEM TARTRATE 5 MG TABLET PO PRN (23:54)
[2021-10-20] MEDS ORDERED: LIDOCAINE PATCH REMOVAL MC SCH ×2 (02:00→22:00)
[2021-10-20] MEDS ORDERED: TICAGRELOR 90 MG TABLET PO ONE ×2 (02:48→21:19)
[2021-10-20] MEDS: TICAGRELOR 90 MG TABLET PO SCH ×3 (02:48→21:24)
[2021-10-20] MEDS ORDERED: MECLIZINE HCL 12.5 MG TABLET PO PRN (05:00)
[2021-10-20] MEDS ORDERED: NIFEdipine E.R. 30 MG TABLET ONE (09:45)
[2021-10-20] MEDS ORDERED: PANTOPRAZOLE 20 MG TABLET PO ONE ×2 (09:45→21:20)
[2021-10-20] MEDS: NIFEdipine E.R. 30 MG TABLET PO SCH (10:04)
[2021-10-20] MEDS: PANTOPRAZOLE 20 MG TABLET PO SCH ×2 (10:04→21:24)
[2021-10-20] MEDS: TRIAMTERENE AND HCTZ - 37.5 MG/25 MG CAPSULE PO SCH (12:07)
[2021-10-20 13:29] LABS: BASO % 1.4 % (0-2.0); EOS % 10.5 % (0-4.5); HEMATOCRIT 32.7 % (32.4-45.2); HEMOGLOBIN 11.1 GM/dL (10.7-15.3); LYMPH % 29.7 % (8-40); MCH 24.5 pg (25.7-33.7); MCHC 33.8 g/dl (32.0-36.0); MEAN CELL VOLUME 72.4 fl (80-96); MEAN PLT VOLUME 6.9 fl (7.5-11.1); MONO % 8.2 % (3.8-10.2); NEUT % 50.2 % (42.8-82.8); PLATELET COUNT 330 10^3/uL (134-434); RBC 4.51 M/mm3 (3.60-5.2); RDW 19.7 % (11.6-15.6)
[2021-10-20 13:35] LABS: INR 1.11 (0.83-1.09); PROTHROMBIN TIME (PATIENT) 12.8 SEC (9.7-13.0)
[2021-10-20 13:38] LABS: ACTIVATED PTT 33.3 SECONDS (25.2-36.5)
[2021-10-20 13:54] LABS: CALCIUM 9.4 mg/dL (8.5-10.1)
[2021-10-20 13:55] LABS: MAGNESIUM 1.8 mg/dL (1.8-2.4)
[2021-10-20 14:00] LABS: CREATININE 1.8 mg/dL (0.55-1.3)
[2021-10-20] MEDS ORDERED: LIDOCAINE 5% TOPICAL PATCH TP SCH (14:30)
[2021-10-20] MEDS ORDERED: INDOMETHACIN 50 MG CAPSULE PO SCH (15:15)
[2021-10-20] MEDS ORDERED: LIDOCAINE 5% TOPICAL PATCH ONE (16:21)
[2021-10-20] MEDS ORDERED: oxyCODONE HCL 5 MG TABLET ONE (23:50)
[2021-10-20] MEDS ORDERED: ZOLPIDEM TARTRATE 5 MG TABLET ONE (23:50)
[2021-10-20] MEDS: oxyCODONE HCL 5 MG TABLET PO PRN (23:54)
[2021-10-20] MEDS: ZOLPIDEM TARTRATE 5 MG TABLET PO PRN (23:54)
[2021-10-21 06:08] LABS: SARS-CoV-2 NAA Not Detected (Not Detected)
[2021-10-21 08:23] LABS: BASO % 1.5 % (0-2.0); EOS % 9.8 % (0-4.5); HEMATOCRIT 30.9 % (32.4-45.2); HEMOGLOBIN 10.3 GM/dL (10.7-15.3); LYMPH % 28.8 % (8-40); MCH 24.4 pg (25.7-33.7); MCHC 33.4 g/dl (32.0-36.0); MEAN CELL VOLUME 73.2 fl (80-96); MEAN PLT VOLUME 7.3 fl (7.5-11.1); MONO % 10.7 % (3.8-10.2); NEUT % 49.2 % (42.8-82.8); PLATELET COUNT 301 10^3/uL (134-434); RBC 4.23 M/mm3 (3.60-5.2); RDW 20.1 % (11.6-15.6)
[2021-10-21 08:46] LABS: ALBUMIN 3.4 g/dl (3.4-5.0); BLOOD UREA NITROGEN 22.7 mg/dL (7-18); CALCIUM 9.1 mg/dL (8.5-10.1)
[2021-10-21 08:49] LABS: CREATININE 1.7 mg/dL (0.55-1.3)
[2021-10-21 08:51] LABS: BILIRUBIN,TOTAL 0.4 mg/dL (0.2-1)
[2021-10-21 08:54] LABS: TOT PROT 7.4 g/dl (6.4-8.2)
[2021-10-21] MEDS: TRIAMTERENE AND HCTZ - 37.5 MG/25 MG CAPSULE PO SCH (10:00)
[2021-10-21] MEDS: TICAGRELOR 90 MG TABLET PO SCH (10:00)
[2021-10-21] MEDS: NIFEdipine E.R. 30 MG TABLET PO SCH (10:25)
[2021-10-21] MEDS: PANTOPRAZOLE 20 MG TABLET PO SCH (10:25)
[2021-10-21 15:24] VITALS: BP 135/57; PULSE 74; TEMP 98
[2021-10-21] MEDS ORDERED: RIVAROXABAN 15 MG TABLET PO SCH (18:00)
== END 2021-10-21 16:29 | disposition home or self-care (01) ==
LOC: JER 13:57 → JERBED 18:21 → J4W 10-21 00:46
PROVIDERS: ADMIT Hospitalist; ATTEND Internal Medicine
PROC: 3E033NZ Introduction of Analgesics, Hypnotics, Sedatives into Peripheral Vein, Percutaneous Approach (ICD-10-PCS; principal; 2021-10-19)
PROC: 3E033GC Introduction of Other Therapeutic Substance into Peripheral Vein, Percutaneous Approach (ICD-10-PCS; 2021-10-19)
DX: I25.10 Atherosclerotic heart disease of native coronary artery without angina pectoris (principal); I48.91 Unspecified atrial fibrillation; I25.2 Old myocardial infarction; I11.9 Hypertensive heart disease without heart failure; Z95.5 Presence of coronary angioplasty implant and graft; J44.9 Chronic obstructive pulmonary disease, unspecified; E78.00 Pure hypercholesterolemia, unspecified; N20.0 Calculus of kidney; Z86.73 Personal history of transient ischemic attack (TIA), and cerebral infarction without residual deficits; Z87.891 Personal history of nicotine dependence; F03.90 Unspecified dementia, unspecified severity, without behavioral disturbance, psychotic disturbance, mood disturbance, and anxiety; K52.9 Noninfective gastroenteritis and colitis, unspecified; M25.551 Pain in right hip; Z88.0 Allergy status to penicillin
CPT/HCPCS: 36415; 70450-TC; 71045-TC-FY; 72125-TC; 72128-TC; 72131-TC; 72170-TC-FY; 72192-TC; 73700-TC-RT; 80048; 80053; 81003; 82962; 83735; 84100; 84484; 85025; 85610; 85730; 87086; 93005; 93010; 93306-TC; 96361; 96374; 96376; 97116-GP; 97161-GP; 99285-25; C9803-CS; G0378; U0003; U0005

== ENCOUNTER 2022-01-28 10:18 | Inpatient (IN) | payer OTHER ==
[2022-01-28 10:41] VITALS: BMI 22.3
[2022-01-28 11:42] LABS: BASO % 1.6 % (0-2.0); EOS % 5.6 % (0-4.5); HEMATOCRIT 29.8 % (32.4-45.2); HEMOGLOBIN 10.1 GM/dL (10.7-15.3); LYMPH % 26.5 % (8-40); MCH 24.2 pg (25.7-33.7); MCHC 33.8 g/dl (32.0-36.0); MEAN CELL VOLUME 71.7 fl (80-96); MEAN PLT VOLUME 7.8 fl (7.5-11.1); MONO % 8.1 % (3.8-10.2); NEUT % 58.2 % (42.8-82.8); PLATELET COUNT 470 10^3/uL (134-434); RBC 4.16 M/mm3 (3.60-5.2); RDW 18.5 % (11.6-15.6); WHITE BLOOD COUNT 7.1 K/mm3 (4.0-10.0)
[2022-01-28 12:01] LABS: CHLORIDE 107 mmol/L (98-107); SODIUM 140 mmol/L (136-145)
[2022-01-28 12:03] LABS: GLUCOSE,RANDOM 102 mg/dL (74-106)
[2022-01-28 12:04] LABS: ALBUMIN 3.4 g/dl (3.4-5.0); ANION GAP 9 MMOL/L (8-16); CO2 23 mmol/L (21-32)
[2022-01-28 12:07] LABS: CREATININE 1.8 mg/dL (0.55-1.3); SGOT/AST 10 U/L (15-37); SGPT/ALT 13 U/L (13-61)
[2022-01-28 12:08] LABS: BILIRUBIN,TOTAL 0.3 mg/dL (0.2-1)
[2022-01-28 12:09] LABS: TOT PROT 7.8 g/dl (6.4-8.2)
[2022-01-28 12:10] LABS: ALK PHOS 107 U/L (45-117)
[2022-01-28 12:12] LABS: N-TERMINAL BNP 2822.7 pg/ml (5-450)
[2022-01-28 13:00] LABS: URINE APPEARANCE CLEAR; URINE BILIRUBIN NEGATIVE (NEGATIVE); URINE COLOR YELLOW; URINE GLUCOSE (UA) NEGATIVE (NEGATIVE); URINE KETONE NEGATIVE (NEGATIVE); URINE LEUK ESTERASE NEGATIVE (NEGATIVE); URINE NITRITE NEGATIVE (NEGATIVE); URINE PROTEIN TRACE (NEGATIVE); URINE UROBILINOGEN 0.2 mg/dL (0.2-1.0)
[2022-01-28] MEDS ORDERED: FUROSEMIDE 40 MG/4 ML INJECTABLE VIAL ONE (17:26)
[2022-01-28] MEDS: FUROSEMIDE 40 MG/4 ML INJECTABLE VIAL IVPUSH SCH (17:29)
[2022-01-28] MEDS: FLUTICASONE/UMECLIDIN/VILANTER(200-62.5-25 TRELEGY ELLIPTA) INAHLER IH SCH (17:38)
[2022-01-28] MEDS ORDERED: ACETAMINOPHEN 1000 MG/100 ML BAG IVPB ONE (21:22)
[2022-01-28] MEDS: CARVEDILOL 6.25 MG TABLET (FP) PO SCH (22:27)
[2022-01-28] MEDS: ATORVASTATIN CA 80 MG TABLET (FP) PO SCH (22:27)
[2022-01-28] MEDS ORDERED: MELATONIN 5 MG TABLETS PO ONE (23:08)
[2022-01-28] MEDS ORDERED: TRIMETHOBENZAMIDE HCL 300 MG CAPSULE PO PRN (23:10)
[2022-01-28] MEDS ORDERED: ONDANSETRON 4 MG/2 ML VIAL IVPUSH ONE (23:45)
[2022-01-29] MEDS: ENOXAPARIN NA (PORCINE) 60 MG/0.6 ML DISP.SYRIN SQ SCH ×2 (03:31→09:14)
[2022-01-29] MEDS: FUROSEMIDE 40 MG/4 ML INJECTABLE VIAL IVPUSH SCH (09:11)
[2022-01-29] MEDS: CARVEDILOL 6.25 MG TABLET (FP) PO SCH ×3 (09:11→21:22)
[2022-01-29] MEDS ORDERED: CLOPIDOGREL BISULFATE 75 MG TABLET (FP) PO SCH (10:00)
[2022-01-29] MEDS ORDERED: ASPIRIN 81 MG CHEWABLE TABLETS PO SCH (10:00)
[2022-01-29] MEDS ORDERED: PANTOPRAZOLE 40 MG TABLET PO SCH (10:00)
[2022-01-29] MEDS ORDERED: NIFEdipine E.R 60 MG TABLET PO SCH (10:00)
[2022-01-29] MEDS ORDERED: oxyCODONE HCL 5 MG TABLET PO PRN (11:06)
[2022-01-29] MEDS ORDERED: ONDANSETRON 4 MG/2 ML VIAL IVPUSH PRN (11:06)
[2022-01-29] MEDS: methylPREDNISolone NA SUCC 40 MG/1 ML VIAL IVPB SCH ×2 (11:16→17:34)
[2022-01-29] MEDS: FLUTICASONE/UMECLIDIN/VILANTER(200-62.5-25 TRELEGY ELLIPTA) INAHLER IH SCH (11:17)
[2022-01-29 11:30] LABS: BASO % 0.5 % (0-2.0); EOS % 5.7 % (0-4.5); HEMATOCRIT 27.7 % (32.4-45.2); HEMOGLOBIN 9.3 GM/dL (10.7-15.3); LYMPH % 34.5 % (8-40); MCH 23.8 pg (25.7-33.7); MCHC 33.7 g/dl (32.0-36.0); MEAN CELL VOLUME 70.6 fl (80-96); MONO % 7.4 % (3.8-10.2); NEUT % 51.9 % (42.8-82.8); PLATELET COUNT 445 10^3/uL (134-434); RBC 3.92 M/mm3 (3.60-5.2); RDW 18.7 % (11.6-15.6); WHITE BLOOD COUNT 6.8 K/mm3 (4.0-10.0)
[2022-01-29] MEDS ORDERED: ALBUTEROL SO4 0.083% IH SOL 2.5 MG/3 ML VIAL.NEB. NEB PRN (11:41)
[2022-01-29 11:55] LABS: CHLORIDE 105 mmol/L (98-107); SODIUM 138 mmol/L (136-145)
[2022-01-29 11:58] LABS: ANION GAP 10 MMOL/L (8-16); BLOOD UREA NITROGEN 18.1 mg/dL (7-18); CALCIUM 8.6 mg/dL (8.5-10.1); CO2 23 mmol/L (21-32); GLUCOSE,RANDOM 95 mg/dL (74-106)
[2022-01-29 12:01] LABS: CREATININE 1.6 mg/dL (0.55-1.3)
[2022-01-29] MEDS: ATORVASTATIN CA 80 MG TABLET (FP) PO SCH ×2 (20:37→21:22)
[2022-01-29] MEDS ORDERED: ENOXAPARIN NA (PORCINE) 60 MG/0.6 ML DISP.SYRIN SQ SCH (22:00)
[2022-01-29 22:15] VITALS: BP 156/59; PULSE 93; TEMP 98.2
[2022-01-30] MEDS ORDERED: ENOXAPARIN NA (PORCINE) 60 MG/0.6 ML DISP.SYRIN SQ SCH (10:00)
== END 2022-01-30 01:10 | disposition short-term general hospital (02) | DRG 281 ==
LOC: JER 10:18 → JERBED 14:35 → J4W 21:34 → OBSVTOIN 01-29 14:14
PROVIDERS: ADMIT Internal Medicine; ATTEND Internal Medicine
DX: I21.4 Non-ST elevation (NSTEMI) myocardial infarction (principal); J44.1 Chronic obstructive pulmonary disease with (acute) exacerbation; I13.0 Hypertensive heart and chronic kidney disease with heart failure and stage 1 through stage 4 chronic kidney disease, or unspecified chronic kidney disease; I50.32 Chronic diastolic (congestive) heart failure; E78.5 Hyperlipidemia, unspecified; I25.10 Atherosclerotic heart disease of native coronary artery without angina pectoris; I73.9 Peripheral vascular disease, unspecified; F03.90 Unspecified dementia, unspecified severity, without behavioral disturbance, psychotic disturbance, mood disturbance, and anxiety; I48.0 Paroxysmal atrial fibrillation; N18.9 Chronic kidney disease, unspecified; F17.210 Nicotine dependence, cigarettes, uncomplicated
CPT/HCPCS: 0241U-QW; 36415; 71045-TC-FY; 73630-TC-RT-FY; 80048; 80053; 81003; 83880; 84484; 85025; 87086; 93005; 93010; 93971-TC; 99285-25; G0378

== ENCOUNTER 2022-03-06 13:42 | Inpatient (IN) | payer OTHER ==
[2022-03-06] MEDS ORDERED: ACETAMINOPHEN 1000 MG/100 ML BAG IVPB ONE (14:41)
[2022-03-06] MEDS ORDERED: ACETAMINOPHEN INJECTION 100 ML IVPB ONE (14:48)
[2022-03-06 15:48] LABS: BASO % 1.5 % (0-2.0); EOS % 6.4 % (0-4.5); HEMATOCRIT 31.4 % (32.4-45.2); HEMOGLOBIN 10.1 GM/dL (10.7-15.3); LYMPH % 37.6 % (8-40); MCH 23.6 pg (25.7-33.7); MCHC 32.3 g/dl (32.0-36.0); MEAN CELL VOLUME 72.9 fl (80-96); MONO % 7.8 % (3.8-10.2); NEUT % 46.7 % (42.8-82.8); PLATELET COUNT 292 10^3/uL (134-434); RBC 4.31 M/mm3 (3.60-5.2); RDW 20.2 % (11.6-15.6); WHITE BLOOD COUNT 6.1 K/mm3 (4.0-10.0)
[2022-03-06 16:00] LABS: ACTIVATED PTT 27.2 SECONDS (25.2-36.5); INR 1.04 (0.83-1.09)
[2022-03-06 16:15] LABS: CALCIUM 9.3 mg/dL (8.5-10.1)
[2022-03-06 16:16] LABS: ALBUMIN 3.7 g/dl (3.4-5.0)
[2022-03-06 16:19] LABS: CREATININE 2.3 mg/dL (0.55-1.3)
[2022-03-06 16:21] LABS: BILIRUBIN,TOTAL 0.4 mg/dL (0.2-1)
[2022-03-06 19:03] LABS: ALBUMIN 3.5 g/dl (3.4-5.0); BLOOD UREA NITROGEN 30.1 mg/dL (7-18); CALCIUM 8.7 mg/dL (8.5-10.1)
[2022-03-06 19:06] LABS: CREATININE 2.3 mg/dL (0.55-1.3)
[2022-03-06 19:08] LABS: BILIRUBIN,TOTAL 0.3 mg/dL (0.2-1); TOT PROT 7.5 g/dl (6.4-8.2)
[2022-03-06] MEDS ORDERED: ACETAMINOPHEN 325 MG TABLET (FP) PO PRN (21:03)
[2022-03-06] MEDS ORDERED: POLYETHYLENE GLYCOL (HEALTHYLAX) 3350 17 GM PACKET PO PRN (21:14)
[2022-03-06] MEDS ORDERED: levETIRAcetam 500 MG/5 ML INJECTION VIAL IVPB ONE (22:35)
[2022-03-07 02:43] VITALS: BMI 21.9
[2022-03-07] MEDS: DEXTROSE 5%-NORMAL SALINE 1,000 ML IV SCH ×2 (03:06→21:45)
[2022-03-07 09:31] LABS: BLOOD UREA NITROGEN 28.6 mg/dL (7-18); CALCIUM 8.9 mg/dL (8.5-10.1)
[2022-03-07 09:34] LABS: PHOSPHOROUS 4.3 mg/dL (2.5-4.9)
[2022-03-07 09:35] LABS: CREATININE 1.9 mg/dL (0.55-1.3)
[2022-03-07] MEDS ORDERED: CLOPIDOGREL BISULFATE 75 MG TABLET (FP) PO SCH (10:00)
[2022-03-07] MEDS: CARVEDILOL 6.25 MG TABLET (FP) PO SCH ×2 (10:58→21:44)
[2022-03-07] MEDS: NIFEdipine E.R 60 MG TABLET PO SCH (10:58)
[2022-03-07] MEDS: PANTOPRAZOLE 40 MG TABLET PO SCH (10:58)
[2022-03-07] MEDS: oxyCODONE HCL 5 MG TABLET PO PRN (11:05)
[2022-03-07] MEDS: HEPARIN NA (PORCINE) 5,000 UNITS/ML 1ML VIAL SQ SCH ×2 (14:27→21:44)
[2022-03-07] MEDS: DOCUSATE SODIUM 100 MG CAPSULE (FP) PO SCH ×2 (14:29→21:44)
[2022-03-07] MEDS: ATORVASTATIN CA 80 MG TABLET (FP) PO SCH (21:44)
[2022-03-07] MEDS: ZOLPIDEM TARTRATE 5 MG TABLET PO PRN (21:45)
[2022-03-08] MEDS: DOCUSATE SODIUM 100 MG CAPSULE (FP) PO SCH ×3 (06:41→21:21)
[2022-03-08] MEDS: HEPARIN NA (PORCINE) 5,000 UNITS/ML 1ML VIAL SQ SCH ×3 (06:41→21:21)
[2022-03-08 08:34] LABS: HEMATOCRIT 29.3 % (32.4-45.2); HEMOGLOBIN 9.7 GM/dL (10.7-15.3); LYMPH % 40.1 % (8-40); MCH 23.7 pg (25.7-33.7); MCHC 33.2 g/dl (32.0-36.0); MEAN CELL VOLUME 71.6 fl (80-96); MEAN PLT VOLUME 7.6 fl (7.5-11.1); MONO % 8.7 % (3.8-10.2); NEUT % 43.2 % (42.8-82.8); PLATELET COUNT 272 10^3/uL (134-434); RDW 19.8 % (11.6-15.6); WHITE BLOOD COUNT 4.6 K/mm3 (4.0-10.0)
[2022-03-08 09:01] LABS: ALBUMIN 3.3 g/dl (3.4-5.0); BLOOD UREA NITROGEN 19.3 mg/dL (7-18)
[2022-03-08 09:04] LABS: CREATININE 1.7 mg/dL (0.55-1.3)
[2022-03-08 09:06] LABS: BILIRUBIN,TOTAL 0.4 mg/dL (0.2-1)
[2022-03-08] MEDS: NIFEdipine E.R 60 MG TABLET PO SCH (10:01)
[2022-03-08] MEDS: PANTOPRAZOLE 40 MG TABLET PO SCH (10:01)
[2022-03-08] MEDS: CARVEDILOL 6.25 MG TABLET (FP) PO SCH ×2 (10:01→21:21)
[2022-03-08] MEDS: DEXTROSE 5%-NORMAL SALINE 1,000 ML IV SCH (21:21)
[2022-03-08] MEDS: ZOLPIDEM TARTRATE 5 MG TABLET PO PRN (21:22)
[2022-03-08] MEDS: ATORVASTATIN CA 80 MG TABLET (FP) PO SCH (21:22)
[2022-03-09] MEDS: HEPARIN NA (PORCINE) 5,000 UNITS/ML 1ML VIAL SQ SCH ×3 (06:06→22:39)
[2022-03-09] MEDS: DOCUSATE SODIUM 100 MG CAPSULE (FP) PO SCH ×4 (06:06→22:39)
[2022-03-09] MEDS: CARVEDILOL 6.25 MG TABLET (FP) PO SCH ×2 (09:09→22:38)
[2022-03-09] MEDS: NIFEdipine E.R 60 MG TABLET PO SCH (09:10)
[2022-03-09] MEDS: oxyCODONE HCL 5 MG TABLET PO PRN (09:10)
[2022-03-09] MEDS: PANTOPRAZOLE 40 MG TABLET PO SCH (09:10)
[2022-03-09 09:36] LABS: CALCIUM 9.3 mg/dL (8.5-10.1)
[2022-03-09 09:37] LABS: BLOOD UREA NITROGEN 16.7 mg/dL (7-18)
[2022-03-09 09:40] LABS: CREATININE 1.7 mg/dL (0.55-1.3)
[2022-03-09] MEDS ORDERED: DEXTROSE 5%-0.45% SALINE 1,000 ML IV SCH (16:15)
[2022-03-09 20:18] LABS: PH,URINE 5.5 (5.0-8.0); URINE APPEARANCE CLEAR; URINE BILIRUBIN NEGATIVE (NEGATIVE); URINE COLOR YELLOW; URINE GLUCOSE (UA) NEGATIVE (NEGATIVE); URINE KETONE NEGATIVE (NEGATIVE); URINE LEUK ESTERASE NEGATIVE (NEGATIVE); URINE NITRITE NEGATIVE (NEGATIVE); URINE PROTEIN TRACE (NEGATIVE); URINE UROBILINOGEN 0.2 mg/dL (0.2-1.0)
[2022-03-09] MEDS: ZOLPIDEM TARTRATE 5 MG TABLET PO PRN (22:39)
[2022-03-09] MEDS: ATORVASTATIN CA 80 MG TABLET (FP) PO SCH (22:39)
[2022-03-10] MEDS: HEPARIN NA (PORCINE) 5,000 UNITS/ML 1ML VIAL SQ SCH ×2 (06:12→14:54)
[2022-03-10] MEDS: DOCUSATE SODIUM 100 MG CAPSULE (FP) PO SCH ×2 (06:12→14:54)
[2022-03-10 06:37] VITALS: RESP 18
[2022-03-10] MEDS: PANTOPRAZOLE 40 MG TABLET PO SCH (10:50)
[2022-03-10] MEDS: CARVEDILOL 6.25 MG TABLET (FP) PO SCH (10:51)
[2022-03-10] MEDS: NIFEdipine E.R 60 MG TABLET PO SCH (10:51)
[2022-03-10 12:35] LABS: ALBUMIN 3.6 g/dl (3.4-5.0); CALCIUM 9.4 mg/dL (8.5-10.1)
[2022-03-10 12:39] LABS: CREATININE 1.8 mg/dL (0.55-1.3)
[2022-03-10 12:40] LABS: BILIRUBIN,TOTAL 0.4 mg/dL (0.2-1); TOT PROT 7.4 g/dl (6.4-8.2)
[2022-03-10 19:41] VITALS: BP 121/68; PULSE 78; TEMP 97.7
== END 2022-03-10 16:10 | disposition home or self-care (01) | DRG 300 ==
LOC: JER 13:42 → JERBED 17:14 → J8W 22:02
PROVIDERS: ADMIT Internal Medicine; ATTEND Internal Medicine
DX: I73.9 Peripheral vascular disease, unspecified (principal); I69.351 Hemiplegia and hemiparesis following cerebral infarction affecting right dominant side; I13.0 Hypertensive heart and chronic kidney disease with heart failure and stage 1 through stage 4 chronic kidney disease, or unspecified chronic kidney disease; N17.9 Acute kidney failure, unspecified; I50.32 Chronic diastolic (congestive) heart failure; M79.661 Pain in right lower leg; E78.5 Hyperlipidemia, unspecified; I48.91 Unspecified atrial fibrillation; I25.10 Atherosclerotic heart disease of native coronary artery without angina pectoris; N18.9 Chronic kidney disease, unspecified; F03.90 Unspecified dementia, unspecified severity, without behavioral disturbance, psychotic disturbance, mood disturbance, and anxiety; F17.210 Nicotine dependence, cigarettes, uncomplicated; Z98.61 Coronary angioplasty status
CPT/HCPCS: 0241U-QW; 36415; 71045-TC-FY; 76775-TC; 80048; 80053; 81003; 82550; 83735; 84100; 84443; 84484; 85025; 85610; 85730; 86850; 86900; 86901; 93005; 93010; 93926-TC; 93971-TC; 99285-25; J1644

== ENCOUNTER 2022-07-08 12:20 | Observation (INO) | payer MEDICARE, OTHER ==
[2022-07-08] MEDS ORDERED: MAG HYDROX/AL HYDROX/SIMETH 30 ML UNIT-DOSE CUP PO ONE (13:47)
[2022-07-08] MEDS ORDERED: ONDANSETRON 4 MG/2 ML VIAL IVPUSH ONE (13:47)
[2022-07-08] MEDS ORDERED: FAMOTIDINE 20 MG/50 ML IVPB 20 MG/50 ML MG IVPB ONE ×2 (13:47→14:14)
[2022-07-08] MEDS ORDERED: ACETAMINOPHEN 1000 MG/100 ML BAG IVPB ONE (13:47)
[2022-07-08] MEDS ORDERED: ACETAMINOPHEN INJECTION 100 ML IVPB ONE (14:13)
[2022-07-08] MEDS ORDERED: MAG HYDROX/AL HYDROX/SIMETH 30 ML UNIT-DOSE CUP ONE (14:13)
[2022-07-08] MEDS ORDERED: ONDANSETRON 4 MG/2 ML VIAL ONE (14:14)
[2022-07-08 14:22] LABS: VENOUS BASE EXCESS -2.2 mmol/L (-2-2); VENOUS O2 SATURATION 28.8 % (70-80); VENOUS PCO2 46.1 mmHg (38-52); VENOUS PH 7.331 (7.310-7.410)
[2022-07-08 14:26] LABS: BASO % 0.9 % (0-2.0); EOS % 2.1 % (0-4.5); HEMATOCRIT 29.3 % (32.4-45.2); HEMOGLOBIN 9.5 GM/dL (10.7-15.3); LYMPH % 8.2 % (8-40); MCH 22.6 pg (25.7-33.7); MCHC 32.4 g/dl (32.0-36.0); MEAN CELL VOLUME 69.6 fl (80-96); MEAN PLT VOLUME 7.7 fl (7.5-11.1); MONO % 6.5 % (3.8-10.2); NEUT % 82.3 % (42.8-82.8); PLATELET COUNT 403 10^3/uL (134-434); RBC 4.21 M/mm3 (3.60-5.2); RDW 21.3 % (11.6-15.6); WHITE BLOOD COUNT 9.8 K/mm3 (4.0-10.0)
[2022-07-08 14:57] LABS: ALBUMIN 3.5 g/dl (3.4-5.0); BLOOD UREA NITROGEN 21.5 mg/dL (7-18); CALCIUM 9.6 mg/dL (8.5-10.1)
[2022-07-08 15:00] LABS: CREATININE 1.8 mg/dL (0.55-1.3)
[2022-07-08 15:02] LABS: BILIRUBIN,TOTAL 0.4 mg/dL (0.2-1); TOT PROT 8.2 g/dl (6.4-8.2)
[2022-07-08 15:18] LABS: EPI CELLS 4 /uL (0-25.1); HYALINE CASTS 0 /uL (0-3.1); URINE APPEARANCE CLEAR; URINE BACTERIA 11 /uL (0-1359); URINE BILIRUBIN NEGATIVE (NEGATIVE); URINE COLOR YELLOW; URINE GLUCOSE (UA) NEGATIVE (NEGATIVE); URINE KETONE NEGATIVE (NEGATIVE); URINE LEUK ESTERASE NEGATIVE (NEGATIVE); URINE NITRITE NEGATIVE (NEGATIVE); URINE PROTEIN 2+ (NEGATIVE); URINE RBC 11 /uL (0-23.9); URINE UROBILINOGEN 0.2 mg/dL (0.2-1.0); URINE WBC 4 /uL (0-25.8)
[2022-07-08] MEDS ORDERED: PATIENT'S OWN MEDICATION (NON-FORMULARY) (Alendronate Sodium [Fosamax] 70 MG Tablet) PO SCH (16:00)
[2022-07-08] MEDS ORDERED: SODIUM ZIRCONIUM CYCLOSILICATE (LOKELMA) 5 GM PACKET PO ONE ×2 (16:07→16:09)
[2022-07-08] MEDS ORDERED: ENOXAPARIN NA (PORCINE) 30 MG/0.3 ML DISP.SYRIN SQ ONE (17:35)
[2022-07-08] MEDS ORDERED: SODIUM ZIRCONIUM CYCLOSILICATE (LOKELMA) 5 GM PACKET ONE (17:36)
[2022-07-08] MEDS: ENOXAPARIN NA (PORCINE) 30 MG/0.3 ML DISP.SYRIN SQ SCH (17:37)
[2022-07-08] MEDS ORDERED: CARVEDILOL 6.25 MG TABLET (FP) ONE (21:21)
[2022-07-08] MEDS ORDERED: ATORVASTATIN CA 80 MG TABLET (FP) ONE (21:21)
[2022-07-08] MEDS: CARVEDILOL 6.25 MG TABLET (FP) PO SCH (21:26)
[2022-07-08] MEDS: ATORVASTATIN CA 80 MG TABLET (FP) PO SCH (21:27)
[2022-07-08] MEDS ORDERED: ZOLPIDEM TARTRATE 5 MG TABLET PO PRN (22:00)
[2022-07-09] MEDS ORDERED: SODIUM CHLORIDE NASAL SPRAY 44 ML BOTTLE NS PRN (00:32)
[2022-07-09] MEDS: ACETAMINOPHEN 325 MG TABLET (FP) PO PRN ×2 (00:33→15:07)
[2022-07-09] MEDS: guaiFENesin 200 MG/10 ML 10 ML UNIT-DOSE CUPS PO PRN ×2 (00:33→21:05)
[2022-07-09 09:14] LABS: BASO % 0.9 % (0-2.0); EOS % 2.3 % (0-4.5); HEMATOCRIT 25.5 % (32.4-45.2); HEMOGLOBIN 8.3 GM/dL (10.7-15.3); LYMPH % 29.2 % (8-40); MCH 22.6 pg (25.7-33.7); MCHC 32.6 g/dl (32.0-36.0); MEAN CELL VOLUME 69.2 fl (80-96); NEUT % 51.6 % (42.8-82.8); PLATELET COUNT 330 10^3/uL (134-434); RBC 3.68 M/mm3 (3.60-5.2); RDW 20.9 % (11.6-15.6); WHITE BLOOD COUNT 5.4 K/mm3 (4.0-10.0)
[2022-07-09 10:00] LABS: ALBUMIN 3.1 g/dl (3.4-5.0)
[2022-07-09 10:02] LABS: TOT PROT 7.2 g/dl (6.4-8.2)
[2022-07-09 10:03] LABS: BILIRUBIN,TOTAL 0.4 mg/dL (0.2-1); BLOOD UREA NITROGEN 24.7 mg/dL (7-18)
[2022-07-09] MEDS: NIFEdipine E.R 60 MG TABLET PO SCH (11:06)
[2022-07-09] MEDS: ENOXAPARIN NA (PORCINE) 30 MG/0.3 ML DISP.SYRIN SQ SCH (11:06)
[2022-07-09] MEDS: CARVEDILOL 6.25 MG TABLET (FP) PO SCH ×2 (11:06→21:05)
[2022-07-09] MEDS: PANTOPRAZOLE 40 MG TABLET PO SCH (11:07)
[2022-07-09] MEDS: CLOPIDOGREL BISULFATE 75 MG TABLET (FP) PO SCH (11:07)
[2022-07-09] MEDS: DEXAMETHASONE 4 MG TABLET (FP) PO SCH (15:02)
[2022-07-09] MEDS: REMDESIVIR 200 MG in SODIUM CHLORIDE 250 ML IVPB ONE ×2 (17:55→18:31)
[2022-07-09] MEDS: traMADol HCL 50 MG TABLET PO PRN (21:05)
[2022-07-09] MEDS: ATORVASTATIN CA 80 MG TABLET (FP) PO SCH (21:06)
[2022-07-10] MEDS: PANTOPRAZOLE 40 MG TABLET PO SCH (09:33)
[2022-07-10] MEDS: guaiFENesin 200 MG/10 ML 10 ML UNIT-DOSE CUPS PO PRN (09:33)
[2022-07-10] MEDS: CARVEDILOL 6.25 MG TABLET (FP) PO SCH ×2 (09:33→22:19)
[2022-07-10] MEDS: traMADol HCL 50 MG TABLET PO PRN ×2 (09:33→22:19)
[2022-07-10] MEDS: CLOPIDOGREL BISULFATE 75 MG TABLET (FP) PO SCH (09:34)
[2022-07-10] MEDS: DEXAMETHASONE 4 MG TABLET (FP) PO SCH (09:34)
[2022-07-10] MEDS: NIFEdipine E.R 60 MG TABLET PO SCH (09:34)
[2022-07-10] MEDS: ENOXAPARIN NA (PORCINE) 30 MG/0.3 ML DISP.SYRIN SQ SCH (09:35)
[2022-07-10] MEDS: ACETAMINOPHEN 325 MG TABLET (FP) PO PRN (13:51)
[2022-07-10] MEDS: ALPRAZolam 0.25 MG TABLET PO PRN ×2 (13:51→22:19)
[2022-07-10 14:32] VITALS: BMI 19.7
[2022-07-10] MEDS ORDERED: REMDESIVIR 100 MG in SODIUM CHLORIDE 250 ML IVPB SCH (16:00)
[2022-07-10] MEDS: ATORVASTATIN CA 80 MG TABLET (FP) PO SCH (22:19)
[2022-07-11] MEDS: PANTOPRAZOLE 40 MG TABLET PO SCH (09:12)
[2022-07-11] MEDS: NIFEdipine E.R 60 MG TABLET PO SCH (09:12)
[2022-07-11] MEDS: ENOXAPARIN NA (PORCINE) 30 MG/0.3 ML DISP.SYRIN SQ SCH (09:12)
[2022-07-11] MEDS: DEXAMETHASONE 4 MG TABLET (FP) PO SCH (09:12)
[2022-07-11] MEDS: CARVEDILOL 6.25 MG TABLET (FP) PO SCH (09:12)
[2022-07-11] MEDS: CLOPIDOGREL BISULFATE 75 MG TABLET (FP) PO SCH (09:13)
[2022-07-11 10:21] VITALS: BP 153/65; PULSE 71; RESP 18; TEMP 98.7
== END 2022-07-11 15:02 | disposition home or self-care (01) ==
LOC: JER 12:20 → JERBED 15:33 → J4S 23:32
PROVIDERS: ADMIT Internal Medicine; ATTEND Internal Medicine
PROC: 3E033NZ Introduction of Analgesics, Hypnotics, Sedatives into Peripheral Vein, Percutaneous Approach (ICD-10-PCS; principal; 2022-07-08)
PROC: 3E023GC Introduction of Other Therapeutic Substance into Muscle, Percutaneous Approach (ICD-10-PCS; 2022-07-08)
PROC: 3E033GC Introduction of Other Therapeutic Substance into Peripheral Vein, Percutaneous Approach (ICD-10-PCS; 2022-07-08)
DX: U07.1 COVID-19 (principal); I25.110 Atherosclerotic heart disease of native coronary artery with unstable angina pectoris; I11.0 Hypertensive heart disease with heart failure; F03.90 Unspecified dementia, unspecified severity, without behavioral disturbance, psychotic disturbance, mood disturbance, and anxiety; N18.9 Chronic kidney disease, unspecified; J44.9 Chronic obstructive pulmonary disease, unspecified; Z95.5 Presence of coronary angioplasty implant and graft; Z86.73 Personal history of transient ischemic attack (TIA), and cerebral infarction without residual deficits; R10.13 Epigastric pain; J12.82 Pneumonia due to coronavirus disease 2019; I50.30 Unspecified diastolic (congestive) heart failure; M19.90 Unspecified osteoarthritis, unspecified site; Z88.0 Allergy status to penicillin
CPT/HCPCS: 0241U-QW; 36415; 71045-TC-FY; 80053; 81003; 82803; 83690; 84484; 85025; 87040; 87086; 93005; 93010; 96365; 96372; 96375; 99285-25; C9399; G0378

== ENCOUNTER 2022-12-08 17:26 | Emergency (ER) | payer OTHER ==
[2022-12-08 18:15] VITALS: BP 127/55; PULSE 75; RESP 20; TEMP 98.4; BMI 22.6
[2022-12-08] MEDS ORDERED: ACETAMINOPHEN 1000 MG/100 ML BAG IVPB ONE (18:27)
[2022-12-08] MEDS ORDERED: FAMOTIDINE 20 MG/50 ML IVPB 20 MG/50 ML MG IVPB ONE ×2 (18:27→19:26)
[2022-12-08] MEDS ORDERED: ACETAMINOPHEN INJECTION 100 ML IVPB ONE (19:26)
== END 2022-12-08 20:10 | disposition left against medical advice (07) ==
LOC: JER 17:26
DX: R10.84 Generalized abdominal pain (principal); R30.0 Dysuria; R35.0 Frequency of micturition; Z53.21 Procedure and treatment not carried out due to patient leaving prior to being seen by health care provider
CPT/HCPCS: 93005; 93010; 99283-25

== ENCOUNTER 2023-03-09 19:12 | Observation (INO) | payer OTHER ==
[2023-03-09 19:45] VITALS: BMI 18.6
[2023-03-09] MEDS ORDERED: ACETAMINOPHEN 1000 MG/100 ML BAG IVPB ONE (20:16)
[2023-03-09] MEDS ORDERED: ACETAMINOPHEN INJECTION 100 ML IVPB ONE (20:48)
[2023-03-09 20:59] LABS: BASO % 0.8 % (0-2.0); HEMATOCRIT 28.3 % (32.4-45.2); HEMOGLOBIN 9.3 GM/dL (10.7-15.3); LYMPH % 30.9 % (8-40); MCH 22.6 pg (25.7-33.7); MCHC 32.7 g/dl (32.0-36.0); MEAN CELL VOLUME 68.9 fl (80-96); MEAN PLT VOLUME 8.9 fl (7.5-11.1); MONO % 8.9 % (3.8-10.2); NEUT % 53.4 % (42.8-82.8); PLATELET COUNT 265 10^3/uL (134-434); RBC 4.11 M/mm3 (3.60-5.2); RDW 21.1 % (11.6-15.6); WHITE BLOOD COUNT 6.7 K/mm3 (4.0-10.0)
[2023-03-09 21:02] LABS: INR 2.1 (0.83-1.09); PROTHROMBIN TIME (PATIENT) 24.2 SEC (9.7-13.0)
[2023-03-09 21:21] LABS: ANISOCYTOSIS 3+; MACROCYTOSIS 0
[2023-03-09 21:22] LABS: POTASSIUM 3.9 mmol/L (3.5-5.1)
[2023-03-09 21:24] LABS: ALBUMIN 3.4 g/dl (3.4-5.0); CALCIUM 8.9 mg/dL (8.5-10.1)
[2023-03-09 21:26] LABS: BLOOD UREA NITROGEN 25.8 mg/dL (7-18)
[2023-03-09 21:29] LABS: BILIRUBIN,TOTAL 0.3 mg/dL (0.2-1); TOT PROT 7.9 g/dl (6.4-8.2)
[2023-03-09 21:32] LABS: EPI CELLS 5 /uL (0-25.1); HYALINE CASTS 0 /uL (0-3.1); PH,URINE 5.5 (5.0-8.0); URINE APPEARANCE CLEAR; URINE BACTERIA 8 /uL (0-1359); URINE BILIRUBIN NEGATIVE (NEGATIVE); URINE COLOR YELLOW; URINE GLUCOSE (UA) NEGATIVE (NEGATIVE); URINE KETONE NEGATIVE (NEGATIVE); URINE LEUK ESTERASE NEGATIVE (NEGATIVE); URINE NITRITE NEGATIVE (NEGATIVE); URINE PROTEIN 1+ (NEGATIVE); URINE RBC 10 /uL (0-23.9); URINE UROBILINOGEN 0.2 mg/dL (0.2-1.0); URINE WBC 10 /uL (0-25.8)
[2023-03-09 21:32] LABS: N-TERMINAL BNP 4214.5 pg/ml (5-450)
[2023-03-10] MEDS ORDERED: DOCUSATE SODIUM 100 MG CAPSULE (FP) PO PRN (04:06)
[2023-03-10] MEDS ORDERED: ACETAMINOPHEN 325 MG TABLET (FP) PO PRN ×2 (04:06→10:58)
[2023-03-10] MEDS ORDERED: FUROSEMIDE 40 MG/4 ML INJECTABLE VIAL IVPUSH ONE (04:19)
[2023-03-10] MEDS ORDERED: FUROSEMIDE 40 MG/4 ML INJECTABLE VIAL ONE (05:03)
[2023-03-10 05:59] LABS: BASO % 1.3 % (0-2.0); EOS % 6.5 % (0-4.5); HEMOGLOBIN 8.9 GM/dL (10.7-15.3); LYMPH % 27.9 % (8-40); MCH 22.2 pg (25.7-33.7); MCHC 31.9 g/dl (32.0-36.0); MEAN CELL VOLUME 69.8 fl (80-96); MEAN PLT VOLUME 9.1 fl (7.5-11.1); MONO % 9.3 % (3.8-10.2); PLATELET COUNT 263 10^3/uL (134-434); RBC 4.01 M/mm3 (3.60-5.2); RDW 20.9 % (11.6-15.6); WHITE BLOOD COUNT 5.5 K/mm3 (4.0-10.0)
[2023-03-10 06:27] LABS: POTASSIUM 3.9 mmol/L (3.5-5.1)
[2023-03-10 06:29] LABS: CALCIUM 8.8 mg/dL (8.5-10.1)
[2023-03-10 06:30] LABS: MAGNESIUM 1.7 mg/dL (1.8-2.4)
[2023-03-10 06:33] LABS: CREATININE 1.8 mg/dL (0.55-1.3); PHOSPHOROUS 4.3 mg/dL (2.5-4.9)
[2023-03-10] MEDS ORDERED: PATIENT'S OWN MEDICATION (NON-FORMULARY) (Alendronate Sodium [Fosamax] 70 MG Tablet) PO SCH (11:00)
[2023-03-10] MEDS: NIFEdipine E.R 60 MG TABLET PO SCH (12:20)
[2023-03-10] MEDS: CARVEDILOL 6.25 MG TABLET (FP) PO SCH ×2 (12:21→22:43)
[2023-03-10] MEDS: CLOPIDOGREL BISULFATE 75 MG TABLET (FP) PO SCH (12:21)
[2023-03-10] MEDS: LIDOCAINE 5% TOPICAL PATCH TP SCH (12:22)
[2023-03-10] MEDS: NICOTINE 14 MG/24 HOURS TOPICAL PATCH TD SCH (12:22)
[2023-03-10] MEDS ORDERED: MELATONIN 5 MG TABLETS PO PRN (22:05)
[2023-03-10] MEDS: traMADol HCL 50 MG TABLET PO PRN (22:42)
[2023-03-10] MEDS: ZOLPIDEM TARTRATE 5 MG TABLET PO PRN (22:42)
[2023-03-10] MEDS: ATORVASTATIN CA 80 MG TABLET (FP) PO SCH (22:43)
[2023-03-10] MEDS: LIDOCAINE PATCH REMOVAL MC SCH (22:43)
[2023-03-10] MEDS: GABAPENTIN 100 MG CAPSULE PO SCH (22:43)
[2023-03-11] MEDS: CARVEDILOL 6.25 MG TABLET (FP) PO SCH ×2 (10:02→21:32)
[2023-03-11] MEDS: NICOTINE 14 MG/24 HOURS TOPICAL PATCH TD SCH ×2 (10:02→12:40)
[2023-03-11] MEDS: LIDOCAINE 5% TOPICAL PATCH TP SCH (10:02)
[2023-03-11] MEDS: CLOPIDOGREL BISULFATE 75 MG TABLET (FP) PO SCH (10:02)
[2023-03-11] MEDS: NIFEdipine E.R 60 MG TABLET PO SCH (10:02)
[2023-03-11] MEDS: GABAPENTIN 100 MG CAPSULE PO SCH ×2 (10:02→21:32)
[2023-03-11] MEDS: PANTOPRAZOLE 40 MG TABLET PO SCH (10:02)
[2023-03-11] MEDS: ZOLPIDEM TARTRATE 5 MG TABLET PO PRN (21:32)
[2023-03-11] MEDS: BACLOFEN 10 MG TABLET (FP) PO SCH (21:32)
[2023-03-11] MEDS: traMADol HCL 50 MG TABLET PO PRN (21:32)
[2023-03-11] MEDS: LIDOCAINE PATCH REMOVAL MC SCH (21:32)
[2023-03-11] MEDS: ATORVASTATIN CA 80 MG TABLET (FP) PO SCH (21:32)
[2023-03-11 23:26] VITALS: RESP 18
[2023-03-12] MEDS: traMADol HCL 50 MG TABLET PO PRN ×2 (09:03→18:24)
[2023-03-12] MEDS: CLOPIDOGREL BISULFATE 75 MG TABLET (FP) PO SCH (09:04)
[2023-03-12] MEDS: LIDOCAINE 5% TOPICAL PATCH TP SCH (09:04)
[2023-03-12] MEDS: CARVEDILOL 6.25 MG TABLET (FP) PO SCH ×2 (09:04→21:17)
[2023-03-12] MEDS: PANTOPRAZOLE 40 MG TABLET PO SCH (09:04)
[2023-03-12] MEDS: GABAPENTIN 100 MG CAPSULE PO SCH ×2 (09:04→21:17)
[2023-03-12] MEDS: BACLOFEN 10 MG TABLET (FP) PO SCH ×2 (09:04→21:17)
[2023-03-12] MEDS: NIFEdipine E.R 60 MG TABLET PO SCH (09:04)
[2023-03-12] MEDS: NICOTINE 14 MG/24 HOURS TOPICAL PATCH TD SCH (09:06)
[2023-03-12] MEDS: ATORVASTATIN CA 80 MG TABLET (FP) PO SCH (21:17)
[2023-03-12] MEDS: LIDOCAINE PATCH REMOVAL MC SCH (21:21)
[2023-03-13] MEDS: NICOTINE 14 MG/24 HOURS TOPICAL PATCH TD SCH ×2 (10:47→10:54)
[2023-03-13] MEDS: LIDOCAINE 5% TOPICAL PATCH TP SCH (10:47)
[2023-03-13] MEDS: CLOPIDOGREL BISULFATE 75 MG TABLET (FP) PO SCH (10:48)
[2023-03-13] MEDS: PANTOPRAZOLE 40 MG TABLET PO SCH (10:48)
[2023-03-13] MEDS: CARVEDILOL 6.25 MG TABLET (FP) PO SCH (10:48)
[2023-03-13] MEDS: NIFEdipine E.R 60 MG TABLET PO SCH (10:48)
[2023-03-13] MEDS: BACLOFEN 10 MG TABLET (FP) PO SCH (10:48)
[2023-03-13] MEDS: GABAPENTIN 100 MG CAPSULE PO SCH (10:48)
[2023-03-13 14:25] VITALS: BP 163/72; PULSE 64; TEMP 97.5
== END 2023-03-13 15:36 | disposition home or self-care (01) ==
LOC: JER 19:12 → JERBED 20:15 → J4S 03-10 06:58
PROVIDERS: ADMIT Internal Medicine; ATTEND Internal Medicine
PROC: 3E033GC Introduction of Other Therapeutic Substance into Peripheral Vein, Percutaneous Approach (ICD-10-PCS; principal; 2023-03-09)
DX: I25.10 Atherosclerotic heart disease of native coronary artery without angina pectoris (principal); I13.0 Hypertensive heart and chronic kidney disease with heart failure and stage 1 through stage 4 chronic kidney disease, or unspecified chronic kidney disease; F03.90 Unspecified dementia, unspecified severity, without behavioral disturbance, psychotic disturbance, mood disturbance, and anxiety; E78.5 Hyperlipidemia, unspecified; I48.91 Unspecified atrial fibrillation; I25.2 Old myocardial infarction; M19.90 Unspecified osteoarthritis, unspecified site; I50.30 Unspecified diastolic (congestive) heart failure; N18.9 Chronic kidney disease, unspecified; J44.9 Chronic obstructive pulmonary disease, unspecified; Z95.5 Presence of coronary angioplasty implant and graft; Z90.49 Acquired absence of other specified parts of digestive tract; N20.0 Calculus of kidney; K52.9 Noninfective gastroenteritis and colitis, unspecified; I73.9 Peripheral vascular disease, unspecified; Z86.73 Personal history of transient ischemic attack (TIA), and cerebral infarction without residual deficits; F17.200 Nicotine dependence, unspecified, uncomplicated
CPT/HCPCS: 36415; 71045-TC-FY; 71250-TC; 74176-TC; 80048; 80053; 81003; 83605; 83690; 83735; 83880; 84100; 84484; 85025; 85610; 85730; 87077; 87086; 93005; 93010; 93306-TC; 93971-TC; 96374; 97116-GP; 97161-GP; 99285-25; G0378; J0475

== ENCOUNTER 2023-03-13 16:56 | Inpatient (IN) | payer OTHER ==
[2023-03-13] MEDS ORDERED: ONDANSETRON 4 MG/2 ML VIAL IVPUSH ONE (17:50)
[2023-03-13] MEDS ORDERED: SODIUM CHLORIDE 500 ML IV STA (17:50)
[2023-03-13] MEDS ORDERED: ONDANSETRON 4 MG/2 ML VIAL ONE (18:22)
[2023-03-13 18:42] LABS: EOS % 2.5 % (0-4.5); HEMATOCRIT 32.3 % (32.4-45.2); HEMOGLOBIN 10.4 GM/dL (10.7-15.3); LYMPH % 15.9 % (8-40); MCH 22.4 pg (25.7-33.7); MEAN CELL VOLUME 69.8 fl (80-96); MEAN PLT VOLUME 8.8 fl (7.5-11.1); MONO % 7.2 % (3.8-10.2); NEUT % 73.4 % (42.8-82.8); PLATELET COUNT 261 10^3/uL (134-434); RBC 4.63 M/mm3 (3.60-5.2); RDW 21.3 % (11.6-15.6); WHITE BLOOD COUNT 6.4 K/mm3 (4.0-10.0)
[2023-03-13 18:49] LABS: INR 1.16 (0.83-1.09); PROTHROMBIN TIME (PATIENT) 13.4 SEC (9.7-13.0)
[2023-03-13 18:51] LABS: ACTIVATED PTT 33.4 SECONDS (25.2-36.5)
[2023-03-13 19:14] LABS: VENOUS BASE EXCESS -3.1 mmol/L (-2-2); VENOUS O2 SATURATION 74.3 % (70-80); VENOUS PCO2 38.7 mmHg (38-52); VENOUS PH 7.37 (7.310-7.410)
[2023-03-13 19:18] LABS: ANISOCYTOSIS 3+; MACROCYTOSIS 0
[2023-03-13 19:42] LABS: POTASSIUM 4.5 mmol/L (3.5-5.1)
[2023-03-13 19:44] LABS: CALCIUM 8.8 mg/dL (8.5-10.1)
[2023-03-13 19:45] LABS: ALBUMIN 3.7 g/dl (3.4-5.0)
[2023-03-13 19:48] LABS: CREATININE 1.7 mg/dL (0.55-1.3)
[2023-03-13 19:49] LABS: BILIRUBIN,TOTAL 0.3 mg/dL (0.2-1); TOT PROT 8.3 g/dl (6.4-8.2)
[2023-03-13] MEDS ORDERED: ASPIRIN 300 MG SUPP.RECT RC ONE ×2 (21:05→21:26)
[2023-03-13] MEDS ORDERED: ACETAMINOPHEN 1000 MG/100 ML BAG IVPB ONE (21:22)
[2023-03-13] MEDS ORDERED: ACETAMINOPHEN INJECTION 100 ML IVPB ONE (21:25)
[2023-03-13] MEDS ORDERED: AZITHROMYCIN IVPB 500 MG in DEXTROSE 5%-WATER - 250 ML IVPB ONE (23:36)
[2023-03-14] MEDS ORDERED: DOCUSATE SODIUM 100 MG CAPSULE (FP) PO PRN (04:13)
[2023-03-14 07:18] LABS: EOS % 2.3 % (0-4.5); HEMATOCRIT 31.5 % (32.4-45.2); HEMOGLOBIN 10.2 GM/dL (10.7-15.3); LYMPH % 19.6 % (8-40); MCH 22.5 pg (25.7-33.7); MCHC 32.3 g/dl (32.0-36.0); MEAN CELL VOLUME 69.5 fl (80-96); MEAN PLT VOLUME 9.3 fl (7.5-11.1); MONO % 7.3 % (3.8-10.2); NEUT % 69.8 % (42.8-82.8); PLATELET COUNT 277 10^3/uL (134-434); RBC 4.53 M/mm3 (3.60-5.2); RDW 21.3 % (11.6-15.6); WHITE BLOOD COUNT 5.7 K/mm3 (4.0-10.0)
[2023-03-14 08:35] LABS: CALCIUM 9.4 mg/dL (8.5-10.1)
[2023-03-14 08:36] LABS: BLOOD UREA NITROGEN 25.8 mg/dL (7-18)
[2023-03-14 08:39] LABS: CREATININE 1.6 mg/dL (0.55-1.3)
[2023-03-14] MEDS: hydrALAZINE HCL 20 MG/ML VIAL IVPUSH PRN (09:16)
[2023-03-14] MEDS: NICOTINE 14 MG/24 HOURS TOPICAL PATCH TD SCH (09:25)
[2023-03-14] MEDS: CLOPIDOGREL BISULFATE 75 MG TABLET (FP) PO SCH ×2 (09:30→13:03)
[2023-03-14] MEDS: CARVEDILOL 6.25 MG TABLET (FP) PO SCH ×3 (09:30→22:07)
[2023-03-14] MEDS: PANTOPRAZOLE 40 MG TABLET PO SCH (09:30)
[2023-03-14] MEDS: LIDOCAINE 5% TOPICAL PATCH TP SCH (09:30)
[2023-03-14] MEDS: NIFEdipine E.R 60 MG TABLET PO SCH ×2 (09:31→13:03)
[2023-03-14] MEDS ORDERED: traMADol HCL 50 MG TABLET PO PRN (13:10)
[2023-03-14 13:19] LABS: EPI CELLS 3 /uL (0-25.1); HYALINE CASTS 0 /uL (0-3.1); URINE APPEARANCE CLEAR; URINE BACTERIA 31 /uL (0-1359); URINE BILIRUBIN NEGATIVE (NEGATIVE); URINE COLOR YELLOW; URINE GLUCOSE (UA) NEGATIVE (NEGATIVE); URINE KETONE NEGATIVE (NEGATIVE); URINE LEUK ESTERASE NEGATIVE (NEGATIVE); URINE NITRITE NEGATIVE (NEGATIVE); URINE PROTEIN 3+ (NEGATIVE); URINE RBC 9 /uL (0-23.9); URINE UROBILINOGEN 0.2 mg/dL (0.2-1.0); URINE WBC 4 /uL (0-25.8)
[2023-03-14] MEDS: FUROSEMIDE 40 MG TABLET (FP) PO SCH (14:00)
[2023-03-14] MEDS: BACLOFEN 10 MG TABLET (FP) PO SCH (22:07)
[2023-03-14] MEDS: ATORVASTATIN CA 80 MG TABLET (FP) PO SCH (22:07)
[2023-03-14] MEDS: LIDOCAINE PATCH REMOVAL MC SCH (22:08)
[2023-03-14] MEDS: HEPARIN NA (PORCINE) 5,000 UNITS/ML 1ML VIAL SQ SCH (22:08)
[2023-03-15 08:47] LABS: BASO % 0.7 % (0-2.0); EOS % 2.1 % (0-4.5); HEMATOCRIT 35.6 % (32.4-45.2); HEMOGLOBIN 11.1 GM/dL (10.7-15.3); LYMPH % 24.2 % (8-40); MCH 21.6 pg (25.7-33.7); MCHC 31.2 g/dl (32.0-36.0); MEAN CELL VOLUME 69.4 fl (80-96); PLATELET COUNT 288 10^3/uL (134-434); RBC 5.13 M/mm3 (3.60-5.2); RDW 21.7 % (11.6-15.6); WHITE BLOOD COUNT 6.3 K/mm3 (4.0-10.0)
[2023-03-15 09:01] LABS: POTASSIUM 3.9 mmol/L (3.5-5.1)
[2023-03-15 09:08] LABS: CALCIUM 9.2 mg/dL (8.5-10.1)
[2023-03-15 09:09] LABS: ALBUMIN 3.8 g/dl (3.4-5.0)
[2023-03-15 09:12] LABS: CREATININE 2.2 mg/dL (0.55-1.3)
[2023-03-15 09:13] LABS: BILIRUBIN,TOTAL 0.7 mg/dL (0.2-1); TOT PROT 8.6 g/dl (6.4-8.2)
[2023-03-15] MEDS: HEPARIN NA (PORCINE) 5,000 UNITS/ML 1ML VIAL SQ SCH ×2 (10:09→22:18)
[2023-03-15] MEDS: CARVEDILOL 6.25 MG TABLET (FP) PO SCH ×3 (10:09→22:19)
[2023-03-15] MEDS: CLOPIDOGREL BISULFATE 75 MG TABLET (FP) PO SCH ×2 (10:10→11:00)
[2023-03-15] MEDS: NICOTINE 14 MG/24 HOURS TOPICAL PATCH TD SCH (10:10)
[2023-03-15] MEDS: NIFEdipine E.R 60 MG TABLET PO SCH ×2 (10:10→11:00)
[2023-03-15] MEDS: BACLOFEN 10 MG TABLET (FP) PO SCH ×2 (10:10→22:19)
[2023-03-15] MEDS: PANTOPRAZOLE 40 MG TABLET PO SCH ×2 (10:10→11:00)
[2023-03-15] MEDS: FUROSEMIDE 40 MG TABLET (FP) PO SCH (10:10)
[2023-03-15] MEDS: LIDOCAINE 5% TOPICAL PATCH TP SCH (10:20)
[2023-03-15] MEDS: hydrALAZINE HCL 20 MG/ML VIAL IVPUSH PRN ×2 (12:58→20:36)
[2023-03-15] MEDS: ATORVASTATIN CA 80 MG TABLET (FP) PO SCH (22:19)
[2023-03-15] MEDS: LIDOCAINE PATCH REMOVAL MC SCH (22:19)
[2023-03-15] MEDS ORDERED: ONDANSETRON 4 MG/2 ML VIAL IVPUSH ONE (22:38)
[2023-03-16 08:39] LABS: POTASSIUM 3.8 mmol/L (3.5-5.1)
[2023-03-16 08:42] LABS: CALCIUM 8.7 mg/dL (8.5-10.1)
[2023-03-16 08:43] LABS: BLOOD UREA NITROGEN 44.1 mg/dL (7-18)
[2023-03-16 08:46] LABS: CREATININE 2.5 mg/dL (0.55-1.3)
[2023-03-16] MEDS: BACLOFEN 10 MG TABLET (FP) PO SCH ×2 (10:35→23:20)
[2023-03-16] MEDS: NICOTINE 14 MG/24 HOURS TOPICAL PATCH TD SCH (10:35)
[2023-03-16] MEDS: PANTOPRAZOLE 40 MG TABLET PO SCH (10:36)
[2023-03-16] MEDS: NIFEdipine E.R 60 MG TABLET PO SCH (10:36)
[2023-03-16] MEDS: HEPARIN NA (PORCINE) 5,000 UNITS/ML 1ML VIAL SQ SCH ×2 (10:36→23:20)
[2023-03-16] MEDS: CLOPIDOGREL BISULFATE 75 MG TABLET (FP) PO SCH (10:36)
[2023-03-16] MEDS: CARVEDILOL 6.25 MG TABLET (FP) PO SCH (10:36)
[2023-03-16] MEDS: LIDOCAINE 5% TOPICAL PATCH TP SCH (10:48)
[2023-03-16] MEDS: hydrALAZINE HCL 20 MG/ML VIAL IVPUSH PRN (15:03)
[2023-03-16] MEDS ORDERED: CARVEDILOL 6.25 MG TABLET (FP) PO ONE (18:11)
[2023-03-16] MEDS: CARVEDILOL 12.5 MG TABLET (FP) PO SCH (23:20)
[2023-03-16] MEDS: ATORVASTATIN CA 80 MG TABLET (FP) PO SCH (23:20)
[2023-03-16] MEDS: LIDOCAINE PATCH REMOVAL MC SCH (23:30)
[2023-03-17 08:30] LABS: BASO % 1.2 % (0-2.0); EOS % 1.1 % (0-4.5); HEMATOCRIT 31.1 % (32.4-45.2); LYMPH % 27.7 % (8-40); MCH 21.9 pg (25.7-33.7); MCHC 32.3 g/dl (32.0-36.0); MEAN CELL VOLUME 67.9 fl (80-96); MEAN PLT VOLUME 8.6 fl (7.5-11.1); MONO % 8.1 % (3.8-10.2); NEUT % 61.9 % (42.8-82.8); PLATELET COUNT 246 10^3/uL (134-434); RBC 4.58 M/mm3 (3.60-5.2); RDW 21.6 % (11.6-15.6); WHITE BLOOD COUNT 7.2 K/mm3 (4.0-10.0)
[2023-03-17 09:11] LABS: ANISOCYTOSIS 3+; MACROCYTOSIS 0
[2023-03-17 09:14] LABS: POTASSIUM 3.8 mmol/L (3.5-5.1)
[2023-03-17 09:20] LABS: ALBUMIN 3.6 g/dl (3.4-5.0); CALCIUM 8.5 mg/dL (8.5-10.1)
[2023-03-17 09:23] LABS: CREATININE 3.1 mg/dL (0.55-1.3)
[2023-03-17 09:24] LABS: BILIRUBIN,TOTAL 0.4 mg/dL (0.2-1)
[2023-03-17] MEDS: HEPARIN NA (PORCINE) 5,000 UNITS/ML 1ML VIAL SQ SCH ×2 (10:54→22:07)
[2023-03-17] MEDS: NICOTINE 14 MG/24 HOURS TOPICAL PATCH TD SCH (10:54)
[2023-03-17] MEDS: BACLOFEN 10 MG TABLET (FP) PO SCH ×2 (10:55→22:07)
[2023-03-17] MEDS: PANTOPRAZOLE 40 MG TABLET PO SCH (10:55)
[2023-03-17] MEDS: LIDOCAINE 5% TOPICAL PATCH TP SCH (10:55)
[2023-03-17] MEDS: CARVEDILOL 12.5 MG TABLET (FP) PO SCH ×2 (10:55→22:07)
[2023-03-17] MEDS: CLOPIDOGREL BISULFATE 75 MG TABLET (FP) PO SCH (10:55)
[2023-03-17] MEDS: NIFEdipine E.R 60 MG TABLET PO SCH (10:55)
[2023-03-17] MEDS ORDERED: SODIUM CHLORIDE 0.45% 1,000 ML IV SCH (14:45)
[2023-03-17] MEDS: ONDANSETRON 4 MG/2 ML VIAL IVPUSH PRN (16:59)
[2023-03-17] MEDS: ATORVASTATIN CA 80 MG TABLET (FP) PO SCH (22:07)
[2023-03-17] MEDS: LIDOCAINE PATCH REMOVAL MC SCH (22:08)
[2023-03-18] MEDS: ONDANSETRON 4 MG/2 ML VIAL IVPUSH PRN (06:19)
[2023-03-18 08:58] LABS: BLOOD UREA NITROGEN 69.1 mg/dL (7-18); CALCIUM 8.3 mg/dL (8.5-10.1)
[2023-03-18 08:59] LABS: ALBUMIN 3.7 g/dl (3.4-5.0)
[2023-03-18 09:01] LABS: CREATININE 3.2 mg/dL (0.55-1.3)
[2023-03-18 09:03] LABS: BILIRUBIN,TOTAL 0.9 mg/dL (0.2-1); TOT PROT 7.7 g/dl (6.4-8.2)
[2023-03-18] MEDS: PANTOPRAZOLE 40 MG TABLET PO SCH (09:16)
[2023-03-18] MEDS: NIFEdipine E.R 60 MG TABLET PO SCH (09:16)
[2023-03-18] MEDS: LIDOCAINE 5% TOPICAL PATCH TP SCH (09:16)
[2023-03-18] MEDS: BACLOFEN 10 MG TABLET (FP) PO SCH ×2 (09:16→21:35)
[2023-03-18] MEDS: CLOPIDOGREL BISULFATE 75 MG TABLET (FP) PO SCH (09:16)
[2023-03-18] MEDS: HEPARIN NA (PORCINE) 5,000 UNITS/ML 1ML VIAL SQ SCH ×2 (09:16→22:00)
[2023-03-18] MEDS: NICOTINE 14 MG/24 HOURS TOPICAL PATCH TD SCH (09:16)
[2023-03-18] MEDS: CARVEDILOL 12.5 MG TABLET (FP) PO SCH ×2 (09:16→21:35)
[2023-03-18] MEDS ORDERED: SODIUM CHLORIDE 0.45% 1,000 ML IV SCH (14:00)
[2023-03-18 16:00] VITALS: BMI 17.6
[2023-03-18] MEDS ORDERED: ACETAMINOPHEN 325 MG TABLET (FP) PO ONE (19:51)
[2023-03-18] MEDS: ATORVASTATIN CA 80 MG TABLET (FP) PO SCH (21:35)
[2023-03-18] MEDS: LIDOCAINE PATCH REMOVAL MC SCH (21:41)
[2023-03-19] MEDS ORDERED: hydrALAZINE HCL 20 MG/ML VIAL IVPUSH PRN (04:31)
[2023-03-19] MEDS ORDERED: DOCUSATE SODIUM 100 MG CAPSULE (FP) PO PRN (04:31)
[2023-03-19] MEDS: HEPARIN NA (PORCINE) 5,000 UNITS/ML 1ML VIAL SQ SCH ×2 (09:51→22:08)
[2023-03-19] MEDS: LIDOCAINE 5% TOPICAL PATCH TP SCH (09:52)
[2023-03-19] MEDS: CLOPIDOGREL BISULFATE 75 MG TABLET (FP) PO SCH (09:52)
[2023-03-19] MEDS: NICOTINE 14 MG/24 HOURS TOPICAL PATCH TD SCH (09:52)
[2023-03-19] MEDS: PANTOPRAZOLE 40 MG TABLET PO SCH (09:52)
[2023-03-19] MEDS: BACLOFEN 10 MG TABLET (FP) PO SCH ×2 (09:53→22:08)
[2023-03-19] MEDS: NIFEdipine E.R 60 MG TABLET PO SCH (09:53)
[2023-03-19] MEDS: CARVEDILOL 12.5 MG TABLET (FP) PO SCH ×2 (09:53→22:08)
[2023-03-19 13:47] LABS: CALCIUM 8.4 mg/dL (8.5-10.1)
[2023-03-19 13:48] LABS: BLOOD UREA NITROGEN 60.3 mg/dL (7-18)
[2023-03-19 13:51] LABS: CREATININE 2.5 mg/dL (0.55-1.3)
[2023-03-19] MEDS: ACETAMINOPHEN 500 MG TABLET (FP) PO PRN (15:57)
[2023-03-19] MEDS: ATORVASTATIN CA 80 MG TABLET (FP) PO SCH (22:08)
[2023-03-19] MEDS: LIDOCAINE PATCH REMOVAL MC SCH (22:14)
[2023-03-20] MEDS: NICOTINE 14 MG/24 HOURS TOPICAL PATCH TD SCH (09:16)
[2023-03-20] MEDS: BACLOFEN 10 MG TABLET (FP) PO SCH ×2 (09:16→21:25)
[2023-03-20] MEDS: CARVEDILOL 12.5 MG TABLET (FP) PO SCH ×2 (09:16→21:25)
[2023-03-20] MEDS: PANTOPRAZOLE 40 MG TABLET PO SCH (09:16)
[2023-03-20] MEDS: HEPARIN NA (PORCINE) 5,000 UNITS/ML 1ML VIAL SQ SCH ×2 (09:16→21:25)
[2023-03-20] MEDS: CLOPIDOGREL BISULFATE 75 MG TABLET (FP) PO SCH (09:16)
[2023-03-20] MEDS: NIFEdipine E.R 60 MG TABLET PO SCH (09:16)
[2023-03-20] MEDS: LIDOCAINE 5% TOPICAL PATCH TP SCH (09:40)
[2023-03-20 10:10] LABS: POTASSIUM 4.2 mmol/L (3.5-5.1)
[2023-03-20 10:19] LABS: BLOOD UREA NITROGEN 47.1 mg/dL (7-18); CALCIUM 8.8 mg/dL (8.5-10.1)
[2023-03-20] MEDS: ATORVASTATIN CA 80 MG TABLET (FP) PO SCH (21:25)
[2023-03-20] MEDS: LIDOCAINE PATCH REMOVAL MC SCH (21:28)
[2023-03-20 22:25] VITALS: RESP 18
[2023-03-21] MEDS: ACETAMINOPHEN 500 MG TABLET (FP) PO PRN ×2 (09:45→21:46)
[2023-03-21] MEDS: CLOPIDOGREL BISULFATE 75 MG TABLET (FP) PO SCH (09:47)
[2023-03-21] MEDS: HEPARIN NA (PORCINE) 5,000 UNITS/ML 1ML VIAL SQ SCH ×2 (09:47→21:46)
[2023-03-21] MEDS: CARVEDILOL 12.5 MG TABLET (FP) PO SCH ×2 (09:47→21:46)
[2023-03-21] MEDS: NICOTINE 14 MG/24 HOURS TOPICAL PATCH TD SCH (09:47)
[2023-03-21] MEDS: PANTOPRAZOLE 40 MG TABLET PO SCH (09:47)
[2023-03-21] MEDS: LIDOCAINE 5% TOPICAL PATCH TP SCH (09:47)
[2023-03-21] MEDS: NIFEdipine E.R 60 MG TABLET PO SCH (09:47)
[2023-03-21] MEDS: BACLOFEN 10 MG TABLET (FP) PO SCH ×2 (09:48→21:46)
[2023-03-21] MEDS: ATORVASTATIN CA 80 MG TABLET (FP) PO SCH (21:46)
[2023-03-21] MEDS: LIDOCAINE PATCH REMOVAL MC SCH (21:48)
[2023-03-21 22:48] VITALS: TEMP 98.2
[2023-03-22 09:28] VITALS: BP 145/63; PULSE 78
[2023-03-22] MEDS: BACLOFEN 10 MG TABLET (FP) PO SCH (10:13)
[2023-03-22] MEDS: PANTOPRAZOLE 40 MG TABLET PO SCH (10:13)
[2023-03-22] MEDS: CLOPIDOGREL BISULFATE 75 MG TABLET (FP) PO SCH (10:13)
[2023-03-22] MEDS: HEPARIN NA (PORCINE) 5,000 UNITS/ML 1ML VIAL SQ SCH (10:14)
[2023-03-22] MEDS: CARVEDILOL 12.5 MG TABLET (FP) PO SCH (10:14)
[2023-03-22] MEDS: ACETAMINOPHEN 500 MG TABLET (FP) PO PRN (10:14)
[2023-03-22] MEDS: NIFEdipine E.R 60 MG TABLET PO SCH (10:14)
[2023-03-22] MEDS: NICOTINE 14 MG/24 HOURS TOPICAL PATCH TD SCH (10:14)
[2023-03-22] MEDS: LIDOCAINE 5% TOPICAL PATCH TP SCH (10:15)
[2023-03-22 21:06] LABS: ANTIGLOMERULAR BASEMENT MEN.AB <0.2 units (0.0-0.9)
[2023-03-24 15:08] LABS: ATYPICAL pANCA <1:20 titer (Neg:<1:20); C-ANCA <1:20 titer (Neg:<1:20)
== END 2023-03-22 13:45 | DRG 291 ==
LOC: JER 16:56 → JERBED 22:32 → J4W 03-14 00:55 → OBSVTOIN 03-17 13:41 → J8W 03-19 04:12
PROVIDERS: ADMIT Internal Medicine; ATTEND Internal Medicine
DX: I13.0 Hypertensive heart and chronic kidney disease with heart failure and stage 1 through stage 4 chronic kidney disease, or unspecified chronic kidney disease (principal); G93.41 Metabolic encephalopathy; G81.91 Hemiplegia, unspecified affecting right dominant side; N17.9 Acute kidney failure, unspecified; R64 Cachexia; Z68.1 Body mass index [BMI] 19.9 or less, adult; I50.32 Chronic diastolic (congestive) heart failure; I25.10 Atherosclerotic heart disease of native coronary artery without angina pectoris; E78.5 Hyperlipidemia, unspecified; F03.90 Unspecified dementia, unspecified severity, without behavioral disturbance, psychotic disturbance, mood disturbance, and anxiety; I25.2 Old myocardial infarction; I48.0 Paroxysmal atrial fibrillation; I35.0 Nonrheumatic aortic (valve) stenosis; K57.90 Diverticulosis of intestine, part unspecified, without perforation or abscess without bleeding; G89.29 Other chronic pain; R53.1 Weakness; J44.9 Chronic obstructive pulmonary disease, unspecified; N18.9 Chronic kidney disease, unspecified; Z86.73 Personal history of transient ischemic attack (TIA), and cerebral infarction without residual deficits; Z95.5 Presence of coronary angioplasty implant and graft
CPT/HCPCS: 0241U-QW; 36415; 70450-TC; 70496-TC; 70498-TC; 70551-TC; 71046-TC-FY; 74176-TC; 76775-TC; 80048; 80053; 80061; 81003; 82436; 82550; 82570; 82803; 82962; 83036; 83516; 83520; 83605; 83690; 84133; 84155; 84165; 84300; 84443; 84484; 85025; 85610; 85730; 86038; 86225; 86256; 87086; 93005; 93010; 97116-GP; 97162-GP; 99285-25; G0378; J0475; J1644; Q9967

== ENCOUNTER 2023-03-29 18:49 | Inpatient (IN) | payer OTHER ==
[2023-03-29 19:09] VITALS: BMI 16.5
[2023-03-29 20:12] LABS: BASO % 0.9 % (0-2.0); EOS % 4.2 % (0-4.5); HEMATOCRIT 33.6 % (32.4-45.2); HEMOGLOBIN 10.9 GM/dL (10.7-15.3); LYMPH % 21.3 % (8-40); MCH 22.9 pg (25.7-33.7); MCHC 32.4 g/dl (32.0-36.0); MEAN CELL VOLUME 70.6 fl (80-96); MEAN PLT VOLUME 9.7 fl (7.5-11.1); MONO % 6.2 % (3.8-10.2); NEUT % 67.4 % (42.8-82.8); PLATELET COUNT 382 10^3/uL (134-434); RBC 4.75 M/mm3 (3.60-5.2); WHITE BLOOD COUNT 8.6 K/mm3 (4.0-10.0)
[2023-03-29 20:24] LABS: EPI CELLS 12 /uL (0-25.1); HYALINE CASTS 4 /uL (0-3.1); PH,URINE 5.5 (5.0-8.0); URINE APPEARANCE CLEAR; URINE BACTERIA 2 /uL (0-1359); URINE BILIRUBIN NEGATIVE (NEGATIVE); URINE COLOR YELLOW; URINE GLUCOSE (UA) NEGATIVE (NEGATIVE); URINE KETONE NEGATIVE (NEGATIVE); URINE LEUK ESTERASE NEGATIVE (NEGATIVE); URINE NITRITE NEGATIVE (NEGATIVE); URINE PROTEIN 1+ (NEGATIVE); URINE RBC 20 /uL (0-23.9); URINE UROBILINOGEN 0.2 mg/dL (0.2-1.0); URINE WBC 12 /uL (0-25.8)
[2023-03-29 20:34] LABS: ANISOCYTOSIS 3+; MACROCYTOSIS 0; TARGET CELLS 1+
[2023-03-29 20:58] LABS: POTASSIUM 5.1 mmol/L (3.5-5.1)
[2023-03-29 21:01] LABS: ALBUMIN 3.4 g/dl (3.4-5.0); BLOOD UREA NITROGEN 54.7 mg/dL (7-18); CALCIUM 9.5 mg/dL (8.5-10.1)
[2023-03-29 21:04] LABS: CREATININE 3.5 mg/dL (0.55-1.3)
[2023-03-29 21:05] LABS: BILIRUBIN,TOTAL 0.4 mg/dL (0.2-1); TOT PROT 8.3 g/dl (6.4-8.2)
[2023-03-29] MEDS ORDERED: SODIUM CHLORIDE 0.9% 500 ML INFUS.BAG IV ONE (21:49)
[2023-03-30] MEDS ORDERED: guaiFENesin 200 MG/10 ML 10 ML UNIT-DOSE CUPS PO PRN (03:02)
[2023-03-30] MEDS ORDERED: DOCUSATE SODIUM 100 MG CAPSULE (FP) PO PRN (03:02)
[2023-03-30] MEDS ORDERED: ACETAMINOPHEN 1000 MG/100 ML BAG IVPB PRN ×2 (03:06→03:10)
[2023-03-30] MEDS ORDERED: HEPARIN NA (PORCINE) 5,000 UNITS/ML 1ML VIAL SQ SCH ×2 (03:15→10:00)
[2023-03-30] MEDS ORDERED: traMADol HCL 50 MG TABLET ONE (03:32)
[2023-03-30] MEDS ORDERED: HEPARIN NA (PORCINE) 5,000 UNITS/ML 1ML VIAL ONE ×3 (03:32→07:51)
[2023-03-30] MEDS: traMADol HCL 50 MG TABLET PO PRN (03:35)
[2023-03-30 06:29] LABS: BASO % 0.8 % (0-2.0); EOS % 4.5 % (0-4.5); HEMATOCRIT 29.4 % (32.4-45.2); HEMOGLOBIN 9.4 GM/dL (10.7-15.3); LYMPH % 17.9 % (8-40); MCH 22.8 pg (25.7-33.7); MEAN CELL VOLUME 71.3 fl (80-96); MEAN PLT VOLUME 9.7 fl (7.5-11.1); MONO % 6.2 % (3.8-10.2); NEUT % 70.6 % (42.8-82.8); PLATELET COUNT 341 10^3/uL (134-434); RBC 4.12 M/mm3 (3.60-5.2); RDW 22.8 % (11.6-15.6)
[2023-03-30 06:38] LABS: INR 1.27 (0.83-1.09); PROTHROMBIN TIME (PATIENT) 14.7 SEC (9.7-13.0)
[2023-03-30 06:48] LABS: POTASSIUM 4.2 mmol/L (3.5-5.1)
[2023-03-30 06:52] LABS: ALBUMIN 3.2 g/dl (3.4-5.0); MAGNESIUM 1.6 mg/dL (1.8-2.4)
[2023-03-30 06:54] LABS: BLOOD UREA NITROGEN 48.8 mg/dL (7-18); CALCIUM 9.5 mg/dL (8.5-10.1)
[2023-03-30 06:55] LABS: CREATININE 2.9 mg/dL (0.55-1.3)
[2023-03-30 06:57] LABS: PHOSPHOROUS 6.6 mg/dL (2.5-4.9); TOT PROT 7.4 g/dl (6.4-8.2)
[2023-03-30 06:58] LABS: BILIRUBIN,TOTAL 0.3 mg/dL (0.2-1)
[2023-03-30] MEDS ORDERED: FUROSEMIDE 40 MG TABLET (FP) ONE (07:49)
[2023-03-30] MEDS ORDERED: NIFEdipine E.R 60 MG TABLET PO ONE (07:50)
[2023-03-30] MEDS ORDERED: GABAPENTIN 100 MG CAPSULE ONE (07:50)
[2023-03-30] MEDS ORDERED: PANTOPRAZOLE 40 MG TABLET PO ONE (07:50)
[2023-03-30] MEDS ORDERED: BACLOFEN 10 MG TABLET (FP) ONE (07:50)
[2023-03-30] MEDS ORDERED: CLOPIDOGREL BISULFATE 75 MG TABLET (FP) ONE (07:50)
[2023-03-30] MEDS ORDERED: LIDOCAINE 5% TOPICAL PATCH ONE (07:51)
[2023-03-30] MEDS ORDERED: CARVEDILOL 6.25 MG TABLET (FP) ONE (07:51)
[2023-03-30] MEDS: CARVEDILOL 6.25 MG TABLET (FP) PO SCH ×2 (09:24→22:18)
[2023-03-30] MEDS: BACLOFEN 10 MG TABLET (FP) PO SCH ×2 (09:25→22:18)
[2023-03-30] MEDS: LIDOCAINE 5% TOPICAL PATCH TP SCH (09:25)
[2023-03-30] MEDS: NIFEdipine E.R 60 MG TABLET PO SCH (09:25)
[2023-03-30] MEDS: GABAPENTIN 100 MG CAPSULE PO SCH ×2 (09:25→22:18)
[2023-03-30] MEDS: PANTOPRAZOLE 40 MG TABLET PO SCH (09:25)
[2023-03-30] MEDS: FUROSEMIDE 40 MG TABLET (FP) PO SCH (09:25)
[2023-03-30] MEDS: CLOPIDOGREL BISULFATE 75 MG TABLET (FP) PO SCH (09:25)
[2023-03-30] MEDS ORDERED: ENOXAPARIN NA (PORCINE) 40 MG/0.4 ML DISP.SYRIN SQ SCH (10:00)
[2023-03-30] MEDS: NYSTATIN 500,000 UNITS/5 ML SUSPENSION PO SCH ×2 (12:51→18:20)
[2023-03-30] MEDS ORDERED: LACTATED RINGERS SOLUTION 1,000 ML/1,000 ML INFUS.BAG IV SCH (16:15)
[2023-03-30] MEDS ORDERED: PATIENT'S OWN MEDICATION (NON-FORMULARY) (Lidocaine Patch Removal 1 EACH Each) MC SCH (22:00)
[2023-03-30] MEDS: APIXABAN 2.5 MG TABLET PO SCH (22:18)
[2023-03-30] MEDS: ATORVASTATIN CA 80 MG TABLET (FP) PO SCH (22:18)
[2023-03-30] MEDS: LIDOCAINE PATCH REMOVAL MC SCH (22:19)
[2023-03-31] MEDS: NYSTATIN 500,000 UNITS/5 ML SUSPENSION PO SCH ×5 (00:04→17:03)
[2023-03-31 09:25] LABS: POTASSIUM 3.8 mmol/L (3.5-5.1)
[2023-03-31 09:26] LABS: CALCIUM 9.2 mg/dL (8.5-10.1)
[2023-03-31 09:27] LABS: BLOOD UREA NITROGEN 52.5 mg/dL (7-18)
[2023-03-31 09:30] LABS: CREATININE 2.6 mg/dL (0.55-1.3)
[2023-03-31] MEDS: NIFEdipine E.R 60 MG TABLET PO SCH (10:09)
[2023-03-31] MEDS: CARVEDILOL 6.25 MG TABLET (FP) PO SCH ×2 (10:09→21:08)
[2023-03-31] MEDS: CLOPIDOGREL BISULFATE 75 MG TABLET (FP) PO SCH (10:09)
[2023-03-31] MEDS: FUROSEMIDE 40 MG TABLET (FP) PO SCH (10:09)
[2023-03-31] MEDS: BACLOFEN 10 MG TABLET (FP) PO SCH ×2 (10:10→21:07)
[2023-03-31] MEDS: PANTOPRAZOLE 40 MG TABLET PO SCH (10:10)
[2023-03-31] MEDS: traMADol HCL 50 MG TABLET PO PRN (10:10)
[2023-03-31] MEDS: APIXABAN 2.5 MG TABLET PO SCH ×2 (10:10→21:07)
[2023-03-31] MEDS: GABAPENTIN 100 MG CAPSULE PO SCH ×2 (10:10→21:07)
[2023-03-31] MEDS: LIDOCAINE 5% TOPICAL PATCH TP SCH (10:11)
[2023-03-31] MEDS: LIDOCAINE PATCH REMOVAL MC SCH (21:07)
[2023-03-31] MEDS: ATORVASTATIN CA 80 MG TABLET (FP) PO SCH (21:07)
[2023-04-01] MEDS: NYSTATIN 500,000 UNITS/5 ML SUSPENSION PO SCH ×5 (00:14→18:28)
[2023-04-01] MEDS: traMADol HCL 50 MG TABLET PO PRN (06:23)
[2023-04-01] MEDS: APIXABAN 2.5 MG TABLET PO SCH ×2 (09:38→21:46)
[2023-04-01] MEDS: CLOPIDOGREL BISULFATE 75 MG TABLET (FP) PO SCH (09:38)
[2023-04-01] MEDS: NIFEdipine E.R 60 MG TABLET PO SCH (09:38)
[2023-04-01] MEDS: BACLOFEN 10 MG TABLET (FP) PO SCH ×2 (09:38→21:46)
[2023-04-01] MEDS: PANTOPRAZOLE 40 MG TABLET PO SCH (09:38)
[2023-04-01] MEDS: GABAPENTIN 100 MG CAPSULE PO SCH ×2 (09:38→21:46)
[2023-04-01] MEDS: LIDOCAINE 5% TOPICAL PATCH TP SCH (09:39)
[2023-04-01] MEDS: CARVEDILOL 6.25 MG TABLET (FP) PO SCH ×2 (09:39→21:45)
[2023-04-01] MEDS ORDERED: traMADol HCL 50 MG TABLET PO PRN (14:07)
[2023-04-01] MEDS: LIDOCAINE PATCH REMOVAL MC SCH (21:47)
[2023-04-01] MEDS: ATORVASTATIN CA 80 MG TABLET (FP) PO SCH (21:54)
[2023-04-02] MEDS: NYSTATIN 500,000 UNITS/5 ML SUSPENSION PO SCH ×4 (00:24→18:03)
[2023-04-02] MEDS: CLOPIDOGREL BISULFATE 75 MG TABLET (FP) PO SCH (10:41)
[2023-04-02] MEDS: PANTOPRAZOLE 40 MG TABLET PO SCH (10:41)
[2023-04-02] MEDS: GABAPENTIN 100 MG CAPSULE PO SCH ×2 (10:41→22:25)
[2023-04-02] MEDS: CARVEDILOL 6.25 MG TABLET (FP) PO SCH ×2 (10:41→22:25)
[2023-04-02] MEDS: NIFEdipine E.R 60 MG TABLET PO SCH (10:41)
[2023-04-02] MEDS: APIXABAN 2.5 MG TABLET PO SCH ×2 (10:41→22:25)
[2023-04-02] MEDS: BACLOFEN 10 MG TABLET (FP) PO SCH ×2 (10:41→22:25)
[2023-04-02] MEDS: LIDOCAINE 5% TOPICAL PATCH TP SCH (10:42)
[2023-04-02] MEDS: ATORVASTATIN CA 80 MG TABLET (FP) PO SCH (22:25)
[2023-04-02] MEDS: LIDOCAINE PATCH REMOVAL MC SCH (22:25)
[2023-04-03] MEDS: NYSTATIN 500,000 UNITS/5 ML SUSPENSION PO SCH ×4 (00:48→17:18)
[2023-04-03 08:59] LABS: POTASSIUM 4.1 mmol/L (3.5-5.1)
[2023-04-03 09:02] LABS: ALBUMIN 2.7 g/dl (3.4-5.0); BLOOD UREA NITROGEN 52.4 mg/dL (7-18); CALCIUM 8.9 mg/dL (8.5-10.1)
[2023-04-03 09:05] LABS: CREATININE 2.6 mg/dL (0.55-1.3)
[2023-04-03 09:07] LABS: BILIRUBIN,TOTAL 0.2 mg/dL (0.2-1); TOT PROT 7.1 g/dl (6.4-8.2)
[2023-04-03] MEDS: NIFEdipine E.R 60 MG TABLET PO SCH (09:22)
[2023-04-03] MEDS: CLOPIDOGREL BISULFATE 75 MG TABLET (FP) PO SCH (09:22)
[2023-04-03] MEDS: CARVEDILOL 6.25 MG TABLET (FP) PO SCH ×2 (09:22→21:49)
[2023-04-03] MEDS: APIXABAN 2.5 MG TABLET PO SCH ×2 (09:22→21:49)
[2023-04-03] MEDS: GABAPENTIN 100 MG CAPSULE PO SCH ×2 (09:22→21:49)
[2023-04-03] MEDS: LIDOCAINE 5% TOPICAL PATCH TP SCH (09:22)
[2023-04-03] MEDS: FUROSEMIDE 40 MG TABLET (FP) PO SCH (09:22)
[2023-04-03] MEDS: BACLOFEN 10 MG TABLET (FP) PO SCH ×2 (09:22→21:49)
[2023-04-03] MEDS: PANTOPRAZOLE 40 MG TABLET PO SCH (09:22)
[2023-04-03] MEDS: LIDOCAINE PATCH REMOVAL MC SCH (21:49)
[2023-04-03] MEDS: ATORVASTATIN CA 80 MG TABLET (FP) PO SCH (21:49)
[2023-04-04] MEDS: NYSTATIN 500,000 UNITS/5 ML SUSPENSION PO SCH ×4 (00:06→17:14)
[2023-04-04] MEDS: PANTOPRAZOLE 40 MG TABLET PO SCH (09:45)
[2023-04-04] MEDS: LIDOCAINE 5% TOPICAL PATCH TP SCH (09:45)
[2023-04-04] MEDS: APIXABAN 2.5 MG TABLET PO SCH ×2 (09:45→21:49)
[2023-04-04] MEDS: CARVEDILOL 6.25 MG TABLET (FP) PO SCH ×2 (09:45→21:49)
[2023-04-04] MEDS: GABAPENTIN 100 MG CAPSULE PO SCH ×2 (09:45→21:48)
[2023-04-04] MEDS: CLOPIDOGREL BISULFATE 75 MG TABLET (FP) PO SCH (09:46)
[2023-04-04] MEDS: BACLOFEN 10 MG TABLET (FP) PO SCH ×2 (09:46→21:49)
[2023-04-04] MEDS: NIFEdipine E.R 60 MG TABLET PO SCH (09:46)
[2023-04-04] MEDS: ACETAMINOPHEN 325 MG TABLET (FP) PO PRN (09:46)
[2023-04-04] MEDS: LIDOCAINE PATCH REMOVAL MC SCH (21:46)
[2023-04-04] MEDS: ATORVASTATIN CA 80 MG TABLET (FP) PO SCH (21:49)
[2023-04-05] MEDS: NYSTATIN 500,000 UNITS/5 ML SUSPENSION PO SCH ×4 (00:25→17:26)
[2023-04-05] MEDS: CARVEDILOL 6.25 MG TABLET (FP) PO SCH ×2 (10:46→22:52)
[2023-04-05] MEDS: GABAPENTIN 100 MG CAPSULE PO SCH ×2 (10:46→22:51)
[2023-04-05] MEDS: LIDOCAINE 5% TOPICAL PATCH TP SCH (10:46)
[2023-04-05] MEDS: BACLOFEN 10 MG TABLET (FP) PO SCH ×2 (10:46→22:52)
[2023-04-05] MEDS: APIXABAN 2.5 MG TABLET PO SCH ×2 (10:46→22:52)
[2023-04-05] MEDS: CLOPIDOGREL BISULFATE 75 MG TABLET (FP) PO SCH (10:46)
[2023-04-05] MEDS: NIFEdipine E.R 60 MG TABLET PO SCH (10:46)
[2023-04-05] MEDS: PANTOPRAZOLE 40 MG TABLET PO SCH (10:46)
[2023-04-05] MEDS: ACETAMINOPHEN 325 MG TABLET (FP) PO PRN ×2 (13:23→17:37)
[2023-04-05] MEDS: ATORVASTATIN CA 80 MG TABLET (FP) PO SCH (22:51)
[2023-04-05] MEDS: LIDOCAINE PATCH REMOVAL MC SCH (22:52)
[2023-04-06] MEDS: NYSTATIN 500,000 UNITS/5 ML SUSPENSION PO SCH ×4 (00:36→18:18)
[2023-04-06 02:29] VITALS: RESP 18
[2023-04-06] MEDS: APIXABAN 2.5 MG TABLET PO SCH ×2 (09:43→21:57)
[2023-04-06] MEDS: LIDOCAINE 5% TOPICAL PATCH TP SCH (09:43)
[2023-04-06] MEDS: GABAPENTIN 100 MG CAPSULE PO SCH ×2 (09:43→21:57)
[2023-04-06] MEDS: CARVEDILOL 6.25 MG TABLET (FP) PO SCH ×2 (09:43→21:58)
[2023-04-06] MEDS: PANTOPRAZOLE 40 MG TABLET PO SCH (09:43)
[2023-04-06] MEDS: CLOPIDOGREL BISULFATE 75 MG TABLET (FP) PO SCH (09:43)
[2023-04-06] MEDS: NIFEdipine E.R 60 MG TABLET PO SCH (09:43)
[2023-04-06] MEDS: BACLOFEN 10 MG TABLET (FP) PO SCH ×2 (09:43→21:58)
[2023-04-06] MEDS: POLYETHYLENE GLYCOL (HEALTHYLAX) 3350 17 GM PACKET PO SCH ×2 (15:40→21:58)
[2023-04-06] MEDS: ATORVASTATIN CA 80 MG TABLET (FP) PO SCH (21:58)
[2023-04-06] MEDS ORDERED: MIRTAZAPINE 15 MG TABLET (FP) PO SCH (22:00)
[2023-04-06] MEDS ORDERED: SENNOSIDES 8.8 MG/5 ML SYRUP PO SCH (22:00)
[2023-04-06] MEDS: LIDOCAINE PATCH REMOVAL MC SCH (22:10)
[2023-04-07] MEDS: NYSTATIN 500,000 UNITS/5 ML SUSPENSION PO SCH ×3 (00:10→12:04)
[2023-04-07] MEDS: CLOPIDOGREL BISULFATE 75 MG TABLET (FP) PO SCH (10:04)
[2023-04-07] MEDS: CARVEDILOL 6.25 MG TABLET (FP) PO SCH (10:04)
[2023-04-07] MEDS: NIFEdipine E.R 60 MG TABLET PO SCH (10:04)
[2023-04-07] MEDS: POLYETHYLENE GLYCOL (HEALTHYLAX) 3350 17 GM PACKET PO SCH (10:04)
[2023-04-07] MEDS: GABAPENTIN 100 MG CAPSULE PO SCH (10:04)
[2023-04-07] MEDS: LIDOCAINE 5% TOPICAL PATCH TP SCH (10:04)
[2023-04-07] MEDS: APIXABAN 2.5 MG TABLET PO SCH (10:04)
[2023-04-07] MEDS: PANTOPRAZOLE 40 MG TABLET PO SCH (10:04)
[2023-04-07] MEDS: BACLOFEN 10 MG TABLET (FP) PO SCH (12:04)
[2023-04-07 14:53] VITALS: BP 130/54; PULSE 103; TEMP 97.9
== END 2023-04-07 18:05 | DRG 682 ==
LOC: JER 18:49 → JERBED 21:52 → J4S 03-30 20:15
PROVIDERS: ADMIT Internal Medicine; ATTEND Internal Medicine
DX: N17.9 Acute kidney failure, unspecified (principal); E43 Unspecified severe protein-calorie malnutrition; I13.0 Hypertensive heart and chronic kidney disease with heart failure and stage 1 through stage 4 chronic kidney disease, or unspecified chronic kidney disease; Z68.1 Body mass index [BMI] 19.9 or less, adult; I50.32 Chronic diastolic (congestive) heart failure; J98.11 Atelectasis; E78.5 Hyperlipidemia, unspecified; I25.10 Atherosclerotic heart disease of native coronary artery without angina pectoris; J44.9 Chronic obstructive pulmonary disease, unspecified; I48.0 Paroxysmal atrial fibrillation; K57.90 Diverticulosis of intestine, part unspecified, without perforation or abscess without bleeding; D63.1 Anemia in chronic kidney disease; R62.7 Adult failure to thrive; I73.9 Peripheral vascular disease, unspecified; R53.1 Weakness; N18.9 Chronic kidney disease, unspecified; F03.90 Unspecified dementia, unspecified severity, without behavioral disturbance, psychotic disturbance, mood disturbance, and anxiety; Z95.5 Presence of coronary angioplasty implant and graft; Z86.73 Personal history of transient ischemic attack (TIA), and cerebral infarction without residual deficits
CPT/HCPCS: 0241U-QW; 36415; 70450-TC; 70496-TC; 70498-TC; 70551-TC; 71045-TC-FY; 71250-TC; 73610-TC-RT-FY; 73630-TC-RT-FY; 80048; 80053; 80061; 81003; 81241; 82962; 83735; 84100; 84484; 85025; 85610; 86038; 86160; 86225; 86235; 86850; 86900; 86901; 87086; 93926-TC; 93970-TC; 97116-GP; 97161-GP; 99285-25; J0475; J1644